=== PATIENT | female | born 1985 | race Caucasian/White ===

== ENCOUNTER 2017-08-24 09:05 | Emergency (ER) | payer OTHER, SELFPAY ==
[2017-08-24 09:16] VITALS: BP 135/104; PULSE 110; RESP 20; TEMP 36.5; O2SAT 95
[2017-08-24] MEDS: ONDANSETRON 4 MG/2 ML INJ IV (10:06)
[2017-08-24 10:08] LABS: INR 1.4 (0.9-1.3); Prothrombin Time 15.6 SECONDS (10.1-12.7)
[2017-08-24 10:10] LABS: Add Manual Diff / Slide Review NO; Basophils Percent Auto 0.9 % (0-2); Hematocrit 42.5 % (36-46); Hemoglobin 14.6 g/dL (12.0-16.0); Lymphocytes Percent Auto 20.8 % (25-40); Mean Corpuscular HGB Conc 34.4 % (30-36); Mean Corpuscular Hemoglobin 36.7 PG (26-34); Mean Corpuscular Volume 106.8 fL (80-100); Neutrophils Absolute Auto 3000 /uL (3000-5900); Neutrophils Percent Auto 63.3 % (50-75); PTT Partial Thromboplastin Tim 37 SECONDS (26.4-36.2); Platelet Count 152 X10^3/uL (150-400); Red Blood Cell Count 3.98 X10^6/uL (4.0-5.2); Red Cell Distribution Width 13.3 % (11.6-14.8); White Blood Cell Count 4.7 X10^3/uL (4.5-11.0)
[2017-08-24 10:13] LABS: Alanine Aminotransferase 58 IU/L (9-52); Albumin 2.4 g/dL (3.5-5.0); Albumin Globulin Ratio 0.8 (1.0-2.8); Alkaline Phosphatase 171 U/L (38-126); Aspartate Aminotransferase 129 IU/L (14-36); Bilirubin Total 1.4 mg/dL (0.2-1.3); Calcium 8.3 mg/dL (8.4-10.2); Estimated Glomerular Filt Rate > 60.0 mL/min (>60); Glucose 75 mg/dL (70-100); HEMOLYSIS 16 (0-50); Lipase 33 U/L (23-300); Potassium 3.6 mmol/L (3.4-5.1); Sodium 141 mmol/L (137-145); Total Protein 5.4 g/dL (6.3-8.2)
[2017-08-24 10:37] VITALS: BP 130/96; PULSE 92; RESP 18; TEMP 36.8; O2SAT 95
--- NOTE | 2017-08-24 11:08 | DI.US.S_ITS ---
PROCEDURE: US ABDOMEN COMPLETE INDICATIONS: new onset asciites - liver and pancreas? TECHNIQUE: Real-time scanning was performed of the abdominal and retroperitoneal organs, with image documentation. COMPARISON: [facility], US, ABDOMEN COMPLETE, 08/15/2017, 11:32. [facility], CT, ABDOMEN/PELVIS WITH CONTRAST, 08/15/2017, 10:16. FINDINGS: Liver: The liver is measuring within the upper limits of normal for size and is noted to be diffusely echogenic, which does result in difficulty evaluating the liver for deep liver lesions. No large liver lesions are identified. Gallbladder: The gallbladder is noted to be enlarged, similar to the prior CT. No gallbladder wall thickening, pericholecystic fluid, or cholelithiasis is evident. Biliary ducts: The biliary ducts are not adequately seen related to diffusely increased echogenicity of the liver. Pancreas: Obscured by bowel gas. Spleen: Spleen is normal in size and homogeneous in echotexture. Kidneys: Kidneys are normal in size and echotexture. Right kidney measures 10.6 cm long; left kidney measures 11.9 cm long. No hydronephrosis or nephrolithiasis. No solid masses. Aorta: Obscured by bowel gas. Iliacs: Obscured by bowel gas. IVC: Obscured by bowel gas. Miscellaneous: Moderate amount of abdominal ascites is noted. IMPRESSION: 1. Prominent echogenic liver is most suggestive of hepatic steatosis. 2. Enlarged gallbladder without cholecystitis or sonographic findings of acute inflammation is similar to the prior study. 3. Mild to moderate upper abdominal ascites. Dictated by: Charlie Still M.D. on 08/24/2017 at 10:55 Approved by: Charlie Still M.D. on 08/24/2017 at 10:59
--- NOTE | 2017-08-24 12:26 | ED_ITS ---
HPI - Abdominal Pain General Chief Complaint: Abdominal Pain Stated Complaint: PT STATES LIVER FAILURE, THROWING UP History of Present Illness HPI narrative: HPI 32-year-old female history of EtOH abuse and recently diagnosed ascites presents for further evaluation after having recurrent abdominal swelling and running out of Lasix. Patient reports that she was seen in the emergency department on 08/15/17 prescribed 3 doses of Lasix instructed to follow-up with her PCP. The patient has been unable to follow up with a PCP. The patient returned as she has had a mild worsening of symptoms. M/S/F/SocHx notable for: please see HPI; remainder reviewed with patient and in chart. ROS: Negative constitutional, eye, cardiovascular, pulmonary, GI, , MSK, skin , neurologic, psychiatric, endocrine unless noted in the HPI. Exam Gen: Pleasant, non-toxic appearing, resting comfortably. HEENT: NC, AT, PEERL, EOMI. Resp: Clear to auscultation bilaterally, normal work of breathing, no accessory muscle usage. Card: Regular rate and rhythm with no murmurs, rubs, or gallops, extremities warm and well perfused. GI: nontender to palpation throughout all quadrants, no rebound, no guarding, mild distention with a slight fluid wave appreciated. Bedside ultrasound with small volume ascites no clear drainable fluid collections. : No suprapubic tenderness to palpation. MSK: No visible deformities, strength and tone without visually appreciable deficit. Skin: Normal color with no visible lesions. Neuro: AO x 3, no facial asymmetry, vision and hearing WNL. Psych: Mood and affect appropriate. Labs / Imaging: WBC 4.7, hemoglobin 14.6, PT/I and R1 .4, aPTT 37, sodium 141, potassium 3.6, creatinine 0.5, AST 129, ALT 58, albumin 0.8 US abdomen: prominent echogenic liver is most suggestive of hepatic steatosis. Large gallbladder without cholesystitis or sonographic findings of acute inflammation similar to the prior study. Mild to moderate upper abdominal ascites. MDM Previous chart, nursing note, labs, imaging, and vitals reviewed. A: 32-year-old female history of EtOH abuse and recently diagnosed ascites presents for further evaluation after having recurrent abdominal swelling and running out of Lasix. DDx & Evaluation: given history and exam tentatively suspect alcoholic cirrhosis , however the patient will require further evaluation - on an outpatient basis - to further characterize her disease process. Patient was prescribed 5 doses of Spironolactone 100 mg and Lasix 40 mg to be taken daily to initiate diuresis of her ascites. Exam and labs without evidence of SBP. Guard with instructions to follow-up within 2 to 4 days with a primary care physician, resources provided. Impression: ascites (please reference below for remainder of encounter information) Related Data Home Medications Medication Instructions Recorded Confirmed diphenhydramine HCl [Benadryl 50 mg PO Q6HP PRN #0 02/16/16 08/24/17 Allergy] Allergies Allergy/AdvReac Type Severity Reaction Status Date / Time acetaminophen Allergy Intermediate Abdominal Verified 08/24/17 10:47 Pain NSAIDS (Non-Steroidal Allergy Intermediate Abdominal Verified 08/24/17 10:47 Anti-Inflamma Pain oxycodone Allergy Intermediate Abdominal Verified 08/24/17 10:47 Pain PFSH Medical History Alcoholism (Acute) Cirrhosis of liver (Acute) Social History Smoking Status: Current every day smoker MDM - Abdominal Pain Lab Data Result diagrams: 08/24/17 09:50 08/24/17 09:50 Lab Results 08/24/17 08/24/17 08/24/17 Range/Units 09:50 09:50 09:50 WBC 4.7 (4.5-11.0) X10^3/uL RBC 3.98 L (4.0-5.2) X10^6/uL Hgb 14.6 (12.0-16.0) g/dL Hct 42.5 (36-46) % MCV 106.8 H (80-100) fL MCH 36.7 H (26-34) PG MCHC 34.4 (30-36) % RDW 13.3 (11.6-14.8) % Plt Count 152 (150-400) X10^3/uL Neut % (Auto) 63.3 (50-75) % Lymph % (Auto) 20.8 L (25-40) % [place] % (Auto) 13.0 (3-14) % Eos % (Auto) 2.0 (2-4) % Baso % (Auto) 0.9 (0-2) % Neut # (Auto) 3000 (7998-5200) /uL PT 15.6 H (10.1-12.7) SECONDS INR 1.4 H (0.9-1.3) APTT 37 H (26.4-36.2) SECONDS Sodium 141 (137-145) mmol/L Potassium 3.6 (3.4-5.1) mmol/L Chloride 106.0 (98-107) mmol/L Carbon Dioxide 29.0 (22-32) mmol/L BUN 5.0 L (7-17) mg/dL Creatinine 0.50 L (0.52-1.04) mg/dL Estimated GFR > 60.0 (>60) mL/min BUN/Creatinine Ratio 10.0 (6-22) Glucose 75 (70-100) mg/dL Calcium 8.3 L (8.4-10.2) mg/dL Total Bilirubin 1.4 H (0.2-1.3) mg/dL AST 129 H (14-36) IU/L ALT 58 H (9-52) IU/L Alkaline Phosphatase 171 H (38-126) U/L Total Protein 5.4 L (6.3-8.2) g/dL Albumin 2.4 L (3.5-5.0) g/dL Globulin 3.0 (1.7-4.1) g/dL Albumin/Globulin Ratio 0.8 L (1.0-2.8) Lipase 33 (23-300) U/L Discharge Plan Departure Prescriptions: No Action diphenhydramine HCl [Benadryl Allergy] 25 MG tablet 50 mg PO Q6HP PRN (Reason: Allergic Symptoms) Qty: 0 RF: 0
[2017-08-24 12:53] VITALS: BP 126/97; PULSE 91; RESP 14; O2SAT 95
[2017-08-24 13:26] VITALS: BP 126/97; PULSE 91; RESP 18; TEMP 36.8; O2SAT 98
== END 2017-08-24 13:26 | disposition home or self-care (01) ==
PROVIDERS: Emergency Provider Emergency Medicine
DX: R18.8 Other ascites (principal)
CPT/HCPCS: 36591; 76700; 80053; 83690; 85025; 85610; 85730; 96374; 99282; 99284; J2405

== ENCOUNTER 2017-09-01 09:52 | Emergency (ER) | payer OTHER, SELFPAY ==
--- NOTE | 2017-09-01 10:05 | ED.ABDPAIN ---
HPI - Abdominal Pain General Chief Complaint: Abdominal Pain Stated Complaint: states ascites and hemorrhoids Time Seen by Provider: 09/01/17 10:02 Source: patient and family Mode of arrival: ambulatory Limitations: no limitations History of Present Illness HPI narrative: Patient presents to the emergency department today with a chief complaint multiple episodes of watery diarrhea, approximately every hour, since last night. She is now bit dizzy and lightheaded and feels unwell. Additionally she has large painful hemorrhoids that have been present for the past few days. MD complaint: abdominal pain Onset (ago): day(s) Pain Consistency: constant Location: diffuse Severity: moderate Quality: cramping Radiation: none Migration to: no migration Relieving factors: nothing Exacerbating factors: nothing Associated symptoms: nausea, diarrhea and chills Related Data Home Medications Medication Instructions Recorded Confirmed diphenhydramine HCl [Benadryl 50 mg PO Q6HP PRN #0 02/16/16 09/01/17 Allergy] Previous Rx's Medication Instructions Recorded furosemide [Lasix] 40 mg PO DAILY #5 tab 08/24/17 spironolactone 100 mg PO DAILY #5 tab 08/24/17 hydrocortisone [Anusol-HC] 1 applictn NC BID-QID PRN #28.35 09/01/17 gram Allergies Allergy/AdvReac Type Severity Reaction Status Date / Time acetaminophen Allergy Intermediate Abdominal Verified 09/01/17 10:17 Pain NSAIDS (Non-Steroidal Allergy Intermediate Abdominal Verified 09/01/17 10:17 Anti-Inflamma Pain oxycodone Allergy Intermediate Abdominal Verified 09/01/17 10:17 Pain Review of Systems Review of Systems All systems reviewed & are unremarkable except as noted in HPI and below Constitutional Denies chills, Denies fever(s), Denies lethargy and Denies weakness Eyes Denies change in vision, Denies eye discharge, Denies irritation and Denies loss of vision Cardiovascular Denies chest pain, Denies irregular heart rhythm, Denies lightheadedness, Denies palpitations and Denies orthopnea Gastrointestinal Gastrointestinal: Denies abdominal pain, Denies change in bowel habits, Reports cramping, Reports diarrhea, Reports nausea and Denies vomiting Genitourinary Denies hematuria, Denies flank pain, Denies urinary incontinence and Denies urinary urgency Musculoskeletal Denies back pain, Denies muscle weakness, Denies numbness and Denies tingling Integumentary/Breasts Denies pruritus, Denies erythema, Denies rash and Denies wounds Neurologic Denies confusion, Denies loss of vision, Denies numbness, Denies tingling and Denies weakness Psychiatric Denies anxiety, Denies confusion, Denies depression, Denies homicidal ideation and Denies suicidal ideation Endocrine Denies palpitations Hematologic/Lymphatic Denies easy bruising [facility] Medical History Alcoholism (Acute) Cirrhosis of liver (Acute) Social History Smoking Status: Current every day smoker Exam Initial Vital Signs Initial Vital Signs: Vital Signs Temperature 98.4 F 09/01/17 10:06 Pulse Rate 126 H 09/01/17 10:06 Respiratory Rate 22 09/01/17 10:06 Blood Pressure 147/116 H 09/01/17 10:06 Pulse Oximetry 100 09/01/17 10:06 Const General: cooperative, well developed, No well groomed, acute distress and in distress Nutritional Appearance: well nourished Orientation: alert, awake, oriented x3 and not confused [place] Head: normocephalic and atraumatic Ears: external ears normal and TM's normal bilaterally Nose: external nose normal and No nasal discharge Face and sinus: sinuses nontender, face symmetric, no sinus tenderness and No dry mucous membranes Mouth: oral mucosae normal and moist mucous membranes Teeth and gingiva: dentition normal Throat: tonsils normal and uvula midline Chest Chest: normal inspection of the chest Cardio Rate: regular rate Rhythm: regular rhythm Heart Sounds: no click, no gallops, no murmurs and no rubs Pulses: normal peripheral pulses GI Inspection: distended Palpation: soft, no hepatosplenomegaly, No guarding, No pulsatile mass and No tender Auscultation: normal bowel sounds Rectal Exam: visual inspection abnormal Other: Large external hemorrhoids, not thrombosed or bleeding Back/Spine/Pelvis Back: No CVA tenderness Cervical Spine: cervical ROM normal and No pain with cervical ROM Thoracic/Lumbar Spine: thoracic and lumbar spine normal to inspection Neuro General: alert, oriented x3, gait normal and no focal motor deficits Speech: speech normal Sensory Exam: no sensory deficits noted Extrem General: full ROM, no clubbing, cyanosis or edema, no pedal edema and no calf tenderness Course Orders Ordered: ED Orders 09/01/17 10:17 US abdomen limited Stat 09/01/17 10:25 Complete Blood Count AUTO DIFF Stat Comprehensive Metabolic Panel Stat Lipase Stat 09/01/17 10:35 Lactate (Lactic Acid) Stat Prothrombin Time INR Stat 09/01/17 11:14 Urine Microscopic Stat 09/01/17 11:54 Stool Culture Stat Discontinued Medications Hydromorphone HCl (Dilaudid) 1 mg IV NOW ONE Stop: 09/01/17 10:49 Last Admin: 09/01/17 10:54 Dose: Hydromorphone HCl (Dilaudid) 1 mg IV NOW ONE Stop: 09/01/17 10:56 Last Admin: 09/01/17 10:56 Dose: 1 mg Sodium Chloride (Normal Saline 0.9%) 1,000 mls @ 1,000 mls/hr IV NOW KEYLA Last Infusion: 09/01/17 11:48 Dose: 0 mls/hr Admin: 09/01/17 10:35 Dose: 1,000 mls/hr Sodium Chloride (Normal Saline 0.9%) 1,000 mls @ 1,000 mls/hr IV BOLUS ONE Stop: 09/01/17 12:47 Last Infusion: 09/01/17 13:00 Dose: 0 mls/hr Admin: 09/01/17 11:55 Dose: 1,000 mls/hr Lidocaine HCl (Xylocaine Jelly 2%) 1 applic TOP NOW ONE Stop: 09/01/17 10:32 Last Admin: 09/01/17 10:35 Dose: 1 applic Vital Signs - 8 hr 09/01/17 10:06 09/01/17 11:02 09/01/17 11:34 Temperature 98.4 F Pulse Rate 126 H 98 H 98 H Respiratory Rate 22 18 16 Blood Pressure 147/116 H Blood Pressure [Left Arm] 134/108 H 129/103 H Pulse Oximetry 100 99 95 09/01/17 12:05 09/01/17 12:34 09/01/17 13:47 Temperature 98.1 F Pulse Rate 97 H 100 H 90 Respiratory Rate 15 16 14 Blood Pressure Blood Pressure [Left Arm] 128/99 H 118/95 H 142/98 H Pulse Oximetry 96 95 99 MDM - Abdominal Pain Differential Diagnosis Differential diagnosis: Likely abdominal pain and gastroenteritis Medical Records Attestation: I reviewed the patient's medical records. Lab Data Attestation: I reviewed the patient's lab results. Result diagrams: 09/01/17 10:25 09/01/17 10:25 Lab Results 09/01/17 09/01/17 09/01/17 Range/Units 10:25 10:25 10:35 WBC 6.5 (4.5-11.0) X10^3/uL RBC 4.24 (4.0-5.2) X10^6/uL Hgb 15.4 (12.0-16.0) g/dL Hct 44.5 (36-46) % MCV 105.1 H (80-100) fL MCH 36.4 H (26-34) PG MCHC 34.6 (30-36) % RDW 12.9 (11.6-14.8) % Plt Count 170 (150-400) X10^3/uL Neut % (Auto) 68.8 (50-75) % Lymph % (Auto) 17.0 L (25-40) % [place] % (Auto) 10.7 (3-14) % Eos % (Auto) 3.1 (2-4) % Baso % (Auto) 0.4 (0-2) % Neut # (Auto) 4500 (4171-0926) /uL PT 16.1 H (10.1-12.7) SECONDS INR 1.5 H (0.9-1.3) Sodium 140 (137-145) mmol/L Potassium 4.4 (3.4-5.1) mmol/L Chloride 107.0 (98-107) mmol/L Carbon Dioxide 25.0 (22-32) mmol/L BUN 3.0 L (7-17) mg/dL Creatinine 0.50 L (0.52-1.04) mg/dL Estimated GFR > 60.0 (>60) mL/min BUN/Creatinine Ratio 6.0 (6-22) Glucose 92 (70-100) mg/dL Lactate (0.7-2.1) mmol/L Calcium 8.3 L (8.4-10.2) mg/dL Total Bilirubin 1.5 H (0.2-1.3) mg/dL AST 264 H (14-36) IU/L ALT 71 H (9-52) IU/L Alkaline Phosphatase 192 H (38-126) U/L Total Protein 6.2 L (6.3-8.2) g/dL Albumin 2.8 L (3.5-5.0) g/dL Globulin 3.4 (1.7-4.1) g/dL Albumin/Globulin Ratio 0.8 L (1.0-2.8) Lipase 61 D (23-300) U/L Urine WBC (0-5/HPF) Ur Squamous Epith Cells Urine Mucus (Negative) Ur Culture Indicated? Micro UA Comment 09/01/17 09/01/17 Range/Units 10:35 10:55 WBC (4.5-11.0) X10^3/uL RBC (4.0-5.2) X10^6/uL Hgb (12.0-16.0) g/dL Hct (36-46) % MCV (80-100) fL MCH (26-34) PG MCHC (30-36) % RDW (11.6-14.8) % Plt Count (150-400) X10^3/uL Neut % (Auto) (50-75) % Lymph % (Auto) (25-40) % [place] % (Auto) (3-14) % Eos % (Auto) (2-4) % Baso % (Auto) (0-2) % Neut # (Auto) (7760-7126) /uL PT (10.1-12.7) SECONDS INR (0.9-1.3) Sodium (137-145) mmol/L Potassium (3.4-5.1) mmol/L Chloride (98-107) mmol/L Carbon Dioxide (22-32) mmol/L BUN (7-17) mg/dL Creatinine (0.52-1.04) mg/dL Estimated GFR (>60) mL/min BUN/Creatinine Ratio (6-22) Glucose (70-100) mg/dL Lactate 2.7 H (0.7-2.1) mmol/L Calcium (8.4-10.2) mg/dL Total Bilirubin (0.2-1.3) mg/dL AST (14-36) IU/L ALT (9-52) IU/L Alkaline Phosphatase (38-126) U/L Total Protein (6.3-8.2) g/dL Albumin (3.5-5.0) g/dL Globulin (1.7-4.1) g/dL Albumin/Globulin Ratio (1.0-2.8) Lipase (23-300) U/L Urine WBC 5-10/hpf H (0-5/HPF) Ur Squamous Epith Cells 5-10 /hpf H Urine Mucus 2+ H (Negative) Ur Culture Indicated? Cult not indicated Micro UA Comment Not Reportable Discharge Plan Departure Patient Disposition: Home, Self-Care Clinical Impression: Hemorrhoid, Diarrhea Discharge Date/Time: 09/01/17 13:50 Interventions: ED Discharge Assessment Last Done: 09/01/17 13:48 Instructions: DI for Hemorrhoids Prescriptions: New hydrocortisone [Anusol-HC] 2.5 % cream with perineal applicator 1 applictn NC BID-QID PRN (Reason: hemorrhoids) Qty: 28.35 RF: 0 No Action diphenhydramine HCl [Benadryl Allergy] 25 MG tablet 50 mg PO Q6HP PRN (Reason: Allergic Symptoms) Qty: 0 RF: 0 furosemide [Lasix] 40 mg tablet 40 mg PO DAILY Qty: 5 RF: 0 spironolactone 100 mg tablet 100 mg PO DAILY Qty: 5 RF: 0 Referrals: Zay Riggs MD [Physician] - Dayne Merino MD [Non-Staff] -
[2017-09-01 10:06] VITALS: BP 147/116; PULSE 126; RESP 22; TEMP 36.9; O2SAT 100; BMI 26.5
--- NOTE | 2017-09-01 10:17 | DI.US.S_ITS ---
PROCEDURE: US ABDOMEN LIMITED INDICATIONS: ascites, worse TECHNIQUE: Real-time focused scanning was performed of the abdomen, with image documentation. COMPARISON: [facility], US, US ABDOMEN COMPLETE, 08/24/2017, 11:26. [facility], US, ABDOMEN COMPLETE, 08/15/2017, 11:32. [facility], CT, ABDOMEN/PELVIS WITH CONTRAST, 08/15/2017, 10:16. [facility], CR, ABDOMEN ACUTE SERIES, 12/27/2016, 19:40. FINDINGS: A moderate to large amount of abdominal ascites is identified within all 4 quadrants. No loculated fluid collections are identified. The amount of fluid within the peritoneal cavity is similar to the prior examination, but may be slightly more prominent. IMPRESSION: Extensive abdominal ascites. Dictated by: Charlie Still M.D. on 09/01/2017 at 10:20 Approved by: Charlie Still M.D. on 09/01/2017 at 10:21
[2017-09-01 10:35] LABS: Add Manual Diff / Slide Review NO; Basophils Percent Auto 0.4 % (0-2); Eosinophils Percent Auto 3.1 % (2-4); Hematocrit 44.5 % (36-46); Hemoglobin 15.4 g/dL (12.0-16.0); Mean Corpuscular HGB Conc 34.6 % (30-36); Mean Corpuscular Hemoglobin 36.4 PG (26-34); Mean Corpuscular Volume 105.1 fL (80-100); Monocytes Percent Auto 10.7 % (3-14); Neutrophils Absolute Auto 4500 /uL (3000-5900); Neutrophils Percent Auto 68.8 % (50-75); Platelet Count 170 X10^3/uL (150-400); Red Blood Cell Count 4.24 X10^6/uL (4.0-5.2); Red Cell Distribution Width 12.9 % (11.6-14.8); White Blood Cell Count 6.5 X10^3/uL (4.5-11.0)
[2017-09-01] MEDS: LIDOCAINE JELLY 2% 5 ML 1 APPLIC TOP (10:35)
[2017-09-01] MEDS: SODIUM CHLORIDE 0.9% 1,000 ML 1000 ML IV ×2 (10:35→11:55)
[2017-09-01 10:45] LABS: Alanine Aminotransferase 71 IU/L (9-52); Albumin 2.8 g/dL (3.5-5.0); Albumin Globulin Ratio 0.8 (1.0-2.8); Alkaline Phosphatase 192 U/L (38-126); Aspartate Aminotransferase 264 IU/L (14-36); Bilirubin Total 1.5 mg/dL (0.2-1.3); Calcium 8.3 mg/dL (8.4-10.2); Estimated Glomerular Filt Rate > 60.0 mL/min (>60); Globulin 3.4 g/dL (1.7-4.1); Glucose 92 mg/dL (70-100); Lipase 61 U/L (23-300); Potassium 4.4 mmol/L (3.4-5.1); Sodium 140 mmol/L (137-145); Total Protein 6.2 g/dL (6.3-8.2)
[2017-09-01 10:46] LABS: HEMOLYSIS 111 (0-50)
[2017-09-01 10:48] LABS: INR 1.5 (0.9-1.3); Prothrombin Time 16.1 SECONDS (10.1-12.7)
[2017-09-01 10:52] LABS: Lactate (Lactic Acid) 2.7 mmol/L (0.7-2.1)
[2017-09-01] MEDS: HYDROMORPHONE 0.5 MG INJ 1 MG IV (10:56)
[2017-09-01 11:02] VITALS: BP 134/108; PULSE 98; RESP 18; O2SAT 99
[2017-09-01 11:27] LABS: Culture Indicated Urine Cult Not Indicated; Mucus Urine 2+ (Negative); Squamous Epithelial Cell Urine 5-10 /HPF; WBC Urine 5-10/HPF (0-5/HPF)
[2017-09-01 11:34] VITALS: BP 129/103; PULSE 98; RESP 16; O2SAT 95
[2017-09-01 12:05] VITALS: BP 128/99; PULSE 97; RESP 15; O2SAT 96
[2017-09-01 12:34] VITALS: BP 118/95; PULSE 100; RESP 16; O2SAT 95
--- NOTE | 2017-09-01 13:04 | PC.NURSE ---
One episode of stool during admission to ED. Denies complaints at this time. Verbalized understanding of need to get PCP and GI follow up for liver concerns.
[2017-09-01 13:47] VITALS: BP 142/98; PULSE 90; RESP 14; TEMP 36.7; O2SAT 99
[2017-09-01 14:42] LABS: Reflexed Lactate in 2 Hours Y
--- NOTE | 2017-09-01 14:48 | ED_ITS ---
HPI - Abdominal Pain General Chief Complaint: Abdominal Pain Stated Complaint: states ascites and hemorrhoids Time Seen by Provider: 09/01/17 10:02 Source: patient and family Mode of arrival: ambulatory Limitations: no limitations History of Present Illness HPI narrative: Patient presents to the emergency department today with a chief complaint multiple episodes of watery diarrhea, approximately every hour, since last night. She is now bit dizzy and lightheaded and feels unwell. Additionally she has large painful hemorrhoids that have been present for the past few days. MD complaint: abdominal pain Onset (ago): day(s) Pain Consistency: constant Location: diffuse Severity: moderate Quality: cramping Radiation: none Migration to: no migration Relieving factors: nothing Exacerbating factors: nothing Associated symptoms: nausea, diarrhea and chills Related Data Home Medications Medication Instructions Recorded Confirmed diphenhydramine HCl [Benadryl 50 mg PO Q6HP PRN #0 02/16/16 09/01/17 Allergy] Previous Rx's Medication Instructions Recorded furosemide [Lasix] 40 mg PO DAILY #5 tab 08/24/17 spironolactone 100 mg PO DAILY #5 tab 08/24/17 hydrocortisone [Anusol-HC] 1 applictn ND BID-QID PRN #28.35 09/01/17 gram Allergies Allergy/AdvReac Type Severity Reaction Status Date / Time acetaminophen Allergy Intermediate Abdominal Verified 09/01/17 10:17 Pain NSAIDS (Non-Steroidal Allergy Intermediate Abdominal Verified 09/01/17 10:17 Anti-Inflamma Pain oxycodone Allergy Intermediate Abdominal Verified 09/01/17 10:17 Pain Review of Systems Review of Systems All systems reviewed & are unremarkable except as noted in HPI and below Constitutional Denies chills, Denies fever(s), Denies lethargy and Denies weakness Eyes Denies change in vision, Denies eye discharge, Denies irritation and Denies loss of vision Cardiovascular Denies chest pain, Denies irregular heart rhythm, Denies lightheadedness, Denies palpitations and Denies orthopnea Gastrointestinal Gastrointestinal: Denies abdominal pain, Denies change in bowel habits, Reports cramping, Reports diarrhea, Reports nausea and Denies vomiting Genitourinary Denies hematuria, Denies flank pain, Denies urinary incontinence and Denies urinary urgency Musculoskeletal Denies back pain, Denies muscle weakness, Denies numbness and Denies tingling Integumentary/Breasts Denies pruritus, Denies erythema, Denies rash and Denies wounds Neurologic Denies confusion, Denies loss of vision, Denies numbness, Denies tingling and Denies weakness Psychiatric Denies anxiety, Denies confusion, Denies depression, Denies homicidal ideation and Denies suicidal ideation Endocrine Denies palpitations Hematologic/Lymphatic Denies easy bruising [facility] Medical History Alcoholism (Acute) Cirrhosis of liver (Acute) Social History Smoking Status: Current every day smoker Exam Initial Vital Signs Initial Vital Signs: Vital Signs Temperature 98.4 F 09/01/17 10:06 Pulse Rate 126 H 09/01/17 10:06 Respiratory Rate 22 09/01/17 10:06 Blood Pressure 147/116 H 09/01/17 10:06 Pulse Oximetry 100 09/01/17 10:06 Const General: cooperative, well developed, No well groomed, acute distress and in distress Nutritional Appearance: well nourished Orientation: alert, awake, oriented x3 and not confused HENMO Head: normocephalic and atraumatic Ears: external ears normal and TM's normal bilaterally Nose: external nose normal and No nasal discharge Face and sinus: sinuses nontender, face symmetric, no sinus tenderness and No dry mucous membranes Mouth: oral mucosae normal and moist mucous membranes Teeth and gingiva: dentition normal Throat: tonsils normal and uvula midline Chest Chest: normal inspection of the chest Cardio Rate: regular rate Rhythm: regular rhythm Heart Sounds: no click, no gallops, no murmurs and no rubs Pulses: normal peripheral pulses GI Inspection: distended Palpation: soft, no hepatosplenomegaly, No guarding, No pulsatile mass and No tender Auscultation: normal bowel sounds Rectal Exam: visual inspection abnormal Other: Large external hemorrhoids, not thrombosed or bleeding Back/Spine/Pelvis Back: No CVA tenderness Cervical Spine: cervical ROM normal and No pain with cervical ROM Thoracic/Lumbar Spine: thoracic and lumbar spine normal to inspection Neuro General: alert, oriented x3, gait normal and no focal motor deficits Speech: speech normal Sensory Exam: no sensory deficits noted Extrem General: full ROM, no clubbing, cyanosis or edema, no pedal edema and no calf tenderness Course Orders Ordered: ED Orders 09/01/17 10:17 US abdomen limited Stat 09/01/17 10:25 Complete Blood Count AUTO DIFF Stat Comprehensive Metabolic Panel Stat Lipase Stat 09/01/17 10:35 Lactate (Lactic Acid) Stat Prothrombin Time INR Stat 09/01/17 11:14 Urine Microscopic Stat 09/01/17 11:54 Stool Culture Stat Discontinued Medications Hydromorphone HCl (Dilaudid) 1 mg IV NOW ONE Stop: 09/01/17 10:49 Last Admin: 09/01/17 10:54 Dose: Hydromorphone HCl (Dilaudid) 1 mg IV NOW ONE Stop: 09/01/17 10:56 Last Admin: 09/01/17 10:56 Dose: 1 mg Sodium Chloride (Normal Saline 0.9%) 1,000 mls @ 1,000 mls/hr IV NOW KEYLA Last Infusion: 09/01/17 11:48 Dose: 0 mls/hr Admin: 09/01/17 10:35 Dose: 1,000 mls/hr Sodium Chloride (Normal Saline 0.9%) 1,000 mls @ 1,000 mls/hr IV BOLUS ONE Stop: 09/01/17 12:47 Last Infusion: 09/01/17 13:00 Dose: 0 mls/hr Admin: 09/01/17 11:55 Dose: 1,000 mls/hr Lidocaine HCl (Xylocaine Jelly 2%) 1 applic TOP NOW ONE Stop: 09/01/17 10:32 Last Admin: 09/01/17 10:35 Dose: 1 applic Vital Signs - 8 hr 09/01/17 10:06 09/01/17 11:02 09/01/17 11:34 Temperature 98.4 F Pulse Rate 126 H 98 H 98 H Respiratory Rate 22 18 16 Blood Pressure 147/116 H Blood Pressure [Left Arm] 134/108 H 129/103 H Pulse Oximetry 100 99 95 09/01/17 12:05 09/01/17 12:34 09/01/17 13:47 Temperature 98.1 F Pulse Rate 97 H 100 H 90 Respiratory Rate 15 16 14 Blood Pressure Blood Pressure [Left Arm] 128/99 H 118/95 H 142/98 H Pulse Oximetry 96 95 99 MDM - Abdominal Pain Differential Diagnosis Differential diagnosis: Likely abdominal pain and gastroenteritis Medical Records Attestation: I reviewed the patient's medical records. Lab Data Attestation: I reviewed the patient's lab results. Result diagrams: 09/01/17 10:25 09/01/17 10:25 Lab Results 09/01/17 09/01/17 09/01/17 Range/Units 10:25 10:25 10:35 WBC 6.5 (4.5-11.0) X10^3/uL RBC 4.24 (4.0-5.2) X10^6/uL Hgb 15.4 (12.0-16.0) g/dL Hct 44.5 (36-46) % MCV 105.1 H (80-100) fL MCH 36.4 H (26-34) PG MCHC 34.6 (30-36) % RDW 12.9 (11.6-14.8) % Plt Count 170 (150-400) X10^3/uL Neut % (Auto) 68.8 (50-75) % Lymph % (Auto) 17.0 L (25-40) % [place] % (Auto) 10.7 (3-14) % Eos % (Auto) 3.1 (2-4) % Baso % (Auto) 0.4 (0-2) % Neut # (Auto) 4500 (3018-7207) /uL PT 16.1 H (10.1-12.7) SECONDS INR 1.5 H (0.9-1.3) Sodium 140 (137-145) mmol/L Potassium 4.4 (3.4-5.1) mmol/L Chloride 107.0 (98-107) mmol/L Carbon Dioxide 25.0 (22-32) mmol/L BUN 3.0 L (7-17) mg/dL Creatinine 0.50 L (0.52-1.04) mg/dL Estimated GFR > 60.0 (>60) mL/min BUN/Creatinine Ratio 6.0 (6-22) Glucose 92 (70-100) mg/dL Lactate (0.7-2.1) mmol/L Calcium 8.3 L (8.4-10.2) mg/dL Total Bilirubin 1.5 H (0.2-1.3) mg/dL AST 264 H (14-36) IU/L ALT 71 H (9-52) IU/L Alkaline Phosphatase 192 H (38-126) U/L Total Protein 6.2 L (6.3-8.2) g/dL Albumin 2.8 L (3.5-5.0) g/dL Globulin 3.4 (1.7-4.1) g/dL Albumin/Globulin Ratio 0.8 L (1.0-2.8) Lipase 61 D (23-300) U/L Urine WBC (0-5/HPF) Ur Squamous Epith Cells Urine Mucus (Negative) Ur Culture Indicated? Micro UA Comment 09/01/17 09/01/17 Range/Units 10:35 10:55 WBC (4.5-11.0) X10^3/uL RBC (4.0-5.2) X10^6/uL Hgb (12.0-16.0) g/dL Hct (36-46) % MCV (80-100) fL MCH (26-34) PG MCHC (30-36) % RDW (11.6-14.8) % Plt Count (150-400) X10^3/uL Neut % (Auto) (50-75) % Lymph % (Auto) (25-40) % [place] % (Auto) (3-14) % Eos % (Auto) (2-4) % Baso % (Auto) (0-2) % Neut # (Auto) (4168-9255) /uL PT (10.1-12.7) SECONDS INR (0.9-1.3) Sodium (137-145) mmol/L Potassium (3.4-5.1) mmol/L Chloride (98-107) mmol/L Carbon Dioxide (22-32) mmol/L BUN (7-17) mg/dL Creatinine (0.52-1.04) mg/dL Estimated GFR (>60) mL/min BUN/Creatinine Ratio (6-22) Glucose (70-100) mg/dL Lactate 2.7 H (0.7-2.1) mmol/L Calcium (8.4-10.2) mg/dL Total Bilirubin (0.2-1.3) mg/dL AST (14-36) IU/L ALT (9-52) IU/L Alkaline Phosphatase (38-126) U/L Total Protein (6.3-8.2) g/dL Albumin (3.5-5.0) g/dL Globulin (1.7-4.1) g/dL Albumin/Globulin Ratio (1.0-2.8) Lipase (23-300) U/L Urine WBC 5-10/hpf H (0-5/HPF) Ur Squamous Epith Cells 5-10 /hpf H Urine Mucus 2+ H (Negative) Ur Culture Indicated? Cult not indicated Micro UA Comment Not Reportable Discharge Plan Departure Patient Disposition: Home, Self-Care Clinical Impression: Hemorrhoid, Diarrhea Discharge Date/Time: 09/01/17 13:50 Interventions: ED Discharge Assessment Last Done: 09/01/17 13:48 Instructions: DI for Hemorrhoids Prescriptions: New hydrocortisone [Anusol-HC] 2.5 % cream with perineal applicator 1 applictn ND BID-QID PRN (Reason: hemorrhoids) Qty: 28.35 RF: 0 No Action diphenhydramine HCl [Benadryl Allergy] 25 MG tablet 50 mg PO Q6HP PRN (Reason: Allergic Symptoms) Qty: 0 RF: 0 furosemide [Lasix] 40 mg tablet 40 mg PO DAILY Qty: 5 RF: 0 spironolactone 100 mg tablet 100 mg PO DAILY Qty: 5 RF: 0 Referrals: Zay Riggs MD [Physician] - Dayne Merino MD [Non-Staff] -
== END 2017-09-01 13:50 | disposition home or self-care (01) ==
PROVIDERS: Emergency Provider Emergency Medicine
DX: K64.9 Unspecified hemorrhoids (principal); R19.7 Diarrhea, unspecified
CPT/HCPCS: 36415; 36591; 76705; 80053; 81003; 81015; 81025; 83605; 83690; 85025; 85610; 87045; 87046; 96361; 96374; 99284; J1170

== ENCOUNTER 2017-09-15 11:42 | Observation (INO) | payer OTHER, SELFPAY ==
[2017-09-15] VITALS (10 sets, daily range): BP systolic 112–147; BP diastolic 79–102; PULSE 64–135; RESP 16–25; TEMP 37–38; O2SAT 94–98; BMI 30.7
--- NOTE | 2017-09-15 12:32 | ED.ABDPAIN ---
HPI - Abdominal Pain <Yeny Roach PA-C - Last Filed: 09/15/17 16:47> General Chief Complaint: Abdominal Pain Stated Complaint: TROUBLE BREATHING Time Seen by Provider: 09/15/17 12:35 Source: patient Mode of arrival: ambulatory Limitations: no limitations History of Present Illness HPI narrative: This 32-year-old female with recent diagnosis of liver failure and ascites returns to the ED due to worsening ascites, generalized edema and dyspnea. Her states that he has noticed this become much worse over the last week since out of lasix and spironolactone. She is sleepier and seems foggy headed at times. She states that her belly feels swollen and tender everywhere. She states it is harder to breathe due to the fluid, but not having chest pain or new pain in the extremities. She states that she has had generalized chills. She has had persistent nausea but no vomiting. She is trying to keep up with p.o. intake. She has become so weak over the last few days that most of the time she needs help to get up. She gets winded just walking a few steps. Her states that she has gained about 35 lb on their scale in the last 3 weeks and now has to wear his clothing due to this. She states that she has [facility] to [facility] but has been unable to get an appointment. She is limiting alcohol to 1 glass of wine or less at nighttime. She denies any new urinary symptoms, bowel habit changes from the persistent diarrhea she had last time she was here, or other new symptoms on systems review Related Data Home Medications Medication Instructions Recorded Confirmed No Known Home Medications 09/15/17 09/15/17 Allergies Allergy/AdvReac Type Severity Reaction Status Date / Time acetaminophen Allergy Intermediate Abdominal Verified 09/01/17 10:17 Pain NSAIDS (Non-Steroidal Allergy Intermediate Abdominal Verified 09/01/17 10:17 Anti-Inflamma Pain oxycodone Allergy Intermediate Abdominal Verified 09/01/17 10:17 Pain Review of Systems <Yeny Roach PA-C - Last Filed: 09/15/17 16:47> Review of Systems All systems reviewed & are unremarkable except as noted in HPI and below Exam <Yeny Roach PA-C - Last Filed: 09/15/17 16:47> Narrative Exam Narrative: GENERAL APPEARANCE: Patient sitting comfortably, tearful at times, but in no distress. HEENT: PERRL, EOMI, conjunctiva pink, no scleral icterus NECK: Supple, no masses LUNGS: Clear to auscultation bilaterally. HEART: Rate and rhythm regular, normal S1 and S2, no S3 or S4. ABDOMEN: Soft, generalized tenderness which appears increased at the bilateral costal margins, prominent with some fluid shift but no clear distention, bowel sounds present x 4 quadrants, no masses palpable, no hepatosplenomegaly however unable to palpate Thomas secondary to tenderness. No guarding or rebound EXTREMITIES: No edema, no cyanosis, no calf tenderness DERMATOLOGIC: No jaundice or exanthem NEUROLOGIC: Alert and oriented with normal speech and coordination Initial Vital Signs Initial Vital Signs: Vital Signs Temperature 100.4 F H 09/15/17 11:47 Pulse Rate 126 H 09/15/17 11:47 Respiratory Rate 20 09/15/17 11:47 Blood Pressure 147/102 H 09/15/17 11:47 Pulse Oximetry 96 09/15/17 11:47 <Easton López DO - Last Filed: 09/15/17 19:18> Initial Vital Signs Initial Vital Signs: Vital Signs Temperature 100.4 F H 09/15/17 11:47 Pulse Rate 126 H 09/15/17 11:47 Respiratory Rate 20 09/15/17 11:47 Blood Pressure 147/102 H 09/15/17 11:47 Pulse Oximetry 96 09/15/17 11:47 Course <Yeny Roach PA-C - Last Filed: 09/15/17 16:47> Hospital Course: Ambulation trial was done and patient's O2 sat is stable at 95 however has sustained tachycardia at 135 bpm with minimal walking. Spoke with Dr. Norman regarding this and fever and he is agreeable with admission for observation. He agrees paracentesis is needed. This has already been ordered to be done prior to radiologist leaving for the evening Orders Ordered: ED Orders 09/15/17 12:58 Add on Lab Tests Stat 09/15/17 13:03 US abdomen limited Stat XR chest 2V Stat 09/15/17 13:30 Alpha Fetoprotein Stat Complete Blood Count AUTO DIFF Stat Comprehensive Metabolic Panel Stat Lipase Stat PTT [Partial Thromboplastin Time] Stat Prothrombin Time INR Stat 09/15/17 13:35 Lactate (Lactic Acid) Stat 09/15/17 14:35 Urine Culture Stat Urine Microscopic Stat 09/15/17 15:25 US paracentesis Stat 09/15/17 15:52 Body Fluid Culture Stat 09/15/17 17:37 Albumin Body Fluid Stat Cell Count w Diff Body Fluid Stat Total Protein Body Fluid Stat Sodium Chloride (Normal Saline 0.9%) 1,000 mls @ 1,000 mls/hr IV BOLUS PRN PRN Reason: Fluid replacement Last Infusion: 09/15/17 16:43 Dose: 0 mls/hr Admin: 09/15/17 14:19 Dose: 1,000 mls/hr Discontinued Medications Furosemide (Lasix) 40 mg PO NOW ONE Stop: 09/15/17 13:58 Last Admin: 09/15/17 14:20 Dose: 40 mg Hydromorphone HCl (Dilaudid) 1 mg IV NOW ONE Stop: 09/15/17 15:59 Last Admin: 09/15/17 16:11 Dose: 1 mg Ketorolac Tromethamine (Toradol) 15 mg IV NOW ONE Stop: 09/15/17 14:12 Last Admin: 09/15/17 14:25 Dose: Ketorolac Tromethamine (Toradol) 15 mg IV NOW ONE Stop: 09/15/17 14:31 Last Admin: 09/15/17 14:24 Dose: 15 mg Ondansetron HCl (Zofran) 4 mg IV NOW ONE Stop: 09/15/17 13:05 Last Admin: 09/15/17 14:21 Dose: 4 mg Spironolactone (Aldactone) 100 mg PO NOW ONE Stop: 09/15/17 13:59 Last Admin: 09/15/17 14:23 Dose: 100 mg Vital Signs - 8 hr 09/15/17 11:47 09/15/17 13:25 09/15/17 14:31 Temperature 100.4 F H Pulse Rate 126 H 64 101 H Respiratory Rate 20 16 25 H Blood Pressure 147/102 H Blood Pressure [Left Arm] 120/91 H 134/95 H Pulse Oximetry 96 98 09/15/17 15:08 09/15/17 15:23 09/15/17 16:00 Temperature Pulse Rate 111 H 135 H 92 H Respiratory Rate 24 24 19 Blood Pressure Blood Pressure [Left Arm] 128/90 H 122/86 H Pulse Oximetry 95 95 09/15/17 17:20 Temperature 98.6 F Pulse Rate 103 H Respiratory Rate 16 Blood Pressure 128/88 H Blood Pressure [Left Arm] Pulse Oximetry 94 <Easton López DO - Last Filed: 09/15/17 19:18> Orders Ordered: ED Orders 09/15/17 12:58 Add on Lab Tests Stat 09/15/17 13:03 US abdomen limited Stat XR chest 2V Stat 09/15/17 13:30 Alpha Fetoprotein Stat Complete Blood Count AUTO DIFF Stat Comprehensive Metabolic Panel Stat Lipase Stat PTT [Partial Thromboplastin Time] Stat Prothrombin Time INR Stat 09/15/17 13:35 Lactate (Lactic Acid) Stat 09/15/17 14:35 Urine Culture Stat Urine Microscopic Stat 09/15/17 15:25 US paracentesis Stat 09/15/17 15:52 Body Fluid Culture Stat 09/15/17 17:37 Albumin Body Fluid Stat Cell Count w Diff Body Fluid Stat Total Protein Body Fluid Stat Sodium Chloride (Normal Saline 0.9%) 1,000 mls @ 1,000 mls/hr IV BOLUS PRN PRN Reason: Fluid replacement Last Infusion: 09/15/17 16:43 Dose: 0 mls/hr Admin: 09/15/17 14:19 Dose: 1,000 mls/hr Discontinued Medications Furosemide (Lasix) 40 mg PO NOW ONE Stop: 09/15/17 13:58 Last Admin: 09/15/17 14:20 Dose: 40 mg Hydromorphone HCl (Dilaudid) 1 mg IV NOW ONE Stop: 09/15/17 15:59 Last Admin: 09/15/17 16:11 Dose: 1 mg Ketorolac Tromethamine (Toradol) 15 mg IV NOW ONE Stop: 09/15/17 14:12 Last Admin: 09/15/17 14:25 Dose: Ketorolac Tromethamine (Toradol) 15 mg IV NOW ONE Stop: 09/15/17 14:31 Last Admin: 09/15/17 14:24 Dose: 15 mg Ondansetron HCl (Zofran) 4 mg IV NOW ONE Stop: 09/15/17 13:05 Last Admin: 09/15/17 14:21 Dose: 4 mg Spironolactone (Aldactone) 100 mg PO NOW ONE Stop: 09/15/17 13:59 Last Admin: 09/15/17 14:23 Dose: 100 mg Vital Signs - 8 hr 09/15/17 11:47 09/15/17 13:25 09/15/17 14:31 Temperature 100.4 F H Pulse Rate 126 H 64 101 H Respiratory Rate 20 16 25 H Blood Pressure 147/102 H Blood Pressure [Left Arm] 120/91 H 134/95 H Pulse Oximetry 96 98 09/15/17 15:08 09/15/17 15:23 09/15/17 16:00 Temperature Pulse Rate 111 H 135 H 92 H Respiratory Rate 24 24 19 Blood Pressure Blood Pressure [Left Arm] 128/90 H 122/86 H Pulse Oximetry 95 95 09/15/17 17:20 Temperature 98.6 F Pulse Rate 103 H Respiratory Rate 16 Blood Pressure 128/88 H Blood Pressure [Left Arm] Pulse Oximetry 94 MDM - Abdominal Pain <Yeny Roach PA-C - Last Filed: 09/15/17 16:47> Lab Data Attestation: I reviewed the patient's lab results. Result diagrams: 09/15/17 13:30 09/15/17 13:30 Lab Results 09/15/17 09/15/17 09/15/17 Range/Units 13:30 13:30 13:30 WBC 5.0 (4.5-11.0) X10^3/uL RBC 4.22 (4.0-5.2) X10^6/uL Hgb 15.2 (12.0-16.0) g/dL Hct 43.8 (36-46) % MCV 104.0 H (80-100) fL MCH 36.0 H (26-34) PG MCHC 34.6 (30-36) % RDW 13.5 (11.6-14.8) % Plt Count 180 (150-400) X10^3/uL Neut % (Auto) 66.6 (50-75) % Lymph % (Auto) 19.0 L (25-40) % Catron % (Auto) 10.3 (3-14) % Eos % (Auto) 3.4 (2-4) % Baso % (Auto) 0.7 (0-2) % Neut # (Auto) 3300 (2487-5805) /uL PT 15.0 H (10.1-12.7) SECONDS INR 1.4 H (0.9-1.3) APTT 37 H (26.4-36.2) SECONDS Sodium 141 (137-145) mmol/L Potassium 3.8 (3.4-5.1) mmol/L Chloride 107 (98-107) mmol/L Carbon Dioxide 28 (22-32) mmol/L BUN 2 L (7-17) mg/dL Creatinine 0.60 (0.52-1.04) mg/dL Estimated GFR > 60.0 (>60) mL/min BUN/Creatinine Ratio 3.3 L (6-22) Glucose 83 (70-100) mg/dL Lactate (0.7-2.1) mmol/L Calcium 8.4 (8.4-10.2) mg/dL Total Bilirubin 2.0 H (0.2-1.3) mg/dL AST 293 H (14-36) IU/L ALT 91 H (9-52) IU/L Alkaline Phosphatase 191 H (38-126) U/L Total Protein 6.1 L (6.3-8.2) g/dL Albumin 2.5 L (3.5-5.0) g/dL Globulin 3.6 (1.7-4.1) g/dL Albumin/Globulin Ratio 0.7 L (1.0-2.8) Lipase 67 (23-300) U/L Urine RBC (0-5/HPF) Urine WBC (0-5/HPF) Amorphous Sediment Urine Bacteria (None) Ur Culture Indicated? Micro UA Comment Fluid Color Fluid Appearance Fluid RBC /uL Fld Tot Nucleated Cell /uL Fluid Polynuclear WBCs % Fluid Mononuclear WBCs % Fluid Eosinophils % Body Fluid Clot Fluid Total Protein g/dL Fluid Albumin g/dL 09/15/17 09/15/17 09/15/17 Range/Units 13:35 14:35 17:37 WBC (4.5-11.0) X10^3/uL RBC (4.0-5.2) X10^6/uL Hgb (12.0-16.0) g/dL Hct (36-46) % MCV (80-100) fL MCH (26-34) PG MCHC (30-36) % RDW (11.6-14.8) % Plt Count (150-400) X10^3/uL Neut % (Auto) (50-75) % Lymph % (Auto) (25-40) % Catron % (Auto) (3-14) % Eos % (Auto) (2-4) % Baso % (Auto) (0-2) % Neut # (Auto) (5792-3419) /uL PT (10.1-12.7) SECONDS INR (0.9-1.3) APTT (26.4-36.2) SECONDS Sodium (137-145) mmol/L Potassium (3.4-5.1) mmol/L Chloride (98-107) mmol/L Carbon Dioxide (22-32) mmol/L BUN (7-17) mg/dL Creatinine (0.52-1.04) mg/dL Estimated GFR (>60) mL/min BUN/Creatinine Ratio (6-22) Glucose (70-100) mg/dL Lactate 1.2 (0.7-2.1) mmol/L Calcium (8.4-10.2) mg/dL Total Bilirubin (0.2-1.3) mg/dL AST (14-36) IU/L ALT (9-52) IU/L Alkaline Phosphatase (38-126) U/L Total Protein (6.3-8.2) g/dL Albumin (3.5-5.0) g/dL Globulin (1.7-4.1) g/dL Albumin/Globulin Ratio (1.0-2.8) Lipase (23-300) U/L Urine RBC None seen (0-5/HPF) Urine WBC 5-10/hpf H (0-5/HPF) Amorphous Sediment 3+ Urine Bacteria None seen (None) Ur Culture Indicated? Specimen cultured Micro UA Comment Not Reportable Fluid Color Yellow Fluid Appearance Clear Fluid RBC 221 /uL Fld Tot Nucleated Cell 182 /uL Fluid Polynuclear WBCs 3 % Fluid Mononuclear WBCs 32 % Fluid Eosinophils 0 % Body Fluid Clot No clots present Fluid Total Protein < 2.0 g/dL Fluid Albumin < 1.0 g/dL Imaging Data Chest x-ray: Radiologist's impression: View Report History [address] [address] XRay Report Signed Patient: Tammie Cameron MR#: [id number] : 1985 Acct:[id number] Age/Sex: 32 / F Date of Service: 09/15/17 Loc: ED Accession Number: [id number] Procedure: XR chest 2V Ordering Provider: Yeny Roach P.A-C PROCEDURE: XR CHEST 2V INDICATIONS: ascites, sob TECHNIQUE: 2 views of the chest were acquired. COMPARISON: [facility], , CHEST 2 VIEW, 08/15/2017, 10:56. FINDINGS: Surgical changes and devices: Numerous surgical clips at the gastroesophageal junction.. Lungs and pleura: Bibasilar atelectasis/infiltrates and small bilateral pleural effusions are now evident, exacerbated on the left and new on the right compared to last study. Mediastinum: Mediastinal contours are normal. Heart size is normal. Bones and chest wall: No suspicious bony abnormalities. Soft tissues appear unremarkable. IMPRESSION: Bibasilar atelectasis and pleural effusions, indeterminate. Heart size remains normal. Dictated by: Mejia Kaiser M.D. on 09/15/2017 at 13:22 Approved by: Mejia Kaiser M.D. on 09/15/2017 at 13:30 US - abdomen: Radiologist's impression: [place] [address] Ultrasound Report Signed Patient: Tammie Cameron MR#: [id number] : 1985 Acct:[id number] Age/Sex: 32 / F Date of Service: 09/15/17 Loc: ED Accession Number: [id number] Procedure: US abdomen limited Ordering Provider: Yeny Roach P.A-C PROCEDURE: US ABDOMEN LIMITED INDICATIONS: ascites TECHNIQUE: Real-time focused scanning was performed of the abdomen, with image documentation. COMPARISON: [facility], , US ABDOMEN LIMITED, 09/01/2017, 10:42. FINDINGS: Limited sonographic images demonstrate mild/moderate ascites, unchanged. IMPRESSION: Unchanged ascites as above. Dictated by: Yanni Gomes M.D. on 09/15/2017 at 13:17 Approved by: Yanni Gomes M.D. on 09/15/2017 at 13:17 <Easton López DO - Last Filed: 09/15/17 19:18> Lab Data Lab Results 09/15/17 09/15/17 09/15/17 Range/Units 13:30 13:30 13:30 WBC 5.0 (4.5-11.0) X10^3/uL RBC 4.22 (4.0-5.2) X10^6/uL Hgb 15.2 (12.0-16.0) g/dL Hct 43.8 (36-46) % MCV 104.0 H (80-100) fL MCH 36.0 H (26-34) PG MCHC 34.6 (30-36) % RDW 13.5 (11.6-14.8) % Plt Count 180 (150-400) X10^3/uL Neut % (Auto) 66.6 (50-75) % Lymph % (Auto) 19.0 L (25-40) % Catron % (Auto) 10.3 (3-14) % Eos % (Auto) 3.4 (2-4) % Baso % (Auto) 0.7 (0-2) % Neut # (Auto) 3300 (0010-0366) /uL PT 15.0 H (10.1-12.7) SECONDS INR 1.4 H (0.9-1.3) APTT 37 H (26.4-36.2) SECONDS Sodium 141 (137-145) mmol/L Potassium 3.8 (3.4-5.1) mmol/L Chloride 107 (98-107) mmol/L Carbon Dioxide 28 (22-32) mmol/L BUN 2 L (7-17) mg/dL Creatinine 0.60 (0.52-1.04) mg/dL Estimated GFR > 60.0 (>60) mL/min BUN/Creatinine Ratio 3.3 L (6-22) Glucose 83 (70-100) mg/dL Lactate (0.7-2.1) mmol/L Calcium 8.4 (8.4-10.2) mg/dL Total Bilirubin 2.0 H (0.2-1.3) mg/dL AST 293 H (14-36) IU/L ALT 91 H (9-52) IU/L Alkaline Phosphatase 191 H (38-126) U/L Total Protein 6.1 L (6.3-8.2) g/dL Albumin 2.5 L (3.5-5.0) g/dL Globulin 3.6 (1.7-4.1) g/dL Albumin/Globulin Ratio 0.7 L (1.0-2.8) Lipase 67 (23-300) U/L Urine RBC (0-5/HPF) Urine WBC (0-5/HPF) Amorphous Sediment Urine Bacteria (None) Ur Culture Indicated? Micro UA Comment Fluid Color Fluid Appearance Fluid RBC /uL Fld Tot Nucleated Cell /uL Fluid Polynuclear WBCs % Fluid Mononuclear WBCs % Fluid Eosinophils % Body Fluid Clot Fluid Total Protein g/dL Fluid Albumin g/dL 09/15/17 09/15/17 09/15/17 Range/Units 13:35 14:35 17:37 WBC (4.5-11.0) X10^3/uL RBC (4.0-5.2) X10^6/uL Hgb (12.0-16.0) g/dL Hct (36-46) % MCV (80-100) fL MCH (26-34) PG MCHC (30-36) % RDW (11.6-14.8) % Plt Count (150-400) X10^3/uL Neut % (Auto) (50-75) % Lymph % (Auto) (25-40) % Catron % (Auto) (3-14) % Eos % (Auto) (2-4) % Baso % (Auto) (0-2) % Neut # (Auto) (4642-9503) /uL PT (10.1-12.7) SECONDS INR (0.9-1.3) APTT (26.4-36.2) SECONDS Sodium (137-145) mmol/L Potassium (3.4-5.1) mmol/L Chloride (98-107) mmol/L Carbon Dioxide (22-32) mmol/L BUN (7-17) mg/dL Creatinine (0.52-1.04) mg/dL Estimated GFR (>60) mL/min BUN/Creatinine Ratio (6-22) Glucose (70-100) mg/dL Lactate 1.2 (0.7-2.1) mmol/L Calcium (8.4-10.2) mg/dL Total Bilirubin (0.2-1.3) mg/dL AST (14-36) IU/L ALT (9-52) IU/L Alkaline Phosphatase (38-126) U/L Total Protein (6.3-8.2) g/dL Albumin (3.5-5.0) g/dL Globulin (1.7-4.1) g/dL Albumin/Globulin Ratio (1.0-2.8) Lipase (23-300) U/L Urine RBC None seen (0-5/HPF) Urine WBC 5-10/hpf H (0-5/HPF) Amorphous Sediment 3+ Urine Bacteria None seen (None) Ur Culture Indicated? Specimen cultured Micro UA Comment Not Reportable Fluid Color Yellow Fluid Appearance Clear Fluid RBC 221 /uL Fld Tot Nucleated Cell 182 /uL Fluid Polynuclear WBCs 3 % Fluid Mononuclear WBCs 32 % Fluid Eosinophils 0 % Body Fluid Clot No clots present Fluid Total Protein < 2.0 g/dL Fluid Albumin < 1.0 g/dL Discharge Plan Departure Patient Disposition: Admitted as Observation Clinical Impression: Ascites due to alcoholic cirrhosis Discharge Date/Time: 09/15/17 16:59 Interventions: ED Discharge Assessment Last Done: 09/15/17 16:57 Admit Date/Time: 09/15/17 16:47 Admit Provider: Wilbur Norman <Easton López DO - Last Filed: 09/15/17 19:18> Cosign ED Attending Cosignature Attestation: I was immediately available in the department for consultation. Documentation has been reviewed. I agree with assessment and plan.
--- NOTE | 2017-09-15 13:03 | DI.RAD.S_ITS ---
PROCEDURE: XR CHEST 2V INDICATIONS: ascites, sob TECHNIQUE: 2 views of the chest were acquired. COMPARISON: [facility], , CHEST 2 VIEW, 08/15/2017, 10:56. FINDINGS: Surgical changes and devices: Numerous surgical clips at the gastroesophageal junction.. Lungs and pleura: Bibasilar atelectasis/infiltrates and small bilateral pleural effusions are now evident, exacerbated on the left and new on the right compared to last study. Mediastinum: Mediastinal contours are normal. Heart size is normal. Bones and chest wall: No suspicious bony abnormalities. Soft tissues appear unremarkable. IMPRESSION: Bibasilar atelectasis and pleural effusions, indeterminate. Heart size remains normal. Dictated by: Mejia Kaiser M.D. on 09/15/2017 at 13:22 Approved by: Mejia Kaiser M.D. on 09/15/2017 at 13:30
--- NOTE | 2017-09-15 13:03 | DI.US.S_ITS ---
PROCEDURE: US ABDOMEN LIMITED INDICATIONS: ascites TECHNIQUE: Real-time focused scanning was performed of the abdomen, with image documentation. COMPARISON: [facility], US, US ABDOMEN LIMITED, 09/01/2017, 10:42. FINDINGS: Limited sonographic images demonstrate mild/moderate ascites, unchanged. IMPRESSION: Unchanged ascites as above. Dictated by: Yanni Gomes M.D. on 09/15/2017 at 13:17 Approved by: Yanni Gomes M.D. on 09/15/2017 at 13:17
--- NOTE | 2017-09-15 13:11 | ED_ITS ---
HPI - Abdominal Pain <Yeny Roach PA-C - Last Filed: 09/15/17 16:47> General Chief Complaint: Abdominal Pain Stated Complaint: TROUBLE BREATHING Time Seen by Provider: 09/15/17 12:35 Source: patient Mode of arrival: ambulatory Limitations: no limitations History of Present Illness HPI narrative: This 32-year-old female with recent diagnosis of liver failure and ascites returns to the ED due to worsening ascites, generalized edema and dyspnea. Her states that he has noticed this become much worse over the last week since out of lasix and spironolactone. She is sleepier and seems foggy headed at times. She states that her belly feels swollen and tender everywhere. She states it is harder to breathe due to the fluid, but not having chest pain or new pain in the extremities. She states that she has had generalized chills. She has had persistent nausea but no vomiting. She is trying to keep up with p.o. intake. She has become so weak over the last few days that most of the time she needs help to get up. She gets winded just walking a few steps. Her states that she has gained about 35 lb on their scale in the last 3 weeks and now has to wear his clothing due to this. She states that she has [facility] to [facility] but has been unable to get an appointment. She is limiting alcohol to 1 glass of wine or less at nighttime. She denies any new urinary symptoms, bowel habit changes from the persistent diarrhea she had last time she was here, or other new symptoms on systems review Related Data Home Medications Medication Instructions Recorded Confirmed No Known Home Medications 09/15/17 09/15/17 Allergies Allergy/AdvReac Type Severity Reaction Status Date / Time acetaminophen Allergy Intermediate Abdominal Verified 09/01/17 10:17 Pain NSAIDS (Non-Steroidal Allergy Intermediate Abdominal Verified 09/01/17 10:17 Anti-Inflamma Pain oxycodone Allergy Intermediate Abdominal Verified 09/01/17 10:17 Pain Review of Systems <Yeny Roach PA-C - Last Filed: 09/15/17 16:47> Review of Systems All systems reviewed & are unremarkable except as noted in HPI and below Exam <Yeny Roach PA-C - Last Filed: 09/15/17 16:47> Narrative Exam Narrative: GENERAL APPEARANCE: Patient sitting comfortably, tearful at times, but in no distress. HEENT: PERRL, EOMI, conjunctiva pink, no scleral icterus NECK: Supple, no masses LUNGS: Clear to auscultation bilaterally. HEART: Rate and rhythm regular, normal S1 and S2, no S3 or S4. ABDOMEN: Soft, generalized tenderness which appears increased at the bilateral costal margins, prominent with some fluid shift but no clear distention, bowel sounds present x 4 quadrants, no masses palpable, no hepatosplenomegaly however unable to palpate Thomas secondary to tenderness. No guarding or rebound EXTREMITIES: No edema, no cyanosis, no calf tenderness DERMATOLOGIC: No jaundice or exanthem NEUROLOGIC: Alert and oriented with normal speech and coordination Initial Vital Signs Initial Vital Signs: Vital Signs Temperature 100.4 F H 09/15/17 11:47 Pulse Rate 126 H 09/15/17 11:47 Respiratory Rate 20 09/15/17 11:47 Blood Pressure 147/102 H 09/15/17 11:47 Pulse Oximetry 96 09/15/17 11:47 <Easton López DO - Last Filed: 09/15/17 19:18> Initial Vital Signs Initial Vital Signs: Vital Signs Temperature 100.4 F H 09/15/17 11:47 Pulse Rate 126 H 09/15/17 11:47 Respiratory Rate 20 09/15/17 11:47 Blood Pressure 147/102 H 09/15/17 11:47 Pulse Oximetry 96 09/15/17 11:47 Course <Yeny Roach PA-C - Last Filed: 09/15/17 16:47> Hospital Course: Ambulation trial was done and patient's O2 sat is stable at 95 however has sustained tachycardia at 135 bpm with minimal walking. Spoke with Dr. Norman regarding this and fever and he is agreeable with admission for observation. He agrees paracentesis is needed. This has already been ordered to be done prior to radiologist leaving for the evening Orders Ordered: ED Orders 09/15/17 12:58 Add on Lab Tests Stat 09/15/17 13:03 US abdomen limited Stat XR chest 2V Stat 09/15/17 13:30 Alpha Fetoprotein Stat Complete Blood Count AUTO DIFF Stat Comprehensive Metabolic Panel Stat Lipase Stat PTT [Partial Thromboplastin Time] Stat Prothrombin Time INR Stat 09/15/17 13:35 Lactate (Lactic Acid) Stat 09/15/17 14:35 Urine Culture Stat Urine Microscopic Stat 09/15/17 15:25 US paracentesis Stat 09/15/17 15:52 Body Fluid Culture Stat 09/15/17 17:37 Albumin Body Fluid Stat Cell Count w Diff Body Fluid Stat Total Protein Body Fluid Stat Sodium Chloride (Normal Saline 0.9%) 1,000 mls @ 1,000 mls/hr IV BOLUS PRN PRN Reason: Fluid replacement Last Infusion: 09/15/17 16:43 Dose: 0 mls/hr Admin: 09/15/17 14:19 Dose: 1,000 mls/hr Discontinued Medications Furosemide (Lasix) 40 mg PO NOW ONE Stop: 09/15/17 13:58 Last Admin: 09/15/17 14:20 Dose: 40 mg Hydromorphone HCl (Dilaudid) 1 mg IV NOW ONE Stop: 09/15/17 15:59 Last Admin: 09/15/17 16:11 Dose: 1 mg Ketorolac Tromethamine (Toradol) 15 mg IV NOW ONE Stop: 09/15/17 14:12 Last Admin: 09/15/17 14:25 Dose: Ketorolac Tromethamine (Toradol) 15 mg IV NOW ONE Stop: 09/15/17 14:31 Last Admin: 09/15/17 14:24 Dose: 15 mg Ondansetron HCl (Zofran) 4 mg IV NOW ONE Stop: 09/15/17 13:05 Last Admin: 09/15/17 14:21 Dose: 4 mg Spironolactone (Aldactone) 100 mg PO NOW ONE Stop: 09/15/17 13:59 Last Admin: 09/15/17 14:23 Dose: 100 mg Vital Signs - 8 hr 09/15/17 11:47 09/15/17 13:25 09/15/17 14:31 Temperature 100.4 F H Pulse Rate 126 H 64 101 H Respiratory Rate 20 16 25 H Blood Pressure 147/102 H Blood Pressure [Left Arm] 120/91 H 134/95 H Pulse Oximetry 96 98 09/15/17 15:08 09/15/17 15:23 09/15/17 16:00 Temperature Pulse Rate 111 H 135 H 92 H Respiratory Rate 24 24 19 Blood Pressure Blood Pressure [Left Arm] 128/90 H 122/86 H Pulse Oximetry 95 95 09/15/17 17:20 Temperature 98.6 F Pulse Rate 103 H Respiratory Rate 16 Blood Pressure 128/88 H Blood Pressure [Left Arm] Pulse Oximetry 94 <Easton López DO - Last Filed: 09/15/17 19:18> Orders Ordered: ED Orders 09/15/17 12:58 Add on Lab Tests Stat 09/15/17 13:03 US abdomen limited Stat XR chest 2V Stat 09/15/17 13:30 Alpha Fetoprotein Stat Complete Blood Count AUTO DIFF Stat Comprehensive Metabolic Panel Stat Lipase Stat PTT [Partial Thromboplastin Time] Stat Prothrombin Time INR Stat 09/15/17 13:35 Lactate (Lactic Acid) Stat 09/15/17 14:35 Urine Culture Stat Urine Microscopic Stat 09/15/17 15:25 US paracentesis Stat 09/15/17 15:52 Body Fluid Culture Stat 09/15/17 17:37 Albumin Body Fluid Stat Cell Count w Diff Body Fluid Stat Total Protein Body Fluid Stat Sodium Chloride (Normal Saline 0.9%) 1,000 mls @ 1,000 mls/hr IV BOLUS PRN PRN Reason: Fluid replacement Last Infusion: 09/15/17 16:43 Dose: 0 mls/hr Admin: 09/15/17 14:19 Dose: 1,000 mls/hr Discontinued Medications Furosemide (Lasix) 40 mg PO NOW ONE Stop: 09/15/17 13:58 Last Admin: 09/15/17 14:20 Dose: 40 mg Hydromorphone HCl (Dilaudid) 1 mg IV NOW ONE Stop: 09/15/17 15:59 Last Admin: 09/15/17 16:11 Dose: 1 mg Ketorolac Tromethamine (Toradol) 15 mg IV NOW ONE Stop: 09/15/17 14:12 Last Admin: 09/15/17 14:25 Dose: Ketorolac Tromethamine (Toradol) 15 mg IV NOW ONE Stop: 09/15/17 14:31 Last Admin: 09/15/17 14:24 Dose: 15 mg Ondansetron HCl (Zofran) 4 mg IV NOW ONE Stop: 09/15/17 13:05 Last Admin: 09/15/17 14:21 Dose: 4 mg Spironolactone (Aldactone) 100 mg PO NOW ONE Stop: 09/15/17 13:59 Last Admin: 09/15/17 14:23 Dose: 100 mg Vital Signs - 8 hr 09/15/17 11:47 09/15/17 13:25 09/15/17 14:31 Temperature 100.4 F H Pulse Rate 126 H 64 101 H Respiratory Rate 20 16 25 H Blood Pressure 147/102 H Blood Pressure [Left Arm] 120/91 H 134/95 H Pulse Oximetry 96 98 09/15/17 15:08 09/15/17 15:23 09/15/17 16:00 Temperature Pulse Rate 111 H 135 H 92 H Respiratory Rate 24 24 19 Blood Pressure Blood Pressure [Left Arm] 128/90 H 122/86 H Pulse Oximetry 95 95 09/15/17 17:20 Temperature 98.6 F Pulse Rate 103 H Respiratory Rate 16 Blood Pressure 128/88 H Blood Pressure [Left Arm] Pulse Oximetry 94 MDM - Abdominal Pain <Yeny Roach PA-C - Last Filed: 09/15/17 16:47> Lab Data Attestation: I reviewed the patient's lab results. Result diagrams: 09/15/17 13:30 09/15/17 13:30 Lab Results 09/15/17 09/15/17 09/15/17 Range/Units 13:30 13:30 13:30 WBC 5.0 (4.5-11.0) X10^3/uL RBC 4.22 (4.0-5.2) X10^6/uL Hgb 15.2 (12.0-16.0) g/dL Hct 43.8 (36-46) % MCV 104.0 H (80-100) fL MCH 36.0 H (26-34) PG MCHC 34.6 (30-36) % RDW 13.5 (11.6-14.8) % Plt Count 180 (150-400) X10^3/uL Neut % (Auto) 66.6 (50-75) % Lymph % (Auto) 19.0 L (25-40) % [place] % (Auto) 10.3 (3-14) % Eos % (Auto) 3.4 (2-4) % Baso % (Auto) 0.7 (0-2) % Neut # (Auto) 3300 (1271-1502) /uL PT 15.0 H (10.1-12.7) SECONDS INR 1.4 H (0.9-1.3) APTT 37 H (26.4-36.2) SECONDS Sodium 141 (137-145) mmol/L Potassium 3.8 (3.4-5.1) mmol/L Chloride 107 (98-107) mmol/L Carbon Dioxide 28 (22-32) mmol/L BUN 2 L (7-17) mg/dL Creatinine 0.60 (0.52-1.04) mg/dL Estimated GFR > 60.0 (>60) mL/min BUN/Creatinine Ratio 3.3 L (6-22) Glucose 83 (70-100) mg/dL Lactate (0.7-2.1) mmol/L Calcium 8.4 (8.4-10.2) mg/dL Total Bilirubin 2.0 H (0.2-1.3) mg/dL AST 293 H (14-36) IU/L ALT 91 H (9-52) IU/L Alkaline Phosphatase 191 H (38-126) U/L Total Protein 6.1 L (6.3-8.2) g/dL Albumin 2.5 L (3.5-5.0) g/dL Globulin 3.6 (1.7-4.1) g/dL Albumin/Globulin Ratio 0.7 L (1.0-2.8) Lipase 67 (23-300) U/L Urine RBC (0-5/HPF) Urine WBC (0-5/HPF) Amorphous Sediment Urine Bacteria (None) Ur Culture Indicated? Micro UA Comment Fluid Color Fluid Appearance Fluid RBC /uL Fld Tot Nucleated Cell /uL Fluid Polynuclear WBCs % Fluid Mononuclear WBCs % Fluid Eosinophils % Body Fluid Clot Fluid Total Protein g/dL Fluid Albumin g/dL 09/15/17 09/15/17 09/15/17 Range/Units 13:35 14:35 17:37 WBC (4.5-11.0) X10^3/uL RBC (4.0-5.2) X10^6/uL Hgb (12.0-16.0) g/dL Hct (36-46) % MCV (80-100) fL MCH (26-34) PG MCHC (30-36) % RDW (11.6-14.8) % Plt Count (150-400) X10^3/uL Neut % (Auto) (50-75) % Lymph % (Auto) (25-40) % [place] % (Auto) (3-14) % Eos % (Auto) (2-4) % Baso % (Auto) (0-2) % Neut # (Auto) (2674-0893) /uL PT (10.1-12.7) SECONDS INR (0.9-1.3) APTT (26.4-36.2) SECONDS Sodium (137-145) mmol/L Potassium (3.4-5.1) mmol/L Chloride (98-107) mmol/L Carbon Dioxide (22-32) mmol/L BUN (7-17) mg/dL Creatinine (0.52-1.04) mg/dL Estimated GFR (>60) mL/min BUN/Creatinine Ratio (6-22) Glucose (70-100) mg/dL Lactate 1.2 (0.7-2.1) mmol/L Calcium (8.4-10.2) mg/dL Total Bilirubin (0.2-1.3) mg/dL AST (14-36) IU/L ALT (9-52) IU/L Alkaline Phosphatase (38-126) U/L Total Protein (6.3-8.2) g/dL Albumin (3.5-5.0) g/dL Globulin (1.7-4.1) g/dL Albumin/Globulin Ratio (1.0-2.8) Lipase (23-300) U/L Urine RBC None seen (0-5/HPF) Urine WBC 5-10/hpf H (0-5/HPF) Amorphous Sediment 3+ Urine Bacteria None seen (None) Ur Culture Indicated? Specimen cultured Micro UA Comment Not Reportable Fluid Color Yellow Fluid Appearance Clear Fluid RBC 221 /uL Fld Tot Nucleated Cell 182 /uL Fluid Polynuclear WBCs 3 % Fluid Mononuclear WBCs 32 % Fluid Eosinophils 0 % Body Fluid Clot No clots present Fluid Total Protein < 2.0 g/dL Fluid Albumin < 1.0 g/dL Imaging Data Chest x-ray: Radiologist's impression: View Report History [address] [address] XRay Report Signed Patient: Tammie Cameron MR#: [id number] : 1985 Acct:[id number] Age/Sex: 32 / F Date of Service: 09/15/17 Loc: ED Accession Number: [id number] Procedure: XR chest 2V Ordering Provider: Yeny Roach P.A-C PROCEDURE: XR CHEST 2V INDICATIONS: ascites, sob TECHNIQUE: 2 views of the chest were acquired. COMPARISON: [facility], , CHEST 2 VIEW, 08/15/2017, 10:56. FINDINGS: Surgical changes and devices: Numerous surgical clips at the gastroesophageal junction.. Lungs and pleura: Bibasilar atelectasis/infiltrates and small bilateral pleural effusions are now evident, exacerbated on the left and new on the right compared to last study. Mediastinum: Mediastinal contours are normal. Heart size is normal. Bones and chest wall: No suspicious bony abnormalities. Soft tissues appear unremarkable. IMPRESSION: Bibasilar atelectasis and pleural effusions, indeterminate. Heart size remains normal. Dictated by: Mejia Kaiser M.D. on 09/15/2017 at 13:22 Approved by: Mejia Kaiser M.D. on 09/15/2017 at 13:30 US - abdomen: Radiologist's impression: [place] [address] Ultrasound Report Signed Patient: Tammie Cameron MR#: [id number] : 1985 Acct:[id number] Age/Sex: 32 / F Date of Service: 09/15/17 Loc: ED Accession Number: [id number] Procedure: US abdomen limited Ordering Provider: Yeny Roach P.A-C PROCEDURE: US ABDOMEN LIMITED INDICATIONS: ascites TECHNIQUE: Real-time focused scanning was performed of the abdomen, with image documentation. COMPARISON: [facility], , US ABDOMEN LIMITED, 09/01/2017, 10:42. FINDINGS: Limited sonographic images demonstrate mild/moderate ascites, unchanged. IMPRESSION: Unchanged ascites as above. Dictated by: Yanni Gomes M.D. on 09/15/2017 at 13:17 Approved by: Yanni Gomes M.D. on 09/15/2017 at 13:17 <Easton López DO - Last Filed: 09/15/17 19:18> Lab Data Lab Results 09/15/17 09/15/17 09/15/17 Range/Units 13:30 13:30 13:30 WBC 5.0 (4.5-11.0) X10^3/uL RBC 4.22 (4.0-5.2) X10^6/uL Hgb 15.2 (12.0-16.0) g/dL Hct 43.8 (36-46) % MCV 104.0 H (80-100) fL MCH 36.0 H (26-34) PG MCHC 34.6 (30-36) % RDW 13.5 (11.6-14.8) % Plt Count 180 (150-400) X10^3/uL Neut % (Auto) 66.6 (50-75) % Lymph % (Auto) 19.0 L (25-40) % [place] % (Auto) 10.3 (3-14) % Eos % (Auto) 3.4 (2-4) % Baso % (Auto) 0.7 (0-2) % Neut # (Auto) 3300 (6101-1908) /uL PT 15.0 H (10.1-12.7) SECONDS INR 1.4 H (0.9-1.3) APTT 37 H (26.4-36.2) SECONDS Sodium 141 (137-145) mmol/L Potassium 3.8 (3.4-5.1) mmol/L Chloride 107 (98-107) mmol/L Carbon Dioxide 28 (22-32) mmol/L BUN 2 L (7-17) mg/dL Creatinine 0.60 (0.52-1.04) mg/dL Estimated GFR > 60.0 (>60) mL/min BUN/Creatinine Ratio 3.3 L (6-22) Glucose 83 (70-100) mg/dL Lactate (0.7-2.1) mmol/L Calcium 8.4 (8.4-10.2) mg/dL Total Bilirubin 2.0 H (0.2-1.3) mg/dL AST 293 H (14-36) IU/L ALT 91 H (9-52) IU/L Alkaline Phosphatase 191 H (38-126) U/L Total Protein 6.1 L (6.3-8.2) g/dL Albumin 2.5 L (3.5-5.0) g/dL Globulin 3.6 (1.7-4.1) g/dL Albumin/Globulin Ratio 0.7 L (1.0-2.8) Lipase 67 (23-300) U/L Urine RBC (0-5/HPF) Urine WBC (0-5/HPF) Amorphous Sediment Urine Bacteria (None) Ur Culture Indicated? Micro UA Comment Fluid Color Fluid Appearance Fluid RBC /uL Fld Tot Nucleated Cell /uL Fluid Polynuclear WBCs % Fluid Mononuclear WBCs % Fluid Eosinophils % Body Fluid Clot Fluid Total Protein g/dL Fluid Albumin g/dL 09/15/17 09/15/17 09/15/17 Range/Units 13:35 14:35 17:37 WBC (4.5-11.0) X10^3/uL RBC (4.0-5.2) X10^6/uL Hgb (12.0-16.0) g/dL Hct (36-46) % MCV (80-100) fL MCH (26-34) PG MCHC (30-36) % RDW (11.6-14.8) % Plt Count (150-400) X10^3/uL Neut % (Auto) (50-75) % Lymph % (Auto) (25-40) % [place] % (Auto) (3-14) % Eos % (Auto) (2-4) % Baso % (Auto) (0-2) % Neut # (Auto) (6666-4683) /uL PT (10.1-12.7) SECONDS INR (0.9-1.3) APTT (26.4-36.2) SECONDS Sodium (137-145) mmol/L Potassium (3.4-5.1) mmol/L Chloride (98-107) mmol/L Carbon Dioxide (22-32) mmol/L BUN (7-17) mg/dL Creatinine (0.52-1.04) mg/dL Estimated GFR (>60) mL/min BUN/Creatinine Ratio (6-22) Glucose (70-100) mg/dL Lactate 1.2 (0.7-2.1) mmol/L Calcium (8.4-10.2) mg/dL Total Bilirubin (0.2-1.3) mg/dL AST (14-36) IU/L ALT (9-52) IU/L Alkaline Phosphatase (38-126) U/L Total Protein (6.3-8.2) g/dL Albumin (3.5-5.0) g/dL Globulin (1.7-4.1) g/dL Albumin/Globulin Ratio (1.0-2.8) Lipase (23-300) U/L Urine RBC None seen (0-5/HPF) Urine WBC 5-10/hpf H (0-5/HPF) Amorphous Sediment 3+ Urine Bacteria None seen (None) Ur Culture Indicated? Specimen cultured Micro UA Comment Not Reportable Fluid Color Yellow Fluid Appearance Clear Fluid RBC 221 /uL Fld Tot Nucleated Cell 182 /uL Fluid Polynuclear WBCs 3 % Fluid Mononuclear WBCs 32 % Fluid Eosinophils 0 % Body Fluid Clot No clots present Fluid Total Protein < 2.0 g/dL Fluid Albumin < 1.0 g/dL Discharge Plan Departure Patient Disposition: Admitted as Observation Clinical Impression: Ascites due to alcoholic cirrhosis Discharge Date/Time: 09/15/17 16:59 Interventions: ED Discharge Assessment Last Done: 09/15/17 16:57 Admit Date/Time: 09/15/17 16:47 Admit Provider: Wilbur Norman <Easton López DO - Last Filed: 09/15/17 19:18> Cosign ED Attending Cosignature Attestation: I was immediately available in the department for consultation. Documentation has been reviewed. I agree with assessment and plan.
[2017-09-15 13:40] LABS: Add Manual Diff / Slide Review NO; Basophils Percent Auto 0.7 % (0-2); Eosinophils Percent Auto 3.4 % (2-4); Hematocrit 43.8 % (36-46); Hemoglobin 15.2 g/dL (12.0-16.0); Mean Corpuscular HGB Conc 34.6 % (30-36); Monocytes Percent Auto 10.3 % (3-14); Neutrophils Absolute Auto 3300 /uL (3000-5900); Neutrophils Percent Auto 66.6 % (50-75); Platelet Count 180 X10^3/uL (150-400); Red Blood Cell Count 4.22 X10^6/uL (4.0-5.2); Red Cell Distribution Width 13.5 % (11.6-14.8)
[2017-09-15 13:48] LABS: INR 1.4 (0.9-1.3)
[2017-09-15 13:51] LABS: PTT Partial Thromboplastin Tim 37 SECONDS (26.4-36.2)
[2017-09-15 13:53] LABS: Lactate (Lactic Acid) 1.2 mmol/L (0.7-2.1)
[2017-09-15 13:53] LABS: Alanine Aminotransferase 91 IU/L (9-52); Albumin 2.5 g/dL (3.5-5.0); Albumin Globulin Ratio 0.7 (1.0-2.8); Alkaline Phosphatase 191 U/L (38-126); Aspartate Aminotransferase 293 IU/L (14-36); BUN Creatinine Ratio 3.3 (6-22); Blood Urea Nitrogen 2 mg/dL (7-17); Calcium 8.4 mg/dL (8.4-10.2); Carbon Dioxide 28 mmol/L (22-32); Chloride 107 mmol/L (98-107); Estimated Glomerular Filt Rate > 60.0 mL/min (>60); Globulin 3.6 g/dL (1.7-4.1); Glucose 83 mg/dL (70-100); HEMOLYSIS 18 (0-50); Lipase 67 U/L (23-300); Potassium 3.8 mmol/L (3.4-5.1); Sodium 141 mmol/L (137-145); Total Protein 6.1 g/dL (6.3-8.2)
[2017-09-15] MEDS: SODIUM CHLORIDE 0.9% 1,000 ML 1000 ML IV (14:19)
[2017-09-15] MEDS: FUROSEMIDE 40 MG TABLET PO (14:20)
[2017-09-15] MEDS: ONDANSETRON 4 MG/2 ML INJ IV (14:21)
[2017-09-15] MEDS: SPIRONOLACTONE 50 MG TABLET 100 MG PO (14:23)
[2017-09-15] MEDS: KETOROLAC 60 MG/2 ML VIAL 15 MG IV (14:24)
[2017-09-15 14:37] LABS: Bacteria Urine None Seen; RBC Urine None Seen (0-5/HPF)
[2017-09-15 14:46] LABS: WBC Urine 5-10/HPF (0-5/HPF)
[2017-09-15 14:53] LABS: Amorphous Sediment Urine 3+; Culture Indicated Urine Specimen Cultured
--- NOTE | 2017-09-15 15:24 | PC.NURSE ---
Patient felt no dizziness. Patient stated she felt tired
--- NOTE | 2017-09-15 15:25 | DI.US.S_ITS ---
PROCEDURE: US PARACENTESIS INDICATIONS: ascites TECHNIQUE: The indications, alternatives, benefits, risks, and complications of the procedure were explained to the patient. Written informed consent was obtained and placed in the chart. The abdomen and pelvis were examined sonographically, and an appropriate site was chosen for paracentesis. The skin was prepared and draped in the usual sterile fashion, and 1% lidocaine was infiltrated from the skin down through the peritoneal surface. A 19-gauge catheter-covered needle was then introduced into the peritoneal space, the catheter was advanced and the needle was withdrawn, and thereafter peritoneal fluid was withdrawn. The catheter was then removed and a dressing was applied. The fluid was discarded if the clinician did not order diagnostic testing of the fluid. COMPARISON: None. FINDINGS: Access site: Right lower quadrant Needle: One-Step centesis catheter with introducer needle. Fluid volume and description: Clear yellow fluid, 3550 cc removed Fluid sent for diagnostic testing: As requested Medications: 1% lidocaine for local anaesthesia. Complications: None. IMPRESSION: Successful ultrasound-guided paracentesis. Dictated by: Mejia Kaiser M.D. on 09/16/2017 at 8:29 Approved by: Mejia Kaiser M.D. on 09/16/2017 at 8:29
[2017-09-15] MEDS: HYDROMORPHONE 0.5 MG INJ 1 MG IV (16:11)
[2017-09-15 17:44] LABS: Body Fluid Tot Nucleated Cells 182 /uL
[2017-09-15 17:53] LABS: Body Fluid Red Blood Cells 221 /uL
[2017-09-15 17:59] LABS: Albumin Body Fluid < 1.0 g/dL; Total Protein Body Fluid < 2.0 g/dL
[2017-09-15 18:45] LABS: Body Fluid Appearance CLEAR; Body Fluid Clotted? NO CLOTS PRESENT; Body Fluid Color YELLOW
[2017-09-15 18:51] LABS: Eosinophils Body Fluid 0 %; Mononuclear WBC Body Fluid 32 %; Other Cells Body Fluid 65 %; Polynuclear WBC Body Fluid 3 %
--- NOTE | 2017-09-15 19:36 | PC.ADMIT ---
[address] Admission Note: The patient,Tammie Bingham,32 y/o, was given written information regarding hospital policies, unit procedures and contact persons. Patient's smoking status: Current every day smoker. Vital Signs - 8 hr 09/15/17 11:47 09/15/17 13:25 09/15/17 14:31 Temperature 100.4 F H Pulse Rate 126 H 64 101 H Respiratory Rate 20 16 25 H Blood Pressure 147/102 H Blood Pressure [Left Arm] 120/91 H 134/95 H Pulse Oximetry 96 98 09/15/17 15:08 09/15/17 15:23 09/15/17 16:00 Temperature Pulse Rate 111 H 135 H 92 H Respiratory Rate 24 24 19 Blood Pressure Blood Pressure [Left Arm] 128/90 H 122/86 H Pulse Oximetry 95 95 09/15/17 17:20 Temperature 98.6 F Pulse Rate 103 H Respiratory Rate 16 Blood Pressure 128/88 H Blood Pressure [Left Arm] Pulse Oximetry 94 A/O. ORIENTED TO ROOM AND CALL LIGHT. DENIES PAIN. BANDAID TO ABD LOWER RIGHT QUADRANT C/D/I. SIGNIFICANT OTHER AT BEDSIDE.
--- NOTE | 2017-09-15 20:31 | PM.HP.1 ---
History of Present Illness Chief complaint: TROUBLE BREATHING Narrative: Tammie Bingham is a 32 year old female with history of liver failure presents with increasing ascites and difficulty breathing because of the ascites and some low-grade fevers. She was diagnosed with liver failure a little over a month ago etiology unclear but possibly alcohol related. About a month ago she presented with increasing ascites and was at that time started on spironolactone and Lasix she was to follow up with the [facility] but she has done been unable to make connections there and has run out of medications and because of that has had increasing swelling and now very short of breath because of the increased swelling. She had complains of tenderness in the abdomen and some low-grade fevers also. Patient History Medical History Autoimmune disorder (Chronic) Pulmonary embolus (Resolved) Alcoholism (Chronic) Cirrhosis of liver (Chronic) Surgical History Gastric bypass status for obesity (Chronic) Family & Social History Social History: household members spouse Prior Living Arrangements Apartment/Condo Safety & Behavioral: Feels Safe in Current Yes Environment Been Physically Hurt or No Threatened By a Person Suicidal Ideation Description None Suicide Plan Description No Plan Tobacco & Substance use: Tobacco type cigarettes,cannabis/marijuana Smoking Status Current every day smoker alcohol intake current alcohol intake frequency 0-2 drinks per day Substance Use Type marijuana Meds Home Medications Medication Instructions Recorded Confirmed Type No Known Home Medications 09/15/17 09/15/17 History Allergies Allergy/AdvReac Type Severity Reaction Status Date / Time acetaminophen Allergy Intermediate Abdominal Verified 09/01/17 10:17 Pain NSAIDS (Non-Steroidal Allergy Intermediate Abdominal Verified 09/01/17 10:17 Anti-Inflamma Pain oxycodone Allergy Intermediate Abdominal Verified 09/01/17 10:17 Pain Review of Systems Review of Systems All systems reviewed & are unremarkable except as noted in HPI and below Exam Vital Signs (past 8 hours): Vital Signs - 8 hr 09/15/17 13:25 09/15/17 14:31 09/15/17 15:08 Temperature Pulse Rate 64 101 H 111 H Respiratory Rate 16 25 H 24 Blood Pressure Blood Pressure [Left Arm] 120/91 H 134/95 H 128/90 H Pulse Oximetry 98 09/15/17 15:23 09/15/17 16:00 09/15/17 17:20 Temperature 98.6 F Pulse Rate 135 H 92 H 103 H Respiratory Rate 24 19 16 Blood Pressure 128/88 H Blood Pressure [Left Arm] 122/86 H Pulse Oximetry 95 95 94 Pulse Oximetry 94 Oxygen Delivery Method Room Air Narrative Exam Narrative: She appears in no acute distress currently she just had the paracentesis and is feeling much better state with a few L of fluid were removed. She is somewhat emotional however. Numerous tattoos cover her entire body Oropharynx clear Lungs clear Heart tachycardic Abdomen soft and lies tenderness no masses Lower extremities trace edema Skin warm and dry Neuro exam awake alert no focal deficits Objective Labs Result Diagrams: 09/15/17 13:30 09/15/17 13:30 Labs: Laboratory Results - last 24 hr 09/15/17 09/15/17 09/15/17 13:30 13:30 13:30 WBC 5.0 RBC 4.22 Hgb 15.2 Hct 43.8 MCV 104.0 H MCH 36.0 H MCHC 34.6 RDW 13.5 Plt Count 180 Neut % (Auto) 66.6 Lymph % (Auto) 19.0 L Story % (Auto) 10.3 Eos % (Auto) 3.4 Baso % (Auto) 0.7 Neut # (Auto) 3300 PT 15.0 H INR 1.4 H APTT 37 H Sodium 141 Potassium 3.8 Chloride 107 Carbon Dioxide 28 BUN 2 L Creatinine 0.60 Estimated GFR > 60.0 BUN/Creatinine Ratio 3.3 L Glucose 83 Lactate Calcium 8.4 Total Bilirubin 2.0 H AST 293 H ALT 91 H Alkaline Phosphatase 191 H Total Protein 6.1 L Albumin 2.5 L Globulin 3.6 Albumin/Globulin Ratio 0.7 L Lipase 67 Urine RBC Urine WBC Amorphous Sediment Urine Bacteria Ur Culture Indicated? Micro UA Comment Fluid Color Fluid Appearance Fluid RBC Fld Tot Nucleated Cell Fluid Polynuclear WBCs Fluid Mononuclear WBCs Fluid Eosinophils Body Fluid Clot Fluid Total Protein Fluid Albumin 09/15/17 09/15/17 09/15/17 13:35 14:35 17:37 WBC RBC Hgb Hct MCV MCH MCHC RDW Plt Count Neut % (Auto) Lymph % (Auto) [place] % (Auto) Eos % (Auto) Baso % (Auto) Neut # (Auto) PT INR APTT Sodium Potassium Chloride Carbon Dioxide BUN Creatinine Estimated GFR BUN/Creatinine Ratio Glucose Lactate 1.2 Calcium Total Bilirubin AST ALT Alkaline Phosphatase Total Protein Albumin Globulin Albumin/Globulin Ratio Lipase Urine RBC None seen Urine WBC 5-10/hpf H Amorphous Sediment 3+ Urine Bacteria None seen Ur Culture Indicated? Specimen cultured Micro UA Comment Not Reportable Fluid Color Yellow Fluid Appearance Clear Fluid RBC 221 Fld Tot Nucleated Cell 182 Fluid Polynuclear WBCs 3 Fluid Mononuclear WBCs 32 Fluid Eosinophils 0 Body Fluid Clot No clots present Fluid Total Protein < 2.0 Fluid Albumin < 1.0 Assessment & Plan Plan: Plan: One. Liver failure with worsening ascites secondary to medical noncompliance. Paracentesis done no signs of active peritonitis or infection. Uncertain why she had a low-grade fever but most of the temps now been afebrile. White count is normal really no signs of any infection. Plan to start her back on her diuretics she had a great response to the paracentesis. We will watch her here overnight she needs to have hepatitis a B and C screen for that will be done this evening also check ammonia level. And then hopefully home tomorrow on oral Lasix and spironolactone and then hopefully long term care social worker can help connect her with the [facility] appointment which she needs to do to complete the workup and to be followed by the GI doctors. The patient continues to drink alcohol I talked with her at length regarding the need to stop if she wants to to live. Uncertain etiology of the liver failure and cirrhosis possibly could be due to alcohol but she does have a history of gastric bypass was which can sometimes play a role in this. Quality VTE Deep Vein Thrombosis/Pulmonary Embolism Present on Admission: No
[2017-09-15 20:33] LABS: Ammonia (NH3) < 9.0 umol/L (9-30)
--- NOTE | 2017-09-15 20:39 | P.HP_ITS ---
History of Present Illness Chief complaint: TROUBLE BREATHING Narrative: Tammie Bingham is a 32 year old female with history of liver failure presents with increasing ascites and difficulty breathing because of the ascites and some low-grade fevers. She was diagnosed with liver failure a little over a month ago etiology unclear but possibly alcohol related. About a month ago she presented with increasing ascites and was at that time started on spironolactone and Lasix she was to follow up with the [facility] but she has done been unable to make connections there and has run out of medications and because of that has had increasing swelling and now very short of breath because of the increased swelling. She had complains of tenderness in the abdomen and some low-grade fevers also. Patient History Medical History Autoimmune disorder (Chronic) Pulmonary embolus (Resolved) Alcoholism (Chronic) Cirrhosis of liver (Chronic) Surgical History Gastric bypass status for obesity (Chronic) Family & Social History Social History: household members spouse Prior Living Arrangements Apartment/Condo Safety & Behavioral: Feels Safe in Current Yes Environment Been Physically Hurt or No Threatened By a Person Suicidal Ideation Description None Suicide Plan Description No Plan Tobacco & Substance use: Tobacco type cigarettes,cannabis/marijuana Smoking Status Current every day smoker alcohol intake current alcohol intake frequency 0-2 drinks per day Substance Use Type marijuana Meds Home Medications Medication Instructions Recorded Confirmed Type No Known Home Medications 09/15/17 09/15/17 History Allergies Allergy/AdvReac Type Severity Reaction Status Date / Time acetaminophen Allergy Intermediate Abdominal Verified 09/01/17 10:17 Pain NSAIDS (Non-Steroidal Allergy Intermediate Abdominal Verified 09/01/17 10:17 Anti-Inflamma Pain oxycodone Allergy Intermediate Abdominal Verified 09/01/17 10:17 Pain Review of Systems Review of Systems All systems reviewed & are unremarkable except as noted in HPI and below Exam Vital Signs (past 8 hours): Vital Signs - 8 hr 3 09/15/17 13:25 09/15/17 14:31 09/15/17 15:08 Temperature Pulse Rate 64 101 H 111 H Respiratory Rate 16 25 H 24 Blood Pressure Blood Pressure [Left Arm] 120/91 H 134/95 H 128/90 H Pulse Oximetry 98 3 09/15/17 15:23 09/15/17 16:00 09/15/17 17:20 Temperature 98.6 F Pulse Rate 135 H 92 H 103 H Respiratory Rate 24 19 16 Blood Pressure 128/88 H Blood Pressure [Left Arm] 122/86 H Pulse Oximetry 95 95 94 Pulse Oximetry 94 Oxygen Delivery Method Room Air Narrative Exam Narrative: She appears in no acute distress currently she just had the paracentesis and is feeling much better state with a few L of fluid were removed. She is somewhat emotional however. Numerous tattoos cover her entire body Oropharynx clear Lungs clear Heart tachycardic Abdomen soft and lies tenderness no masses Lower extremities trace edema Skin warm and dry Neuro exam awake alert no focal deficits Objective Labs Result Diagrams: 09/15/17 13:30 09/15/17 13:30 Labs: Laboratory Results - last 24 hr 09/15/17 09/15/17 09/15/17 13:30 13:30 13:30 WBC 5.0 RBC 4.22 Hgb 15.2 Hct 43.8 MCV 104.0 H MCH 36.0 H MCHC 34.6 RDW 13.5 Plt Count 180 Neut % (Auto) 66.6 Lymph % (Auto) 19.0 L [place] % (Auto) 10.3 Eos % (Auto) 3.4 Baso % (Auto) 0.7 Neut # (Auto) 3300 PT 15.0 H INR 1.4 H APTT 37 H Sodium 141 Potassium 3.8 Chloride 107 Carbon Dioxide 28 BUN 2 L Creatinine 0.60 Estimated GFR > 60.0 BUN/Creatinine Ratio 3.3 L Glucose 83 Lactate Calcium 8.4 Total Bilirubin 2.0 H AST 293 H ALT 91 H Alkaline Phosphatase 191 H Total Protein 6.1 L Albumin 2.5 L Globulin 3.6 Albumin/Globulin Ratio 0.7 L Lipase 67 Urine RBC Urine WBC Amorphous Sediment Urine Bacteria Ur Culture Indicated? Micro UA Comment Fluid Color Fluid Appearance Fluid RBC Fld Tot Nucleated Cell Fluid Polynuclear WBCs Fluid Mononuclear WBCs Fluid Eosinophils Body Fluid Clot Fluid Total Protein Fluid Albumin 09/15/17 09/15/17 09/15/17 13:35 14:35 17:37 WBC RBC Hgb Hct MCV MCH MCHC RDW Plt Count Neut % (Auto) Lymph % (Auto) [place] % (Auto) Eos % (Auto) Baso % (Auto) Neut # (Auto) PT INR APTT Sodium Potassium Chloride Carbon Dioxide BUN Creatinine Estimated GFR BUN/Creatinine Ratio Glucose Lactate 1.2 Calcium Total Bilirubin AST ALT Alkaline Phosphatase Total Protein Albumin Globulin Albumin/Globulin Ratio Lipase Urine RBC None seen Urine WBC 5-10/hpf H Amorphous Sediment 3+ Urine Bacteria None seen Ur Culture Indicated? Specimen cultured Micro UA Comment Not Reportable Fluid Color Yellow Fluid Appearance Clear Fluid RBC 221 Fld Tot Nucleated Cell 182 Fluid Polynuclear WBCs 3 Fluid Mononuclear WBCs 32 Fluid Eosinophils 0 Body Fluid Clot No clots present Fluid Total Protein < 2.0 Fluid Albumin < 1.0 Assessment & Plan Plan: Plan: One. Liver failure with worsening ascites secondary to medical noncompliance. Paracentesis done no signs of active peritonitis or infection. Uncertain why she had a low-grade fever but most of the temps now been afebrile. White count is normal really no signs of any infection. Plan to start her back on her diuretics she had a great response to the paracentesis. We will watch her here overnight she needs to have hepatitis a B and C screen for that will be done this evening also check ammonia level. And then hopefully home tomorrow on oral Lasix and spironolactone and then hopefully social science professor can help connect her with the [facility] appointment which she needs to do to complete the workup and to be followed by the GI doctors. The patient continues to drink alcohol I talked with her at length regarding the need to stop if she wants to to live. Uncertain etiology of the liver failure and cirrhosis possibly could be due to alcohol but she does have a history of gastric bypass was which can sometimes play a role in this. Quality VTE Deep Vein Thrombosis/Pulmonary Embolism Present on Admission: No
[2017-09-15 21:27] LABS: Hepatitis B Surface Antigen NEGATIVE s/c (NEGATIVE)
[2017-09-15 21:41] LABS: Hep C Virus Ab w/Reflex Quant NEGATIVE s/c (NEGATIVE)
[2017-09-16] VITALS: BP 105/69; PULSE 96; RESP 17; TEMP 36.8; O2SAT 92
[2017-09-16] MEDS: TRAMADOL 50 MG TABLET PO ×2 (00:08→09:07)
[2017-09-16 04:15] VITALS: BP 111/68; PULSE 93; RESP 19; TEMP 36.9; O2SAT 93
[2017-09-16 06:06] LABS: Add Manual Diff / Slide Review NO; Basophils Percent Auto 0.6 % (0-2); Hematocrit 36.6 % (36-46); Hemoglobin 12.6 g/dL (12.0-16.0); Lymphocytes Percent Auto 24.1 % (25-40); Mean Corpuscular HGB Conc 34.4 % (30-36); Mean Corpuscular Hemoglobin 35.9 PG (26-34); Mean Corpuscular Volume 104.4 fL (80-100); Monocytes Percent Auto 10.6 % (3-14); Neutrophils Absolute Auto 2600 /uL (3000-5900); Neutrophils Percent Auto 59.7 % (50-75); Platelet Count 136 X10^3/uL (150-400); Red Blood Cell Count 3.51 X10^6/uL (4.0-5.2); Red Cell Distribution Width 13.5 % (11.6-14.8); White Blood Cell Count 4.4 X10^3/uL (4.5-11.0)
[2017-09-16 06:08] LABS: INR 1.6 (0.9-1.3); Prothrombin Time 17.1 SECONDS (10.1-12.7)
[2017-09-16 06:16] LABS: Alanine Aminotransferase 68 IU/L (9-52); Albumin 1.7 g/dL (3.5-5.0); Albumin Globulin Ratio 0.6 (1.0-2.8); Alkaline Phosphatase 139 U/L (38-126); Aspartate Aminotransferase 173 IU/L (14-36); Bilirubin Total 1.6 mg/dL (0.2-1.3); Blood Urea Nitrogen 3 mg/dL (7-17); Calcium 7.8 mg/dL (8.4-10.2); Carbon Dioxide 26 mmol/L (22-32); Chloride 107 mmol/L (98-107); Estimated Glomerular Filt Rate > 60.0 mL/min (>60); Globulin 2.9 g/dL (1.7-4.1); Glucose 80 mg/dL (70-100); HEMOLYSIS < 15 (0-50); Magnesium 1.5 mg/dL (1.6-2.3); Potassium 3.5 mmol/L (3.4-5.1); Sodium 138 mmol/L (137-145); Total Protein 4.6 g/dL (6.3-8.2)
[2017-09-16] MEDS: ONDANSETRON 4 MG/2 ML INJ IV ×2 (06:33→11:08)
[2017-09-16 07:00] VITALS: O2SAT 98
[2017-09-16 07:25] VITALS: BP 116/77; PULSE 84; RESP 16; TEMP 36.8; O2SAT 95
[2017-09-16] MEDS: SPIRONOLACTONE 50 MG TABLET PO (09:02)
[2017-09-16] MEDS: SODIUM CHLORIDE 0.9% FLUSH 10 ML IV (09:02)
[2017-09-16] MEDS: FUROSEMIDE 40 MG TABLET PO (09:02)
--- NOTE | 2017-09-16 09:46 | PC.NURSE ---
Tammie is alert and cooperative this AM. Little to no appetite with breakfast. She states she feels better today and can take deeper breaths since they performed paracentesis yesterday. VSS. No fevers.
[2017-09-16 11:49] VITALS: BP 108/76; PULSE 78; RESP 16; TEMP 36.8; O2SAT 98
--- NOTE | 2017-09-16 11:53 | PM.DS.1 ---
History of Present Illness Date Patient Seen: 09/16/17 Time Patient Seen: 11:53 Chief complaint: TROUBLE BREATHING Narrative: Tammie Bingham is a 32-year-old female with recent diagnosis of liver failure about a month ago etiology unclear but possibly alcohol related. About a month ago she presented with increasing ascites and was at that time started on spironolactone and Lasix. She was to follow with the [facility] but she has not been able to make connections. Returned to the ED due to worsening ascites, generalized edema, low-grade fever and dyspnea. Her states that he has noticed this become much worse over the last week since out of lasix and spironolactone. She is sleepier and seems foggy headed at times. She states that her belly feels swollen and tender everywhere. She states it is harder to breathe due to the fluid, but not having chest pain or new pain in the extremities. She states that she has had generalized chills. She has had persistent nausea but no vomiting. She is trying to keep up with p.o. intake. She has become so weak over the last few days that most of the time she needs help to get up. She gets winded just walking a few steps. Her states that she has gained about 35 lb on their scale in the last 3 weeks and now has to wear his clothing due to this. She states that she [facility] to get an [facility]. She is limiting alcohol to 1 glass of wine or less at nighttime. She denies any new urinary symptoms, bowel habit changes from the persistent diarrhea she had last time she was here, or other new symptoms on systems review Discharge Providers Date of admission: 09/15/17 16:47 Discharge provider: ALEKSANDR Dunne Summary Discharge Diagnosis: 1. Liver failure with worsening ascites secondary to medical noncompliance Hospital Course: During this hospitalization patient was restarted on her Lasix and Aldactone. Under abdominal ultrasound paracentesis 3550 CC of ascites was withdrawn. G stain and aerobic culture showed no growth after 24 hr. The anaerobic culture still pending. Hepatitis-B and C are negative. Hepatitis A is still pending.. Patient's vital signs remained stable throughout hospitalization T-max 100.4?. No further complaints of shortness of breath. She has remained slightly nauseated since admission. She has been treated with Zofran q.4 hours as needed. She is confident that after discharge if she can go home and continue to vape marijuana her appetite will improve. Patient will need to be followed up in 1 week for further blood studies including CBC and metabolic panel. She also needs to establish a PCP through the [place]. We have discussed cessation of alcohol intake as well. Discharge instructions provided to both and patient. Both seem willing to comply. Status at Discharge Functional status at discharge: independent ambulation Overall status at discharge: patient is back to baseline Time Spent with Patient Greater than 30 minutes Exam Vital Signs (past 8 hours): Vital Signs - 8 hr 09/16/17 04:15 09/16/17 07:00 09/16/17 07:25 Temperature 98.4 F 98.3 F Pulse Rate 93 H 84 Respiratory Rate 19 16 Blood Pressure 111/68 116/77 Pulse Oximetry 93 98 95 09/16/17 11:49 Temperature 98.3 F Pulse Rate 78 Respiratory Rate 16 Blood Pressure 108/76 Pulse Oximetry 98 Pulse Oximetry 98 Oxygen Delivery Method Room Air Oxygen Flow Rate 0 Narrative Exam Narrative: Patient states she wants to go home. She appears to be in no acute distress at this time. Const General: cooperative and comfortable Orientation: alert, awake and oriented x3 HENMT Head: normal to inspection Other: Numerous tattoos cover her entire body. Eyes General: appearance normal, both eyes and all related structures Neck Neck: normal visual inspection Chest Chest: normal inspection of the chest Resp Effort & Inspection: normal respiratory effort and able to speak in complete sentences Auscultation: rales on the left in the lower lung sherman Cardio Rate: regular rate Rhythm: regular rhythm Heart Sounds: S1 normal and S2 normal GI Palpation: soft Other: Slightly tender to deeper palpation over left upper quadrant. Other: None contributory Back/Spine/Pelvis Back: normal to inspection Skin General: no rashes or lesions noted Neuro General: alert, awake and oriented x3 Cognition: normal cognition Speech: speech normal Gait: normal gait Motor: muscle tone normal throughout Sensory Exam: no sensory deficits noted Extrem General: normal to inspection Right lower extremity: edema (Trace) Left lower extremity: edema (Trace) Psych Appearance: grossly normal Speech and Movement: speech and movement normal Mood: congruent mood Attitude: cooperative Thought Process: normal Thought Content: normal Judgment: judgment good Objective Labs Result Diagrams: 09/16/17 05:28 09/16/17 05:28 Labs: Laboratory Results - last 24 hr 09/15/17 09/15/17 09/15/17 06:40 13:30 13:30 WBC 5.0 RBC 4.22 Hgb 15.2 Hct 43.8 MCV 104.0 H MCH 36.0 H MCHC 34.6 RDW 13.5 Plt Count 180 Neut % (Auto) 66.6 Lymph % (Auto) 19.0 L [place] % (Auto) 10.3 Eos % (Auto) 3.4 Baso % (Auto) 0.7 Neut # (Auto) 3300 PT INR APTT Sodium 141 Potassium 3.8 Chloride 107 Carbon Dioxide 28 BUN 2 L Creatinine 0.60 Estimated GFR > 60.0 BUN/Creatinine Ratio 3.3 L Glucose 83 Lactate Calcium 8.4 Magnesium Total Bilirubin 2.0 H AST 293 H ALT 91 H Alkaline Phosphatase 191 H Ammonia Total Protein 6.1 L Albumin 2.5 L Globulin 3.6 Albumin/Globulin Ratio 0.7 L Lipase 67 Urine RBC Urine WBC Amorphous Sediment Urine Bacteria Ur Culture Indicated? Micro UA Comment Fluid Color Fluid Appearance Fluid RBC Fld Tot Nucleated Cell Fluid Polynuclear WBCs Fluid Mononuclear WBCs Fluid Eosinophils Body Fluid Clot Fluid Total Protein Fluid Albumin Hepatitis A Ab Total Cancelled Hep Bs Antigen Hepatitis C Antibody 09/15/17 09/15/17 09/15/17 13:30 13:35 14:35 WBC RBC Hgb Hct MCV MCH MCHC RDW Plt Count Neut % (Auto) Lymph % (Auto) [place] % (Auto) Eos % (Auto) Baso % (Auto) Neut # (Auto) PT 15.0 H INR 1.4 H APTT 37 H Sodium Potassium Chloride Carbon Dioxide BUN Creatinine Estimated GFR BUN/Creatinine Ratio Glucose Lactate 1.2 Calcium Magnesium Total Bilirubin AST ALT Alkaline Phosphatase Ammonia Total Protein Albumin Globulin Albumin/Globulin Ratio Lipase Urine RBC None seen Urine WBC 5-10/hpf H Amorphous Sediment 3+ Urine Bacteria None seen Ur Culture Indicated? Specimen cultured Micro UA Comment Not Reportable Fluid Color Fluid Appearance Fluid RBC Fld Tot Nucleated Cell Fluid Polynuclear WBCs Fluid Mononuclear WBCs Fluid Eosinophils Body Fluid Clot Fluid Total Protein Fluid Albumin Hepatitis A Ab Total Hep Bs Antigen Hepatitis C Antibody 09/15/17 09/15/17 09/15/17 17:37 20:15 20:15 WBC RBC Hgb Hct MCV MCH MCHC RDW Plt Count Neut % (Auto) Lymph % (Auto) [place] % (Auto) Eos % (Auto) Baso % (Auto) Neut # (Auto) PT INR APTT Sodium Potassium Chloride Carbon Dioxide BUN Creatinine Estimated GFR BUN/Creatinine Ratio Glucose Lactate Calcium Magnesium Total Bilirubin AST ALT Alkaline Phosphatase Ammonia < 9.0 L Total Protein Albumin Globulin Albumin/Globulin Ratio Lipase Urine RBC Urine WBC Amorphous Sediment Urine Bacteria Ur Culture Indicated? Micro UA Comment Fluid Color Yellow Fluid Appearance Clear Fluid RBC 221 Fld Tot Nucleated Cell 182 Fluid Polynuclear WBCs 3 Fluid Mononuclear WBCs 32 Fluid Eosinophils 0 Body Fluid Clot No clots present Fluid Total Protein < 2.0 Fluid Albumin < 1.0 Hepatitis A Ab Total Hep Bs Antigen Negative Hepatitis C Antibody Negative 09/16/17 09/16/17 09/16/17 05:28 05:28 05:28 WBC 4.4 L RBC 3.51 L Hgb 12.6 Hct 36.6 MCV 104.4 H MCH 35.9 H MCHC 34.4 RDW 13.5 Plt Count 136 L Neut % (Auto) 59.7 Lymph % (Auto) 24.1 L [place] % (Auto) 10.6 Eos % (Auto) 5.0 H Baso % (Auto) 0.6 Neut # (Auto) 2600 L PT 17.1 H INR 1.6 H APTT Sodium 138 Potassium 3.5 Chloride 107 Carbon Dioxide 26 BUN 3 L Creatinine 0.60 Estimated GFR > 60.0 BUN/Creatinine Ratio 5.0 L Glucose 80 Lactate Calcium 7.8 L Magnesium 1.5 L Total Bilirubin 1.6 H AST 173 H ALT 68 H Alkaline Phosphatase 139 H Ammonia Total Protein 4.6 L Albumin 1.7 L Globulin 2.9 Albumin/Globulin Ratio 0.6 L Lipase Urine RBC Urine WBC Amorphous Sediment Urine Bacteria Ur Culture Indicated? Micro UA Comment Fluid Color Fluid Appearance Fluid RBC Fld Tot Nucleated Cell Fluid Polynuclear WBCs Fluid Mononuclear WBCs Fluid Eosinophils Body Fluid Clot Fluid Total Protein Fluid Albumin Hepatitis A Ab Total Hep Bs Antigen Hepatitis C Antibody Discharge Plan Discharge Plan Patient Disposition: Home, Self-Care Discharge comment: [facility] Provider Discharge Instructions Diet: Diet as Tolerated Activity: as tolerated Oxygen: Room air Wound Care Report to your healthcare provider any signs of infection, such as:: chills, fever, night sweats and increased pain Discharge Data Attending Provider: Wilubr Norman Admit Date/Time: 09/15/17 16:47 Quality VTE Deep Vein Thrombosis/Pulmonary Embolism Present on Admission: No
--- NOTE | 2017-09-16 12:47 | CM.DANOTE ---
DCP: assessment: Case received and notified by [facility] hospitalist Adam Pt is a 32 year that pt was to d/c after lunch. Discussed case with Adam and colleague TADEO Telles and then met with pt and her Corona. Primary concern of ALEKSANDR Medina was pt's ability to followup with a provider. Pt confirms that she had when she was previously. After the divorce all was changed to [facility]. Pt notes I felt fine at the time and just did not get around to it. Both note she will get to [place] now [facility]. Corona says that in November she will be eligible to be on his BCBS insurance but that [facility] and [facility] to get her to [place] right away. P: home today as noted.
[2017-09-17 14:32] LABS: Hepatitis A Antibody Total Nonreactive (Nonreactive)
[2017-09-17 14:58] LABS: Alpha Fetoprotein 4.4 ng/mL (< 6.1)
[2017-09-20 15:13] LABS: Hepatitis B Surf Ab Qualitativ Nonreactive (Nonreactive)
== END 2017-09-16 13:00 | disposition home or self-care (01) ==
LOC: ED 16:44 → AC 16:47
PROVIDERS: Emergency Medicine; Admitting Provider Internal Medicine; Emergency Provider Internal Medicine; Visit Provider Internal Medicine
DX: R06.00 Dyspnea, unspecified (principal); K72.90 Hepatic failure, unspecified without coma; F10.20 Alcohol dependence, uncomplicated; K70.31 Alcoholic cirrhosis of liver with ascites; D89.89 Other specified disorders involving the immune mechanism, not elsewhere classified; Z98.84 Bariatric surgery status
CPT/HCPCS: 36415; 36591; 49083; 71046; 76705; 80053; 81003; 81015; 81025; 82042; 82105; 82140; 83605; 83690; 83735; 84157; 85025; 85610; 85730; 86706; 86708; 86803; 87070; 87075; 87086; 87205; 87340; 89051; 96374; 96375; 99283; 99285; G0378; J1170; J1885; J2405

== ENCOUNTER 2018-01-07 12:09 | Emergency (ER) | payer OTHER, SELFPAY ==
[2017-09-15 17:31] VITALS: BMI 30.7
--- NOTE | 2018-01-07 12:12 | ED.NAVMDI ---
HPI - Nausea/Vomiting/Diarrhea <ALKESANDR Apple - Last Filed: 01/07/18 22:15> General Chief complaint: Abdominal Pain Stated complaint: dehydrated, vomiting, diarrhea Time Seen by Provider: 01/07/18 12:12 Source: patient Mode of arrival: ambulatory Limitations: no limitations History of Present Illness HPI Narrative: 32-year-old female with history of cirrhosis of the liver and everyday smoker here for complaint of nausea vomiting diarrhea over the past several days. She reports that she had several episodes of diarrhea today and also vomiting. She states that she try to keep fluids down today and was unable to. She denies any abdominal pain. She denies any urinary symptoms. She denies any recent travel. No recent antibiotic use. She denies any fevers or chills. No known contacts with similar symptoms. Related Data Previous Rx's Medication Instructions Recorded furosemide 40 mg PO 0800,1700 #60 tab 09/16/17 spironolactone 50 mg PO 0800,1700 #60 tab 09/16/17 loperamide 2 mg PO Q2-4H PRN #20 tab 01/07/18 ondansetron [Zofran ODT] 4 mg PO Q6-8H PRN #20 tab 01/07/18 Allergies Allergy/AdvReac Type Severity Reaction Status Date / Time acetaminophen Allergy Intermediate Abdominal Verified 09/01/17 10:17 Pain NSAIDS (Non-Steroidal Allergy Intermediate Abdominal Verified 09/01/17 10:17 Anti-Inflamma Pain oxycodone Allergy Intermediate Abdominal Verified 09/01/17 10:17 Pain Review of Systems <ALEKSANDR Apple - Last Filed: 01/07/18 22:15> Constitutional Denies chills, Denies fever(s), Denies lethargy and Denies weakness Eyes Denies change in vision, Denies eye discharge, Denies irritation and Denies loss of vision ENT Ears, Nose, Mouth, and Throat: Denies change in voice, Denies neck pain and Denies sore throat Cardiovascular Denies chest pain, Denies irregular heart rhythm, Denies lightheadedness, Denies palpitations, Denies dyspnea, Denies dyspnea on exertion and Denies orthopnea Respiratory Denies cough, Denies dyspnea, Denies dyspnea on exertion and Denies wheezing Gastrointestinal Gastrointestinal: Denies abdominal pain, Denies change in bowel habits, Reports diarrhea, Reports nausea and Reports vomiting Genitourinary Denies hematuria, Denies flank pain, Denies urinary incontinence and Denies urinary urgency Musculoskeletal Denies neck pain Integumentary/Breasts Denies pruritus, Denies erythema, Denies rash and Denies wounds Neurologic Denies confusion, Denies loss of vision and Denies weakness Psychiatric Denies anxiety, Denies confusion, Denies depression, Denies homicidal ideation and Denies suicidal ideation Endocrine Denies palpitations Hematologic/Lymphatic Denies easy bruising Allergic/Immunologic Denies wheezing Exam <ALEKSANDR Apple - Last Filed: 01/07/18 22:15> Initial Vital Signs Initial Vital Signs: Vital Signs Temperature 98.5 F 01/07/18 12:20 Pulse Rate 80 01/07/18 12:20 Respiratory Rate 16 01/07/18 12:20 Blood Pressure 151/96 H 01/07/18 12:20 Pulse Oximetry 99 01/07/18 12:20 Const General: cooperative and well developed Nutritional Appearance: well nourished Orientation: alert, awake, oriented x3 and not confused HENCA Mouth: oral mucosae normal and oropharynx normal Eyes Conjunctivae: conjunctivae normal Sclera: sclerae normal Pupils: PERRL EOM: EOM intact bilaterally Resp Effort & Inspection: normal respiratory effort, able to speak in complete sentences, no respiratory distress and no use of accessory muscles Auscultation: clear to auscultation bilaterally, no rales, no rhonchi and no wheezes Cardio Rate: regular rate Rhythm: regular rhythm Heart Sounds: no click, no gallops, no murmurs and no rubs GI Inspection: non-distended Palpation: soft, no hepatosplenomegaly, No guarding, No pulsatile mass and No tender Auscultation: normal bowel sounds General: No CVA tenderness Skin General: no rashes or lesions noted, No jaundice and No petechiae Neuro General: alert, oriented x3, gait normal and no focal motor deficits Speech: speech normal <Easton López DO - Last Filed: 01/10/18 04:50> Initial Vital Signs Initial Vital Signs: Vital Signs Temperature 98.5 F 01/07/18 12:20 Pulse Rate 80 01/07/18 12:20 Respiratory Rate 16 01/07/18 12:20 Blood Pressure 151/96 H 01/07/18 12:20 Pulse Oximetry 99 01/07/18 12:20 Course <ALEKSANDR Apple - Last Filed: 01/07/18 22:15> Orders Ordered: Discontinued Medications Sodium Chloride (Normal Saline 0.9%) 1,000 mls @ 1,000 mls/hr IV BOLUS ONE Stop: 01/07/18 13:28 Last Infusion: 01/07/18 14:02 Dose: 0 mls/hr Admin: 01/07/18 12:45 Dose: 1,000 mls/hr Ondansetron HCl (Zofran) 4 mg IV NOW ONE Stop: 01/07/18 12:30 Last Admin: 01/07/18 12:45 Dose: 4 mg Vital Signs - 8 hr 01/07/18 12:20 01/07/18 13:10 Temperature 98.5 F Pulse Rate 80 80 Respiratory Rate 16 15 Blood Pressure 151/96 H Blood Pressure [Left Arm] 117/88 Pulse Oximetry 99 100 <Easton López DO - Last Filed: 01/10/18 04:50> Orders Ordered: Discontinued Medications Sodium Chloride (Normal Saline 0.9%) 1,000 mls @ 1,000 mls/hr IV BOLUS ONE Stop: 01/07/18 13:28 Last Infusion: 01/07/18 14:02 Dose: 0 mls/hr Admin: 01/07/18 12:45 Dose: 1,000 mls/hr Ondansetron HCl (Zofran) 4 mg IV NOW ONE Stop: 01/07/18 12:30 Last Admin: 01/07/18 12:45 Dose: 4 mg Vital Signs - 8 hr 01/07/18 12:20 01/07/18 13:10 Temperature 98.5 F Pulse Rate 80 80 Respiratory Rate 16 15 Blood Pressure 151/96 H Blood Pressure [Left Arm] 117/88 Pulse Oximetry 99 100 MDM - Nausea/Vomiting/Diarrhea <ALEKSANDR Apple - Last Filed: 01/07/18 22:15> Lab Data Result diagrams: 01/07/18 12:31 01/07/18 12:31 Lab Results 01/07/18 01/07/18 Range/Units 12:31 12:31 WBC 9.3 (4.5-11.0) X10^3/uL RBC 5.20 (4.0-5.2) X10^6/uL Hgb 17.9 H (12.0-16.0) g/dL Hct 50.2 H (36-46) % MCV 96.5 (80-100) fL MCH 34.4 H (26-34) PG MCHC 35.6 (30-36) % RDW 13.5 (11.6-14.8) % Plt Count 200 (150-400) X10^3/uL Neut % (Auto) 82.3 H (50-75) % Lymph % (Auto) 9.5 L (25-40) % [place] % (Auto) 7.1 (3-14) % Eos % (Auto) 0.9 L (2-4) % Baso % (Auto) 0.2 (0-2) % Neut # (Auto) 7700 H (1974-8280) /uL Sodium 139 (137-145) mmol/L Potassium 4.6 (3.4-5.1) mmol/L Chloride 99 (98-107) mmol/L Carbon Dioxide 26 (22-32) mmol/L BUN 3 L (7-17) mg/dL Creatinine 0.70 (0.52-1.04) mg/dL Estimated GFR > 60.0 (>60) mL/min BUN/Creatinine Ratio 4.3 L (6-22) Glucose 83 (70-100) mg/dL Calcium 9.9 (8.4-10.2) mg/dL Total Bilirubin 0.7 (0.2-1.3) mg/dL AST 125 H (14-36) IU/L ALT 46 (9-52) IU/L Alkaline Phosphatase 132 H (38-126) U/L Total Protein 7.9 (6.3-8.2) g/dL Albumin 4.7 (3.5-5.0) g/dL Globulin 3.2 (1.7-4.1) g/dL Albumin/Globulin Ratio 1.5 (1.0-2.8) Lipase 58 (23-300) U/L Point of Care Testing Test Results Negative Urine Dip Bedside Urine Glucose Negative Bedside Urine Bilirubin - Negative Bedside Urine Ketone - Negative Urine Specific [place] 1.015 Bedside Urine Occult Blood - Negative Bedside Urine pH 6.0 Bedside Urine Protein - Negative Bedside Urine Urobilinogen - Negative Bedside Urine Nitrite - Negative Bedside Urine Leukocytes - Negative Esterase Imaging Data Abdominal x-ray: Radiologist's impression: [address] [address] XRay Report Signed Patient: Tammie Cameron RMR#: [id number] : 1985Acct:[id number] Age/Sex: 32 / FDate of Service: 01/07/18 Loc: ED Accession Number: [id number] Procedure: XR abdomen 1V Ordering Provider: Bryant Ulloa PROCEDURE: XR ABDOMEN 1V INDICATIONS: Nausea vomiting diarrhea TECHNIQUE: One view of the abdomen acquired. COMPARISON: [facility], CT, ABDOMEN/PELVIS WITH CONTRAST, 08/15/2017, 10:16. [facility], CR, XR CHEST 2V, 09/15/2017, 12:49. FINDINGS: Surgical changes and devices: Postoperative clips are seen at the gastroesophageal junction. Bowel: Bowel gas pattern is normal. Soft tissues: No suspicious abdominal calcifications. Visualized solid organ contours appear normal in size. Pelvic phleboliths are incidentally noted. Bones: No suspicious bony lesions. IMPRESSION: A nonobstructive bowel gas pattern is seen. As clinically appropriate, please consider a repeat plain film study or a dedicated CT of the abdomen and pelvis, if the patient's symptoms persist or worsen. Dictated by: Morro Lane M.D. on 01/07/2018 at 13:06 Approved by: Morro Lane M.D. on 01/07/2018 at 13:07 [facility] Narrative Medical decision making narrative: CBC shows elevated H&H suspect is due to dehydration. patient was given fluids and Zofran in the emergency room and she reports feeling better after treatment. Abdominal x-ray was obtained was negative for any acute findings. Chem panel was obtained was unremarkable. Urine dip was negative for urinary tract infection and . Desire to obtain stool PCR study however patient cannot provide sample at this time. Will treat for viral illness with Imodium and Zofran ODT. follow up with primary care provider in the next few days for re-evaluation. For any worsening symptoms return to the emergency room. <Easton López DO - Last Filed: 01/10/18 04:50> Lab Data Lab Results 09/22/18 09/22/18 Range/Units 12:31 12:31 WBC 9.3 (4.5-11.0) X10^3/uL RBC 5.20 (4.0-5.2) X10^6/uL Hgb 17.9 H (12.0-16.0) g/dL Hct 50.2 H (36-46) % MCV 96.5 (80-100) fL MCH 34.4 H (26-34) PG MCHC 35.6 (30-36) % RDW 13.5 (11.6-14.8) % Plt Count 200 (150-400) X10^3/uL Neut % (Auto) 82.3 H (50-75) % Lymph % (Auto) 9.5 L (25-40) % [place] % (Auto) 7.1 (3-14) % Eos % (Auto) 0.9 L (2-4) % Baso % (Auto) 0.2 (0-2) % Neut # (Auto) 7700 H (3478-8331) /uL Sodium 139 (137-145) mmol/L Potassium 4.6 (3.4-5.1) mmol/L Chloride 99 (98-107) mmol/L Carbon Dioxide 26 (22-32) mmol/L BUN 3 L (7-17) mg/dL Creatinine 0.70 (0.52-1.04) mg/dL Estimated GFR > 60.0 (>60) mL/min BUN/Creatinine Ratio 4.3 L (6-22) Glucose 83 (70-100) mg/dL Calcium 9.9 (8.4-10.2) mg/dL Total Bilirubin 0.7 (0.2-1.3) mg/dL AST 125 H (14-36) IU/L ALT 46 (9-52) IU/L Alkaline Phosphatase 132 H (38-126) U/L Total Protein 7.9 (6.3-8.2) g/dL Albumin 4.7 (3.5-5.0) g/dL Globulin 3.2 (1.7-4.1) g/dL Albumin/Globulin Ratio 1.5 (1.0-2.8) Lipase 58 (23-300) U/L Point of Care Testing Test Results Negative Urine Dip Bedside Urine Glucose Negative Bedside Urine Bilirubin - Negative Bedside Urine Ketone - Negative Urine Specific [place] 1.015 Bedside Urine Occult Blood - Negative Bedside Urine pH 6.0 Bedside Urine Protein - Negative Bedside Urine Urobilinogen - Negative Bedside Urine Nitrite - Negative Bedside Urine Leukocytes - Negative Esterase Discharge Plan Departure Patient Disposition: Home Clinical Impression: Nausea vomiting and diarrhea Discharge Date/Time: 01/07/18 14:04 Interventions: ED Discharge Assessment Last Done: 01/07/18 14:03 Instructions: DI for Viral Gastroenteritis -- Adult Activity Restrictions/Additional Instructions: laboratory results show elevated hematocrit and hemoglobin suspect this is due to dehydration. Other laboratory results were unremarkable. X-ray the abdomen was obtained was negative for any acute findings. Signs and symptoms presents as a viral illness. You are prescribed Zofran to help with nausea use as directed. Plenty of fluids slowly advance diet as tolerated. Follow up with her primary care provider in the next few days for re-evaluation. You are also prescribed loperamide to help with diarrhea also use as directed. prescriptions electronically sent to [facility] in [place] For any worsening symptoms return to the emergency room. Prescriptions: New loperamide 2 mg tablet 2 mg PO Q2-4H PRN (Reason: loose stool) Qty: 20 RF: 0 ondansetron [Zofran ODT] 4 mg tablet,disintegrating 4 mg PO Q6-8H PRN (Reason: nausea and vomiting) Qty: 20 RF: 0 No Action furosemide 40 mg Tablet 40 mg PO 0800,1700 Qty: 60 RF: 5 spironolactone 50 mg Tablet 50 mg PO 0800,1700 Qty: 60 RF: 5 Referrals: [facility] [Provider Group] <Easton López DO - Last Filed: 01/10/18 04:50> Cosign ED Attending Cynthia Attestation: I was immediately available in the department for consultation. Documentation has been reviewed. I agree with assessment and plan.
[2018-01-07 12:20] VITALS: BP 151/96; PULSE 80; RESP 16; TEMP 36.9; O2SAT 99; BMI 26.2
--- NOTE | 2018-01-07 12:30 | DI.RAD.S_ITS ---
PROCEDURE: XR ABDOMEN 1V INDICATIONS: Nausea vomiting diarrhea TECHNIQUE: One view of the abdomen acquired. COMPARISON: [facility], CT, ABDOMEN/PELVIS WITH CONTRAST, 08/15/2017, 10:16. [facility], CR, XR CHEST 2V, 09/15/2017, 12:49. FINDINGS: Surgical changes and devices: Postoperative clips are seen at the gastroesophageal junction. Bowel: Bowel gas pattern is normal. Soft tissues: No suspicious abdominal calcifications. Visualized solid organ contours appear normal in size. Pelvic phleboliths are incidentally noted. Bones: No suspicious bony lesions. IMPRESSION: A nonobstructive bowel gas pattern is seen. As clinically appropriate, please consider a repeat plain film study or a dedicated CT of the abdomen and pelvis, if the patient's symptoms persist or worsen. Dictated by: Morro Lane M.D. on 01/07/2018 at 13:06 Approved by: Morro Lane M.D. on 01/07/2018 at 13:07
--- NOTE | 2018-01-07 12:41 | ED_ITS ---
HPI - Nausea/Vomiting/Diarrhea <ALEKSANDR Apple - Last Filed: 01/07/18 22:15> General Chief complaint: Abdominal Pain Stated complaint: dehydrated, vomiting, diarrhea Time Seen by Provider: 01/07/18 12:12 Source: patient Mode of arrival: ambulatory Limitations: no limitations History of Present Illness HPI Narrative: 32-year-old female with history of cirrhosis of the liver and everyday smoker here for complaint of nausea vomiting diarrhea over the past several days. She reports that she had several episodes of diarrhea today and also vomiting. She states that she try to keep fluids down today and was unable to. She denies any abdominal pain. She denies any urinary symptoms. She denies any recent travel. No recent antibiotic use. She denies any fevers or chills. No known contacts with similar symptoms. Related Data Previous Rx's Medication Instructions Recorded furosemide 40 mg PO 0800,1700 #60 tab 09/16/17 spironolactone 50 mg PO 0800,1700 #60 tab 09/16/17 loperamide 2 mg PO Q2-4H PRN #20 tab 01/07/18 ondansetron [Zofran ODT] 4 mg PO Q6-8H PRN #20 tab 01/07/18 Allergies Allergy/AdvReac Type Severity Reaction Status Date / Time acetaminophen Allergy Intermediate Abdominal Verified 09/01/17 10:17 Pain NSAIDS (Non-Steroidal Allergy Intermediate Abdominal Verified 09/01/17 10:17 Anti-Inflamma Pain oxycodone Allergy Intermediate Abdominal Verified 09/01/17 10:17 Pain Review of Systems <ALEKSANDR Apple - Last Filed: 01/07/18 22:15> Constitutional Denies chills, Denies fever(s), Denies lethargy and Denies weakness Eyes Denies change in vision, Denies eye discharge, Denies irritation and Denies loss of vision ENT Ears, Nose, Mouth, and Throat: Denies change in voice, Denies neck pain and Denies sore throat Cardiovascular Denies chest pain, Denies irregular heart rhythm, Denies lightheadedness, Denies palpitations, Denies dyspnea, Denies dyspnea on exertion and Denies orthopnea Respiratory Denies cough, Denies dyspnea, Denies dyspnea on exertion and Denies wheezing Gastrointestinal Gastrointestinal: Denies abdominal pain, Denies change in bowel habits, Reports diarrhea, Reports nausea and Reports vomiting Genitourinary Denies hematuria, Denies flank pain, Denies urinary incontinence and Denies urinary urgency Musculoskeletal Denies neck pain Integumentary/Breasts Denies pruritus, Denies erythema, Denies rash and Denies wounds Neurologic Denies confusion, Denies loss of vision and Denies weakness Psychiatric Denies anxiety, Denies confusion, Denies depression, Denies homicidal ideation and Denies suicidal ideation Endocrine Denies palpitations Hematologic/Lymphatic Denies easy bruising Allergic/Immunologic Denies wheezing Exam <ALEKSANDR Apple - Last Filed: 01/07/18 22:15> Initial Vital Signs Initial Vital Signs: Vital Signs Temperature 98.5 F 01/07/18 12:20 Pulse Rate 80 01/07/18 12:20 Respiratory Rate 16 01/07/18 12:20 Blood Pressure 151/96 H 01/07/18 12:20 Pulse Oximetry 99 01/07/18 12:20 Const General: cooperative and well developed Nutritional Appearance: well nourished Orientation: alert, awake, oriented x3 and not confused HENNM Mouth: oral mucosae normal and oropharynx normal Eyes Conjunctivae: conjunctivae normal Sclera: sclerae normal Pupils: PERRL EOM: EOM intact bilaterally Resp Effort & Inspection: normal respiratory effort, able to speak in complete sentences, no respiratory distress and no use of accessory muscles Auscultation: clear to auscultation bilaterally, no rales, no rhonchi and no wheezes Cardio Rate: regular rate Rhythm: regular rhythm Heart Sounds: no click, no gallops, no murmurs and no rubs GI Inspection: non-distended Palpation: soft, no hepatosplenomegaly, No guarding, No pulsatile mass and No tender Auscultation: normal bowel sounds General: No CVA tenderness Skin General: no rashes or lesions noted, No jaundice and No petechiae Neuro General: alert, oriented x3, gait normal and no focal motor deficits Speech: speech normal <Easton López DO - Last Filed: 01/10/18 04:50> Initial Vital Signs Initial Vital Signs: Vital Signs Temperature 98.5 F 01/07/18 12:20 Pulse Rate 80 01/07/18 12:20 Respiratory Rate 16 01/07/18 12:20 Blood Pressure 151/96 H 01/07/18 12:20 Pulse Oximetry 99 01/07/18 12:20 Course <ALEKSANDR Apple - Last Filed: 01/07/18 22:15> Orders Ordered: Discontinued Medications Sodium Chloride (Normal Saline 0.9%) 1,000 mls @ 1,000 mls/hr IV BOLUS ONE Stop: 01/07/18 13:28 Last Infusion: 01/07/18 14:02 Dose: 0 mls/hr Admin: 01/07/18 12:45 Dose: 1,000 mls/hr Ondansetron HCl (Zofran) 4 mg IV NOW ONE Stop: 01/07/18 12:30 Last Admin: 01/07/18 12:45 Dose: 4 mg Vital Signs - 8 hr 01/07/18 12:20 01/07/18 13:10 Temperature 98.5 F Pulse Rate 80 80 Respiratory Rate 16 15 Blood Pressure 151/96 H Blood Pressure [Left Arm] 117/88 Pulse Oximetry 99 100 <Easton López DO - Last Filed: 01/10/18 04:50> Orders Ordered: Discontinued Medications Sodium Chloride (Normal Saline 0.9%) 1,000 mls @ 1,000 mls/hr IV BOLUS ONE Stop: 01/07/18 13:28 Last Infusion: 01/07/18 14:02 Dose: 0 mls/hr Admin: 01/07/18 12:45 Dose: 1,000 mls/hr Ondansetron HCl (Zofran) 4 mg IV NOW ONE Stop: 01/07/18 12:30 Last Admin: 01/07/18 12:45 Dose: 4 mg Vital Signs - 8 hr 01/07/18 12:20 01/07/18 13:10 Temperature 98.5 F Pulse Rate 80 80 Respiratory Rate 16 15 Blood Pressure 151/96 H Blood Pressure [Left Arm] 117/88 Pulse Oximetry 99 100 MDM - Nausea/Vomiting/Diarrhea <ALEKSANDR Apple - Last Filed: 01/07/18 22:15> Lab Data Result diagrams: 01/07/18 12:31 01/07/18 12:31 Lab Results 01/07/18 01/07/18 Range/Units 12:31 12:31 WBC 9.3 (4.5-11.0) X10^3/uL RBC 5.20 (4.0-5.2) X10^6/uL Hgb 17.9 H (12.0-16.0) g/dL Hct 50.2 H (36-46) % MCV 96.5 (80-100) fL MCH 34.4 H (26-34) PG MCHC 35.6 (30-36) % RDW 13.5 (11.6-14.8) % Plt Count 200 (150-400) X10^3/uL Neut % (Auto) 82.3 H (50-75) % Lymph % (Auto) 9.5 L (25-40) % [place] % (Auto) 7.1 (3-14) % Eos % (Auto) 0.9 L (2-4) % Baso % (Auto) 0.2 (0-2) % Neut # (Auto) 7700 H (5653-3705) /uL Sodium 139 (137-145) mmol/L Potassium 4.6 (3.4-5.1) mmol/L Chloride 99 (98-107) mmol/L Carbon Dioxide 26 (22-32) mmol/L BUN 3 L (7-17) mg/dL Creatinine 0.70 (0.52-1.04) mg/dL Estimated GFR > 60.0 (>60) mL/min BUN/Creatinine Ratio 4.3 L (6-22) Glucose 83 (70-100) mg/dL Calcium 9.9 (8.4-10.2) mg/dL Total Bilirubin 0.7 (0.2-1.3) mg/dL AST 125 H (14-36) IU/L ALT 46 (9-52) IU/L Alkaline Phosphatase 132 H (38-126) U/L Total Protein 7.9 (6.3-8.2) g/dL Albumin 4.7 (3.5-5.0) g/dL Globulin 3.2 (1.7-4.1) g/dL Albumin/Globulin Ratio 1.5 (1.0-2.8) Lipase 58 (23-300) U/L Point of Care Testing Test Results Negative Urine Dip Bedside Urine Glucose Negative Bedside Urine Bilirubin - Negative Bedside Urine Ketone - Negative Urine Specific [place] 1.015 Bedside Urine Occult Blood - Negative Bedside Urine pH 6.0 Bedside Urine Protein - Negative Bedside Urine Urobilinogen - Negative Bedside Urine Nitrite - Negative Bedside Urine Leukocytes - Negative Esterase Imaging Data Abdominal x-ray: Radiologist's impression: [address] [address] XRay Report Signed Patient: Tammie Cameron RMR#: [id number] : 1985Acct:[id number] Age/Sex: 32 / FDate of Service: 01/07/18 Loc: ED Accession Number: [id number] Procedure: XR abdomen 1V Ordering Provider: Bryant Ulloa PROCEDURE: XR ABDOMEN 1V INDICATIONS: Nausea vomiting diarrhea TECHNIQUE: One view of the abdomen acquired. COMPARISON: [facility], CT, ABDOMEN/PELVIS WITH CONTRAST, 08/15/2017, 10: 16. [facility], CR, XR CHEST 2V, 09/15/2017, 12:49. FINDINGS: Surgical changes and devices: Postoperative clips are seen at the gastroesophageal junction. Bowel: Bowel gas pattern is normal. Soft tissues: No suspicious abdominal calcifications. Visualized solid organ contours appear normal in size. Pelvic phleboliths are incidentally noted. Bones: No suspicious bony lesions. IMPRESSION: A nonobstructive bowel gas pattern is seen. As clinically appropriate, please consider a repeat plain film study or a dedicated CT of the abdomen and pelvis, if the patient's symptoms persist or worsen. Dictated by: Morro Lane M.D. on 01/07/2018 at 13:06 Approved by: Morro Lane M.D. on 01/07/2018 at 13:07 [facility] Narrative Medical decision making narrative: CBC shows elevated H&H suspect is due to dehydration. patient was given fluids and Zofran in the emergency room and she reports feeling better after treatment. Abdominal x-ray was obtained was negative for any acute findings. Chem panel was obtained was unremarkable. Urine dip was negative for urinary tract infection and . Desire to obtain stool PCR study however patient cannot provide sample at this time. Will treat for viral illness with Imodium and Zofran ODT. follow up with primary care provider in the next few days for re-evaluation. For any worsening symptoms return to the emergency room. <Easton López DO - Last Filed: 01/10/18 04:50> Lab Data Lab Results 09/22/18 09/22/18 Range/Units 12:31 12:31 WBC 9.3 (4.5-11.0) X10^3/uL RBC 5.20 (4.0-5.2) X10^6/uL Hgb 17.9 H (12.0-16.0) g/dL Hct 50.2 H (36-46) % MCV 96.5 (80-100) fL MCH 34.4 H (26-34) PG MCHC 35.6 (30-36) % RDW 13.5 (11.6-14.8) % Plt Count 200 (150-400) X10^3/uL Neut % (Auto) 82.3 H (50-75) % Lymph % (Auto) 9.5 L (25-40) % [place] % (Auto) 7.1 (3-14) % Eos % (Auto) 0.9 L (2-4) % Baso % (Auto) 0.2 (0-2) % Neut # (Auto) 7700 H (3429-9440) /uL Sodium 139 (137-145) mmol/L Potassium 4.6 (3.4-5.1) mmol/L Chloride 99 (98-107) mmol/L Carbon Dioxide 26 (22-32) mmol/L BUN 3 L (7-17) mg/dL Creatinine 0.70 (0.52-1.04) mg/dL Estimated GFR > 60.0 (>60) mL/min BUN/Creatinine Ratio 4.3 L (6-22) Glucose 83 (70-100) mg/dL Calcium 9.9 (8.4-10.2) mg/dL Total Bilirubin 0.7 (0.2-1.3) mg/dL AST 125 H (14-36) IU/L ALT 46 (9-52) IU/L Alkaline Phosphatase 132 H (38-126) U/L Total Protein 7.9 (6.3-8.2) g/dL Albumin 4.7 (3.5-5.0) g/dL Globulin 3.2 (1.7-4.1) g/dL Albumin/Globulin Ratio 1.5 (1.0-2.8) Lipase 58 (23-300) U/L Point of Care Testing Test Results Negative Urine Dip Bedside Urine Glucose Negative Bedside Urine Bilirubin - Negative Bedside Urine Ketone - Negative Urine Specific [place] 1.015 Bedside Urine Occult Blood - Negative Bedside Urine pH 6.0 Bedside Urine Protein - Negative Bedside Urine Urobilinogen - Negative Bedside Urine Nitrite - Negative Bedside Urine Leukocytes - Negative Esterase Discharge Plan Departure Patient Disposition: Home Clinical Impression: Nausea vomiting and diarrhea Discharge Date/Time: 01/07/18 14:04 Interventions: ED Discharge Assessment Last Done: 01/07/18 14:03 Instructions: DI for Viral Gastroenteritis -- Adult Activity Restrictions/Additional Instructions: laboratory results show elevated hematocrit and hemoglobin suspect this is due to dehydration. Other laboratory results were unremarkable. X-ray the abdomen was obtained was negative for any acute findings. Signs and symptoms presents as a viral illness. You are prescribed Zofran to help with nausea use as directed. Plenty of fluids slowly advance diet as tolerated. Follow up with her primary care provider in the next few days for re-evaluation. You are also prescribed loperamide to help with diarrhea also use as directed. prescriptions electronically sent to [facility] in [place] For any worsening symptoms return to the emergency room. Prescriptions: New loperamide 2 mg tablet 2 mg PO Q2-4H PRN (Reason: loose stool) Qty: 20 RF: 0 ondansetron [Zofran ODT] 4 mg tablet,disintegrating 4 mg PO Q6-8H PRN (Reason: nausea and vomiting) Qty: 20 RF: 0 No Action furosemide 40 mg Tablet 40 mg PO 0800,1700 Qty: 60 RF: 5 spironolactone 50 mg Tablet 50 mg PO 0800,1700 Qty: 60 RF: 5 Referrals: [facility] [Provider Group] <Easton López DO - Last Filed: 01/10/18 04:50> Cosign ED Attending Cynthia Attestation: I was immediately available in the department for consultation. Documentation has been reviewed. I agree with assessment and plan.
[2018-01-07 12:45] LABS: Add Manual Diff / Slide Review NO; Basophils Percent Auto 0.2 % (0-2); Eosinophils Percent Auto 0.9 % (2-4); Hematocrit 50.2 % (36-46); Hemoglobin 17.9 g/dL (12.0-16.0); Lymphocytes Percent Auto 9.5 % (25-40); Mean Corpuscular HGB Conc 35.6 % (30-36); Mean Corpuscular Hemoglobin 34.4 PG (26-34); Mean Corpuscular Volume 96.5 fL (80-100); Monocytes Percent Auto 7.1 % (3-14); Neutrophils Absolute Auto 7700 /uL (3000-5900); Neutrophils Percent Auto 82.3 % (50-75); Platelet Count 200 X10^3/uL (150-400); Red Cell Distribution Width 13.5 % (11.6-14.8); White Blood Cell Count 9.3 X10^3/uL (4.5-11.0)
[2018-01-07] MEDS: SODIUM CHLORIDE 0.9% 1,000 ML 1000 ML IV (12:45)
[2018-01-07] MEDS: ONDANSETRON 4 MG/2 ML INJ IV (12:45)
[2018-01-07 12:50] LABS: Alanine Aminotransferase 46 IU/L (9-52); Albumin 4.7 g/dL (3.5-5.0); Albumin Globulin Ratio 1.5 (1.0-2.8); Alkaline Phosphatase 132 U/L (38-126); Aspartate Aminotransferase 125 IU/L (14-36); BUN Creatinine Ratio 4.3 (6-22); Bilirubin Total 0.7 mg/dL (0.2-1.3); Blood Urea Nitrogen 3 mg/dL (7-17); Calcium 9.9 mg/dL (8.4-10.2); Carbon Dioxide 26 mmol/L (22-32); Chloride 99 mmol/L (98-107); Estimated Glomerular Filt Rate > 60.0 mL/min (>60); Globulin 3.2 g/dL (1.7-4.1); Glucose 83 mg/dL (70-100); HEMOLYSIS < 15 (0-50); Lipase 58 U/L (23-300); Potassium 4.6 mmol/L (3.4-5.1); Sodium 139 mmol/L (137-145); Total Protein 7.9 g/dL (6.3-8.2)
[2018-01-07 13:10] VITALS: BP 117/88; PULSE 80; RESP 15; O2SAT 100
[2018-01-07 14:03] VITALS: BP 121/78; PULSE 79; RESP 16; TEMP 36.6; O2SAT 100
== END 2018-01-07 14:04 | disposition home or self-care (01) ==
PROVIDERS: Emergency Provider Nurse Practitioner Family
DX: R11.2 Nausea with vomiting, unspecified (principal); R19.7 Diarrhea, unspecified
CPT/HCPCS: 36591; 74018; 80053; 81003; 81025; 83690; 85025; 96361; 96374; 99283; 99284; J2405

== ENCOUNTER 2018-01-24 11:33 | Emergency (ER) | payer OTHER, SELFPAY ==
[2017-09-15 17:31] VITALS: BMI 30.7
[2018-01-24 11:44] VITALS: BP 148/108; PULSE 100; RESP 21; TEMP 36.7; O2SAT 99
--- NOTE | 2018-01-24 12:09 | ED.NAVMDI ---
HPI - Nausea/Vomiting/Diarrhea <Yeny Roach PA-C - Last Filed: 01/24/18 14:25> General Chief complaint: Nausea/Vomiting/Diarrhea Stated complaint: vomitting x2 wks Time Seen by Provider: 01/24/18 12:09 Source: patient Mode of arrival: ambulatory Limitations: no limitations History of Present Illness HPI Narrative: This 32-year-old female comes in due to recurrent dehydration from chronic nausea and vomiting. She has had problems chronic nausea, frequent vomiting, and intermittent constipation and diarrhea since earlier this year. She had ascites as well, but states that furosemide has been controlling this. She is actually seeing GI specialist on , but her PCP advised her to come in and get IV fluid if she has more frequent vomiting and not able to keep down medications. She states that today, she has vomited 6 times and has dry heaves. She has not kept down any food, thinks she kept down enough fluid to keep her pills down earlier and that is it. She feels that this is typical of her previous exacerbations, now typically vomits at least 3-6 times over the course of the day, but not this much early in the day. She denies any new symptoms such as changes in bowel habits, urinary symptoms, or fever. She states that she had some cold symptoms last week which are getting better, and GI symptoms long proceeded this. She states that she has some ongoing hot flushes with these symptoms which can proceed vomiting. She denies any new dyspnea, chest pain, or other new symptoms. She has occasional spasm under her right rib area but has not had any today. She has been prescribed numerous antiemetics including promethazine, cannot tell that 1 works better than another. She denies not only does she have infertility issues, she has not been sexually active secondary to feeling poorly Related Data Home Medications Medication Instructions Recorded Confirmed diazepam 5 mg PO QPM 01/24/18 01/24/18 duloxetine 30 mg PO QPM 01/24/18 01/24/18 prochlorperazine maleate 10 mg PO Q6-8H PRN 01/24/18 01/24/18 promethazine 12.5 mg PO Q4H PRN 01/24/18 01/24/18 promethazine 12.5 mg GA Q6H PRN 01/24/18 01/24/18 tramadol 1 - 2 tab PO Q6H PRN 01/24/18 01/24/18 Previous Rx's Medication Instructions Recorded furosemide 40 mg PO 0800,1700 #60 tab 09/16/17 spironolactone 50 mg PO 0800,1700 #60 tab 09/16/17 Allergies Allergy/AdvReac Type Severity Reaction Status Date / Time acetaminophen Allergy Intermediate Abdominal Verified 09/01/17 10:17 Pain NSAIDS (Non-Steroidal Allergy Intermediate Abdominal Verified 09/01/17 10:17 Anti-Inflamma Pain oxycodone Allergy Intermediate Abdominal Verified 09/01/17 10:17 Pain Review of Systems <EVELIN Abel Last Filed: 01/24/18 14:25> Review of Systems All systems reviewed & are unremarkable except as noted in HPI and below Exam <EVELIN Abel Last Filed: 01/24/18 14:25> Narrative Exam Narrative: GENERAL APPEARANCE: Patient sitting comfortably, in no distress. HEENT: PERRL, EOMI, no scleral icterus, conjunctivae pink NECK: Supple LUNGS: Clear to auscultation bilaterally. HEART: Rate and rhythm regular, normal S1 and S2, no S3 or S4. ABDOMEN: Soft, nontender, nondistended, bowel sounds present x 4 quadrants, no masses palpable, no hepatosplenomegaly. EXTREMITIES: No edema, no cyanosis DERMATOLOGIC: No jaundice or exanthem NEUROLOGIC: Alert and oriented with normal speech and coordination Initial Vital Signs Initial Vital Signs: Vital Signs Temperature 98.0 F 01/24/18 11:44 Pulse Rate 100 H 01/24/18 11:44 Respiratory Rate 21 01/24/18 11:44 Blood Pressure 148/108 H 01/24/18 11:44 Pulse Oximetry 99 01/24/18 11:44 <Anjali Mendez DO - Last Filed: 01/28/18 03:54> Initial Vital Signs Initial Vital Signs: Vital Signs Temperature 98.0 F 01/24/18 11:44 Pulse Rate 100 H 01/24/18 11:44 Respiratory Rate 21 01/24/18 11:44 Blood Pressure 148/108 H 01/24/18 11:44 Pulse Oximetry 99 01/24/18 11:44 Course <EVELIN Abel Last Filed: 01/24/18 14:25> Additional Information: patient reported feeling significantly improved prior to discharge. She did not have any recurrent vomiting, was able to keep down crackers and water, and felt comfortable returning home. Lab abnormalities were reviewed with her including new hyponatremia and mildly elevated calcium. She has had persistently elevated H&H. She has been following labs in [place] where she is receiving care and has GI consult set up in 2 days as the symptoms have been chronic for some time. Advised return in the interim if she is acutely worse again, and she is agreeable Orders Ordered: Discontinued Medications Sodium Chloride (Normal Saline 0.9%) 1,000 mls @ 1,000 mls/hr IV BOLUS ONE Stop: 01/24/18 13:20 Last Infusion: 01/25/18 13:33 Dose: 0 mls/hr Admin: 01/24/18 12:33 Dose: 1,000 mls/hr Prochlorperazine (Compazine) 10 mg IV NOW ONE Stop: 01/24/18 12:22 Last Admin: 01/24/18 12:33 Dose: 10 mg Vital Signs - 8 hr 01/24/18 11:44 01/24/18 13:06 Temperature 98.0 F Pulse Rate 100 H 96 H Respiratory Rate 21 16 Blood Pressure 148/108 H Blood Pressure [Left Arm] 122/93 H Pulse Oximetry 99 96 <Anjali Mendez DO - Last Filed: 01/28/18 03:54> Orders Ordered: Discontinued Medications Sodium Chloride (Normal Saline 0.9%) 1,000 mls @ 1,000 mls/hr IV BOLUS ONE Stop: 01/24/18 13:20 Last Infusion: 01/25/18 13:33 Dose: 0 mls/hr Admin: 01/24/18 12:33 Dose: 1,000 mls/hr Prochlorperazine (Compazine) 10 mg IV NOW ONE Stop: 01/24/18 12:22 Last Admin: 01/24/18 12:33 Dose: 10 mg Vital Signs - 8 hr 01/24/18 11:44 01/24/18 13:06 Temperature 98.0 F Pulse Rate 100 H 96 H Respiratory Rate 21 16 Blood Pressure 148/108 H Blood Pressure [Left Arm] 122/93 H Pulse Oximetry 99 96 MDM - Nausea/Vomiting/Diarrhea <Yeny Roach PA-C - Last Filed: 01/24/18 14:25> Lab Data Result diagrams: 01/24/18 12:29 01/24/18 12:29 Lab Results 01/24/18 01/24/18 Range/Units 12:29 12:29 WBC 10.4 (4.5-11.0) X10^3/uL RBC 5.32 H (4.0-5.2) X10^6/uL Hgb 18.2 H (12.0-16.0) g/dL Hct 50.9 H (36-46) % MCV 95.5 (80-100) fL MCH 34.1 H (26-34) PG MCHC 35.7 (30-36) % RDW 13.1 (11.6-14.8) % Plt Count 201 (150-400) X10^3/uL Neut % (Auto) 83.1 H (50-75) % Lymph % (Auto) 8.0 L (25-40) % [place] % (Auto) 8.0 (3-14) % Eos % (Auto) 0.5 L (2-4) % Baso % (Auto) 0.4 (0-2) % Neut # (Auto) 8700 H (5236-0446) /uL Sodium 132 L (137-145) mmol/L Potassium 5.1 (3.4-5.1) mmol/L Chloride 92 L (98-107) mmol/L Carbon Dioxide 28 (22-32) mmol/L BUN 9 (7-17) mg/dL Creatinine 0.70 (0.52-1.04) mg/dL Estimated GFR > 60.0 (>60) mL/min BUN/Creatinine Ratio 12.9 (6-22) Glucose 93 (70-100) mg/dL Calcium 10.4 H (8.4-10.2) mg/dL Magnesium 1.6 (1.6-2.3) mg/dL Total Bilirubin 1.2 (0.2-1.3) mg/dL AST 95 H (14-36) IU/L ALT 42 (9-52) IU/L Alkaline Phosphatase 116 (38-126) U/L Total Protein 8.6 H (6.3-8.2) g/dL Albumin 4.9 (3.5-5.0) g/dL Globulin 3.7 (1.7-4.1) g/dL Albumin/Globulin Ratio 1.3 (1.0-2.8) Lipase 46 (23-300) U/L Point of Care Testing Test Results Negative Urine Dip Bedside Urine Glucose Negative Bedside Urine Bilirubin - Negative Bedside Urine Ketone - Negative Urine Specific [place] 1.015 Bedside Urine Occult Blood - Negative Bedside Urine pH 7.5 Bedside Urine Protein - Negative Bedside Urine Urobilinogen - Negative Bedside Urine Nitrite - Negative Bedside Urine Leukocytes - Negative Esterase <Anjali Mendez, DO - Last Filed: 01/28/18 03:54> Lab Data Lab Results 01/24/18 01/24/18 Range/Units 12:29 12:29 WBC 10.4 (4.5-11.0) X10^3/uL RBC 5.32 H (4.0-5.2) X10^6/uL Hgb 18.2 H (12.0-16.0) g/dL Hct 50.9 H (36-46) % MCV 95.5 (80-100) fL MCH 34.1 H (26-34) PG MCHC 35.7 (30-36) % RDW 13.1 (11.6-14.8) % Plt Count 201 (150-400) X10^3/uL Neut % (Auto) 83.1 H (50-75) % Lymph % (Auto) 8.0 L (25-40) % [place] % (Auto) 8.0 (3-14) % Eos % (Auto) 0.5 L (2-4) % Baso % (Auto) 0.4 (0-2) % Neut # (Auto) 8700 H (8613-3363) /uL Sodium 132 L (137-145) mmol/L Potassium 5.1 (3.4-5.1) mmol/L Chloride 92 L (98-107) mmol/L Carbon Dioxide 28 (22-32) mmol/L BUN 9 (7-17) mg/dL Creatinine 0.70 (0.52-1.04) mg/dL Estimated GFR > 60.0 (>60) mL/min BUN/Creatinine Ratio 12.9 (6-22) Glucose 93 (70-100) mg/dL Calcium 10.4 H (8.4-10.2) mg/dL Magnesium 1.6 (1.6-2.3) mg/dL Total Bilirubin 1.2 (0.2-1.3) mg/dL AST 95 H (14-36) IU/L ALT 42 (9-52) IU/L Alkaline Phosphatase 116 (38-126) U/L Total Protein 8.6 H (6.3-8.2) g/dL Albumin 4.9 (3.5-5.0) g/dL Globulin 3.7 (1.7-4.1) g/dL Albumin/Globulin Ratio 1.3 (1.0-2.8) Lipase 46 (23-300) U/L Point of Care Testing Test Results Negative Urine Dip Bedside Urine Glucose Negative Bedside Urine Bilirubin - Negative Bedside Urine Ketone - Negative Urine Specific [place] 1.015 Bedside Urine Occult Blood - Negative Bedside Urine pH 7.5 Bedside Urine Protein - Negative Bedside Urine Urobilinogen - Negative Bedside Urine Nitrite - Negative Bedside Urine Leukocytes - Negative Esterase Discharge Plan Departure Patient Disposition: Home Clinical Impression: Nausea and vomiting, Dehydration with hyponatremia Discharge Date/Time: 01/24/18 13:54 Interventions: ED Discharge Assessment Last Done: 01/24/18 13:54 Instructions: DI for Dehydration -- Adult, DI for Vomiting -- Adult Activity Restrictions/Additional Instructions: Since you are feeling better it is okay to return home and continue your usual medications. Your sodium is somewhat low today and you have some other lab abnormalities similar to last week that may be related to your vomiting. We will forward all of today's evaluation to your PCP so that they can follow up on these labs since you are having them checked regularly. Please continue your antinausea medicine as usual. Drink plenty of clear fluids today and try bland foods such as crackers, applesauce, and white rice in small amounts every couple of hours rather than trying to eat large meals. See the specialist as you have already planned in a couple of days. You should return if you are acutely worse again Prescriptions: No Action furosemide 40 mg Tablet 40 mg PO 0800,1700 Qty: 60 RF: 5 spironolactone 50 mg Tablet 50 mg PO 0800,1700 Qty: 60 RF: 5 diazepam 5 mg tablet 5 mg PO QPM RF: 0 promethazine 12.5 mg Tablet 12.5 mg PO Q4H PRN (Reason: Vomiting) RF: 0 prochlorperazine maleate 10 mg Tablet 10 mg PO Q6-8H PRN (Reason: Nausea) RF: 0 tramadol 50 mg tablet 1 - 2 tab PO Q6H PRN (Reason: pain) RF: 0 promethazine 12.5 mg Suppository 12.5 mg GA Q6H PRN (Reason: Vomiting) RF: 0 duloxetine 30 mg Capsule,Delayed Release(Dr/Ec) 30 mg PO QPM RF: 0 Referrals: [facility] [Other] <Anjali Mendez, - Last Filed: 01/28/18 03:54> [facility] ED Attending Cynthia Attestation: I was immediately available in the department for consultation. Documentation has been reviewed. I agree with assessment and plan.
--- NOTE | 2018-01-24 12:13 | ED_ITS ---
HPI - Nausea/Vomiting/Diarrhea <Yeny Roach PA-C - Last Filed: 01/24/18 14:25> General Chief complaint: Nausea/Vomiting/Diarrhea Stated complaint: vomitting x2 wks Time Seen by Provider: 01/24/18 12:09 Source: patient Mode of arrival: ambulatory Limitations: no limitations History of Present Illness HPI Narrative: This 32-year-old female comes in due to recurrent dehydration from chronic nausea and vomiting. She has had problems chronic nausea, frequent vomiting, and intermittent constipation and diarrhea since earlier this year. She had ascites as well, but states that furosemide has been controlling this. She is actually seeing GI specialist on , but her PCP advised her to come in and get IV fluid if she has more frequent vomiting and not able to keep down medications. She states that today, she has vomited 6 times and has dry heaves. She has not kept down any food, thinks she kept down enough fluid to keep her pills down earlier and that is it. She feels that this is typical of her previous exacerbations, now typically vomits at least 3-6 times over the course of the day, but not this much early in the day. She denies any new symptoms such as changes in bowel habits, urinary symptoms , or fever. She states that she had some cold symptoms last week which are getting better, and GI symptoms long proceeded this. She states that she has some ongoing hot flushes with these symptoms which can proceed vomiting. She denies any new dyspnea, chest pain, or other new symptoms. She has occasional spasm under her right rib area but has not had any today. She has been prescribed numerous antiemetics including promethazine, cannot tell that 1 works better than another. She denies not only does she have infertility issues , she has not been sexually active secondary to feeling poorly Related Data Home Medications Medication Instructions Recorded Confirmed diazepam 5 mg PO QPM 01/24/18 01/24/18 duloxetine 30 mg PO QPM 01/24/18 01/24/18 prochlorperazine maleate 10 mg PO Q6-8H PRN 01/24/18 01/24/18 promethazine 12.5 mg PO Q4H PRN 01/24/18 01/24/18 promethazine 12.5 mg DC Q6H PRN 01/24/18 01/24/18 tramadol 1 - 2 tab PO Q6H PRN 01/24/18 01/24/18 Previous Rx's Medication Instructions Recorded furosemide 40 mg PO 0800,1700 #60 tab 09/16/17 spironolactone 50 mg PO 0800,1700 #60 tab 09/16/17 Allergies Allergy/AdvReac Type Severity Reaction Status Date / Time acetaminophen Allergy Intermediate Abdominal Verified 09/01/17 10:17 Pain NSAIDS (Non-Steroidal Allergy Intermediate Abdominal Verified 09/01/17 10:17 Anti-Inflamma Pain oxycodone Allergy Intermediate Abdominal Verified 09/01/17 10:17 Pain Review of Systems <EVELIN Abel Last Filed: 01/24/18 14:25> Review of Systems All systems reviewed & are unremarkable except as noted in HPI and below Exam <EVELIN Abel Last Filed: 01/24/18 14:25> Narrative Exam Narrative: GENERAL APPEARANCE: Patient sitting comfortably, in no distress. HEENT: PERRL, EOMI, no scleral icterus, conjunctivae pink NECK: Supple LUNGS: Clear to auscultation bilaterally. HEART: Rate and rhythm regular, normal S1 and S2, no S3 or S4. ABDOMEN: Soft, nontender, nondistended, bowel sounds present x 4 quadrants, no masses palpable, no hepatosplenomegaly. EXTREMITIES: No edema, no cyanosis DERMATOLOGIC: No jaundice or exanthem NEUROLOGIC: Alert and oriented with normal speech and coordination Initial Vital Signs Initial Vital Signs: Vital Signs Temperature 98.0 F 01/24/18 11:44 Pulse Rate 100 H 01/24/18 11:44 Respiratory Rate 21 01/24/18 11:44 Blood Pressure 148/108 H 01/24/18 11:44 Pulse Oximetry 99 01/24/18 11:44 <Anjali Mendez DO - Last Filed: 01/28/18 03:54> Initial Vital Signs Initial Vital Signs: Vital Signs Temperature 98.0 F 01/24/18 11:44 Pulse Rate 100 H 01/24/18 11:44 Respiratory Rate 21 01/24/18 11:44 Blood Pressure 148/108 H 01/24/18 11:44 Pulse Oximetry 99 01/24/18 11:44 Course <EVELIN Abel Last Filed: 01/24/18 14:25> Additional Information: patient reported feeling significantly improved prior to discharge. She did not have any recurrent vomiting, was able to keep down crackers and water, and felt comfortable returning home. Lab abnormalities were reviewed with her including new hyponatremia and mildly elevated calcium. She has had persistently elevated H&H. She has been following labs in [place] where she is receiving care and has GI consult set up in 2 days as the symptoms have been chronic for some time. Advised return in the interim if she is acutely worse again, and she is agreeable Orders Ordered: Discontinued Medications Sodium Chloride (Normal Saline 0.9%) 1,000 mls @ 1,000 mls/hr IV BOLUS ONE Stop: 01/24/18 13:20 Last Infusion: 01/25/18 13:33 Dose: 0 mls/hr Admin: 01/24/18 12:33 Dose: 1,000 mls/hr Prochlorperazine (Compazine) 10 mg IV NOW ONE Stop: 01/24/18 12:22 Last Admin: 01/24/18 12:33 Dose: 10 mg Vital Signs - 8 hr 01/24/18 11:44 01/24/18 13:06 Temperature 98.0 F Pulse Rate 100 H 96 H Respiratory Rate 21 16 Blood Pressure 148/108 H Blood Pressure [Left Arm] 122/93 H Pulse Oximetry 99 96 <Anjali Mendez DO - Last Filed: 01/28/18 03:54> Orders Ordered: Discontinued Medications Sodium Chloride (Normal Saline 0.9%) 1,000 mls @ 1,000 mls/hr IV BOLUS ONE Stop: 01/24/18 13:20 Last Infusion: 01/25/18 13:33 Dose: 0 mls/hr Admin: 01/24/18 12:33 Dose: 1,000 mls/hr Prochlorperazine (Compazine) 10 mg IV NOW ONE Stop: 01/24/18 12:22 Last Admin: 01/24/18 12:33 Dose: 10 mg Vital Signs - 8 hr 01/24/18 11:44 01/24/18 13:06 Temperature 98.0 F Pulse Rate 100 H 96 H Respiratory Rate 21 16 Blood Pressure 148/108 H Blood Pressure [Left Arm] 122/93 H Pulse Oximetry 99 96 MDM - Nausea/Vomiting/Diarrhea <Yeny Roach PA-C - Last Filed: 01/24/18 14:25> Lab Data Result diagrams: 01/24/18 12:29 01/24/18 12:29 Lab Results 01/24/18 01/24/18 Range/Units 12:29 12:29 WBC 10.4 (4.5-11.0) X10^3/uL RBC 5.32 H (4.0-5.2) X10^6/uL Hgb 18.2 H (12.0-16.0) g/dL Hct 50.9 H (36-46) % MCV 95.5 (80-100) fL MCH 34.1 H (26-34) PG MCHC 35.7 (30-36) % RDW 13.1 (11.6-14.8) % Plt Count 201 (150-400) X10^3/uL Neut % (Auto) 83.1 H (50-75) % Lymph % (Auto) 8.0 L (25-40) % [place] % (Auto) 8.0 (3-14) % Eos % (Auto) 0.5 L (2-4) % Baso % (Auto) 0.4 (0-2) % Neut # (Auto) 8700 H (4705-4772) /uL Sodium 132 L (137-145) mmol/L Potassium 5.1 (3.4-5.1) mmol/L Chloride 92 L (98-107) mmol/L Carbon Dioxide 28 (22-32) mmol/L BUN 9 (7-17) mg/dL Creatinine 0.70 (0.52-1.04) mg/dL Estimated GFR > 60.0 (>60) mL/min BUN/Creatinine Ratio 12.9 (6-22) Glucose 93 (70-100) mg/dL Calcium 10.4 H (8.4-10.2) mg/dL Magnesium 1.6 (1.6-2.3) mg/dL Total Bilirubin 1.2 (0.2-1.3) mg/dL AST 95 H (14-36) IU/L ALT 42 (9-52) IU/L Alkaline Phosphatase 116 (38-126) U/L Total Protein 8.6 H (6.3-8.2) g/dL Albumin 4.9 (3.5-5.0) g/dL Globulin 3.7 (1.7-4.1) g/dL Albumin/Globulin Ratio 1.3 (1.0-2.8) Lipase 46 (23-300) U/L Point of Care Testing Test Results Negative Urine Dip Bedside Urine Glucose Negative Bedside Urine Bilirubin - Negative Bedside Urine Ketone - Negative Urine Specific [place] 1.015 Bedside Urine Occult Blood - Negative Bedside Urine pH 7.5 Bedside Urine Protein - Negative Bedside Urine Urobilinogen - Negative Bedside Urine Nitrite - Negative Bedside Urine Leukocytes - Negative Esterase <Anjali Mendez, DO - Last Filed: 01/28/18 03:54> Lab Data Lab Results 01/24/18 01/24/18 Range/Units 12:29 12:29 WBC 10.4 (4.5-11.0) X10^3/uL RBC 5.32 H (4.0-5.2) X10^6/uL Hgb 18.2 H (12.0-16.0) g/dL Hct 50.9 H (36-46) % MCV 95.5 (80-100) fL MCH 34.1 H (26-34) PG MCHC 35.7 (30-36) % RDW 13.1 (11.6-14.8) % Plt Count 201 (150-400) X10^3/uL Neut % (Auto) 83.1 H (50-75) % Lymph % (Auto) 8.0 L (25-40) % Morgan % (Auto) 8.0 (3-14) % Eos % (Auto) 0.5 L (2-4) % Baso % (Auto) 0.4 (0-2) % Neut # (Auto) 8700 H (6359-4388) /uL Sodium 132 L (137-145) mmol/L Potassium 5.1 (3.4-5.1) mmol/L Chloride 92 L (98-107) mmol/L Carbon Dioxide 28 (22-32) mmol/L BUN 9 (7-17) mg/dL Creatinine 0.70 (0.52-1.04) mg/dL Estimated GFR > 60.0 (>60) mL/min BUN/Creatinine Ratio 12.9 (6-22) Glucose 93 (70-100) mg/dL Calcium 10.4 H (8.4-10.2) mg/dL Magnesium 1.6 (1.6-2.3) mg/dL Total Bilirubin 1.2 (0.2-1.3) mg/dL AST 95 H (14-36) IU/L ALT 42 (9-52) IU/L Alkaline Phosphatase 116 (38-126) U/L Total Protein 8.6 H (6.3-8.2) g/dL Albumin 4.9 (3.5-5.0) g/dL Globulin 3.7 (1.7-4.1) g/dL Albumin/Globulin Ratio 1.3 (1.0-2.8) Lipase 46 (23-300) U/L Point of Care Testing Test Results Negative Urine Dip Bedside Urine Glucose Negative Bedside Urine Bilirubin - Negative Bedside Urine Ketone - Negative Urine Specific [place] 1.015 Bedside Urine Occult Blood - Negative Bedside Urine pH 7.5 Bedside Urine Protein - Negative Bedside Urine Urobilinogen - Negative Bedside Urine Nitrite - Negative Bedside Urine Leukocytes - Negative Esterase Discharge Plan Departure Patient Disposition: Home Clinical Impression: Nausea and vomiting, Dehydration with hyponatremia Discharge Date/Time: 01/24/18 13:54 Interventions: ED Discharge Assessment Last Done: 01/24/18 13:54 Instructions: DI for Dehydration -- Adult, DI for Vomiting -- Adult Activity Restrictions/Additional Instructions: Since you are feeling better it is okay to return home and continue your usual medications. Your sodium is somewhat low today and you have some other lab abnormalities similar to last week that may be related to your vomiting. We will forward all of today's evaluation to your PCP so that they can follow up on these labs since you are having them checked regularly. Please continue your antinausea medicine as usual. Drink plenty of clear fluids today and try bland foods such as crackers, applesauce, and white rice in small amounts every couple of hours rather than trying to eat large meals. See the specialist as you have already planned in a couple of days. You should return if you are acutely worse again Prescriptions: No Action furosemide 40 mg Tablet 40 mg PO 0800,1700 Qty: 60 RF: 5 spironolactone 50 mg Tablet 50 mg PO 0800,1700 Qty: 60 RF: 5 diazepam 5 mg tablet 5 mg PO QPM RF: 0 promethazine 12.5 mg Tablet 12.5 mg PO Q4H PRN (Reason: Vomiting) RF: 0 prochlorperazine maleate 10 mg Tablet 10 mg PO Q6-8H PRN (Reason: Nausea) RF: 0 tramadol 50 mg tablet 1 - 2 tab PO Q6H PRN (Reason: pain) RF: 0 promethazine 12.5 mg Suppository 12.5 mg DC Q6H PRN (Reason: Vomiting) RF: 0 duloxetine 30 mg Capsule,Delayed Release(Dr/Ec) 30 mg PO QPM RF: 0 Referrals: nadrew dupont [Other] <Anjali Mendez, - Last Filed: 01/28/18 03:54> [facility] ED Attending Cynthia Attestation: I was immediately available in the department for consultation. Documentation has been reviewed. I agree with assessment and plan.
--- NOTE | 2018-01-24 12:27 | PC.NURSE ---
states, has appt with GI this , requesting iv fluids treatment at this time. agreed for lab draw.
[2018-01-24] MEDS: PROCHLORPERAZINE 10 MG/2 ML VIAL IV (12:33)
[2018-01-24] MEDS: SODIUM CHLORIDE 0.9% 1,000 ML 1000 ML IV (12:33)
[2018-01-24 12:35] LABS: Add Manual Diff / Slide Review NO; Basophils Percent Auto 0.4 % (0-2); Eosinophils Percent Auto 0.5 % (2-4); Hematocrit 50.9 % (36-46); Hemoglobin 18.2 g/dL (12.0-16.0); Mean Corpuscular HGB Conc 35.7 % (30-36); Mean Corpuscular Hemoglobin 34.1 PG (26-34); Mean Corpuscular Volume 95.5 fL (80-100); Neutrophils Absolute Auto 8700 /uL (3000-5900); Neutrophils Percent Auto 83.1 % (50-75); Platelet Count 201 X10^3/uL (150-400); Red Blood Cell Count 5.32 X10^6/uL (4.0-5.2); Red Cell Distribution Width 13.1 % (11.6-14.8); White Blood Cell Count 10.4 X10^3/uL (4.5-11.0)
[2018-01-24 12:52] LABS: Alanine Aminotransferase 42 IU/L (9-52); Albumin 4.9 g/dL (3.5-5.0); Albumin Globulin Ratio 1.3 (1.0-2.8); Alkaline Phosphatase 116 U/L (38-126); Aspartate Aminotransferase 95 IU/L (14-36); BUN Creatinine Ratio 12.9 (6-22); Bilirubin Total 1.2 mg/dL (0.2-1.3); Blood Urea Nitrogen 9 mg/dL (7-17); Calcium 10.4 mg/dL (8.4-10.2); Carbon Dioxide 28 mmol/L (22-32); Chloride 92 mmol/L (98-107); Estimated Glomerular Filt Rate > 60.0 mL/min (>60); Globulin 3.7 g/dL (1.7-4.1); Glucose 93 mg/dL (70-100); Magnesium 1.6 mg/dL (1.6-2.3); Sodium 132 mmol/L (137-145); Total Protein 8.6 g/dL (6.3-8.2)
[2018-01-24 12:54] LABS: HEMOLYSIS 68 (0-50)
[2018-01-24 12:55] LABS: Potassium 5.1 mmol/L (3.4-5.1)
[2018-01-24 13:05] LABS: Lipase 46 U/L (23-300)
[2018-01-24 13:06] VITALS: BP 122/93; PULSE 96; RESP 16; O2SAT 96
--- NOTE | 2018-01-26 16:59 | PC.NURSE ---
Attempted follow up phone call. No answer at this time.
== END 2018-01-24 13:54 | disposition home or self-care (01) ==
PROVIDERS: Emergency Provider Internal Medicine
DX: E87.1 Hypo-osmolality and hyponatremia (principal); R11.2 Nausea with vomiting, unspecified
CPT/HCPCS: 36415; 36591; 80053; 81003; 81025; 83690; 83735; 85025; 96361; 96374; 99283; 99284; J0780

== ENCOUNTER 2018-04-04 19:20 | Emergency (ER) | payer OTHER, SELFPAY ==
[2017-09-15 17:31] VITALS: BMI 30.7
[2018-04-04 19:34] VITALS: BP 131/86; PULSE 116; RESP 16; TEMP 36.8; O2SAT 98; BMI 29.2
--- NOTE | 2018-04-04 19:34 | ED.ABDPAIN ---
HPI - Abdominal Pain <Yeny Roach PA-C - Last Filed: 04/04/18 22:12> General Chief Complaint: Abdominal Pain Stated Complaint: LT LUNG PAIN, RT ABD PAIN Time Seen by Provider: 04/04/18 19:22 Source: patient Mode of arrival: ambulatory Limitations: no limitations History of Present Illness HPI narrative: This 32-year-old female with history of liver failure related to cirrhosis returns with worsening abdominal pain, nausea and vomiting. She states that she has been following this with her PCP in [place] as well as GI. She states that ascites has been getting worse again for at least the last couple of weeks. She has gained about 20 lb in that time period she says. She states that it is getting more difficult for her to breathe gradually as is cool as her ascites get this worse, but she is not acutely short of breath today. She denies chest pain. She states that she has been taking her furosemide and spironolactone 3 tabs daily as when she was discharged here. She states that she has vomited 6 times today and has had persistent nausea as is typical for her ascites. She states that she has kept down some fluids and some food today but not consistently. Took her pain medication and tried nausea medicines at home but not keeping that down. She denies any new fever. She has had some diarrhea as is typical, no acute changes. She does not have any new urinary symptoms, swelling or pain in her extremities or other new complaints today. She notes that she has been diagnosed with cervical cancer since last seen here. Related Data Home Medications Medication Instructions Recorded Confirmed diazepam 5 mg PO QPM 01/24/18 01/24/18 duloxetine 30 mg PO QPM 01/24/18 01/24/18 prochlorperazine maleate 10 mg PO Q6-8H PRN 01/24/18 04/04/18 promethazine 12.5 mg PO Q4H PRN 01/24/18 04/04/18 promethazine 12.5 mg [place] Q6H PRN 01/24/18 01/24/18 tramadol 1 - 2 tab PO Q6H PRN 01/24/18 01/24/18 ondansetron 4 mg PO BID PRN 04/04/18 04/04/18 tramadol 50 mg PO Q6H 04/04/18 04/04/18 Previous Rx's Medication Instructions Recorded furosemide 40 mg PO 0800,1700 #60 tab 09/16/17 spironolactone 50 mg PO 0800,1700 #60 tab 09/16/17 Allergies Allergy/AdvReac Type Severity Reaction Status Date / Time acetaminophen Allergy Intermediate Abdominal Verified 04/04/18 19:34 Pain NSAIDS (Non-Steroidal Allergy Intermediate Abdominal Verified 04/04/18 19:34 Anti-Inflamma Pain oxycodone Allergy Intermediate Abdominal Verified 04/04/18 19:34 Pain Review of Systems <Yeny Roach PA-C - Last Filed: 04/04/18 22:12> Review of Systems All systems reviewed & are unremarkable except as noted in HPI and below Exam <Yeny Roach PA-C - Last Filed: 04/04/18 22:12> Narrative Exam Narrative: GENERAL APPEARANCE: Patient resting comfortably, in no distress. HEENT: PERRL, EOMI, no scleral icterus, normal oropharynx NECK: Supple, no masses LUNGS: Clear to auscultation bilaterally. HEART: Rate and rhythm regular, normal S1 and S2, no S3 or S4. ABDOMEN: Soft, exquisite right upper to mid epigastric tenderness, mildly tender elsewhere throughout the abdomen. Mild distension. No fluid wave. bowel sounds present x 4 quadrants, no masses palpable, no splenomegaly. Unable to palpate deeply enough to determine whether any hepatomegaly EXTREMITIES: No edema, no calf tenderness DERMATOLOGIC: No jaundice or exanthem NEUROLOGIC: Alert and oriented with normal speech and coordination Initial Vital Signs Initial Vital Signs: Vital Signs Temperature 98.3 F 04/04/18 19:34 Pulse Rate 116 H 04/04/18 19:34 Respiratory Rate 16 04/04/18 19:34 Blood Pressure 131/86 04/04/18 19:34 Pulse Oximetry 98 04/04/18 19:34 <Carroll Bermudez DO - Last Filed: 04/04/18 23:52> Initial Vital Signs Initial Vital Signs: Vital Signs Temperature 98.3 F 04/04/18 19:34 Pulse Rate 116 H 04/04/18 19:34 Respiratory Rate 16 04/04/18 19:34 Blood Pressure 131/86 04/04/18 19:34 Pulse Oximetry 98 04/04/18 19:34 Course <EVELIN Abel Last Filed: 04/04/18 22:12> Orders Ordered: ED Orders 04/04/18 19:45 US abdomen complete Stat 04/04/18 20:00 Complete Blood Count AUTO DIFF Stat Comprehensive Metabolic Panel Stat Lactate (Lactic Acid) Stat Lipase Stat Discontinued Medications Hydrocodone Bitart/Acetaminophen (Vicodin Prepack) 1 bottle MISC SEEINSTR ONE Stop: 04/04/18 21:21 Last Admin: 04/04/18 22:01 Dose: 1 bottle Hydromorphone HCl (Dilaudid) 1 mg IV NOW ONE Stop: 04/04/18 19:46 Last Admin: 04/04/18 20:10 Dose: 1 mg Sodium Chloride (Normal Saline 0.9%) 1,000 mls @ 1,000 mls/hr IV BOLUS ONE Stop: 04/04/18 20:33 Last Infusion: 04/04/18 21:45 Dose: 0 mls/hr Admin: 04/04/18 20:11 Dose: 1,000 mls/hr Prochlorperazine (Compazine) 10 mg IV NOW ONE Stop: 04/04/18 19:35 Last Admin: 04/04/18 20:39 Dose: 10 mg Patient is feeling markedly improved after pain medication and Compazine. She has not had any recurrent vomiting. She felt that she would be able to return home and rest comfortably. Reviewed US findings and labwork. She already has follow-up scheduled in clinic tomorrow. She was given pain medication for tonight and has a copy of her ultrasound on disc to review. She will return if she has any acutely worsening symptoms again. Vital Signs - 8 hr 04/04/18 19:34 04/04/18 20:29 04/04/18 20:39 Temperature 98.3 F Pulse Rate 116 H 104 H 92 H Respiratory Rate 16 16 Blood Pressure 131/86 130/93 H Blood Pressure [Right Arm] 130/93 H Pulse Oximetry 98 98 04/04/18 22:12 Temperature Pulse Rate 94 H Respiratory Rate 18 Blood Pressure 111/58 L Blood Pressure [Right Arm] Pulse Oximetry 98 <Carroll Bermudez DO - Last Filed: 04/04/18 23:52> Orders Ordered: ED Orders 04/04/18 19:45 US abdomen complete Stat 04/04/18 20:00 Complete Blood Count AUTO DIFF Stat Comprehensive Metabolic Panel Stat Lactate (Lactic Acid) Stat Lipase Stat Discontinued Medications Hydrocodone Bitart/Acetaminophen (Vicodin Prepack) 1 bottle MISC SEEINSTR ONE Stop: 04/04/18 21:21 Last Admin: 04/04/18 22:01 Dose: 1 bottle Hydromorphone HCl (Dilaudid) 1 mg IV NOW ONE Stop: 04/04/18 19:46 Last Admin: 04/04/18 20:10 Dose: 1 mg Sodium Chloride (Normal Saline 0.9%) 1,000 mls @ 1,000 mls/hr IV BOLUS ONE Stop: 04/04/18 20:33 Last Infusion: 04/04/18 21:45 Dose: 0 mls/hr Admin: 04/04/18 20:11 Dose: 1,000 mls/hr Prochlorperazine (Compazine) 10 mg IV NOW ONE Stop: 04/04/18 19:35 Last Admin: 04/04/18 20:39 Dose: 10 mg Vital Signs - 8 hr 04/04/18 19:34 04/04/18 20:29 04/04/18 20:39 Temperature 98.3 F Pulse Rate 116 H 104 H 92 H Respiratory Rate 16 16 Blood Pressure 131/86 130/93 H Blood Pressure [Right Arm] 130/93 H Pulse Oximetry 98 98 04/04/18 22:12 Temperature Pulse Rate 94 H Respiratory Rate 18 Blood Pressure 111/58 L Blood Pressure [Right Arm] Pulse Oximetry 98 MDM - Abdominal Pain <Yeny Roach PA-C - Last Filed: 04/04/18 22:12> Lab Data Attestation: I reviewed the patient's lab results. Result diagrams: 04/04/18 20:00 04/04/18 20:00 Lab Results 04/04/18 04/04/18 04/04/18 Range/Units 20:00 20:00 20:00 WBC 7.4 (4.5-11.0) X10^3/uL RBC 4.10 (4.0-5.2) X10^6/uL Hgb 14.4 (12.0-16.0) g/dL Hct 40.7 (36-46) % MCV 99.4 (80-100) fL MCH 35.1 H (26-34) PG MCHC 35.3 (30-36) % RDW 12.9 (11.6-14.8) % Plt Count 208 (150-400) X10^3/uL Neut % (Auto) Not Reportable Lymph % (Auto) Not Reportable [place] % (Auto) Not Reportable Eos % (Auto) Not Reportable Baso % (Auto) Not Reportable Total Counted 100 Seg Neutrophils % 56.0 (38-70) % Band Neutrophils % 2.0 L (3-7) % Lymphocytes % (Manual) 28.0 (25-45) % Monocytes % (Manual) 11.0 (2-11) % Eosinophils % (Manual) 3.0 (2-4) % Neutrophils # (Manual) 4292 (5181-9750) /uL RBC Morphology Normal morphology Sodium 135 L (137-145) mmol/L Potassium 4.9 (3.4-5.1) mmol/L Chloride 101 (98-107) mmol/L Carbon Dioxide 22 (22-32) mmol/L BUN 8 (7-17) mg/dL Creatinine 0.70 (0.52-1.04) mg/dL Estimated GFR > 60.0 (>60) mL/min BUN/Creatinine Ratio 11.4 (6-22) Glucose 86 (70-100) mg/dL Lactate 1.2 (0.7-2.1) mmol/L Calcium 8.8 (8.4-10.2) mg/dL Total Bilirubin 0.2 (0.2-1.3) mg/dL AST 93 H (14-36) IU/L ALT 45 (9-52) IU/L Alkaline Phosphatase 138 H (38-126) U/L Total Protein 6.9 (6.3-8.2) g/dL Albumin 4.1 (3.5-5.0) g/dL Globulin 2.8 (1.7-4.1) g/dL Albumin/Globulin Ratio 1.5 (1.0-2.8) Lipase 72 (23-300) U/L Imaging Data US - abdomen: Radiologist's impression: [address] [address] Ultrasound Report Signed Patient: Tammie Cameron MR#: [id number] : 1985 Acct:[id number] Age/Sex: 32 / F Date of Service: 04/04/18 Loc: ED Accession Number: [id number] Procedure: US abdomen complete Ordering Provider: Yeny Roach P.A-C PROCEDURE: US ABDOMEN COMPLETE INDICATIONS: ascites, increased pain TECHNIQUE: Real-time scanning was performed of the abdominal and retroperitoneal organs, with image documentation. COMPARISON: [facility], , US ABDOMEN LIMITED, 09/15/2017, 13:34. FINDINGS: Liver: The liver measures 15.4 cm in length and demonstrates increased echotexture. Gallbladder: The gallbladder wall measures 1.6 mm in diameter. The gallbladder is moderately distended. There is a positive sonographic Mcdonough sign. Biliary ducts: Intrahepatic bile ducts are non-dilated. Extrahepatic bile duct caliber measures 6.8 mm. Normal is 6-7 mm or less in diameter, or 10 mm or less post-cholecystectomy. Pancreas: The pancreas is nonvisualized. Spleen: Spleen is normal in size and homogeneous in echotexture. Kidneys: Kidneys are normal in size and echotexture. Right kidney measures 11.1 cm long; left kidney measures 10.4 cm long. No hydronephrosis or nephrolithiasis. No solid masses. Aorta: The aorta is nonvisualized due to bowel gas. Iliacs: The iliacs are not visualized. IVC: The IVC is patent. Miscellaneous: There is trace free fluid within the left and right lower quadrants. IMPRESSION: 1. Increased hepatic echogenicity suggesting hepatic steatosis although other sources of hepatocellular dysfunction cannot be excluded. 2. Trace left and right lower quadrant fluid. 3. Mild gallbladder distention and Mcdonough sign, without gallbladder wall thickening. These findings are equivocal for acute cholecystitis. If further characterization is warranted, a HIDA scan could be used. Dictated by: Chelle Salguero M.D. on 04/04/2018 at 21:33 Approved by: Chelle Salguero M.D. on 04/04/2018 at 21:36 <Carroll Bermudez DO - Last Filed: 04/04/18 23:52> Lab Data Lab Results 04/04/18 04/04/18 04/04/18 Range/Units 20:00 20:00 20:00 WBC 7.4 (4.5-11.0) X10^3/uL RBC 4.10 (4.0-5.2) X10^6/uL Hgb 14.4 (12.0-16.0) g/dL Hct 40.7 (36-46) % MCV 99.4 (80-100) fL MCH 35.1 H (26-34) PG MCHC 35.3 (30-36) % RDW 12.9 (11.6-14.8) % Plt Count 208 (150-400) X10^3/uL Neut % (Auto) Not Reportable Lymph % (Auto) Not Reportable [place] % (Auto) Not Reportable Eos % (Auto) Not Reportable Baso % (Auto) Not Reportable Total Counted 100 Seg Neutrophils % 56.0 (38-70) % Band Neutrophils % 2.0 L (3-7) % Lymphocytes % (Manual) 28.0 (25-45) % Monocytes % (Manual) 11.0 (2-11) % Eosinophils % (Manual) 3.0 (2-4) % Neutrophils # (Manual) 4292 (9214-5342) /uL RBC Morphology Normal morphology Sodium 135 L (137-145) mmol/L Potassium 4.9 (3.4-5.1) mmol/L Chloride 101 (98-107) mmol/L Carbon Dioxide 22 (22-32) mmol/L BUN 8 (7-17) mg/dL Creatinine 0.70 (0.52-1.04) mg/dL Estimated GFR > 60.0 (>60) mL/min BUN/Creatinine Ratio 11.4 (6-22) Glucose 86 (70-100) mg/dL Lactate 1.2 (0.7-2.1) mmol/L Calcium 8.8 (8.4-10.2) mg/dL Total Bilirubin 0.2 (0.2-1.3) mg/dL AST 93 H (14-36) IU/L ALT 45 (9-52) IU/L Alkaline Phosphatase 138 H (38-126) U/L Total Protein 6.9 (6.3-8.2) g/dL Albumin 4.1 (3.5-5.0) g/dL Globulin 2.8 (1.7-4.1) g/dL Albumin/Globulin Ratio 1.5 (1.0-2.8) Lipase 72 (23-300) U/L Discharge Plan Departure Patient Disposition: Home Clinical Impression: Abdominal pain, Nausea & vomiting, Cirrhosis Discharge Date/Time: 04/04/18 22:14 Interventions: ED Discharge Assessment Last Done: 04/04/18 22:12 Activity Restrictions/Additional Instructions: Please return as we talked about if you have any acutely worsening symptoms. You can use the pain medication that we gave you for tonight if needed, and you can use the nausea medication you have at home. Please follow up with your clinic tomorrow as you have planned. I will phone you this evening if any other finding on the ultrasound aside from what we have discussed, and please take the CD with you to your appointment tomorrow. Prescriptions: No Action furosemide 40 mg Tablet 40 mg PO 0800,1700 Qty: 60 RF: 5 spironolactone 50 mg Tablet 50 mg PO 0800,1700 Qty: 60 RF: 5 tramadol 50 mg Tablet 50 mg PO Q6H RF: 0 ondansetron 4 mg Tablet,Disintegrating 4 mg PO BID PRN (Reason: Pain (Scale Score 1-3)) RF: 0 diazepam 5 mg tablet 5 mg PO QPM RF: 0 promethazine 12.5 mg Tablet 12.5 mg PO Q4H PRN (Reason: Vomiting) RF: 0 prochlorperazine maleate 10 mg Tablet 10 mg PO Q6-8H PRN (Reason: Nausea) RF: 0 tramadol 50 mg tablet 1 - 2 tab PO Q6H PRN (Reason: pain) RF: 0 promethazine 12.5 mg Suppository 12.5 mg [place] Q6H PRN (Reason: Vomiting) RF: 0 duloxetine 30 mg Capsule,Delayed Release(Dr/Ec) 30 mg PO QPM RF: 0 Referrals: [facility]iv[facility] Marley [Other] Gastroenterology, [place] [Other] <Carroll Bermudez DO - Last Filed: 04/04/18 23:52> [facility] ED Attending Cynthia Attestation: I was available for consultation during this patient's emergency department encounter
--- NOTE | 2018-04-04 19:45 | DI.US.S_ITS ---
PROCEDURE: US ABDOMEN COMPLETE INDICATIONS: ascites, increased pain TECHNIQUE: Real-time scanning was performed of the abdominal and retroperitoneal organs, with image documentation. COMPARISON: [facility], , US ABDOMEN LIMITED, 09/15/2017, 13:34. FINDINGS: Liver: The liver measures 15.4 cm in length and demonstrates increased echotexture. Gallbladder: The gallbladder wall measures 1.6 mm in diameter. The gallbladder is moderately distended. There is a positive sonographic Mcdonough sign. Biliary ducts: Intrahepatic bile ducts are non-dilated. Extrahepatic bile duct caliber measures 6.8 mm. Normal is 6-7 mm or less in diameter, or 10 mm or less post-cholecystectomy. Pancreas: The pancreas is nonvisualized. Spleen: Spleen is normal in size and homogeneous in echotexture. Kidneys: Kidneys are normal in size and echotexture. Right kidney measures 11.1 cm long; left kidney measures 10.4 cm long. No hydronephrosis or nephrolithiasis. No solid masses. Aorta: The aorta is nonvisualized due to bowel gas. Iliacs: The iliacs are not visualized. IVC: The IVC is patent. Miscellaneous: There is trace free fluid within the left and right lower quadrants. IMPRESSION: 1. Increased hepatic echogenicity suggesting hepatic steatosis although other sources of hepatocellular dysfunction cannot be excluded. 2. Trace left and right lower quadrant fluid. 3. Mild gallbladder distention and Mcdonough sign, without gallbladder wall thickening. These findings are equivocal for acute cholecystitis. If further characterization is warranted, a HIDA scan could be used. Dictated by: Chelle Salguero M.D. on 04/04/2018 at 21:33 Approved by: Chelle Salguero M.D. on 04/04/2018 at 21:36
--- NOTE | 2018-04-04 19:55 | ED_ITS ---
HPI - Abdominal Pain <Yeny Roach PA-C - Last Filed: 04/04/18 22:12> General Chief Complaint: Abdominal Pain Stated Complaint: LT LUNG PAIN, RT ABD PAIN Time Seen by Provider: 04/04/18 19:22 Source: patient Mode of arrival: ambulatory Limitations: no limitations History of Present Illness HPI narrative: This 32-year-old female with history of liver failure related to cirrhosis returns with worsening abdominal pain, nausea and vomiting. She states that she has been following this with her PCP in [place] as well as GI. She states that ascites has been getting worse again for at least the last couple of weeks. She has gained about 20 lb in that time period she says. She states that it is getting more difficult for her to breathe gradually as is cool as her ascites get this worse, but she is not acutely short of breath today. She denies chest pain. She states that she has been taking her furosemide and spironolactone 3 tabs daily as when she was discharged here. She states that she has vomited 6 times today and has had persistent nausea as is typical for her ascites. She states that she has kept down some fluids and some food today but not consistently. Took her pain medication and tried nausea medicines at home but not keeping that down. She denies any new fever. She has had some diarrhea as is typical, no acute changes. She does not have any new urinary symptoms, swelling or pain in her extremities or other new complaints today. She notes that she has been diagnosed with cervical cancer since last seen here. Related Data Home Medications Medication Instructions Recorded Confirmed diazepam 5 mg PO QPM 01/24/18 01/24/18 duloxetine 30 mg PO QPM 01/24/18 01/24/18 prochlorperazine maleate 10 mg PO Q6-8H PRN 01/24/18 04/04/18 promethazine 12.5 mg PO Q4H PRN 01/24/18 04/04/18 promethazine 12.5 mg AL Q6H PRN 01/24/18 01/24/18 tramadol 1 - 2 tab PO Q6H PRN 01/24/18 01/24/18 ondansetron 4 mg PO BID PRN 04/04/18 04/04/18 tramadol 50 mg PO Q6H 04/04/18 04/04/18 Previous Rx's Medication Instructions Recorded furosemide 40 mg PO 0800,1700 #60 tab 09/16/17 spironolactone 50 mg PO 0800,1700 #60 tab 09/16/17 Allergies Allergy/AdvReac Type Severity Reaction Status Date / Time acetaminophen Allergy Intermediate Abdominal Verified 04/04/18 19:34 Pain NSAIDS (Non-Steroidal Allergy Intermediate Abdominal Verified 04/04/18 19:34 Anti-Inflamma Pain oxycodone Allergy Intermediate Abdominal Verified 04/04/18 19:34 Pain Review of Systems <Yeny Roach PA-C - Last Filed: 04/04/18 22:12> Review of Systems All systems reviewed & are unremarkable except as noted in HPI and below Exam <Yeny Roach PA-C - Last Filed: 04/04/18 22:12> Narrative Exam Narrative: GENERAL APPEARANCE: Patient resting comfortably, in no distress. HEENT: PERRL, EOMI, no scleral icterus, normal oropharynx NECK: Supple, no masses LUNGS: Clear to auscultation bilaterally. HEART: Rate and rhythm regular, normal S1 and S2, no S3 or S4. ABDOMEN: Soft, exquisite right upper to mid epigastric tenderness, mildly tender elsewhere throughout the abdomen. Mild distension. No fluid wave. bowel sounds present x 4 quadrants, no masses palpable, no splenomegaly. Unable to palpate deeply enough to determine whether any hepatomegaly EXTREMITIES: No edema, no calf tenderness DERMATOLOGIC: No jaundice or exanthem NEUROLOGIC: Alert and oriented with normal speech and coordination Initial Vital Signs Initial Vital Signs: Vital Signs Temperature 98.3 F 04/04/18 19:34 Pulse Rate 116 H 04/04/18 19:34 Respiratory Rate 16 04/04/18 19:34 Blood Pressure 131/86 04/04/18 19:34 Pulse Oximetry 98 04/04/18 19:34 <Carroll Bermudez DO - Last Filed: 04/04/18 23:52> Initial Vital Signs Initial Vital Signs: Vital Signs Temperature 98.3 F 04/04/18 19:34 Pulse Rate 116 H 04/04/18 19:34 Respiratory Rate 16 04/04/18 19:34 Blood Pressure 131/86 04/04/18 19:34 Pulse Oximetry 98 04/04/18 19:34 Course <EVELIN Abel Last Filed: 04/04/18 22:12> Orders Ordered: ED Orders 04/04/18 19:45 US abdomen complete Stat 04/04/18 20:00 Complete Blood Count AUTO DIFF Stat Comprehensive Metabolic Panel Stat Lactate (Lactic Acid) Stat Lipase Stat Discontinued Medications Hydrocodone Bitart/Acetaminophen (Vicodin Prepack) 1 bottle MISC SEEINSTR ONE Stop: 04/04/18 21:21 Last Admin: 04/04/18 22:01 Dose: 1 bottle Hydromorphone HCl (Dilaudid) 1 mg IV NOW ONE Stop: 04/04/18 19:46 Last Admin: 04/04/18 20:10 Dose: 1 mg Sodium Chloride (Normal Saline 0.9%) 1,000 mls @ 1,000 mls/hr IV BOLUS ONE Stop: 04/04/18 20:33 Last Infusion: 04/04/18 21:45 Dose: 0 mls/hr Admin: 04/04/18 20:11 Dose: 1,000 mls/hr Prochlorperazine (Compazine) 10 mg IV NOW ONE Stop: 04/04/18 19:35 Last Admin: 04/04/18 20:39 Dose: 10 mg Patient is feeling markedly improved after pain medication and Compazine. She has not had any recurrent vomiting. She felt that she would be able to return home and rest comfortably. Reviewed US findings and labwork. She already has follow-up scheduled in clinic tomorrow. She was given pain medication for tonight and has a copy of her ultrasound on disc to review. She will return if she has any acutely worsening symptoms again. Vital Signs - 8 hr 04/04/18 19:34 04/04/18 20:29 04/04/18 20:39 Temperature 98.3 F Pulse Rate 116 H 104 H 92 H Respiratory Rate 16 16 Blood Pressure 131/86 130/93 H Blood Pressure [Right Arm] 130/93 H Pulse Oximetry 98 98 04/04/18 22:12 Temperature Pulse Rate 94 H Respiratory Rate 18 Blood Pressure 111/58 L Blood Pressure [Right Arm] Pulse Oximetry 98 <Carroll Bermudez DO - Last Filed: 04/04/18 23:52> Orders Ordered: ED Orders 04/04/18 19:45 US abdomen complete Stat 04/04/18 20:00 Complete Blood Count AUTO DIFF Stat Comprehensive Metabolic Panel Stat Lactate (Lactic Acid) Stat Lipase Stat Discontinued Medications Hydrocodone Bitart/Acetaminophen (Vicodin Prepack) 1 bottle MISC SEEINSTR ONE Stop: 04/04/18 21:21 Last Admin: 04/04/18 22:01 Dose: 1 bottle Hydromorphone HCl (Dilaudid) 1 mg IV NOW ONE Stop: 04/04/18 19:46 Last Admin: 04/04/18 20:10 Dose: 1 mg Sodium Chloride (Normal Saline 0.9%) 1,000 mls @ 1,000 mls/hr IV BOLUS ONE Stop: 04/04/18 20:33 Last Infusion: 04/04/18 21:45 Dose: 0 mls/hr Admin: 04/04/18 20:11 Dose: 1,000 mls/hr Prochlorperazine (Compazine) 10 mg IV NOW ONE Stop: 04/04/18 19:35 Last Admin: 04/04/18 20:39 Dose: 10 mg Vital Signs - 8 hr 04/04/18 19:34 04/04/18 20:29 04/04/18 20:39 Temperature 98.3 F Pulse Rate 116 H 104 H 92 H Respiratory Rate 16 16 Blood Pressure 131/86 130/93 H Blood Pressure [Right Arm] 130/93 H Pulse Oximetry 98 98 04/04/18 22:12 Temperature Pulse Rate 94 H Respiratory Rate 18 Blood Pressure 111/58 L Blood Pressure [Right Arm] Pulse Oximetry 98 MDM - Abdominal Pain <Yeny Roach PA-C - Last Filed: 04/04/18 22:12> Lab Data Attestation: I reviewed the patient's lab results. Result diagrams: 04/04/18 20:00 04/04/18 20:00 Lab Results 04/04/18 04/04/18 04/04/18 Range/Units 20:00 20:00 20:00 WBC 7.4 (4.5-11.0) X10^3/uL RBC 4.10 (4.0-5.2) X10^6/uL Hgb 14.4 (12.0-16.0) g/dL Hct 40.7 (36-46) % MCV 99.4 (80-100) fL MCH 35.1 H (26-34) PG MCHC 35.3 (30-36) % RDW 12.9 (11.6-14.8) % Plt Count 208 (150-400) X10^3/uL Neut % (Auto) Not Reportable Lymph % (Auto) Not Reportable [place] % (Auto) Not Reportable Eos % (Auto) Not Reportable Baso % (Auto) Not Reportable Total Counted 100 Seg Neutrophils % 56.0 (38-70) % Band Neutrophils % 2.0 L (3-7) % Lymphocytes % (Manual) 28.0 (25-45) % Monocytes % (Manual) 11.0 (2-11) % Eosinophils % (Manual) 3.0 (2-4) % Neutrophils # (Manual) 4292 (5021-1172) /uL RBC Morphology Normal morphology Sodium 135 L (137-145) mmol/L Potassium 4.9 (3.4-5.1) mmol/L Chloride 101 (98-107) mmol/L Carbon Dioxide 22 (22-32) mmol/L BUN 8 (7-17) mg/dL Creatinine 0.70 (0.52-1.04) mg/dL Estimated GFR > 60.0 (>60) mL/min BUN/Creatinine Ratio 11.4 (6-22) Glucose 86 (70-100) mg/dL Lactate 1.2 (0.7-2.1) mmol/L Calcium 8.8 (8.4-10.2) mg/dL Total Bilirubin 0.2 (0.2-1.3) mg/dL AST 93 H (14-36) IU/L ALT 45 (9-52) IU/L Alkaline Phosphatase 138 H (38-126) U/L Total Protein 6.9 (6.3-8.2) g/dL Albumin 4.1 (3.5-5.0) g/dL Globulin 2.8 (1.7-4.1) g/dL Albumin/Globulin Ratio 1.5 (1.0-2.8) Lipase 72 (23-300) U/L Imaging Data US - abdomen: Radiologist's impression: [address] [address] Ultrasound Report Signed Patient: Tammie Cameron MR#: [id number] : 1985 Acct:[id number] Age/Sex: 32 / F Date of Service: 04/04/18 Loc: ED Accession Number: [id number] Procedure: US abdomen complete Ordering Provider: Yeny Roach P.A-C PROCEDURE: US ABDOMEN COMPLETE INDICATIONS: ascites, increased pain TECHNIQUE: Real-time scanning was performed of the abdominal and retroperitoneal organs, with image documentation. COMPARISON: [facility], , US ABDOMEN LIMITED, 09/15/2017, 13:34. FINDINGS: Liver: The liver measures 15.4 cm in length and demonstrates increased echotexture. Gallbladder: The gallbladder wall measures 1.6 mm in diameter. The gallbladder is moderately distended. There is a positive sonographic Mcdonough sign. Biliary ducts: Intrahepatic bile ducts are non-dilated. Extrahepatic bile duct caliber measures 6.8 mm. Normal is 6-7 mm or less in diameter, or 10 mm or less post-cholecystectomy. Pancreas: The pancreas is nonvisualized. Spleen: Spleen is normal in size and homogeneous in echotexture. Kidneys: Kidneys are normal in size and echotexture. Right kidney measures 11.1 cm long; left kidney measures 10.4 cm long. No hydronephrosis or nephrolithiasis. No solid masses. Aorta: The aorta is nonvisualized due to bowel gas. Iliacs: The iliacs are not visualized. IVC: The IVC is patent. Miscellaneous: There is trace free fluid within the left and right lower quadrants. IMPRESSION: 1. Increased hepatic echogenicity suggesting hepatic steatosis although other sources of hepatocellular dysfunction cannot be excluded. 2. Trace left and right lower quadrant fluid. 3. Mild gallbladder distention and Mcdonough sign, without gallbladder wall thickening. These findings are equivocal for acute cholecystitis. If further characterization is warranted, a HIDA scan could be used. Dictated by: Chelle Salguero M.D. on 04/04/2018 at 21:33 Approved by: Chelle Salguero M.D. on 04/04/2018 at 21:36 <Carroll Bermudez DO - Last Filed: 04/04/18 23:52> Lab Data Lab Results 04/04/18 04/04/18 04/04/18 Range/Units 20:00 20:00 20:00 WBC 7.4 (4.5-11.0) X10^3/uL RBC 4.10 (4.0-5.2) X10^6/uL Hgb 14.4 (12.0-16.0) g/dL Hct 40.7 (36-46) % MCV 99.4 (80-100) fL MCH 35.1 H (26-34) PG MCHC 35.3 (30-36) % RDW 12.9 (11.6-14.8) % Plt Count 208 (150-400) X10^3/uL Neut % (Auto) Not Reportable Lymph % (Auto) Not Reportable [place] % (Auto) Not Reportable Eos % (Auto) Not Reportable Baso % (Auto) Not Reportable Total Counted 100 Seg Neutrophils % 56.0 (38-70) % Band Neutrophils % 2.0 L (3-7) % Lymphocytes % (Manual) 28.0 (25-45) % Monocytes % (Manual) 11.0 (2-11) % Eosinophils % (Manual) 3.0 (2-4) % Neutrophils # (Manual) 4292 (8102-7799) /uL RBC Morphology Normal morphology Sodium 135 L (137-145) mmol/L Potassium 4.9 (3.4-5.1) mmol/L Chloride 101 (98-107) mmol/L Carbon Dioxide 22 (22-32) mmol/L BUN 8 (7-17) mg/dL Creatinine 0.70 (0.52-1.04) mg/dL Estimated GFR > 60.0 (>60) mL/min BUN/Creatinine Ratio 11.4 (6-22) Glucose 86 (70-100) mg/dL Lactate 1.2 (0.7-2.1) mmol/L Calcium 8.8 (8.4-10.2) mg/dL Total Bilirubin 0.2 (0.2-1.3) mg/dL AST 93 H (14-36) IU/L ALT 45 (9-52) IU/L Alkaline Phosphatase 138 H (38-126) U/L Total Protein 6.9 (6.3-8.2) g/dL Albumin 4.1 (3.5-5.0) g/dL Globulin 2.8 (1.7-4.1) g/dL Albumin/Globulin Ratio 1.5 (1.0-2.8) Lipase 72 (23-300) U/L Discharge Plan Departure Patient Disposition: Home Clinical Impression: Abdominal pain, Nausea & vomiting, Cirrhosis Discharge Date/Time: 04/04/18 22:14 Interventions: ED Discharge Assessment Last Done: 04/04/18 22:12 Activity Restrictions/Additional Instructions: Please return as we talked about if you have any acutely worsening symptoms. You can use the pain medication that we gave you for tonight if needed, and you can use the nausea medication you have at home. Please follow up with your clinic tomorrow as you have planned. I will phone you this evening if any other finding on the ultrasound aside from what we have discussed, and please take the CD with you to your appointment tomorrow. Prescriptions: No Action furosemide 40 mg Tablet 40 mg PO 0800,1700 Qty: 60 RF: 5 spironolactone 50 mg Tablet 50 mg PO 0800,1700 Qty: 60 RF: 5 tramadol 50 mg Tablet 50 mg PO Q6H RF: 0 ondansetron 4 mg Tablet,Disintegrating 4 mg PO BID PRN (Reason: Pain (Scale Score 1-3)) RF: 0 diazepam 5 mg tablet 5 mg PO QPM RF: 0 promethazine 12.5 mg Tablet 12.5 mg PO Q4H PRN (Reason: Vomiting) RF: 0 prochlorperazine maleate 10 mg Tablet 10 mg PO Q6-8H PRN (Reason: Nausea) RF: 0 tramadol 50 mg tablet 1 - 2 tab PO Q6H PRN (Reason: pain) RF: 0 promethazine 12.5 mg Suppository 12.5 mg AL Q6H PRN (Reason: Vomiting) RF: 0 duloxetine 30 mg Capsule,Delayed Release(Dr/Ec) 30 mg PO QPM RF: 0 Referrals: [facility] [Other] Gastroenterology, [place] [Other] <Carroll Bermudez DO - Last Filed: 04/04/18 23:52> [facility] Cynthia Attestation: I was available for consultation during this patient's emergency department encounter
[2018-04-04] MEDS: HYDROMORPHONE 1 MG INJ IV (20:10)
[2018-04-04] MEDS: SODIUM CHLORIDE 0.9% 1,000 ML 1000 ML IV (20:11)
[2018-04-04 20:14] LABS: Hematocrit 40.7 % (36-46); Hemoglobin 14.4 g/dL (12.0-16.0); Mean Corpuscular HGB Conc 35.3 % (30-36); Mean Corpuscular Hemoglobin 35.1 PG (26-34); Mean Corpuscular Volume 99.4 fL (80-100); Platelet Count 208 X10^3/uL (150-400); Red Cell Distribution Width 12.9 % (11.6-14.8); White Blood Cell Count 7.4 X10^3/uL (4.5-11.0)
[2018-04-04 20:21] LABS: Alanine Aminotransferase 45 IU/L (9-52); Albumin 4.1 g/dL (3.5-5.0); Albumin Globulin Ratio 1.5 (1.0-2.8); Alkaline Phosphatase 138 U/L (38-126); Aspartate Aminotransferase 93 IU/L (14-36); BUN Creatinine Ratio 11.4 (6-22); Bilirubin Total 0.2 mg/dL (0.2-1.3); Blood Urea Nitrogen 8 mg/dL (7-17); Calcium 8.8 mg/dL (8.4-10.2); Carbon Dioxide 22 mmol/L (22-32); Chloride 101 mmol/L (98-107); Estimated Glomerular Filt Rate > 60.0 mL/min (>60); Globulin 2.8 g/dL (1.7-4.1); Glucose 86 mg/dL (70-100); HEMOLYSIS < 15 (0-50); Lactate (Lactic Acid) 1.2 mmol/L (0.7-2.1); Lipase 72 U/L (23-300); Potassium 4.9 mmol/L (3.4-5.1); Sodium 135 mmol/L (137-145); Total Protein 6.9 g/dL (6.3-8.2)
[2018-04-04 20:24] LABS: Add Manual Diff / Slide Review YES
[2018-04-04 20:29] VITALS: BP 130/93; PULSE 104; RESP 16; O2SAT 98
[2018-04-04 20:39] VITALS: BP 130/93; PULSE 92
[2018-04-04] MEDS: PROCHLORPERAZINE 10 MG/2 ML VIAL IV (20:39)
[2018-04-04 20:53] LABS: Neutrophils Absolute Manual 4292 /uL (3000-5900); Total Cells Counted 100
[2018-04-04 20:54] LABS: RBC Morphology Normal Morphology
[2018-04-04] MEDS: HYDROCODONE/ACET 5/325 PREPACK 1 BOTTLE MISC (22:01)
[2018-04-04 22:12] VITALS: BP 111/58; PULSE 94; RESP 18; O2SAT 98
== END 2018-04-04 22:14 | disposition home or self-care (01) ==
PROVIDERS: Emergency Provider Internal Medicine
DX: K74.60 Unspecified cirrhosis of liver (principal); R11.2 Nausea with vomiting, unspecified; R10.9 Unspecified abdominal pain
CPT/HCPCS: 36591; 76700; 80053; 83605; 83690; 85025; 96361; 96374; 96375; 99283; 99284; J0780; J1170

== ENCOUNTER 2018-05-17 15:30 | Emergency (ER) | payer OTHER, SELFPAY ==
[2017-09-15 17:31] VITALS: BMI 30.7
[2018-05-17] VITALS (9 sets, daily range): BP systolic 108–127; BP diastolic 65–96; PULSE 102–123; RESP 12–20; TEMP 36.9; O2SAT 94–97; BMI 31.1
--- NOTE | 2018-05-17 15:26 | DI.RAD.S_ITS ---
PROCEDURE: XR CHEST 1V INDICATIONS: chest pain TECHNIQUE: One view of the chest was acquired. COMPARISON: None. FINDINGS: Surgical changes and devices: Surgical clips projecting in the upper abdomen.. Lungs and pleura: No acute consolidation. Scattered subsegmental atelectasis and/or scarring. No pleural effusions or pneumothorax. Platelike atelectasis or scarring present in the left lung base. The lungs are decreased Mediastinum: Mediastinal contours appear normal. Heart size is normal. Bones and chest wall: No suspicious bony lesions. Overlying soft tissues appear unremarkable. Left shoulder calcific tendinitis. IMPRESSION: No acute disease. Low lung volumes and scattered atelectasis as above Dictated by: Odin Lofton M.D. on 05/17/2018 at 15:58 Approved by: Odin Lofton M.D. on 05/17/2018 at 15:59
[2018-05-17 16:05] LABS: Add Manual Diff / Slide Review NO; Basophils Absolute Auto 0 /uL (0-100); Basophils Percent Auto 0.4 % (0-2); Eosinophils Absolute Auto 200 /uL (0-450); Eosinophils Percent Auto 2.4 % (2-4); Hematocrit 49.1 % (36-46); Hemoglobin 16.8 g/dL (12.0-16.0); Lymphocytes Absolute Auto 3600 /uL (1100-4500); Lymphocytes Percent Auto 34.5 % (25-40); Mean Corpuscular HGB Conc 34.1 % (30-36); Mean Corpuscular Hemoglobin 34.1 PG (26-34); Mean Corpuscular Volume 99.9 fL (80-100); Monocytes Absolute Auto 1100 /uL (0-900); Monocytes Percent Auto 11.1 % (3-14); Neutrophils Absolute Auto 5300 /uL (1500-7000); Neutrophils Percent Auto 51.6 % (50-75); Platelet Count 333 X10^3/uL (150-400); Red Blood Cell Count 4.91 X10^6/uL (4.0-5.2); Red Cell Distribution Width 12.2 % (11.6-14.8); White Blood Cell Count 10.3 X10^3/uL (4.5-11.0)
[2018-05-17 16:13] LABS: Prothrombin Time 11.5 SECONDS (10.1-12.7)
[2018-05-17 16:16] LABS: PTT Partial Thromboplastin Tim 29 SECONDS (26.4-36.2)
[2018-05-17 16:30] LABS: Alanine Aminotransferase 41 IU/L (9-52); Albumin 4.7 g/dL (3.5-5.0); Albumin Globulin Ratio 1.7 (1.0-2.8); Alkaline Phosphatase 101 U/L (38-126); Aspartate Aminotransferase 74 IU/L (14-36); BUN Creatinine Ratio 4.3 (6-22); Bilirubin Total 0.3 mg/dL (0.2-1.3); Blood Urea Nitrogen 3 mg/dL (7-17); Calcium 9.5 mg/dL (8.4-10.2); Carbon Dioxide 21 mmol/L (22-32); Chloride 100 mmol/L (98-107); Creatine Kinase 291 U/L (30-135); Estimated Glomerular Filt Rate > 60.0 mL/min (>60); Globulin 2.8 g/dL (1.7-4.1); Glucose 84 mg/dL (70-100); HEMOLYSIS < 15 (0-50); Lipase 91 U/L (23-300); Potassium 5.1 mmol/L (3.4-5.1); Sodium 138 mmol/L (137-145); Total Protein 7.5 g/dL (6.3-8.2)
[2018-05-17 16:45] LABS: Troponin I < 0.012 ng/mL (0.01-0.034)
[2018-05-17 16:55] LABS: CKMB % Relative Index 0.2 % (1.5-5.0); Creatine Kinase MB 0.65 ng/mL (<2.37)
--- NOTE | 2018-05-17 16:56 | ED.CHESTPAIN ---
HPI - Chest Pain <Yeny Roach PA-C - Last Filed: 05/17/18 21:42> General Chief Complaint: Chest Pain Stated Complaint: chest Px Time Seen by Provider: 05/17/18 16:56 Source: patient and family Mode of arrival: EMS Limitations: no limitations History of Present Illness HPI narrative: This 32-year-old female comes to ED today due to chest pain. She states this came on abruptly while she was sitting in a chair. She states that the pain waxes and wanes. There do not seem to be any exacerbating features at all. It is better with leaning forward and also after she vomits. She has had nausea today with vomiting, which is an ongoing issue for her , worse with moving around. She does have ascites and states that she always has generalized swelling and is still gaining weight, but states this has not been tapped recently due to no large pockets. She is following with GI closely for this. She states that she does not have new abdominal pain. She does not have new pain in her lower extremities. She states that she has been somewhat more short of breath in general but perhaps more today. Family notes that she has been having ongoing breathing difficulties with sleep as well. patient states that at rest, pain is more like a pressure in her chest in the midline. no radiation of pain. She denies flank or back pain. She denies any new urinary symptoms. She denies new cough or fever. Related Data Home Medications Medication Instructions Recorded Confirmed diazepam 5 mg PO QPM 01/24/18 01/24/18 duloxetine 30 mg PO QPM 01/24/18 01/24/18 prochlorperazine maleate 10 mg PO Q6-8H PRN 01/24/18 04/04/18 promethazine 12.5 mg PO Q4H PRN 01/24/18 04/04/18 promethazine 12.5 mg RI Q6H PRN 01/24/18 01/24/18 ondansetron 4 mg PO BID PRN 04/04/18 04/04/18 tramadol 50 mg PO Q6H 04/04/18 04/04/18 Previous Rx's Medication Instructions Recorded furosemide 40 mg PO 0800,1700 #60 tab 09/16/17 spironolactone 50 mg PO 0800,1700 #60 tab 09/16/17 lidocaine HCl [Lidocaine Viscous] 10 ml MM Q3-4H PRN #150 ml 05/17/18 Allergies Allergy/AdvReac Type Severity Reaction Status Date / Time acetaminophen Allergy Intermediate Abdominal Verified 04/04/18 19:34 Pain NSAIDS (Non-Steroidal Allergy Intermediate Abdominal Verified 04/04/18 19:34 Anti-Inflamma Pain oxycodone Allergy Intermediate Abdominal Verified 04/04/18 19:34 Pain Review of Systems <Yeny Roach PA-C - Last Filed: 05/17/18 21:42> Review of Systems ROS Unobtainable: All systems reviewed & are unremarkable except as noted in HPI and below Exam <Yeny Roach PA-C - Last Filed: 05/17/18 21:42> Narrative Exam Narrative: GENERAL APPEARANCE: Patient sitting comfortably, in no distress. HEENT: PERRL, EOMI, no scleral icterus NECK: Supple LUNGS: Clear to auscultation bilaterally. CHEST: Tender to palpation throughout the mid to inferior sternum HEART: Rate and rhythm regular, normal S1 and S2, no S3 or S4. ABDOMEN: Soft, nontender, mild distension, bowel sounds present x 4 quadrants, no masses palpable, no hepatosplenomegaly. no CVAT EXTREMITIES: trace edema, no calf tenderness DERMATOLOGIC: No jaundice or exanthem NEUROLOGIC: Alert and oriented with normal speech and coordination Initial Vital Signs Initial Vital Signs: Vital Signs Pulse Rate 118 H 05/17/18 15:30 Respiratory Rate 14 05/17/18 15:30 Blood Pressure 127/96 H 05/17/18 15:30 Pulse Oximetry 94 05/17/18 15:30 <Anjali Mendez DO - Last Filed: 05/18/18 10:43> Initial Vital Signs Initial Vital Signs: Vital Signs Pulse Rate 118 H 05/17/18 15:30 Respiratory Rate 14 05/17/18 15:30 Blood Pressure 127/96 H 05/17/18 15:30 Pulse Oximetry 94 05/17/18 15:30 Course <Yeny Roach PA-C - Last Filed: 05/17/18 21:42> Additional Information: patient appeared relaxed and was feeling markedly improved prior to discharge. She has echocardiogram and primary care follow-up arranged and agreed to return if any acutely worsening symptoms Orders Ordered: Discontinued Medications Al Hydrox/Mg Hydrox/Simethicone 20 ml/ Lidocaine HCl 15 ml 0 ml PO NOW ONE Stop: 05/17/18 17:20 Last Admin: 05/17/18 17:39 Dose: 35 ml Hydromorphone HCl (Dilaudid) 1 mg IV NOW ONE Stop: 05/17/18 17:20 Last Admin: 05/17/18 17:40 Dose: 1 mg Sodium Chloride (Normal Saline 0.9%) 1,000 mls @ 500 mls/hr IV BOLUS PRN PRN Reason: Fluid replacement Sodium Chloride (Normal Saline 0.9%) 500 mls @ 500 mls/hr IV BOLUS ONE Stop: 05/17/18 18:35 Last Infusion: 05/17/18 19:05 Dose: 0 mls/hr Admin: 05/17/18 17:41 Dose: 500 mls/hr Ketorolac Tromethamine (Toradol) 15 mg IV NOW ONE Stop: 05/17/18 17:20 Last Admin: 05/17/18 17:39 Dose: 15 mg Ondansetron HCl (Zofran) 4 mg IV NOW ONE Stop: 05/17/18 17:20 Last Admin: 05/17/18 17:40 Dose: 4 mg Vital Signs - 8 hr 05/17/18 15:30 05/17/18 15:35 05/17/18 16:00 Temperature 98.4 F Pulse Rate 118 H 123 H 114 H Respiratory Rate 14 19 17 Blood Pressure 127/96 H Blood Pressure [Left Arm] 127/96 H 123/92 H Pulse Oximetry 94 94 97 05/17/18 17:00 05/17/18 17:30 05/17/18 18:00 Temperature Pulse Rate 112 H 109 H 102 H Respiratory Rate 16 18 16 Blood Pressure Blood Pressure [Left Arm] 110/72 124/89 113/66 Pulse Oximetry 97 05/17/18 18:30 05/17/18 19:30 05/17/18 19:51 Temperature Pulse Rate 108 H 111 H 107 H Respiratory Rate 12 20 18 Blood Pressure 122/76 Blood Pressure [Left Arm] 108/65 122/76 Pulse Oximetry 94 <Anjali Mendez DO - Last Filed: 05/18/18 10:43> Orders Ordered: Discontinued Medications Al Hydrox/Mg Hydrox/Simethicone 20 ml/ Lidocaine HCl 15 ml 0 ml PO NOW ONE Stop: 05/17/18 17:20 Last Admin: 05/17/18 17:39 Dose: 35 ml Hydromorphone HCl (Dilaudid) 1 mg IV NOW ONE Stop: 05/17/18 17:20 Last Admin: 05/17/18 17:40 Dose: 1 mg Sodium Chloride (Normal Saline 0.9%) 1,000 mls @ 500 mls/hr IV BOLUS PRN PRN Reason: Fluid replacement Sodium Chloride (Normal Saline 0.9%) 500 mls @ 500 mls/hr IV BOLUS ONE Stop: 05/17/18 18:35 Last Infusion: 05/17/18 19:05 Dose: 0 mls/hr Admin: 05/17/18 17:41 Dose: 500 mls/hr Ketorolac Tromethamine (Toradol) 15 mg IV NOW ONE Stop: 05/17/18 17:20 Last Admin: 05/17/18 17:39 Dose: 15 mg Ondansetron HCl (Zofran) 4 mg IV NOW ONE Stop: 05/17/18 17:20 Last Admin: 05/17/18 17:40 Dose: 4 mg Vital Signs - 8 hr 05/17/18 15:30 05/17/18 15:35 05/17/18 16:00 Temperature 98.4 F Pulse Rate 118 H 123 H 114 H Respiratory Rate 14 19 17 Blood Pressure 127/96 H Blood Pressure [Left Arm] 127/96 H 123/92 H Pulse Oximetry 94 94 97 05/17/18 17:00 05/17/18 17:30 05/17/18 18:00 Temperature Pulse Rate 112 H 109 H 102 H Respiratory Rate 16 18 16 Blood Pressure Blood Pressure [Left Arm] 110/72 124/89 113/66 Pulse Oximetry 97 05/17/18 18:30 05/17/18 19:30 05/17/18 19:51 Temperature Pulse Rate 108 H 111 H 107 H Respiratory Rate 12 20 18 Blood Pressure 122/76 Blood Pressure [Left Arm] 108/65 122/76 Pulse Oximetry 94 MDM - Chest Pain <Yeny Roach PA-C - Last Filed: 05/17/18 21:42> Lab Data Attestation: I reviewed the patient's lab results. Result diagrams: 05/17/18 15:33 05/17/18 15:33 Lab Results 05/17/18 05/17/18 05/17/18 Range/Units 15:33 15:33 15:33 WBC 10.3 (4.5-11.0) X10^3/uL RBC 4.91 (4.0-5.2) X10^6/uL Hgb 16.8 H (12.0-16.0) g/dL Hct 49.1 H (36-46) % MCV 99.9 (80-100) fL MCH 34.1 H (26-34) PG MCHC 34.1 (30-36) % RDW 12.2 (11.6-14.8) % Plt Count 333 (150-400) X10^3/uL Neut % (Auto) 51.6 (50-75) % Lymph % (Auto) 34.5 (25-40) % [place] % (Auto) 11.1 (3-14) % Eos % (Auto) 2.4 (2-4) % Baso % (Auto) 0.4 (0-2) % Neut # (Auto) 5300 (6314-9803) /uL Lymph # (Auto) 3600 (8141-3598) /uL [place] # (Auto) 1100 H (0-900) /uL Eos # (Auto) 200 (0-450) /uL Baso # (Auto) 0 (0-100) /uL PT 11.5 (10.1-12.7) SECONDS INR 1.0 (0.9-1.3) APTT 29 D (26.4-36.2) SECONDS D-Dimer (<230) ng/mL Sodium 138 (137-145) mmol/L Potassium 5.1 (3.4-5.1) mmol/L Chloride 100 (98-107) mmol/L Carbon Dioxide 21 L (22-32) mmol/L BUN 3 L (7-17) mg/dL Creatinine 0.70 (0.52-1.04) mg/dL Estimated GFR > 60.0 (>60) mL/min BUN/Creatinine Ratio 4.3 L (6-22) Glucose 84 (70-100) mg/dL Calcium 9.5 (8.4-10.2) mg/dL Total Bilirubin 0.3 (0.2-1.3) mg/dL AST 74 H (14-36) IU/L ALT 41 (9-52) IU/L Alkaline Phosphatase 101 (38-126) U/L Total Creatine Kinase 291 H (30-135) U/L CK-MB (CK-2) 0.65 (<2.37) ng/mL CK-MB (CK-2) Rel Index 0.2 L (1.5-5.0) % Troponin I < 0.012 (0.01-0.034) ng/mL Total Protein 7.5 (6.3-8.2) g/dL Albumin 4.7 (3.5-5.0) g/dL Globulin 2.8 (1.7-4.1) g/dL Albumin/Globulin Ratio 1.7 (1.0-2.8) Lipase 91 (23-300) U/L 05/17/18 Range/Units 15:33 WBC (4.5-11.0) X10^3/uL RBC (4.0-5.2) X10^6/uL Hgb (12.0-16.0) g/dL Hct (36-46) % MCV (80-100) fL MCH (26-34) PG MCHC (30-36) % RDW (11.6-14.8) % Plt Count (150-400) X10^3/uL Neut % (Auto) (50-75) % Lymph % (Auto) (25-40) % [place] % (Auto) (3-14) % Eos % (Auto) (2-4) % Baso % (Auto) (0-2) % Neut # (Auto) (1388-1919) /uL Lymph # (Auto) (2553-8077) /uL [place] # (Auto) (0-900) /uL Eos # (Auto) (0-450) /uL Baso # (Auto) (0-100) /uL PT (10.1-12.7) SECONDS INR (0.9-1.3) APTT (26.4-36.2) SECONDS D-Dimer < 200 (<230) ng/mL Sodium (137-145) mmol/L Potassium (3.4-5.1) mmol/L Chloride (98-107) mmol/L Carbon Dioxide (22-32) mmol/L BUN (7-17) mg/dL Creatinine (0.52-1.04) mg/dL Estimated GFR (>60) mL/min BUN/Creatinine Ratio (6-22) Glucose (70-100) mg/dL Calcium (8.4-10.2) mg/dL Total Bilirubin (0.2-1.3) mg/dL AST (14-36) IU/L ALT (9-52) IU/L Alkaline Phosphatase (38-126) U/L Total Creatine Kinase (30-135) U/L CK-MB (CK-2) (<2.37) ng/mL CK-MB (CK-2) Rel Index (1.5-5.0) % Troponin I (0.01-0.034) ng/mL Total Protein (6.3-8.2) g/dL Albumin (3.5-5.0) g/dL Globulin (1.7-4.1) g/dL Albumin/Globulin Ratio (1.0-2.8) Lipase (23-300) U/L Imaging Data Chest x-ray: Radiologist's impression: per report By Dr. Lofton: No acute disease. Low lung volumes and scattered atelectasis (full report not in EMR but available in PACs system) ECG Data Attestation: I personally reviewed and interpreted this ECG as follows: ( sinus tachycardia with rate 114, normal axis) <Anjali Mendez, - Last Filed: 05/18/18 10:43> Lab Data Lab Results 05/17/18 05/17/18 05/17/18 Range/Units 15:33 15:33 15:33 WBC 10.3 (4.5-11.0) X10^3/uL RBC 4.91 (4.0-5.2) X10^6/uL Hgb 16.8 H (12.0-16.0) g/dL Hct 49.1 H (36-46) % MCV 99.9 (80-100) fL MCH 34.1 H (26-34) PG MCHC 34.1 (30-36) % RDW 12.2 (11.6-14.8) % Plt Count 333 (150-400) X10^3/uL Neut % (Auto) 51.6 (50-75) % Lymph % (Auto) 34.5 (25-40) % [place] % (Auto) 11.1 (3-14) % Eos % (Auto) 2.4 (2-4) % Baso % (Auto) 0.4 (0-2) % Neut # (Auto) 5300 (6972-3663) /uL Lymph # (Auto) 3600 (3102-6871) /uL [place] # (Auto) 1100 H (0-900) /uL Eos # (Auto) 200 (0-450) /uL Baso # (Auto) 0 (0-100) /uL PT 11.5 (10.1-12.7) SECONDS INR 1.0 (0.9-1.3) APTT 29 D (26.4-36.2) SECONDS D-Dimer (<230) ng/mL Sodium 138 (137-145) mmol/L Potassium 5.1 (3.4-5.1) mmol/L Chloride 100 (98-107) mmol/L Carbon Dioxide 21 L (22-32) mmol/L BUN 3 L (7-17) mg/dL Creatinine 0.70 (0.52-1.04) mg/dL Estimated GFR > 60.0 (>60) mL/min BUN/Creatinine Ratio 4.3 L (6-22) Glucose 84 (70-100) mg/dL Calcium 9.5 (8.4-10.2) mg/dL Total Bilirubin 0.3 (0.2-1.3) mg/dL AST 74 H (14-36) IU/L ALT 41 (9-52) IU/L Alkaline Phosphatase 101 (38-126) U/L Total Creatine Kinase 291 H (30-135) U/L CK-MB (CK-2) 0.65 (<2.37) ng/mL CK-MB (CK-2) Rel Index 0.2 L (1.5-5.0) % Troponin I < 0.012 (0.01-0.034) ng/mL Total Protein 7.5 (6.3-8.2) g/dL Albumin 4.7 (3.5-5.0) g/dL Globulin 2.8 (1.7-4.1) g/dL Albumin/Globulin Ratio 1.7 (1.0-2.8) Lipase 91 (23-300) U/L 05/17/18 Range/Units 15:33 WBC (4.5-11.0) X10^3/uL RBC (4.0-5.2) X10^6/uL Hgb (12.0-16.0) g/dL Hct (36-46) % MCV (80-100) fL MCH (26-34) PG MCHC (30-36) % RDW (11.6-14.8) % Plt Count (150-400) X10^3/uL Neut % (Auto) (50-75) % Lymph % (Auto) (25-40) % [place] % (Auto) (3-14) % Eos % (Auto) (2-4) % Baso % (Auto) (0-2) % Neut # (Auto) (9398-2708) /uL Lymph # (Auto) (3654-6812) /uL [place] # (Auto) (0-900) /uL Eos # (Auto) (0-450) /uL Baso # (Auto) (0-100) /uL PT (10.1-12.7) SECONDS INR (0.9-1.3) APTT (26.4-36.2) SECONDS D-Dimer < 200 (<230) ng/mL Sodium (137-145) mmol/L Potassium (3.4-5.1) mmol/L Chloride (98-107) mmol/L Carbon Dioxide (22-32) mmol/L BUN (7-17) mg/dL Creatinine (0.52-1.04) mg/dL Estimated GFR (>60) mL/min BUN/Creatinine Ratio (6-22) Glucose (70-100) mg/dL Calcium (8.4-10.2) mg/dL Total Bilirubin (0.2-1.3) mg/dL AST (14-36) IU/L ALT (9-52) IU/L Alkaline Phosphatase (38-126) U/L Total Creatine Kinase (30-135) U/L CK-MB (CK-2) (<2.37) ng/mL CK-MB (CK-2) Rel Index (1.5-5.0) % Troponin I (0.01-0.034) ng/mL Total Protein (6.3-8.2) g/dL Albumin (3.5-5.0) g/dL Globulin (1.7-4.1) g/dL Albumin/Globulin Ratio (1.0-2.8) Lipase (23-300) U/L ECG Data Attestation: I personally reviewed and interpreted this ECG as follows: Prior ECG tracings: not available for review Interpretation: Sinus rhythm rate 114 RI [address] changes no T-wave inversions is Discharge Plan Departure Patient Disposition: Home Clinical Impression: Atypical chest pain Discharge Date/Time: 05/17/18 19:57 Interventions: ED Discharge Assessment Last Done: 05/17/18 19:51 Instructions: DI for Atypical Chest Pain Activity Restrictions/Additional Instructions: The exact source of your pain is not clear today. I suspect that this may have been coming from your chest wall from retching so much since it was quite tender on exam, or a spasm in your esophagus, or perhaps both since the medications seem to have helped today. There were no acute findings on her lab work or chest x-ray, and in fact your liver function tests were improved (your AST was 74, and your other liver function tests were normal!). Your sodium was 132. please continue your usual home medicines. I have sent in a prescription for viscous lidocaine. If you have pain again, please try this mixed with a dose of liquid Maalox to see if this helps with the pain. Please call your PCP and arrange short-term follow-up for this pain and your other ongoing issues. Prescriptions: New lidocaine HCl [Lidocaine Viscous] 2 % solution 10 ml MM Q3-4H PRN (Reason: chest/esophageal pain) Qty: 150 RF: 0 No Action furosemide 40 mg Tablet 40 mg PO 0800,1700 Qty: 60 RF: 5 spironolactone 50 mg Tablet 50 mg PO 0800,1700 Qty: 60 RF: 5 tramadol 50 mg Tablet 50 mg PO Q6H RF: 0 ondansetron 4 mg Tablet,Disintegrating 4 mg PO BID PRN (Reason: Pain (Scale Score 1-3)) RF: 0 diazepam 5 mg tablet 5 mg PO QPM RF: 0 promethazine 12.5 mg Tablet 12.5 mg PO Q4H PRN (Reason: Vomiting) RF: 0 prochlorperazine maleate 10 mg Tablet 10 mg PO Q6-8H PRN (Reason: Nausea) RF: 0 promethazine 12.5 mg Suppository 12.5 mg RI Q6H PRN (Reason: Vomiting) RF: 0 duloxetine 30 mg Capsule,Delayed Release(Dr/Ec) 30 mg PO QPM RF: 0 Referrals: Rush Serna [Other] <Anjali Mendez DO - Last Filed: 05/18/18 10:43> Cosign ED Attending Cosignature Attestation: I was immediately available in the department for consultation. Documentation has been reviewed. I agree with assessment and plan.
--- NOTE | 2018-05-17 16:59 | ED_ITS ---
HPI - Chest Pain <Yeny Roach PA-C - Last Filed: 05/17/18 21:42> General Chief Complaint: Chest Pain Stated Complaint: chest Px Time Seen by Provider: 05/17/18 16:56 Source: patient and family Mode of arrival: EMS Limitations: no limitations History of Present Illness HPI narrative: This 32-year-old female comes to ED today due to chest pain. She states this came on abruptly while she was sitting in a chair. She states that the pain waxes and wanes. There do not seem to be any exacerbating features at all. It is better with leaning forward and also after she vomits. She has had nausea today with vomiting, which is an ongoing issue for her , worse with moving around. She does have ascites and states that she always has generalized swelling and is still gaining weight, but states this has not been tapped recently due to no large pockets. She is following with GI closely for this. She states that she does not have new abdominal pain. She does not have new pain in her lower extremities. She states that she has been somewhat more short of breath in general but perhaps more today. Family notes that she has been having ongoing breathing difficulties with sleep as well. patient states that at rest, pain is more like a pressure in her chest in the midline. no radiation of pain. She denies flank or back pain. She denies any new urinary symptoms. She denies new cough or fever. Related Data Home Medications Medication Instructions Recorded Confirmed diazepam 5 mg PO QPM 01/24/18 01/24/18 duloxetine 30 mg PO QPM 01/24/18 01/24/18 prochlorperazine maleate 10 mg PO Q6-8H PRN 01/24/18 04/04/18 promethazine 12.5 mg PO Q4H PRN 01/24/18 04/04/[address] Q6H PRN 01/24/18 01/24/18 ondansetron 4 mg PO BID PRN 04/04/18 04/04/18 tramadol 50 mg PO Q6H 04/04/18 04/04/18 Previous Rx's Medication Instructions Recorded furosemide 40 mg PO 0800,1700 #60 tab 09/16/17 spironolactone 50 mg PO 0800,1700 #60 tab 09/16/17 lidocaine HCl [Lidocaine Viscous] 10 ml MM Q3-4H PRN #150 ml 05/17/18 Allergies Allergy/AdvReac Type Severity Reaction Status Date / Time acetaminophen Allergy Intermediate Abdominal Verified 04/04/18 19:34 Pain NSAIDS (Non-Steroidal Allergy Intermediate Abdominal Verified 04/04/18 19:34 Anti-Inflamma Pain oxycodone Allergy Intermediate Abdominal Verified 04/04/18 19:34 Pain Review of Systems <Yeny Roach PA-C - Last Filed: 05/17/18 21:42> Review of Systems ROS Unobtainable: All systems reviewed & are unremarkable except as noted in HPI and below Exam <Yeny Roach PA-C - Last Filed: 05/17/18 21:42> Narrative Exam Narrative: GENERAL APPEARANCE: Patient sitting comfortably, in no distress. HEENT: PERRL, EOMI, no scleral icterus NECK: Supple LUNGS: Clear to auscultation bilaterally. CHEST: Tender to palpation throughout the mid to inferior sternum HEART: Rate and rhythm regular, normal S1 and S2, no S3 or S4. ABDOMEN: Soft, nontender, mild distension, bowel sounds present x 4 quadrants, no masses palpable, no hepatosplenomegaly. no CVAT EXTREMITIES: trace edema, no calf tenderness DERMATOLOGIC: No jaundice or exanthem NEUROLOGIC: Alert and oriented with normal speech and coordination Initial Vital Signs Initial Vital Signs: Vital Signs Pulse Rate 118 H 05/17/18 15:30 Respiratory Rate 14 05/17/18 15:30 Blood Pressure 127/96 H 05/17/18 15:30 Pulse Oximetry 94 05/17/18 15:30 <Anjali Mendez DO - Last Filed: 05/18/18 10:43> Initial Vital Signs Initial Vital Signs: Vital Signs Pulse Rate 118 H 05/17/18 15:30 Respiratory Rate 14 05/17/18 15:30 Blood Pressure 127/96 H 05/17/18 15:30 Pulse Oximetry 94 05/17/18 15:30 Course <Yeny Roach PA-C - Last Filed: 05/17/18 21:42> Additional Information: patient appeared relaxed and was feeling markedly improved prior to discharge. She has echocardiogram and primary care follow-up arranged and agreed to return if any acutely worsening symptoms Orders Ordered: Discontinued Medications Al Hydrox/Mg Hydrox/Simethicone 20 ml/ Lidocaine HCl 15 ml 0 ml PO NOW ONE Stop: 05/17/18 17:20 Last Admin: 05/17/18 17:39 Dose: 35 ml Hydromorphone HCl (Dilaudid) 1 mg IV NOW ONE Stop: 05/17/18 17:20 Last Admin: 05/17/18 17:40 Dose: 1 mg Sodium Chloride (Normal Saline 0.9%) 1,000 mls @ 500 mls/hr IV BOLUS PRN PRN Reason: Fluid replacement Sodium Chloride (Normal Saline 0.9%) 500 mls @ 500 mls/hr IV BOLUS ONE Stop: 05/17/18 18:35 Last Infusion: 05/17/18 19:05 Dose: 0 mls/hr Admin: 05/17/18 17:41 Dose: 500 mls/hr Ketorolac Tromethamine (Toradol) 15 mg IV NOW ONE Stop: 05/17/18 17:20 Last Admin: 05/17/18 17:39 Dose: 15 mg Ondansetron HCl (Zofran) 4 mg IV NOW ONE Stop: 05/17/18 17:20 Last Admin: 05/17/18 17:40 Dose: 4 mg Vital Signs - 8 hr 05/17/18 15:30 05/17/18 15:35 05/17/18 16:00 Temperature 98.4 F Pulse Rate 118 H 123 H 114 H Respiratory Rate 14 19 17 Blood Pressure 127/96 H Blood Pressure [Left Arm] 127/96 H 123/92 H Pulse Oximetry 94 94 97 05/17/18 17:00 05/17/18 17:30 05/17/18 18:00 Temperature Pulse Rate 112 H 109 H 102 H Respiratory Rate 16 18 16 Blood Pressure Blood Pressure [Left Arm] 110/72 124/89 113/66 Pulse Oximetry 97 05/17/18 18:30 05/17/18 19:30 05/17/18 19:51 Temperature Pulse Rate 108 H 111 H 107 H Respiratory Rate 12 20 18 Blood Pressure 122/76 Blood Pressure [Left Arm] 108/65 122/76 Pulse Oximetry 94 <Anjali Mendez DO - Last Filed: 05/18/18 10:43> Orders Ordered: Discontinued Medications Al Hydrox/Mg Hydrox/Simethicone 20 ml/ Lidocaine HCl 15 ml 0 ml PO NOW ONE Stop: 05/17/18 17:20 Last Admin: 05/17/18 17:39 Dose: 35 ml Hydromorphone HCl (Dilaudid) 1 mg IV NOW ONE Stop: 05/17/18 17:20 Last Admin: 05/17/18 17:40 Dose: 1 mg Sodium Chloride (Normal Saline 0.9%) 1,000 mls @ 500 mls/hr IV BOLUS PRN PRN Reason: Fluid replacement Sodium Chloride (Normal Saline 0.9%) 500 mls @ 500 mls/hr IV BOLUS ONE Stop: 05/17/18 18:35 Last Infusion: 05/17/18 19:05 Dose: 0 mls/hr Admin: 05/17/18 17:41 Dose: 500 mls/hr Ketorolac Tromethamine (Toradol) 15 mg IV NOW ONE Stop: 05/17/18 17:20 Last Admin: 05/17/18 17:39 Dose: 15 mg Ondansetron HCl (Zofran) 4 mg IV NOW ONE Stop: 05/17/18 17:20 Last Admin: 05/17/18 17:40 Dose: 4 mg Vital Signs - 8 hr 05/17/18 15:30 05/17/18 15:35 05/17/18 16:00 Temperature 98.4 F Pulse Rate 118 H 123 H 114 H Respiratory Rate 14 19 17 Blood Pressure 127/96 H Blood Pressure [Left Arm] 127/96 H 123/92 H Pulse Oximetry 94 94 97 05/17/18 17:00 05/17/18 17:30 05/17/18 18:00 Temperature Pulse Rate 112 H 109 H 102 H Respiratory Rate 16 18 16 Blood Pressure Blood Pressure [Left Arm] 110/72 124/89 113/66 Pulse Oximetry 97 05/17/18 18:30 05/17/18 19:30 05/17/18 19:51 Temperature Pulse Rate 108 H 111 H 107 H Respiratory Rate 12 20 18 Blood Pressure 122/76 Blood Pressure [Left Arm] 108/65 122/76 Pulse Oximetry 94 MDM - Chest Pain <Yeny Roach PA-C - Last Filed: 05/17/18 21:42> Lab Data Attestation: I reviewed the patient's lab results. Result diagrams: 05/17/18 15:33 05/17/18 15:33 Lab Results 05/17/18 05/17/18 05/17/18 Range/Units 15:33 15:33 15:33 WBC 10.3 (4.5-11.0) X10^3/uL RBC 4.91 (4.0-5.2) X10^6/uL Hgb 16.8 H (12.0-16.0) g/dL Hct 49.1 H (36-46) % MCV 99.9 (80-100) fL MCH 34.1 H (26-34) PG MCHC 34.1 (30-36) % RDW 12.2 (11.6-14.8) % Plt Count 333 (150-400) X10^3/uL Neut % (Auto) 51.6 (50-75) % Lymph % (Auto) 34.5 (25-40) % Canadian % (Auto) 11.1 (3-14) % Eos % (Auto) 2.4 (2-4) % Baso % (Auto) 0.4 (0-2) % Neut # (Auto) 5300 (4168-7105) /uL Lymph # (Auto) 3600 (0038-9386) /uL Canadian # (Auto) 1100 H (0-900) /uL Eos # (Auto) 200 (0-450) /uL Baso # (Auto) 0 (0-100) /uL PT 11.5 (10.1-12.7) SECONDS INR 1.0 (0.9-1.3) APTT 29 D (26.4-36.2) SECONDS D-Dimer (<230) ng/mL Sodium 138 (137-145) mmol/L Potassium 5.1 (3.4-5.1) mmol/L Chloride 100 (98-107) mmol/L Carbon Dioxide 21 L (22-32) mmol/L BUN 3 L (7-17) mg/dL Creatinine 0.70 (0.52-1.04) mg/dL Estimated GFR > 60.0 (>60) mL/min BUN/Creatinine Ratio 4.3 L (6-22) Glucose 84 (70-100) mg/dL Calcium 9.5 (8.4-10.2) mg/dL Total Bilirubin 0.3 (0.2-1.3) mg/dL AST 74 H (14-36) IU/L ALT 41 (9-52) IU/L Alkaline Phosphatase 101 (38-126) U/L Total Creatine Kinase 291 H (30-135) U/L CK-MB (CK-2) 0.65 (<2.37) ng/mL CK-MB (CK-2) Rel Index 0.2 L (1.5-5.0) % Troponin I < 0.012 (0.01-0.034) ng/mL Total Protein 7.5 (6.3-8.2) g/dL Albumin 4.7 (3.5-5.0) g/dL Globulin 2.8 (1.7-4.1) g/dL Albumin/Globulin Ratio 1.7 (1.0-2.8) Lipase 91 (23-300) U/L 05/17/18 Range/Units 15:33 WBC (4.5-11.0) X10^3/uL RBC (4.0-5.2) X10^6/uL Hgb (12.0-16.0) g/dL Hct (36-46) % MCV (80-100) fL MCH (26-34) PG MCHC (30-36) % RDW (11.6-14.8) % Plt Count (150-400) X10^3/uL Neut % (Auto) (50-75) % Lymph % (Auto) (25-40) % Canadian % (Auto) (3-14) % Eos % (Auto) (2-4) % Baso % (Auto) (0-2) % Neut # (Auto) (1848-5579) /uL Lymph # (Auto) (4976-0136) /uL Canadian # (Auto) (0-900) /uL Eos # (Auto) (0-450) /uL Baso # (Auto) (0-100) /uL PT (10.1-12.7) SECONDS INR (0.9-1.3) APTT (26.4-36.2) SECONDS D-Dimer < 200 (<230) ng/mL Sodium (137-145) mmol/L Potassium (3.4-5.1) mmol/L Chloride (98-107) mmol/L Carbon Dioxide (22-32) mmol/L BUN (7-17) mg/dL Creatinine (0.52-1.04) mg/dL Estimated GFR (>60) mL/min BUN/Creatinine Ratio (6-22) Glucose (70-100) mg/dL Calcium (8.4-10.2) mg/dL Total Bilirubin (0.2-1.3) mg/dL AST (14-36) IU/L ALT (9-52) IU/L Alkaline Phosphatase (38-126) U/L Total Creatine Kinase (30-135) U/L CK-MB (CK-2) (<2.37) ng/mL CK-MB (CK-2) Rel Index (1.5-5.0) % Troponin I (0.01-0.034) ng/mL Total Protein (6.3-8.2) g/dL Albumin (3.5-5.0) g/dL Globulin (1.7-4.1) g/dL Albumin/Globulin Ratio (1.0-2.8) Lipase (23-300) U/L Imaging Data Chest x-ray: Radiologist's impression: per report By Dr. Lofton: No acute disease. Low lung volumes and scattered atelectasis (full report not in EMR but available in PACs system) ECG Data Attestation: I personally reviewed and interpreted this ECG as follows: ( sinus tachycardia with rate 114, normal axis) <Anjali Mendez, - Last Filed: 05/18/18 10:43> Lab Data Lab Results 05/17/18 05/17/18 05/17/18 Range/Units 15:33 15:33 15:33 WBC 10.3 (4.5-11.0) X10^3/uL RBC 4.91 (4.0-5.2) X10^6/uL Hgb 16.8 H (12.0-16.0) g/dL Hct 49.1 H (36-46) % MCV 99.9 (80-100) fL MCH 34.1 H (26-34) PG MCHC 34.1 (30-36) % RDW 12.2 (11.6-14.8) % Plt Count 333 (150-400) X10^3/uL Neut % (Auto) 51.6 (50-75) % Lymph % (Auto) 34.5 (25-40) % Canadian % (Auto) 11.1 (3-14) % Eos % (Auto) 2.4 (2-4) % Baso % (Auto) 0.4 (0-2) % Neut # (Auto) 5300 (7942-4986) /uL Lymph # (Auto) 3600 (6727-2239) /uL Canadian # (Auto) 1100 H (0-900) /uL Eos # (Auto) 200 (0-450) /uL Baso # (Auto) 0 (0-100) /uL PT 11.5 (10.1-12.7) SECONDS INR 1.0 (0.9-1.3) APTT 29 D (26.4-36.2) SECONDS D-Dimer (<230) ng/mL Sodium 138 (137-145) mmol/L Potassium 5.1 (3.4-5.1) mmol/L Chloride 100 (98-107) mmol/L Carbon Dioxide 21 L (22-32) mmol/L BUN 3 L (7-17) mg/dL Creatinine 0.70 (0.52-1.04) mg/dL Estimated GFR > 60.0 (>60) mL/min BUN/Creatinine Ratio 4.3 L (6-22) Glucose 84 (70-100) mg/dL Calcium 9.5 (8.4-10.2) mg/dL Total Bilirubin 0.3 (0.2-1.3) mg/dL AST 74 H (14-36) IU/L ALT 41 (9-52) IU/L Alkaline Phosphatase 101 (38-126) U/L Total Creatine Kinase 291 H (30-135) U/L CK-MB (CK-2) 0.65 (<2.37) ng/mL CK-MB (CK-2) Rel Index 0.2 L (1.5-5.0) % Troponin I < 0.012 (0.01-0.034) ng/mL Total Protein 7.5 (6.3-8.2) g/dL Albumin 4.7 (3.5-5.0) g/dL Globulin 2.8 (1.7-4.1) g/dL Albumin/Globulin Ratio 1.7 (1.0-2.8) Lipase 91 (23-300) U/L 05/17/18 Range/Units 15:33 WBC (4.5-11.0) X10^3/uL RBC (4.0-5.2) X10^6/uL Hgb (12.0-16.0) g/dL Hct (36-46) % MCV (80-100) fL MCH (26-34) PG MCHC (30-36) % RDW (11.6-14.8) % Plt Count (150-400) X10^3/uL Neut % (Auto) (50-75) % Lymph % (Auto) (25-40) % Canadian % (Auto) (3-14) % Eos % (Auto) (2-4) % Baso % (Auto) (0-2) % Neut # (Auto) (7502-3310) /uL Lymph # (Auto) (5684-9796) /uL Canadian # (Auto) (0-900) /uL Eos # (Auto) (0-450) /uL Baso # (Auto) (0-100) /uL PT (10.1-12.7) SECONDS INR (0.9-1.3) APTT (26.4-36.2) SECONDS D-Dimer < 200 (<230) ng/mL Sodium (137-145) mmol/L Potassium (3.4-5.1) mmol/L Chloride (98-107) mmol/L Carbon Dioxide (22-32) mmol/L BUN (7-17) mg/dL Creatinine (0.52-1.04) mg/dL Estimated GFR (>60) mL/min BUN/Creatinine Ratio (6-22) Glucose (70-100) mg/dL Calcium (8.4-10.2) mg/dL Total Bilirubin (0.2-1.3) mg/dL AST (14-36) IU/L ALT (9-52) IU/L Alkaline Phosphatase (38-126) U/L Total Creatine Kinase (30-135) U/L CK-MB (CK-2) (<2.37) ng/mL CK-MB (CK-2) Rel Index (1.5-5.0) % Troponin I (0.01-0.034) ng/mL Total Protein (6.3-8.2) g/dL Albumin (3.5-5.0) g/dL Globulin (1.7-4.1) g/dL Albumin/Globulin Ratio (1.0-2.8) Lipase (23-300) U/L ECG Data Attestation: I personally reviewed and interpreted this ECG as follows: Prior ECG tracings: not available for review Interpretation: Sinus rhythm rate [address] CT interval [address] changes no T-wave inversions is Discharge Plan Departure Patient Disposition: Home Clinical Impression: Atypical chest pain Discharge Date/Time: 05/17/18 19:57 Interventions: ED Discharge Assessment Last Done: 05/17/18 19:51 Instructions: DI for Atypical Chest Pain Activity Restrictions/Additional Instructions: The exact source of your pain is not clear today. I suspect that this may have been coming from your chest wall from retching so much since it was quite tender on exam, or a spasm in your esophagus, or perhaps both since the medications seem to have helped today. There were no acute findings on her lab work or chest x-ray, and in fact your liver function tests were improved (your AST was 74, and your other liver function tests were normal!). Your sodium was 132. please continue your usual home medicines. I have sent in a prescription for viscous lidocaine. If you have pain again, please try this mixed with a dose of liquid Maalox to see if this helps with the pain. Please call your PCP and arrange short-term follow-up for this pain and your other ongoing issues. Prescriptions: New lidocaine HCl [Lidocaine Viscous] 2 % solution 10 ml MM Q3-4H PRN (Reason: chest/esophageal pain) Qty: 150 RF: 0 No Action furosemide 40 mg Tablet 40 mg PO 0800,1700 Qty: 60 RF: 5 spironolactone 50 mg Tablet 50 mg PO 0800,1700 Qty: 60 RF: 5 tramadol 50 mg Tablet 50 mg PO Q6H RF: 0 ondansetron 4 mg Tablet,Disintegrating 4 mg PO BID PRN (Reason: Pain (Scale Score 1-3)) RF: 0 diazepam 5 mg tablet 5 mg PO QPM RF: 0 promethazine 12.5 mg Tablet 12.5 mg PO Q4H PRN (Reason: Vomiting) RF: 0 prochlorperazine maleate 10 mg Tablet 10 mg PO Q6-8H PRN (Reason: Nausea) RF: 0 promethazine 12.5 mg Suppository 12.[address] Q6H PRN (Reason: Vomiting) RF: 0 duloxetine 30 mg Capsule,Delayed Release(Dr/Ec) 30 mg PO QPM RF: 0 Referrals: [facility] [Other] <Anjali Mendez DO - Last Filed: 05/18/18 10:43> Cosign ED Attending Cosignature Attestation: I was immediately available in the department for consultation. Documentation has been reviewed. I agree with assessment and plan.
[2018-05-17 17:18] LABS: D Dimer < 200 ng/mL (<230)
[2018-05-17] MEDS: MAG HYDROX/ALUMINUM/SIMETH SUS 20 ML, LIDOCAINE VISCOUS 2% 15 ML PO (17:39)
[2018-05-17] MEDS: KETOROLAC 60 MG/2 ML VIAL 15 MG IV (17:39)
[2018-05-17] MEDS: ONDANSETRON 4 MG/2 ML INJ IV (17:40)
[2018-05-17] MEDS: HYDROMORPHONE 1 MG INJ IV (17:40)
[2018-05-17] MEDS: SODIUM CHLORIDE 0.9% 500 ML IV (17:41)
== END 2018-05-17 19:57 | disposition home or self-care (01) ==
PROVIDERS: Emergency Medicine; Emergency Provider Internal Medicine
DX: R07.89 Other chest pain (principal)
CPT/HCPCS: 71045; 80053; 82550; 82553; 83690; 84484; 85025; 85379; 85610; 85730; 93005; 96361; 96374; 96375; 99283; 99285; J1170; J1885; J2405

== ENCOUNTER 2018-07-08 16:14 | Emergency (ER) | payer BC, SELFPAY ==
[2017-09-15 17:31] VITALS: BMI 30.7
[2018-07-08 16:20] VITALS: BP 146/100; PULSE 106; RESP 19; TEMP 36.9; O2SAT 96; BMI 31.8
--- NOTE | 2018-07-08 16:27 | DI.RAD.S_ITS ---
PROCEDURE: XR TIBIA FUBULA RT 2V INDICATIONS: injury TECHNIQUE: 2 views of the tibia and fibula were acquired. COMPARISON: None. FINDINGS: Bones: No fractures or dislocations. No suspicious bony lesions. Soft tissues: No suspicious soft tissue calcifications or masses. IMPRESSION: No fracture or dislocation. Dictated by: Camille Avery M.D. on 07/08/2018 at 17:28 Approved by: Camille Avery M.D. on 07/08/2018 at 17:29
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
[2018-07-08] MEDS: HYDROCODONE/ACET 5/325 PREPACK 1 BOTTLE MISC (17:39)
[2018-07-08 17:44] VITALS: BP 126/85; PULSE 98; RESP 15; O2SAT 99
== END 2018-07-08 17:48 | disposition home or self-care (01) ==
PROVIDERS: Emergency Provider Emergency Medicine
DX: S80.11XA Contusion of right lower leg, initial encounter (principal); V48.7XXA Person on outside of car injured in noncollision transport accident in traffic accident, initial encounter
CPT/HCPCS: 73590; 99283

== ENCOUNTER 2018-12-21 19:09 | Emergency (ER) | payer MEDICAID, SELFPAY ==
[2017-09-15 17:31] VITALS: BMI 30.7
[2018-12-21 19:15] VITALS: BP 162/101; PULSE 126; RESP 15; TEMP 37; O2SAT 100; BMI 30.9
--- NOTE | 2018-12-21 19:22 | DI.RAD.S_ITS ---
PROCEDURE: XR ACUTE ABDOMEN SERIES INDICATIONS: N/V TECHNIQUE: One view chest and two views of the abdomen were acquired. COMPARISON: [facility], , ABDOMEN ACUTE SERIES, 12/27/2016, 19:40. FINDINGS: Surgical changes and devices: None. Chest: Lungs are clear. Heart size is normal. No pleural effusions. No pneumoperitoneum. Abdomen: Bowel gas pattern is normal. No suspicious calcifications. Visualized solid organ contours appear normal. Bones: No suspicious bony lesions. IMPRESSION: Normal for age, source of current nausea and vomiting symptoms is not seen. Dictated by: Ousmane Andres M.D. on 12/21/2018 at 19:51 Approved by: Ousmane Andres M.D. on 12/21/2018 at 19:52
--- NOTE | 2018-12-21 19:24 | ED_ITS ---
HPI - Nausea/Vomiting/Diarrhea General Chief complaint: Nausea/Vomiting/Diarrhea Stated complaint: vomiting for 3 days Time Seen by Provider: 12/21/18 19:10 Source: patient Mode of arrival: ambulatory Limitations: no limitations History of Present Illness HPI Narrative: A 33-year-old female daily smoker with history of alcoholic cirrhosis presents with 3 days of nausea, vomiting and anxiety. She feels a bit lightheaded and weak. She has had trouble keeping water and food down. She denies any new medications or dietary change. She denies any recent travel, exposure to ill persons or bad food. He denies any pain. She denies any fever or chills. She denies any dysuria, frequency or urgency. She denies any change in bowel habits Related Data Home Medications Medication Instructions Recorded Confirmed diazepam 5 mg PO QPM 01/24/18 01/24/18 duloxetine 30 mg PO QPM 01/24/18 01/24/18 prochlorperazine maleate 10 mg PO Q6-8H PRN 01/24/18 04/04/18 promethazine 12.5 mg PO Q4H PRN 01/24/18 04/04/18 promethazine 12.5 mg MD Q6H PRN 01/24/18 01/24/18 ondansetron 4 mg PO BID PRN 04/04/18 04/04/18 tramadol 50 mg PO Q6H 04/04/18 04/04/18 Previous Rx's Medication Instructions Recorded furosemide 40 mg PO 0800,1700 #60 tab 09/16/17 spironolactone 50 mg PO 0800,1700 #60 tab 09/16/17 lidocaine HCl [Lidocaine Viscous] 10 ml MM Q3-4H PRN #150 ml 05/17/18 hydrocodone-acetaminophen [[place]] 1 tab PO Q4-6H PRN #10 tab 07/08/18 lorazepam [Ativan] 1 mg PO BID-TID PRN #10 tab 12/22/18 promethazine 12.5 mg MD Q4-6H PRN #30 each 12/22/18 Allergies Allergy/AdvReac Type Severity Reaction Status Date / Time acetaminophen Allergy Intermediate Abdominal Verified 12/21/18 19:19 Pain NSAIDS (Non-Steroidal Allergy Intermediate Abdominal Verified 12/21/18 19:19 Anti-Inflamma Pain oxycodone Allergy Intermediate Abdominal Verified 12/21/18 19:19 Pain Review of Systems Constitutional Constitutional: Denies chills, Denies fatigue, Denies fever(s), Denies frequent falls, Denies lethargy and Reports weakness Eyes Eyes: Denies change in vision, Denies eye discharge, Denies irritation and Denies loss of vision ENT Ears, Nose, Mouth, and Throat: Denies change in voice, Denies dizziness, Denies neck pain, Denies sore throat and Denies throat swelling Cardiovascular Cardiovascular: Denies chest pain, Denies irregular heart rhythm, Denies lightheadedness, Denies palpitations, Denies dyspnea, Denies dyspnea on exertion and Denies orthopnea Respiratory Respiratory: Denies cough, Denies dyspnea, Denies dyspnea on exertion and Denies wheezing Gastrointestinal Gastrointestinal: Denies abdominal pain, Denies change in bowel habits, Denies diarrhea, Reports nausea and Reports vomiting Genitourinary Genitourinary: Denies hematuria, Denies flank pain, Denies urinary incontinence and Denies urinary urgency Musculoskeletal Musculoskeletal: Denies back pain, Denies muscle weakness, Denies neck pain, Denies numbness and Denies tingling Integumentary/Breasts Skin/Breast: Denies pruritus, Denies erythema, Denies rash and Denies wounds Neurologic Neurologic: Denies behavioral changes, Denies confusion, Denies dizziness, Denies frequent falls, Denies loss of vision, Denies numbness, Denies tingling and Reports weakness Psychiatric Psychiatric: Reports anxiety, Denies behavioral changes, Denies confusion, Denies depression, Denies homicidal ideation and Denies suicidal ideation Endocrine Endocrine: Denies fatigue, Denies flushing and Denies palpitations Hematologic/Lymphatic Hematologic/Lymphatic: Denies easy bruising Allergic/Immunologic Allergic/Immunologic: Denies urticaria, Denies throat swelling and Denies wheezing PFSH Medical History Alcoholism (Chronic) Autoimmune disorder (Chronic) Cervical cancer (Chronic) Cirrhosis of liver (Chronic) Pulmonary embolus (Resolved) Ulnar nerve entrapment (Resolved) Surgical History Gastric bypass status for obesity (Chronic) Family History Other Family history non-contributory Social History household members: spouse Smoking Status: Current every day smoker alcohol intake: current Family History Other Family history non-contributory Social History household members: spouse Smoking Status: Current every day smoker alcohol intake: current Exam Narrative Exam Narrative: GENERAL: [29 per] year old patient appears stated age. Well- nourished, well-developed patient, in moderate distress, actively vomiting. Visibly anxious HEAD: Atraumatic. Normocephalic. EYES: Pupils equal round and reactive. Extraocular motions intact. No scleral icterus. No injection or drainage. ENT: Nose without bleeding, purulent drainage. Throat without erythema, tonsillar hypertrophy or exudate. Airway patent. NECK: Trachea midline. Non tender CARDIOVASCULAR: Regular rate and rhythm without murmurs, gallops, or rubs. RESPIRATORY: Clear to auscultation. Breath sounds equal bilaterally. No wheezes, rales, or rhonchi. GASTROINTESTINAL: Abdomen soft, non-tender, nondistended. EXTREMITIES: No edema or joint tenderness. BACK: Nontender without deformity or crepitance. No flank tenderness. NEURO: AOx3. SKIN: No rash or erythema of visible areas Initial Vital Signs Initial Vital Signs: Vital Signs Temperature 98.6 F 12/21/18 19:15 Pulse Rate 126 H 12/21/18 19:15 Respiratory Rate 15 12/21/18 19:15 Blood Pressure 162/101 H 12/21/18 19:15 Pulse Oximetry 100 12/21/18 19:15 Course Orders Ordered: ED Orders 12/21/18 19:17 Complete Blood Count AUTO DIFF Stat Comprehensive Metabolic Panel Stat Ethanol (ETOH) Stat Ketones (Beta-Hydroxybutyrate) Stat Lactate (Lactic Acid) Stat Prothrombin Time INR Stat 12/21/18 19:22 XR acute abdomen series Stat 12/21/18 20:27 Venous Blood Gas Stat 12/21/18 22:00 Urinalysis and Microscopic Stat Urine Culture Stat Urine Drug Screen, Rapid Stat Discontinued Medications Sodium Chloride (Normal Saline 0.9%) 1,000 mls @ 1,000 mls/hr IV BOLUS ONE Stop: 12/21/18 20:18 Last Infusion: 12/21/18 20:54 Dose: 0 mls/hr Documented by: Admin: 12/21/18 19:26 Dose: 1,000 mls/hr Documented by: JEFFREY Sodium Chloride (Normal Saline 0.9%) 1,000 mls @ 1,000 mls/hr IV BOLUS ONE Stop: 12/21/18 21:08 Last Infusion: 12/21/18 21:55 Dose: 0 mls/hr Documented by: Admin: 12/21/18 20:54 Dose: 1,000 mls/hr Documented by: JEFFREY Lorazepam (Ativan) 1 mg IV NOW ONE Stop: 12/21/18 23:44 Last Admin: 12/21/18 23:58 Dose: 1 mg Documented by: NEGRITO Lorazepam (Ativan) 1 mg PO NOW ONE Stop: 12/22/18 00:24 Last Admin: 12/22/18 00:42 Dose: 1 mg Documented by: BARBIE Ondansetron HCl (Zofran) 4 mg IV NOW ONE Stop: 12/21/18 19:20 Last Admin: 12/21/18 19:27 Dose: 4 mg Documented by: JEFFREY Ondansetron HCl (Zofran) 4 mg IV NOW ONE Stop: 12/21/18 22:44 Last Admin: 12/21/18 22:51 Dose: 4 mg Documented by: JEFFREY Reevaluation(s) Reevaluation #1: Improvement after fluids and antiemetics Reevaluation #2: Complete resolution after Ativan Vital Signs Vital signs: Vital Signs - 8 hr 12/21/18 19:15 12/21/18 20:11 12/21/18 21:38 Temperature 98.6 F Pulse Rate 126 H 101 H 96 H Respiratory Rate 15 16 17 Blood Pressure 162/101 H Blood Pressure [Left Arm] 129/87 111/74 Pulse Oximetry 100 96 100 12/21/18 22:10 12/22/18 00:53 Temperature 98.2 F Pulse Rate 89 91 H Respiratory Rate 21 99 H Blood Pressure 121/91 H Blood Pressure [Left Arm] 116/68 Pulse Oximetry 97 MDM - Nausea/Vomiting/Diarrhea Lab Data Result diagrams: 12/21/18 19:17 12/21/18 19:17 Labs: Lab Results 12/21/18 12/21/18 12/21/18 Range/Units 19:17 19:17 19:17 WBC 8.6 (4.5-11.0) X10^3/uL RBC 5.16 (4.0-5.2) X10^6/uL Hgb 16.5 H (12.0-16.0) g/dL Hct 49.7 H (36-46) % MCV 96.3 (80-100) fL MCH 32.0 (26-34) PG MCHC 33.2 (30-36) % RDW 15.9 H (11.6-14.8) % Plt Count 225 (150-400) X10^3/uL Neut % (Auto) 79.8 H (50-75) % Lymph % (Auto) 11.5 L (25-40) % Riley % (Auto) 7.9 (3-14) % Eos % (Auto) 0.4 L (2-4) % Baso % (Auto) 0.4 (0-2) % Neut # (Auto) 6800 (7963-7048) /uL Lymph # (Auto) 1000 L (7440-7628) /uL Riley # (Auto) 700 (0-900) /uL Eos # (Auto) 0 (0-450) /uL Baso # (Auto) 0 (0-100) /uL PT 11.8 (10.1-12.7) SECONDS INR 1.0 (0.9-1.3) Sodium 138 (137-145) mmol/L Potassium 4.3 (3.4-5.1) mmol/L Chloride 102 (98-107) mmol/L Carbon Dioxide 19 L (22-32) mmol/L BUN 2 L (7-17) mg/dL Creatinine 0.60 (0.52-1.04) mg/dL Estimated GFR > 60.0 (>60) mL/min BUN/Creatinine Ratio 3.3 L (6-22) Glucose 94 (70-100) mg/dL Lactate (0.7-2.1) mmol/L Calcium 10.0 (8.4-10.2) mg/dL Total Bilirubin 1.3 (0.2-1.3) mg/dL AST 223 H (14-36) IU/L ALT 60 H (9-52) IU/L Alkaline Phosphatase 228 H (38-126) U/L Total Protein 8.1 (6.3-8.2) g/dL Albumin 4.5 (3.5-5.0) g/dL Globulin 3.6 (1.7-4.1) g/dL Albumin/Globulin Ratio 1.3 (1.0-2.8) Urine Color Urine Appearance Urine pH (4.5-8.0) Ur Specific [place] (1.000-1.035) Urine Protein (Negative) Urine Glucose (UA) (Negative) g/dL Urine Ketones (NEGATIVE) Urine Occult Blood (Negative) Urine Nitrate (Negative) Urine Bilirubin (NEGATIVE) Urine Urobilinogen (0.2) E.U./dL Ur Leukocyte Esterase (NEGATIVE) Urine RBC (0-5/HPF) Urine WBC (0-5/HPF) Ur Squamous Epith Cells (0-5/HPF) Urine Bacteria (None) Hyaline Casts (None) Ur Culture Indicated? Urine Opiates Screen (Negative) Ur Oxycodone Screen (Negative) Urine Methadone Screen (Negative) Ur Barbiturates Screen (Negative) U Tricyclic Antidepress (Negative) Ur Phencyclidine Scrn (Negative) Ur Amphetamines Screen (Negative) U Methamphetamines Scrn (Negative) Ur MDMA Scrn (Ecstasy) (Negative) U Benzodiazepines Scrn (Negative) Urine Cocaine Screen (Negative) U Marijuana (THC) Screen (Negative) Ethyl Alcohol < 10 ( - 10) mg/dL Ketones 0.17 (<0.27) mmol/L 12/21/18 12/21/18 12/21/18 Range/Units 19:17 21:45 22:00 WBC (4.5-11.0) X10^3/uL RBC (4.0-5.2) X10^6/uL Hgb (12.0-16.0) g/dL Hct (36-46) % MCV (80-100) fL MCH (26-34) PG MCHC (30-36) % RDW (11.6-14.8) % Plt Count (150-400) X10^3/uL Neut % (Auto) (50-75) % Lymph % (Auto) (25-40) % Riley % (Auto) (3-14) % Eos % (Auto) (2-4) % Baso % (Auto) (0-2) % Neut # (Auto) (2819-9343) /uL Lymph # (Auto) (5212-4701) /uL Riley # (Auto) (0-900) /uL Eos # (Auto) (0-450) /uL Baso # (Auto) (0-100) /uL PT (10.1-12.7) SECONDS INR (0.9-1.3) Sodium (137-145) mmol/L Potassium (3.4-5.1) mmol/L Chloride (98-107) mmol/L Carbon Dioxide (22-32) mmol/L BUN (7-17) mg/dL Creatinine (0.52-1.04) mg/dL Estimated GFR (>60) mL/min BUN/Creatinine Ratio (6-22) Glucose (70-100) mg/dL Lactate 9.6 H* 1.3 (0.7-2.1) mmol/L Calcium (8.4-10.2) mg/dL Total Bilirubin (0.2-1.3) mg/dL AST (14-36) IU/L ALT (9-52) IU/L Alkaline Phosphatase (38-126) U/L Total Protein (6.3-8.2) g/dL Albumin (3.5-5.0) g/dL Globulin (1.7-4.1) g/dL Albumin/Globulin Ratio (1.0-2.8) Urine Color Urine Appearance Urine pH (4.5-8.0) Ur Specific [place] (1.000-1.035) Urine Protein (Negative) Urine Glucose (UA) (Negative) g/dL Urine Ketones (NEGATIVE) Urine Occult Blood (Negative) Urine Nitrate (Negative) Urine Bilirubin (NEGATIVE) Urine Urobilinogen (0.2) E.U./dL Ur Leukocyte Esterase (NEGATIVE) Urine RBC (0-5/HPF) Urine WBC (0-5/HPF) Ur Squamous Epith Cells (0-5/HPF) Urine Bacteria (None) Hyaline Casts (None) Ur Culture Indicated? Urine Opiates Screen Negative (Negative) Ur Oxycodone Screen Negative (Negative) Urine Methadone Screen Negative (Negative) Ur Barbiturates Screen Negative (Negative) U Tricyclic Antidepress Positive H (Negative) Ur Phencyclidine Scrn Negative (Negative) Ur Amphetamines Screen Negative (Negative) U Methamphetamines Scrn Negative (Negative) Ur MDMA Scrn (Ecstasy) Negative (Negative) U Benzodiazepines Scrn Negative (Negative) Urine Cocaine Screen Negative (Negative) U Marijuana (THC) Screen Positive H (Negative) Ethyl Alcohol ( - 10) mg/dL Ketones (<0.27) mmol/L 12/21/18 Range/Units 22:00 WBC (4.5-11.0) X10^3/uL RBC (4.0-5.2) X10^6/uL Hgb (12.0-16.0) g/dL Hct (36-46) % MCV (80-100) fL MCH (26-34) PG MCHC (30-36) % RDW (11.6-14.8) % Plt Count (150-400) X10^3/uL Neut % (Auto) (50-75) % Lymph % (Auto) (25-40) % Riley % (Auto) (3-14) % Eos % (Auto) (2-4) % Baso % (Auto) (0-2) % Neut # (Auto) (7574-1198) /uL Lymph # (Auto) (9777-4480) /uL Riley # (Auto) (0-900) /uL Eos # (Auto) (0-450) /uL Baso # (Auto) (0-100) /uL PT (10.1-12.7) SECONDS INR (0.9-1.3) Sodium (137-145) mmol/L Potassium (3.4-5.1) mmol/L Chloride (98-107) mmol/L Carbon Dioxide (22-32) mmol/L BUN (7-17) mg/dL Creatinine (0.52-1.04) mg/dL Estimated GFR (>60) mL/min BUN/Creatinine Ratio (6-22) Glucose (70-100) mg/dL Lactate (0.7-2.1) mmol/L Calcium (8.4-10.2) mg/dL Total Bilirubin (0.2-1.3) mg/dL AST (14-36) IU/L ALT (9-52) IU/L Alkaline Phosphatase (38-126) U/L Total Protein (6.3-8.2) g/dL Albumin (3.5-5.0) g/dL Globulin (1.7-4.1) g/dL Albumin/Globulin Ratio (1.0-2.8) Urine Color Yellow Urine Appearance Clear Urine pH 5.5 (4.5-8.0) Ur Specific [place] 1.010 (1.000-1.035) Urine Protein Negative (Negative) Urine Glucose (UA) Negative (Negative) g/dL Urine Ketones Trace H (NEGATIVE) Urine Occult Blood Negative (Negative) Urine Nitrate Positive (Negative) Urine Bilirubin Negative (NEGATIVE) Urine Urobilinogen 0.2 (0.2) E.U./dL Ur Leukocyte Esterase Negative (NEGATIVE) Urine RBC None seen (0-5/HPF) Urine WBC None seen (0-5/HPF) Ur Squamous Epith Cells 1-5 /hpf (0-5/HPF) Urine Bacteria Few (2-10) H (None) Hyaline Casts 0-1/lpf (None) Ur Culture Indicated? Specimen cultured Urine Opiates Screen (Negative) Ur Oxycodone Screen (Negative) Urine Methadone Screen (Negative) Ur Barbiturates Screen (Negative) U Tricyclic Antidepress (Negative) Ur Phencyclidine Scrn (Negative) Ur Amphetamines Screen (Negative) U Methamphetamines Scrn (Negative) Ur MDMA Scrn (Ecstasy) (Negative) U Benzodiazepines Scrn (Negative) Urine Cocaine Screen (Negative) U Marijuana (THC) Screen (Negative) Ethyl Alcohol ( - 10) mg/dL Ketones (<0.27) mmol/L MDM Narrative Medical decision making narrative: Multiple etiologies for patient's symptoms considered including: [Cyclic vomiting versus gastroenteritis versus cannabis hyperemesis syndrome vs. other] Patient's symptoms improved or duration of stay with above-stated therapies. Findings and discharge diagnosis discussed with patient/family followed by verbalization of understanding Return precautions discussed with patient/family whom verbalize understanding. Discharge Plan Departure Patient Disposition: Home Clinical Impression: Dehydration Vomiting Qualifiers: Vomiting type: unspecified Vomiting Intractability: non-intractable Nausea presence: with nausea Qualified Code(s): R11.2 - Nausea with vomiting, unspecified Discharge Date/Time: 12/22/18 00:54 Instructions: DI for Dehydration -- Adult, DI for Vomiting -- Adult Activity Restrictions/Additional Instructions: 1. Drink plenty of fluids with frequent small sips. 2. For the next 24 hours a clear liquid diet is advised. After that please employ a brat diet which would include bananas, rice, apples, toast. 3. Please take medications as directed. 4. Please follow-up with your doctor in the next 1-2 days. Call the office for an appointment. 5. Please return to the emergency Department for any worsening or persistent symptoms, such as increasing pain or fever. Prescriptions: New promethazine 12.5 mg suppository 12.5 mg MD Q4-6H PRN (Reason: nausea and vomiting) Qty: 30 RF: 0 lorazepam [Ativan] 1 mg tablet 1 mg PO BID-TID PRN (Reason: nausea and vomiting) Qty: 10 RF: 0 No Action furosemide 40 mg Tablet 40 mg PO 0800,1700 Qty: 60 RF: 5 spironolactone 50 mg Tablet 50 mg PO 0800,1700 Qty: 60 RF: 5 tramadol 50 mg Tablet 50 mg PO Q6H RF: 0 ondansetron 4 mg Tablet,Disintegrating 4 mg PO BID PRN (Reason: Pain (Scale Score 1-3)) RF: 0 diazepam 5 mg tablet 5 mg PO QPM RF: 0 promethazine 12.5 mg Tablet 12.5 mg PO Q4H PRN (Reason: Vomiting) RF: 0 prochlorperazine maleate 10 mg Tablet 10 mg PO Q6-8H PRN (Reason: Nausea) RF: 0 promethazine 12.5 mg Suppository 12.5 mg MD Q6H PRN (Reason: Vomiting) RF: 0 duloxetine 30 mg Capsule,Delayed Release(Dr/Ec) 30 mg PO QPM RF: 0 lidocaine HCl [Lidocaine Viscous] 2 % solution 10 ml MM Q3-4H PRN (Reason: chest/esophageal pain) Qty: 150 RF: 0 hydrocodone-acetaminophen [[place]] 5-325 mg tablet 1 tab PO Q4-6H PRN (Reason: pain) Qty: 10 RF: 0
[2018-12-21] MEDS: SODIUM CHLORIDE 0.9% 1,000 ML 1000 ML IV ×2 (19:26→20:54)
[2018-12-21] MEDS: ONDANSETRON 4 MG/2 ML INJ IV ×2 (19:27→22:51)
[2018-12-21 19:45] LABS: Add Manual Diff / Slide Review NO; Basophils Absolute Auto 0 /uL (0-100); Basophils Percent Auto 0.4 % (0-2); Eosinophils Absolute Auto 0 /uL (0-450); Eosinophils Percent Auto 0.4 % (2-4); Hematocrit 49.7 % (36-46); Hemoglobin 16.5 g/dL (12.0-16.0); Lymphocytes Absolute Auto 1000 /uL (1100-4500); Lymphocytes Percent Auto 11.5 % (25-40); Mean Corpuscular HGB Conc 33.2 % (30-36); Mean Corpuscular Volume 96.3 fL (80-100); Monocytes Absolute Auto 700 /uL (0-900); Monocytes Percent Auto 7.9 % (3-14); Neutrophils Absolute Auto 6800 /uL (1500-7000); Neutrophils Percent Auto 79.8 % (50-75); Platelet Count 225 X10^3/uL (150-400); Red Blood Cell Count 5.16 X10^6/uL (4.0-5.2); Red Cell Distribution Width 15.9 % (11.6-14.8); White Blood Cell Count 8.6 X10^3/uL (4.5-11.0)
[2018-12-21 19:50] LABS: Prothrombin Time 11.8 SECONDS (10.1-12.7)
[2018-12-21 20:11] VITALS: BP 129/87; PULSE 101; RESP 16; O2SAT 96
[2018-12-21 20:22] LABS: Alanine Aminotransferase 60 IU/L (9-52); Albumin 4.5 g/dL (3.5-5.0); Albumin Globulin Ratio 1.3 (1.0-2.8); Alkaline Phosphatase 228 U/L (38-126); Aspartate Aminotransferase 223 IU/L (14-36); Bilirubin Total 1.3 mg/dL (0.2-1.3); Carbon Dioxide 19 mmol/L (22-32); Chloride 102 mmol/L (98-107); Estimated Glomerular Filt Rate > 60.0 mL/min (>60); Globulin 3.6 g/dL (1.7-4.1); Glucose 94 mg/dL (70-100); Potassium 4.3 mmol/L (3.4-5.1); Sodium 138 mmol/L (137-145); Total Protein 8.1 g/dL (6.3-8.2)
[2018-12-21 20:23] LABS: BUN Creatinine Ratio 3.3 (6-22); Blood Urea Nitrogen 2 mg/dL (7-17); HEMOLYSIS 82 (0-50)
[2018-12-21 20:24] LABS: Lactate (Lactic Acid) 9.6 mmol/L (0.7-2.1)
[2018-12-21 20:33] LABS: Ethanol (ETOH) < 10 mg/dL
[2018-12-21 20:34] LABS: Ketones (Beta-Hydroxybutyrate) 0.17 mmol/L (<0.27)
[2018-12-21 21:35] LABS: Reflexed Lactate in 2 Hours Y
[2018-12-21 21:38] VITALS: BP 111/74; PULSE 96; RESP 17; O2SAT 100
[2018-12-21 22:04] LABS: Lactate 2HR (Lactic Acid Rflx) 1.3 mmol/L (0.7-2.1)
[2018-12-21 22:08] LABS: Bilirubin Urine UA NEGATIVE (NEGATIVE); Color Urine UA YELLOW; Glucose Urine UA NEGATIVE (Negative); Ketones Urine UA TRACE (NEGATIVE); Leukocyte Esterase Urine UA NEGATIVE (NEGATIVE); Nitrite Urine UA POSITIVE (Negative); Occult Blood Urine UA NEGATIVE (Negative); Protein Urine UA NEGATIVE (Negative); RBC Urine None Seen (0-5/HPF); Urobilinogen Urine UA 0.2 E.U./dL (0.2); WBC Urine None Seen (0-5/HPF)
[2018-12-21 22:10] VITALS: BP 116/68; PULSE 89; RESP 21; O2SAT 97
[2018-12-21 22:15] LABS: Appearance Urine UA Clear; Bacteria Urine Few (2-10); Hyaline Casts Urine 0-1/LPF; Squamous Epithelial Cell Urine 1-5 /HPF (0-5/HPF); pH Urine UA 5.5 (4.5-8.0)
[2018-12-21 22:17] LABS: Culture Indicated Urine Specimen Cultured
[2018-12-21 22:18] LABS: Urine Amphetamines Negative (Negative); Urine Barbiturates Negative (Negative); Urine Benzodiazepines Negative (Negative); Urine Cocaine Negative (Negative); Urine MDMA Negative (Negative); Urine Methadone Negative (Negative); Urine Methamphetamines Negative (Negative); Urine Morphine/Opi cutoff 2000 Negative (Negative); Urine Oxycodone Negative (Negative); Urine Phencyclidine Negative (Negative); Urine THC Positive (Negative); Urine Tricyclic Antidepressant Positive (Negative)
--- NOTE | 2018-12-21 22:51 | PC.NURSE ---
Repeat lactate 1.3 after 2L NS bolus. pt continuing to feel nauseous. dry heeves into emesis bag, zofran given. pt appears much better--color in face and ambulating and voiding. reports feeling better as well. awaiting MD reassessment.
[2018-12-21] MEDS: LORazepam 2 MG/ML INJ 1 MG IV (23:58)
[2018-12-22] MEDS: LORazepam 0.5 MG TABLET 1 MG PO (00:42)
[2018-12-22 00:53] VITALS: BP 121/91; PULSE 91; RESP 99; TEMP 36.8
== END 2018-12-22 00:54 | disposition home or self-care (01) ==
PROVIDERS: Emergency Provider Emergency Medicine
DX: E86.0 Dehydration (principal); R11.2 Nausea with vomiting, unspecified
CPT/HCPCS: 36415; 36591; 74022; 80053; 80305; 80320; 81001; 82009; 83605; 85025; 85610; 87086; 96361; 96374; 96375; 96376; 99283; 99284; J2060; J2405

== ENCOUNTER 2019-01-16 09:47 | Emergency (ER) | payer MEDICAID, SELFPAY ==
[2017-09-15 17:31] VITALS: BMI 30.7
[2019-01-16 09:53] VITALS: BP 154/101; PULSE 87; RESP 20; TEMP 36.8; O2SAT 100; BMI 32.8
[2019-01-16] MEDS: SODIUM CHLORIDE 0.9% 1,000 ML 1000 ML IV ×2 (10:45→12:33)
[2019-01-16 10:48] LABS: INR 1.1 (0.9-1.3); Prothrombin Time 12.8 SECONDS (10.1-12.7)
[2019-01-16 10:51] LABS: PTT Partial Thromboplastin Tim 31 SECONDS (26.4-36.2)
[2019-01-16 10:53] LABS: Alanine Aminotransferase 100 IU/L (9-52); Albumin 3.9 g/dL (3.5-5.0); Albumin Globulin Ratio 1.1 (1.0-2.8); Alkaline Phosphatase 231 U/L (38-126); Aspartate Aminotransferase 279 IU/L (14-36); BUN Creatinine Ratio 4.3 (6-22); Blood Urea Nitrogen 3 mg/dL (7-17); Calcium 9.1 mg/dL (8.4-10.2); Carbon Dioxide 25 mmol/L (22-32); Chloride 102 mmol/L (98-107); Estimated Glomerular Filt Rate > 60.0 mL/min (>60); Globulin 3.5 g/dL (1.7-4.1); Glucose 83 mg/dL (70-100); Lipase 26 U/L (23-300); Potassium 4.1 mmol/L (3.4-5.1); Sodium 138 mmol/L (137-145); Total Protein 7.4 g/dL (6.3-8.2)
[2019-01-16 10:54] LABS: HEMOLYSIS 67 (0-50)
[2019-01-16 10:55] LABS: Add Manual Diff / Slide Review NO; Basophils Absolute Auto 0 /uL (0-100); Basophils Percent Auto 0.2 % (0-2); Eosinophils Absolute Auto 0 /uL (0-450); Eosinophils Percent Auto 0.1 % (2-4); Hematocrit 47.5 % (36-46); Lymphocytes Absolute Auto 400 /uL (1100-4500); Lymphocytes Percent Auto 9.3 % (25-40); Mean Corpuscular HGB Conc 33.7 % (30-36); Mean Corpuscular Hemoglobin 31.6 PG (26-34); Mean Corpuscular Volume 93.8 fL (80-100); Monocytes Absolute Auto 500 /uL (0-900); Monocytes Percent Auto 9.9 % (3-14); Neutrophils Absolute Auto 3700 /uL (1500-7000); Neutrophils Percent Auto 80.5 % (50-75); Platelet Count 155 X10^3/uL (150-400); Red Blood Cell Count 5.06 X10^6/uL (4.0-5.2); Red Cell Distribution Width 16.3 % (11.6-14.8); White Blood Cell Count 4.6 X10^3/uL (4.5-11.0)
[2019-01-16] MEDS: ONDANSETRON 4 MG/2 ML INJ IV ×2 (10:56→13:23)
[2019-01-16] MEDS: LORazepam 2 MG/ML INJ 1 MG IV ×2 (10:56→13:23)
[2019-01-16] MEDS: PANTOPRAZOLE 40 MG VIAL IV (11:50)
--- NOTE | 2019-01-16 11:50 | ED.ABDPAIN ---
HPI - Abdominal Pain <ALEKSANDR Valentin - Last Filed: 01/17/19 01:24> General Chief Complaint: Abdominal Pain Stated Complaint: vomiting/diarrhea Time Seen by Provider: 01/16/19 10:26 Source: patient Mode of arrival: Ambulatory Limitations: no limitations History of Present Illness HPI narrative: This is a 33-year-old female, smoker, who presents to ED with chief complain of nausea/vomiting/diarrhea for last 3 days. Patient denies fever, recent exposure to illness who has similar symptoms or bad food. Patient reports dark color urination but denies other urinary symptoms such as dysuria, frequency, urgency, flank pain. Patient states she has a history of liver cirrhosis and has GI doctor she follows up with. She noticed small specks of blood in her emesis with vomiting. She complain of generalized body aches, right and left upper quadrant discomfort to with vomiting. Patient denies alcohol intake, heavy Tylenol intakes, recent medication changes. Patient reports she bruises easily. She states she had used her [place] promethazine, Zofran ODT, Ativan prior coming into ED but these were not effective with manage her symptoms. Related Data Home Medications Medication Instructions Recorded Confirmed promethazine 12.5 mg PO Q4H PRN 01/24/18 01/16/19 promethazine 12.5 mg [place] Q6H PRN 01/24/18 01/16/19 ondansetron 4 mg PO BID PRN 04/04/18 01/16/19 tramadol 50 mg PO Q6H PRN 04/04/18 01/16/19 Previous Rx's Medication Instructions Recorded lidocaine HCl [Lidocaine Viscous] 5 ml MM QID PRN #100 ml 01/16/19 Allergies Allergy/AdvReac Type Severity Reaction Status Date / Time acetaminophen Allergy Intermediate Abdominal Verified 01/16/19 09:53 Pain NSAIDS (Non-Steroidal Allergy Intermediate Abdominal Verified 01/16/19 09:53 Anti-Inflamma Pain oxycodone Allergy Intermediate Abdominal Verified 01/16/19 09:53 Pain Review of Systems <ALEKSANDR Valentin - Last Filed: 01/17/19 01:24> Review of Systems Narrative: General: Denies fever, chills, fatigue, malaise, sweats. HEENT: Denies sinus pain, ear pain, sore throat, difficulty swallowing, dizziness. Respiratory: Denies dyspnea, cough, wheezing, hemoptysis, sputum. Cardiovascular: Denies chest pain, palpitations, orthopnea, edema. Gastrointestinal: See HPI : Denies dysuria, frequency, incontinence, hematuria, urinary retention. Musculoskeletal: Denies weakness, joint pain or bony pain. Skin: Reports easy bruising. Denies rash, skin lesions, or other. Neurologic: Denies weakness, headache, numbness, change in speech, confusion, seizures, incoordination. Psychiatric: No concerning psychosocial issues. 12-point review of systems is negative except for those stated above. PFSH <ALEKSANDR Valentin - Last Filed: 01/17/19 01:24> Medical History Alcoholism (Chronic) Autoimmune disorder (Chronic) Cervical cancer (Chronic) Cirrhosis of liver (Chronic) Pulmonary embolus (Resolved) Ulnar nerve entrapment (Resolved) Surgical History Gastric bypass status for obesity (Chronic) Family History Other Family history non-contributory Social History household members: spouse Smoking Status: Current every day smoker alcohol intake: current Family History Other Family history non-contributory Social History household members: spouse Smoking Status: Current every day smoker alcohol intake: current Exam <ALEKSANDR Valentin - Last Filed: 01/17/19 01:24> Narrative Exam Narrative: GEN: Alert, oriented x 3, well appearing and nourished, and in no acute distress. Head: Normal cephalic, atraumatic. No scalp or temporal tenderness, palpable mass or rash. EYES: Pupils are equal, round, and reactive to light and accommodation. Extraocular muscles are intact bilaterally. There is no subconjunctival hemorrhage, exudate and sclera non-icteric. ENT: Hearing grossly intact. Nose without bleeding, purulent discharge or deviation. Mucous membrane moist, no mucosal lesion. Throat without erythema, tonsillar hypertrophy or exudate. Uvula in midline, airway patent. Neck: Trachea in midline. No JVD, non-tender without lymphadenopathy. No masses or thyroid megaly. Supple, non-tender and no meningeal signs. CARDIAC: Normal regular rate and rhythm without murmurs, gallops, or rubs. No chest wall tenderness. No peripheral edema, cyanosis or pallor. Capillary refill is less than 2 seconds. RESPIRATORY: Lungs are cleat to auscultate bilaterally. No cough, wheezes, rales, or rhonchi. No stridor, respiratory distress, increase work of breathing, or accessary muscle used. ABD: Mild abdominal discomfort to palpate in bilateral upper quadrants. Abdomen soft and non-distended. No guarding or rebound tenderness to palpate. Bowel sounds are normal in all 4 quadrants. There is no palpable masses or organomegaly. EXT: Full painless ROM of all extremities with no loss of sensation, strength, effusion or edema. SKIN: Warm, dry, normal color for patient. No erythema, lesions or rash over visible areas. BACK: Nontender without deformity or crepitance. No flank tenderness. NEUROLOGICAL: Alert and oriented to place, time and person. Sensation and motor function intact bilaterally. No facial droops, dysphasia. PSYCHIATRIC: Good judgement and reason, without hallucinations, abnormal affect or abnormal behaviors during the examination. Patient is not suicidal. Initial Vital Signs Initial Vital Signs: Vital Signs Temperature 98.2 F 01/16/19 09:53 Pulse Rate 87 01/16/19 09:53 Respiratory Rate 20 01/16/19 09:53 Blood Pressure 154/101 H 01/16/19 09:53 Pulse Oximetry 100 01/16/19 09:53 <Tita Wilson DO - Last Filed: 01/17/19 07:03> Initial Vital Signs Initial Vital Signs: Vital Signs Temperature 98.2 F 01/16/19 09:53 Pulse Rate 87 01/16/19 09:53 Respiratory Rate 20 01/16/19 09:53 Blood Pressure 154/101 H 01/16/19 09:53 Pulse Oximetry 100 01/16/19 09:53 Course <ALEKSANDR Valentin - Last Filed: 01/17/19 01:24> Orders Ordered: Discontinued Medications Al Hydrox/Mg Hydrox/Simethicone 20 ml/ Lidocaine HCl 15 ml 0 ml PO NOW ONE Stop: 01/16/19 11:30 Last Admin: 01/16/19 11:53 Dose: Not Given Documented by: MARITZA Al Hydrox/Mg Hydrox/Simethicone 20 ml/ Lidocaine HCl 15 ml 0 ml PO NOW ONE Stop: 01/16/19 11:54 Last Admin: 01/16/19 11:57 Dose: 35 ml Documented by: MARITZA Sodium Chloride (Normal Saline 0.9%) 1,000 mls @ 1,000 mls/hr IV BOLUS ONE Stop: 01/16/19 11:41 Last Infusion: 01/16/19 11:46 Dose: 1,000 mls/hr Documented by: Admin: 01/16/19 10:45 Dose: 1,000 mls/hr Documented by: MARITZA Sodium Chloride (Normal Saline 0.9%) 1,000 mls @ 1,000 mls/hr IV BOLUS ONE Stop: 01/16/19 13:27 Last Infusion: 01/16/19 13:25 Dose: 0 mls/hr Documented by: Admin: 01/16/19 12:33 Dose: 1,000 mls/hr Documented by: MARITZA Sodium Chloride (Normal Saline 0.9%) 1,000 mls @ 250 mls/hr IV BOLUS ONE Stop: 01/16/19 17:25 Last Infusion: 01/16/19 14:58 Dose: 0 mls/hr Documented by: Admin: 01/16/19 13:27 Dose: 250 mls/hr Documented by: MARITZA Lorazepam (Ativan) 1 mg IV NOW ONE Stop: 01/16/19 10:53 Last Admin: 01/16/19 10:56 Dose: 1 mg Documented by: MARITZA Lorazepam (Ativan) 1 mg IV NOW ONE Stop: 01/16/19 13:13 Last Admin: 01/16/19 13:23 Dose: 1 mg Documented by: MARITZA Ondansetron HCl (Zofran) 4 mg IV NOW ONE Stop: 01/16/19 10:43 Last Admin: 01/16/19 10:56 Dose: 4 mg Documented by: MARITZA Ondansetron HCl (Zofran) 4 mg IV NOW ONE Stop: 01/16/19 13:13 Last Admin: 01/16/19 13:23 Dose: 4 mg Documented by: MARITZA Pantoprazole Sodium (Protonix) 40 mg IV NOW ONE Stop: 01/16/19 11:30 Last Admin: 01/16/19 11:50 Dose: 40 mg Documented by: MARITZA Tramadol HCl (Ultram) 50 mg PO NOW ONE Stop: 01/16/19 12:03 Last Admin: 01/16/19 12:33 Dose: 50 mg Documented by: MARITZA Vital Signs Vital signs: Vital Signs - 8 hr 01/16/19 09:53 Temperature 98.2 F Pulse Rate 87 Respiratory Rate 20 Blood Pressure 154/101 H Pulse Oximetry 100 <Tita Wilson DO - Last Filed: 01/17/19 07:03> Orders Ordered: Discontinued Medications Al Hydrox/Mg Hydrox/Simethicone 20 ml/ Lidocaine HCl 15 ml 0 ml PO NOW ONE Stop: 01/16/19 11:30 Last Admin: 01/16/19 11:53 Dose: Not Given Documented by: MARITZA Al Hydrox/Mg Hydrox/Simethicone 20 ml/ Lidocaine HCl 15 ml 0 ml PO NOW ONE Stop: 01/16/19 11:54 Last Admin: 01/16/19 11:57 Dose: 35 ml Documented by: MARITZA Sodium Chloride (Normal Saline 0.9%) 1,000 mls @ 1,000 mls/hr IV BOLUS ONE Stop: 01/16/19 11:41 Last Infusion: 01/16/19 11:46 Dose: 1,000 mls/hr Documented by: Admin: 01/16/19 10:45 Dose: 1,000 mls/hr Documented by: MARITZA Sodium Chloride (Normal Saline 0.9%) 1,000 mls @ 1,000 mls/hr IV BOLUS ONE Stop: 01/16/19 13:27 Last Infusion: 01/16/19 13:25 Dose: 0 mls/hr Documented by: Admin: 01/16/19 12:33 Dose: 1,000 mls/hr Documented by: MARITZA Sodium Chloride (Normal Saline 0.9%) 1,000 mls @ 250 mls/hr IV BOLUS ONE Stop: 01/16/19 17:25 Last Infusion: 01/16/19 14:58 Dose: 0 mls/hr Documented by: Admin: 01/16/19 13:27 Dose: 250 mls/hr Documented by: MARITZA Lorazepam (Ativan) 1 mg IV NOW ONE Stop: 01/16/19 10:53 Last Admin: 01/16/19 10:56 Dose: 1 mg Documented by: MARITZA Lorazepam (Ativan) 1 mg IV NOW ONE Stop: 01/16/19 13:13 Last Admin: 01/16/19 13:23 Dose: 1 mg Documented by: MARITZA Ondansetron HCl (Zofran) 4 mg IV NOW ONE Stop: 01/16/19 10:43 Last Admin: 01/16/19 10:56 Dose: 4 mg Documented by: MARITZA Ondansetron HCl (Zofran) 4 mg IV NOW ONE Stop: 01/16/19 13:13 Last Admin: 01/16/19 13:23 Dose: 4 mg Documented by: MARITZA Pantoprazole Sodium (Protonix) 40 mg IV NOW ONE Stop: 01/16/19 11:30 Last Admin: 01/16/19 11:50 Dose: 40 mg Documented by: MARITZA Tramadol HCl (Ultram) 50 mg PO NOW ONE Stop: 01/16/19 12:03 Last Admin: 01/16/19 12:33 Dose: 50 mg Documented by: MARITZA Vital Signs Vital signs: Vital Signs - 8 hr 01/16/19 09:53 Temperature 98.2 F Pulse Rate 87 Respiratory Rate 20 Blood Pressure 154/101 H Pulse Oximetry 100 MDM - Abdominal Pain <Tulio ALEKSANDR Freed - Last Filed: 01/17/19 01:24> Differential Diagnosis Differential diagnosis: Likely abdominal pain, acute appendicitis, endometriosis and other (Cyclic nausea and vomiting, pancreatitis, dehydration) Medical Records Attestation: I reviewed the patient's medical records. Lab Data Attestation: I reviewed the patient's lab results. Result diagrams: 01/16/19 10:33 01/16/19 10:33 Labs: Lab Results 01/16/19 01/16/19 01/16/19 Range/Units 10:33 10:33 10:33 WBC 4.6 (4.5-11.0) X10^3/uL RBC 5.06 (4.0-5.2) X10^6/uL Hgb 16.0 (12.0-16.0) g/dL Hct 47.5 H (36-46) % MCV 93.8 (80-100) fL MCH 31.6 (26-34) PG MCHC 33.7 (30-36) % RDW 16.3 H (11.6-14.8) % Plt Count 155 (150-400) X10^3/uL Neut % (Auto) 80.5 H (50-75) % Lymph % (Auto) 9.3 L (25-40) % Lawrence % (Auto) 9.9 (3-14) % Eos % (Auto) 0.1 L (2-4) % Baso % (Auto) 0.2 (0-2) % Neut # (Auto) 3700 (1644-5758) /uL Lymph # (Auto) 400 L (0541-1512) /uL Lawrence # (Auto) 500 (0-900) /uL Eos # (Auto) 0 (0-450) /uL Baso # (Auto) 0 (0-100) /uL PT 12.8 H (10.1-12.7) SECONDS INR 1.1 (0.9-1.3) APTT 31 D (26.4-36.2) SECONDS Sodium 138 (137-145) mmol/L Potassium 4.1 (3.4-5.1) mmol/L Chloride 102 (98-107) mmol/L Carbon Dioxide 25 (22-32) mmol/L BUN 3 L (7-17) mg/dL Creatinine 0.70 (0.52-1.04) mg/dL Estimated GFR > 60.0 (>60) mL/min BUN/Creatinine Ratio 4.3 L (6-22) Glucose 83 (70-100) mg/dL Lactate (0.7-2.1) mmol/L Calcium 9.1 (8.4-10.2) mg/dL Total Bilirubin 2.0 H (0.2-1.3) mg/dL AST 279 H (14-36) IU/L ALT 100 H (9-52) IU/L Alkaline Phosphatase 231 H (38-126) U/L Total Protein 7.4 (6.3-8.2) g/dL Albumin 3.9 (3.5-5.0) g/dL Globulin 3.5 (1.7-4.1) g/dL Albumin/Globulin Ratio 1.1 (1.0-2.8) Lipase 26 (23-300) U/L Urine Ictotest (Negative) Urine RBC (0-5/HPF) Urine WBC (0-5/HPF) Ur Squamous Epith Cells (0-5/HPF) Urine Bacteria (None) Hyaline Casts (None) Urine Mucus (Negative) Ur Culture Indicated? Ethyl Alcohol ( - 10) mg/dL 01/16/19 01/16/19 01/16/19 Range/Units 10:33 11:40 13:00 WBC (4.5-11.0) X10^3/uL RBC (4.0-5.2) X10^6/uL Hgb (12.0-16.0) g/dL Hct (36-46) % MCV (80-100) fL MCH (26-34) PG MCHC (30-36) % RDW (11.6-14.8) % Plt Count (150-400) X10^3/uL Neut % (Auto) (50-75) % Lymph % (Auto) (25-40) % Lawrence % (Auto) (3-14) % Eos % (Auto) (2-4) % Baso % (Auto) (0-2) % Neut # (Auto) (8976-3637) /uL Lymph # (Auto) (0317-5497) /uL Lawrence # (Auto) (0-900) /uL Eos # (Auto) (0-450) /uL Baso # (Auto) (0-100) /uL PT (10.1-12.7) SECONDS INR (0.9-1.3) APTT (26.4-36.2) SECONDS Sodium (137-145) mmol/L Potassium (3.4-5.1) mmol/L Chloride (98-107) mmol/L Carbon Dioxide (22-32) mmol/L BUN (7-17) mg/dL Creatinine (0.52-1.04) mg/dL Estimated GFR (>60) mL/min BUN/Creatinine Ratio (6-22) Glucose (70-100) mg/dL Lactate 1.5 (0.7-2.1) mmol/L Calcium (8.4-10.2) mg/dL Total Bilirubin (0.2-1.3) mg/dL AST (14-36) IU/L ALT (9-52) IU/L Alkaline Phosphatase (38-126) U/L Total Protein (6.3-8.2) g/dL Albumin (3.5-5.0) g/dL Globulin (1.7-4.1) g/dL Albumin/Globulin Ratio (1.0-2.8) Lipase (23-300) U/L Urine Ictotest Positive H (Negative) Urine RBC None seen (0-5/HPF) Urine WBC 1-5/hpf (0-5/HPF) Ur Squamous Epith Cells 10-30 /hpf H D (0-5/HPF) Urine Bacteria Many (>30) H (None) Hyaline Casts 1-5/lpf (None) Urine Mucus 2+ H (Negative) Ur Culture Indicated? Cult not indicated Ethyl Alcohol < 10 ( - 10) mg/dL Point of care testing: Point of Care Testing Test Results Negative Urine Dip Bedside Urine Glucose Negative Bedside Urine Bilirubin + 1 Bedside Urine Ketone +++ 80 Urine Specific [place] 1.015 Bedside Urine Occult Blood - Negative Bedside Urine pH 6.5 Bedside Urine Protein + 30 Bedside Urine Urobilinogen 1+ 2mg Bedside Urine Nitrite + Positive Bedside Urine Leukocytes + 70 Esterase MDM Narrative Medical decision making narrative: 33-year-old female who presents to ED with a 3 day duration of nausea/vomiting/diarrhea. She has history of cyclic nausea and vomiting and had used outpatient medications such as Zofran ODT, [place] Phenergan, and Ativan prior coming into ED without seeing efficacy of there medications. She also has a history of cirrhosis. Patient denies fever/chills. Patient reports bilateral upper abdominal discomfort with vomiting. Her physical exam is not consistent with appendicitis. There was no elevation in white count. There was no elevation in BUN. Mildly elevated from her last visit. Lactate was normal. Coags test was unremarkable. ETOH was Negative. After 1 L of IV fluid infusion, patient voided concentrated appearing urine. Urine test shows high ketones and urine itcotest. Urine test appears to be possibly contaminated sample but is being cultured this time. Patient was medicated twice with IV Zofran and Ativan. Patient was also treated with pantoprazole. Patient is pain in generalized body was treated with tramadol. Patient was hydrated with total 2225 ml of IV fluid. Patient was able to tolerate ice chips and clear liquids before discharged to home. Patient states feeling improved, heart rate has improved with normotensive and afebrile. Patient was discharged to home with lidocaine viscous gel for comfort and esophageal spasm which patient finds to be helpful. Patient advised to follow up with primary care physician in 2-3 days and return precautions were discussed and verbalized understanding. Patient agrees with treatment plan. <Tita Wilson, DO - Last Filed: 01/17/19 07:03> Lab Data Labs: Lab Results 01/16/19 01/16/19 01/16/19 Range/Units 10:33 10:33 10:33 WBC 4.6 (4.5-11.0) X10^3/uL RBC 5.06 (4.0-5.2) X10^6/uL Hgb 16.0 (12.0-16.0) g/dL Hct 47.5 H (36-46) % MCV 93.8 (80-100) fL MCH 31.6 (26-34) PG MCHC 33.7 (30-36) % RDW 16.3 H (11.6-14.8) % Plt Count 155 (150-400) X10^3/uL Neut % (Auto) 80.5 H (50-75) % Lymph % (Auto) 9.3 L (25-40) % Lawrence % (Auto) 9.9 (3-14) % Eos % (Auto) 0.1 L (2-4) % Baso % (Auto) 0.2 (0-2) % Neut # (Auto) 3700 (0003-5925) /uL Lymph # (Auto) 400 L (3083-7264) /uL Lawrence # (Auto) 500 (0-900) /uL Eos # (Auto) 0 (0-450) /uL Baso # (Auto) 0 (0-100) /uL PT 12.8 H (10.1-12.7) SECONDS INR 1.1 (0.9-1.3) APTT 31 D (26.4-36.2) SECONDS Sodium 138 (137-145) mmol/L Potassium 4.1 (3.4-5.1) mmol/L Chloride 102 (98-107) mmol/L Carbon Dioxide 25 (22-32) mmol/L BUN 3 L (7-17) mg/dL Creatinine 0.70 (0.52-1.04) mg/dL Estimated GFR > 60.0 (>60) mL/min BUN/Creatinine Ratio 4.3 L (6-22) Glucose 83 (70-100) mg/dL Lactate (0.7-2.1) mmol/L Calcium 9.1 (8.4-10.2) mg/dL Total Bilirubin 2.0 H (0.2-1.3) mg/dL AST 279 H (14-36) IU/L ALT 100 H (9-52) IU/L Alkaline Phosphatase 231 H (38-126) U/L Total Protein 7.4 (6.3-8.2) g/dL Albumin 3.9 (3.5-5.0) g/dL Globulin 3.5 (1.7-4.1) g/dL Albumin/Globulin Ratio 1.1 (1.0-2.8) Lipase 26 (23-300) U/L Urine Ictotest (Negative) Urine RBC (0-5/HPF) Urine WBC (0-5/HPF) Ur Squamous Epith Cells (0-5/HPF) Urine Bacteria (None) Hyaline Casts (None) Urine Mucus (Negative) Ur Culture Indicated? Ethyl Alcohol ( - 10) mg/dL 01/16/19 01/16/19 01/16/19 Range/Units 10:33 11:40 13:00 WBC (4.5-11.0) X10^3/uL RBC (4.0-5.2) X10^6/uL Hgb (12.0-16.0) g/dL Hct (36-46) % MCV (80-100) fL MCH (26-34) PG MCHC (30-36) % RDW (11.6-14.8) % Plt Count (150-400) X10^3/uL Neut % (Auto) (50-75) % Lymph % (Auto) (25-40) % Lawrence % (Auto) (3-14) % Eos % (Auto) (2-4) % Baso % (Auto) (0-2) % Neut # (Auto) (9875-2667) /uL Lymph # (Auto) (5939-7133) /uL Lawrence # (Auto) (0-900) /uL Eos # (Auto) (0-450) /uL Baso # (Auto) (0-100) /uL PT (10.1-12.7) SECONDS INR (0.9-1.3) APTT (26.4-36.2) SECONDS Sodium (137-145) mmol/L Potassium (3.4-5.1) mmol/L Chloride (98-107) mmol/L Carbon Dioxide (22-32) mmol/L BUN (7-17) mg/dL Creatinine (0.52-1.04) mg/dL Estimated GFR (>60) mL/min BUN/Creatinine Ratio (6-22) Glucose (70-100) mg/dL Lactate 1.5 (0.7-2.1) mmol/L Calcium (8.4-10.2) mg/dL Total Bilirubin (0.2-1.3) mg/dL AST (14-36) IU/L ALT (9-52) IU/L Alkaline Phosphatase (38-126) U/L Total Protein (6.3-8.2) g/dL Albumin (3.5-5.0) g/dL Globulin (1.7-4.1) g/dL Albumin/Globulin Ratio (1.0-2.8) Lipase (23-300) U/L Urine Ictotest Positive H (Negative) Urine RBC None seen (0-5/HPF) Urine WBC 1-5/hpf (0-5/HPF) Ur Squamous Epith Cells 10-30 /hpf H D (0-5/HPF) Urine Bacteria Many (>30) H (None) Hyaline Casts 1-5/lpf (None) Urine Mucus 2+ H (Negative) Ur Culture Indicated? Cult not indicated Ethyl Alcohol < 10 ( - 10) mg/dL Point of care testing: Point of Care Testing Test Results Negative Urine Dip Bedside Urine Glucose Negative Bedside Urine Bilirubin + 1 Bedside Urine Ketone +++ 80 Urine Specific [place] 1.015 Bedside Urine Occult Blood - Negative Bedside Urine pH 6.5 Bedside Urine Protein + 30 Bedside Urine Urobilinogen 1+ 2mg Bedside Urine Nitrite + Positive Bedside Urine Leukocytes + 70 Esterase Discharge Plan Departure Patient Disposition: Home Clinical Impression: Nausea and vomiting Qualifiers: Vomiting type: unspecified Vomiting Intractability: non-intractable Qualified Code(s): R11.2 - Nausea with vomiting, unspecified Discharge Date/Time: 01/16/19 15:09 Instructions: DI for Vomiting -- Adult Activity Restrictions/Additional Instructions: You have been diagnosed with [nausea, vomiting, diarrhea]. What to do: *Take your medications as directed. Please continue to use her medication regimen for nausea and vomiting. Lidocaine viscous 2% has been transmitted to [facility] *Follow up with your primary care provider in 2-3 days, call for an appointment. Let them know you were seen in the ED and that we asked you to be seen in follow up. *Return to ED if you have any new, worsening, or concerning symptoms, such as [chest pain, breathing difficulty, fever, unable to tolerate fluids with your medications, increasing abdominal pain, bleeding, or any acute concerns]. Prescriptions: New lidocaine HCl [Lidocaine Viscous] 2 % solution 5 ml MM QID PRN (Reason: pain) Qty: 100 RF: 0 No Action tramadol 50 mg Tablet 50 mg PO Q6H PRN (Reason: pain) RF: 0 ondansetron 4 mg Tablet,Disintegrating 4 mg PO BID PRN (Reason: Pain (Scale Score 1-3)) RF: 0 promethazine 12.5 mg Tablet 12.5 mg PO Q4H PRN (Reason: Vomiting) RF: 0 promethazine 12.5 mg Suppository 12.5 mg [place] Q6H PRN (Reason: Vomiting) RF: 0 Referrals: [facility] [Outside]
[2019-01-16] MEDS: MAG HYDROX/ALUMINUM/SIMETH SUS 20 ML, LIDOCAINE VISCOUS 2% 15 ML PO (11:57)
[2019-01-16 12:10] VITALS: BP 132/78; PULSE 80; RESP 18; O2SAT 95
[2019-01-16 12:15] LABS: Lactate (Lactic Acid) 1.5 mmol/L (0.7-2.1)
[2019-01-16] MEDS: TRAMADOL 50 MG TABLET PO (12:33)
[2019-01-16 13:05] LABS: Ethanol (ETOH) < 10 mg/dL
[2019-01-16 13:09] LABS: RBC Urine None Seen (0-5/HPF)
[2019-01-16 13:16] LABS: Hyaline Casts Urine 1-5/LPF; Ictotest Urine Positive (Negative); Mucus Urine 2+ (Negative); Squamous Epithelial Cell Urine 10-30 /HPF (0-5/HPF); WBC Urine 1-5/HPF (0-5/HPF)
[2019-01-16 13:17] LABS: Bacteria Urine Many (>30)
[2019-01-16 13:18] LABS: Culture Indicated Urine Cult Not Indicated
[2019-01-16] MEDS: SODIUM CHLORIDE 0.9% 1,000 ML 250 ML IV (13:27)
[2019-01-16 14:30] VITALS: BP 126/88; PULSE 99; RESP 18; O2SAT 96
== END 2019-01-16 15:09 | disposition home or self-care (01) ==
PROVIDERS: Emergency Medicine; Emergency Provider Nurse Practitioner Family
DX: R11.2 Nausea with vomiting, unspecified (principal); R19.7 Diarrhea, unspecified; R00.0 Tachycardia, unspecified; Z87.19 Personal history of other diseases of the digestive system
CPT/HCPCS: 36415; 80053; 80320; 81003; 81015; 81025; 83605; 83690; 85025; 85610; 85730; 87086; 93005; 96361; 96374; 96375; 96376; 99283; 99284; C9113; J2060; J2405

== ENCOUNTER 2019-04-03 11:30 | Emergency (ER) | payer MEDICAID, SELFPAY ==
[2017-09-15 17:31] VITALS: BMI 30.7
[2019-04-03 12:45] VITALS: BP 129/93; PULSE 96; RESP 13; TEMP 36.6; O2SAT 100
--- NOTE | 2019-04-03 13:17 | ED_ITS ---
HPI - Nausea/Vomiting/Diarrhea General Chief complaint: Nausea/Vomiting/Diarrhea Stated complaint: liver failure [id number] vomiting Time Seen by Provider: 04/03/19 13:14 Source: patient Mode of arrival: Ambulatory History of Present Illness HPI Narrative: 33-year-old woman presents with 48 hours of her current nausea. Unable to keep food down only small volumes of liquid. Feeling that she is becoming more dehydrated and is generally miserable. She has been having episodes of cyclic vomiting for the last at least 18 months. She has had minimal workup today. She does have Zofran as well as promethazine oral and rectal at home. None of these are working currently. She has not had endoscopy nor any emptying studies. She has not tried scheduled Reglan. She states that she does smoke marijuana regularly however all of her symptoms started prior to beginning smoking and are not alleviated when she does stop. The probability of this being cannabinoid hyperemesis syndrome is less. She also has no evidence of diabetes. She has no evidence of other peripheral neuropathies She states that she has lost 4 lb in the last week. It's chronic nausea and occasional vomiting no significant diarrhea abdominal pain related to the nausea that's mild and diffuse. She has no chest pain, shortness of breath, rashes, fevers. Related Data Home Medications Medication Instructions Recorded Confirmed promethazine 12.5 mg PO Q4H PRN 01/24/18 01/16/19 promethazine 12.5 mg KS Q6H PRN 01/24/18 01/16/19 ondansetron 4 mg PO BID PRN 04/04/18 01/16/19 tramadol 50 mg PO Q6H PRN 04/04/18 01/16/19 Previous Rx's Medication Instructions Recorded lidocaine HCl [Lidocaine Viscous] 5 ml MM QID PRN #100 ml 01/16/19 metoclopramide HCl [Reglan] 10 mg PO Q6H #90 tab 04/03/19 promethazine 25 mg KS Q6H PRN #12 each 04/03/19 Allergies Allergy/AdvReac Type Severity Reaction Status Date / Time acetaminophen Allergy Intermediate Abdominal Verified 01/16/19 09:53 Pain NSAIDS (Non-Steroidal Allergy Intermediate Abdominal Verified 01/16/19 09:53 Anti-Inflamma Pain oxycodone Allergy Intermediate Abdominal Verified 01/16/19 09:53 Pain Review of Systems Review of Systems ROS Unobtainable: All systems reviewed & are unremarkable except as noted in HPI and below Patient History Medical History Alcoholism (Chronic) Autoimmune disorder (Chronic) Cervical cancer (Chronic) Cirrhosis of liver (Chronic) Pulmonary embolus (Resolved) Ulnar nerve entrapment (Resolved) Surgical History Gastric bypass status for obesity (Chronic) Family History Other Family history non-contributory Social History household members: spouse Smoking Status: Current every day smoker alcohol intake: current Smoking Status: Current every day smoker alcohol intake frequency: 3 or more drinks per day Substance Use Type: marijuana Exam Narrative Exam Narrative: General: no acute distress. Able to give a complete and coherent history. Well-nourished well-developed HEENT: Moist mucous membranes, normal sclera with reactive pupils, Neck: No JVD, supple Respiratory: Lungs are clear to auscultation, no wheezing no rales no rhonchi. Full and symmetrical air movement Cardiac: Regular rate and rhythm no murmurs no bruits Abdomen: Soft, minimally but diffusely tender with good bowel tones, no flank pain Skin: Warm and dry, no rashes Neurologic: Grossly neurologically intact with no obvious asymmetries or abnormalities Extremities: No trauma, well perfused Psych: Cooperative, appropriate insight and affect Initial Vital Signs Initial Vital Signs: Vital Signs Temperature 97.8 F 04/03/19 12:45 Pulse Rate 96 H 04/03/19 12:45 Respiratory Rate 13 04/03/19 12:45 Blood Pressure 129/93 H 04/03/19 12:45 Pulse Oximetry 100 04/03/19 12:45 Course Orders Ordered: ED Orders 04/03/19 13:17 Stool Culture Stat 04/03/19 13:44 Complete Blood Count AUTO DIFF Stat Comprehensive Metabolic Panel Stat Lipase Stat Magnesium Stat 04/03/19 16:52 Urine Culture Stat Urine Microscopic Stat Discontinued Medications Diphenhydramine HCl (Benadryl) 25 mg IV NOW ONE Stop: 04/03/19 14:01 Last Admin: 04/03/19 14:10 Dose: 25 mg Documented by: JACKSON Diphenhydramine HCl (Benadryl) 25 mg IV NOW ONE Stop: 04/03/19 14:36 Last Admin: 04/03/19 17:12 Dose: Not Given Documented by: NEGRITO Haloperidol (Haldol) 2 mg IV NOW ONE Stop: 04/03/19 14:02 Last Admin: 04/03/19 14:10 Dose: 2 mg Documented by: JACKSON Sodium Chloride (Normal Saline 0.9%) 1,000 mls @ 1,000 mls/hr IV BOLUS ONE Stop: 04/03/19 14:16 Last Infusion: 04/03/19 16:25 Dose: 0 mls/hr Documented by: Admin: 04/03/19 13:45 Dose: 1,000 mls/hr [facility] Sodium Chloride (Normal Saline 0.9%) 500 mls @ 1,000 mls/hr IV BOLUS ONE Stop: 04/03/19 14:29 Last Admin: 04/03/19 14:15 Dose: Not Given Documented by: JACKSON Sodium Chloride (Normal Saline 0.9%) 1,000 mls @ 1,000 mls/hr IV BOLUS ONE Stop: 04/03/19 15:13 Last Infusion: 04/03/19 15:13 Dose: 0 mls/hr Documented by: Admin: 04/03/19 15:13 Dose: 1,000 mls/hr Documented by: JACKSON Ondansetron HCl (Zofran) 4 mg IV NOW ONE Stop: 04/03/19 13:18 Last Admin: 04/03/19 13:45 Dose: 4 mg Documented by: JACKSON Promethazine HCl (Phenadoz) 25 mg KS NOW ONE Stop: 04/03/19 17:34 Last Admin: 04/03/19 17:41 Dose: 25 mg Documented by: NEGRITO Vital Signs Vital signs: Vital Signs - 8 hr 04/03/19 12:45 04/03/19 14:18 04/03/19 15:39 Temperature 97.8 F Pulse Rate 96 H 91 H 88 Respiratory Rate 13 18 16 Blood Pressure 129/93 H Blood Pressure [Left Arm] 117/84 114/77 Pulse Oximetry 100 100 98 04/03/19 16:57 04/03/19 17:44 Temperature Pulse Rate 91 H 94 H Respiratory Rate 19 Blood Pressure Blood Pressure [Left Arm] 122/90 134/84 Pulse Oximetry 100 97 MDM - Nausea/Vomiting/Diarrhea Medical Records Attestation: I reviewed the patient's medical records. Lab Data Attestation: I reviewed the patient's lab results. Result diagrams: 04/03/19 13:44 04/03/19 13:44 Labs: Lab Results 04/03/19 04/03/19 04/03/19 Range/Units 13:44 13:44 16:52 WBC 4.2 L (4.5-11.0) X10^3/uL RBC 4.51 (4.0-5.2) X10^6/uL Hgb 15.0 (12.0-16.0) g/dL Hct 44.3 (36-46) % MCV 98.2 (80-100) fL MCH 33.2 (26-34) PG MCHC 33.8 (30-36) % RDW 15.5 H (11.6-14.8) % Plt Count 125 L (150-400) X10^3/uL Neut % (Auto) 78.0 H (50-75) % Lymph % (Auto) 10.5 L (25-40) % [place] % (Auto) 10.3 (3-14) % Eos % (Auto) 0.4 L (2-4) % Baso % (Auto) 0.8 (0-2) % Neut # (Auto) 3300 (7504-1584) /uL Lymph # (Auto) 400 L (8215-4440) /uL [place] # (Auto) 400 (0-900) /uL Eos # (Auto) 0 (0-450) /uL Baso # (Auto) 0 (0-100) /uL Sodium 138 (137-145) mmol/L Potassium 3.9 (3.4-5.1) mmol/L Chloride 101 (98-107) mmol/L Carbon Dioxide 22 (22-32) mmol/L BUN 2 L (7-17) mg/dL Creatinine 0.60 (0.52-1.04) mg/dL Estimated GFR > 60.0 (>60) mL/min BUN/Creatinine Ratio 3.3 L (6-22) Glucose 76 (70-100) mg/dL Calcium 9.4 (8.4-10.2) mg/dL Magnesium 1.9 (1.6-2.3) mg/dL Total Bilirubin 1.4 H (0.2-1.3) mg/dL AST 244 H (14-36) IU/L ALT 85 H (<35) IU/L Alkaline Phosphatase 264 H (38-126) U/L Total Protein 7.4 (6.3-8.2) g/dL Albumin 4.0 (3.5-5.0) g/dL Globulin 3.4 (1.7-4.1) g/dL Albumin/Globulin Ratio 1.2 (1.0-2.8) Lipase 89 (23-300) U/L Urine RBC 0-1/hpf (0-5/HPF) Urine WBC 1-5/hpf (0-5/HPF) Ur Squamous Epith Cells 1-5 /hpf D (0-5/HPF) Amorphous Sediment 1+ Urine Bacteria Few (2-10) H (None) Hyaline Casts 5-10/lpf (None) Urine Mucus 2+ H (Negative) Ur Culture Indicated? Specimen cultured Urine Dip Bedside Urine Glucose Negative Bedside Urine Bilirubin - Negative Bedside Urine Ketone - Negative Urine Specific [place] 1.030 Bedside Urine Occult Blood - Negative Bedside Urine pH 6.0 Bedside Urine Protein +/- 15 Bedside Urine Urobilinogen - Negative Bedside Urine Nitrite - Negative Bedside Urine Leukocytes ++ 125 Esterase MDM Narrative Medical decision making narrative: Recurrence cyclic vomiting. We did briefly discuss marijuana use. She is convinced that because her symptoms started before her since her marijuana that that is not contributing. She is reluctant to have significant additional follow-up. She has been sober recently but does still have signs and symptoms of liver dysfunction as a consequence of her drinking. Will recommend that she try Reglan scheduled every 6 hours to see if this alleviates some of her symptoms. Will also give her prescription for Phenergan suppositories the 25 mg size is this seems like it was more effective for her. Will encourage her to follow-up with her primary care physician. She is safe for home discharge at this time Discharge Plan Departure Patient Disposition: Home Clinical Impression: Cyclical vomiting Instructions: DI for Vomiting -- Adult Activity Restrictions/Additional Instructions: Thank you for coming in today. I hope you're feeling better after getting 2 L of fluid in the emergency d epartment. Am going to suggest that you try Reglan/metoclopramide 10 mg every 6 hours to try to increase the transit time of food through your gut. Sometimes this can help alleviate some of the nausea that you're experiencing. I am also going to have you try a 25 mg and Phenergan suppositories to see if this slightly more effective at a slightly higher dose. His medications have been electronically sent to [facility] for you today I would also recommend that you consider not using any marijuana. It can sometimes complicate the picture and in light of your drinking history is probably going to be safer all the way around for you to avoid in general. Please follow-up with your primary care doctor. There are additional studies that can be done and should be done with the continued vomiting you're having I wish you the best Prescriptions: New metoclopramide HCl [Reglan] 10 mg tablet 10 mg PO Q6H Qty: 90 RF: 0 promethazine 25 mg suppository 25 mg KS Q6H PRN (Reason: nausea and vomiting) Qty: 12 RF: 0 No Action tramadol 50 mg Tablet 50 mg PO Q6H PRN (Reason: pain) RF: 0 ondansetron 4 mg Tablet,Disintegrating 4 mg PO BID PRN (Reason: Pain (Scale Score 1-3)) RF: 0 lidocaine HCl [Lidocaine Viscous] 2 % solution 5 ml MM QID PRN (Reason: pain) Qty: 100 RF: 0 promethazine 12.5 mg Tablet 12.5 mg PO Q4H PRN (Reason: Vomiting) RF: 0 promethazine 12.5 mg Suppository 12.5 mg KS Q6H PRN (Reason: Vomiting) RF: 0
[2019-04-03] MEDS: ONDANSETRON 4 MG/2 ML INJ IV (13:45)
[2019-04-03] MEDS: SODIUM CHLORIDE 0.9% 1,000 ML 1000 ML IV ×2 (13:45→15:13)
[2019-04-03 14:00] LABS: Add Manual Diff / Slide Review NO; Basophils Absolute Auto 0 /uL (0-100); Basophils Percent Auto 0.8 % (0-2); Eosinophils Absolute Auto 0 /uL (0-450); Eosinophils Percent Auto 0.4 % (2-4); Hematocrit 44.3 % (36-46); Lymphocytes Absolute Auto 400 /uL (1100-4500); Lymphocytes Percent Auto 10.5 % (25-40); Mean Corpuscular HGB Conc 33.8 % (30-36); Mean Corpuscular Hemoglobin 33.2 PG (26-34); Mean Corpuscular Volume 98.2 fL (80-100); Monocytes Absolute Auto 400 /uL (0-900); Monocytes Percent Auto 10.3 % (3-14); Neutrophils Absolute Auto 3300 /uL (1500-7000); Platelet Count 125 X10^3/uL (150-400); Red Blood Cell Count 4.51 X10^6/uL (4.0-5.2); Red Cell Distribution Width 15.5 % (11.6-14.8); White Blood Cell Count 4.2 X10^3/uL (4.5-11.0)
[2019-04-03 14:09] LABS: Alanine Aminotransferase 85 IU/L (<35); Albumin Globulin Ratio 1.2 (1.0-2.8); Alkaline Phosphatase 264 U/L (38-126); Aspartate Aminotransferase 244 IU/L (14-36); BUN Creatinine Ratio 3.3 (6-22); Bilirubin Total 1.4 mg/dL (0.2-1.3); Blood Urea Nitrogen 2 mg/dL (7-17); Calcium 9.4 mg/dL (8.4-10.2); Carbon Dioxide 22 mmol/L (22-32); Chloride 101 mmol/L (98-107); Estimated Glomerular Filt Rate > 60.0 mL/min (>60); Globulin 3.4 g/dL (1.7-4.1); Glucose 76 mg/dL (70-100); HEMOLYSIS 34 (0-50); Lipase 89 U/L (23-300); Magnesium 1.9 mg/dL (1.6-2.3); Potassium 3.9 mmol/L (3.4-5.1); Sodium 138 mmol/L (137-145); Total Protein 7.4 g/dL (6.3-8.2)
[2019-04-03] MEDS: HALOPERIDOL 5 MG/ML VIAL 2 MG IV (14:10)
[2019-04-03] MEDS: diphenhydrAMINE 50 MG/ML VIAL 25 MG IV (14:10)
[2019-04-03 14:18] VITALS: BP 117/84; PULSE 91; RESP 18; O2SAT 100
--- NOTE | 2019-04-03 14:36 | PC.NURSE ---
Pt began feeling anxious and [id number] itching. Dr Rinaldi aware,ordered 25mg Benadryl IV now
--- NOTE | 2019-04-03 14:44 | PC.NURSE ---
Pt no longer experiencing itching and anxiety. Hold on benadryl at this time
[2019-04-03 15:39] VITALS: BP 114/77; PULSE 88; RESP 16; O2SAT 98
--- NOTE | 2019-04-03 16:41 | PC.NURSE ---
pt ambulating to bathroom
[2019-04-03 16:57] VITALS: BP 122/90; PULSE 91; RESP 19; O2SAT 100
[2019-04-03 17:00] LABS: Amorphous Sediment Urine 1+; Bacteria Urine Few (2-10); Culture Indicated Urine Specimen Cultured; Hyaline Casts Urine 5-10/LPF; Mucus Urine 2+ (Negative); RBC Urine 0-1/HPF (0-5/HPF); Squamous Epithelial Cell Urine 1-5 /HPF (0-5/HPF); WBC Urine 1-5/HPF (0-5/HPF)
[2019-04-03] MEDS: PROMETHAZINE 25 MG SUPP PR (17:41)
[2019-04-03 17:44] VITALS: BP 134/84; PULSE 94; O2SAT 97
--- NOTE | 2019-04-03 18:45 | PC.NURSE ---
patient states that she is having a return of nausea at this time, MD Rinaldi aware, will order phenergan
[2019-04-03 18:46] VITALS: BP 116/81; PULSE 92; RESP 28; O2SAT 100
== END 2019-04-03 18:48 | disposition home or self-care (01) ==
PROVIDERS: Emergency Provider Emergency Medicine
DX: R11.15 Cyclical vomiting syndrome unrelated to migraine (principal)
CPT/HCPCS: 36415; 80053; 81003; 81015; 83690; 83735; 85025; 87086; 96361; 96374; 96375; 99284; J1200; J1630; J2405

== ENCOUNTER 2019-04-12 11:09 | Emergency (ER) | payer MEDICAID, SELFPAY ==
[2017-09-15 17:31] VITALS: BMI 30.7
--- NOTE | 2019-04-12 11:11 | PC.NURSE ---
spoke with pt briefly. Symptoms started on Tuesday, negative FAST exam. Will complete triage at a later time.
[2019-04-12 11:35] VITALS: BP 130/94; PULSE 114; RESP 18; TEMP 36.8; O2SAT 100; BMI 30.1
[2019-04-12 12:58] LABS: RBC Urine None Seen (0-5/HPF)
--- NOTE | 2019-04-12 13:06 | ED.WEAKNESS ---
HPI - Weakness General Chief complaint: Weakness Stated complaint: numbness in arms/legs,weakness Time Seen by Provider: 04/12/19 12:43 Source: patient Mode of arrival: Wheelchair History of Present Illness HPI Narrative: The patient is a 33-year-old female who presents with all extremity numbness and tingling which started a few days ago. She says in bilateral upper extremities from her elbows down she feels numbness and tingling. She says from about mid thigh down her legs she feels numbness and tingling. She was seen here for cyclic vomiting a week ago and started on Reglan and giving and Phenergan suppositories. She says that she stop both those medications it was noted that she had a UTI given an antibiotic however right see than antibiotic was given. Nonetheless she denies any symptoms of UTI and is no longer taking the antibiotic. She has no fever or chills. Related Data Home Medications Medication Instructions Recorded Confirmed promethazine 12.5 mg PO Q4H PRN 01/24/18 01/16/19 promethazine 12.5 mg MA Q6H PRN 01/24/18 01/16/19 ondansetron 4 mg PO BID PRN 04/04/18 01/16/19 tramadol 50 mg PO Q6H PRN 04/04/18 01/16/19 Previous Rx's Medication Instructions Recorded lidocaine HCl [Lidocaine Viscous] 5 ml MM QID PRN #100 ml 01/16/19 metoclopramide HCl [Reglan] 10 mg PO Q6H #90 tab 04/03/19 promethazine 25 mg MA Q6H PRN #12 each 04/03/19 prednisone 20 mg PO DAILY #5 tab 04/12/19 Allergies Allergy/AdvReac Type Severity Reaction Status Date / Time acetaminophen Allergy Intermediate Abdominal Verified 01/16/19 09:53 Pain NSAIDS (Non-Steroidal Allergy Intermediate Abdominal Verified 01/16/19 09:53 Anti-Inflamma Pain oxycodone Allergy Intermediate Abdominal Verified 01/16/19 09:53 Pain Review of Systems Review of Systems Narrative: GENERAL: Denies chills, fatigue, malaise, fever, sweats, travel HEENT: Denies sinus pain, ear pain, sore throat, difficulty swallowing, neck pain RESPIRATORY: Denies dyspnea, cough, wheezing, hemoptysis, sputum. CARDIOVASCULAR: Denies chest pain, palpitations, orthopnea, edema GASTROINTESTINAL: Denies nausea, vomiting, abdominal pain, diarrhea, constipation, melena. : Denies dysuria, frequency, incontinence, hematuria, urinary retention, flank pain. MUSCULOSKELETAL: Denies weakness, joint pain, or bony pain SKIN: No rash, no erythema, no pruritus NEUROLOGIC: See HPI PSYCHIATRIC: No concerning psychosocial issues. 12 point review of systems is negative except for those stated above and HPI Patient History Medical History Alcoholism (Chronic) Autoimmune disorder (Chronic) Cervical cancer (Chronic) Cirrhosis of liver (Chronic) Pulmonary embolus (Resolved) Ulnar nerve entrapment (Resolved) Surgical History Gastric bypass status for obesity (Chronic) Family History Other Family history non-contributory Social History household members: spouse Smoking Status: Current every day smoker alcohol intake: current Smoking Status: Current every day smoker alcohol intake frequency: 3 or more drinks per day Substance Use Type: marijuana Exam Initial Vital Signs Initial Vital Signs: Vital Signs Temperature 98.3 F 04/12/19 11:35 Pulse Rate 114 H 04/12/19 11:35 Respiratory Rate 18 04/12/19 11:35 Blood Pressure 130/94 H 04/12/19 11:35 Pulse Oximetry 100 04/12/19 11:35 GENERAL: Well-appearing, well-nourished and in no acute distress. HEENT: Head atraumatic,EOMI, pupils reactive, face symmetric CARDIOVASCULAR: Regular rate and rhythm without murmurs, rubs or gallops. RESPIRATORY: Breath sounds equal bilaterally, no wheezes rales or rhonchi. ABDOMEN: Soft, nontender. Normoactive bowel sounds all 4 quadrants. No guarding or rebound. EXTREMITIES: Normal range of motion, no clubbing or edema. Neurovascularly intact NEUROLOGICAL: Alert and oriented x4.Normal gait and speech. Cranial nerves II through XII grossly intact. Good [id number], good [id number], strength equal bilaterally, no dysarthria or aphasia, sensation in tact to soft touch bilaterally, no visual changes, no facial droop SKIN: Warm, dry, no laceration, no petechiae, no rashes or lesions. Course Orders Ordered: ED Orders 04/12/19 11:45 Urine Microscopic Stat 04/12/19 13:30 Basic Metabolic Panel Stat Complete Blood Count AUTO DIFF Stat Vital Signs Vital signs: Vital Signs - 8 hr 04/12/19 11:35 04/12/19 14:10 Temperature 98.3 F Pulse Rate 114 H 93 H Respiratory Rate 18 Blood Pressure 130/94 H 123/95 H Pulse Oximetry 100 97 MDM - Weakness Lab Data Result diagrams: 04/12/19 13:30 04/12/19 13:30 Labs: Lab Results 04/12/19 04/12/19 04/12/19 Range/Units 11:45 13:30 13:30 WBC 3.8 L (4.5-11.0) X10^3/uL RBC 4.16 (4.0-5.2) X10^6/uL Hgb 14.0 (12.0-16.0) g/dL Hct 40.6 (36-46) % MCV 97.7 (80-100) fL MCH 33.6 (26-34) PG MCHC 34.3 (30-36) % RDW 15.7 H (11.6-14.8) % Plt Count 132 L (150-400) X10^3/uL Neut % (Auto) 63.6 (50-75) % Lymph % (Auto) 18.2 L (25-40) % [place] % (Auto) 16.0 H (3-14) % Eos % (Auto) 1.6 L (2-4) % Baso % (Auto) 0.6 (0-2) % Neut # (Auto) 2400 (3076-1417) /uL Lymph # (Auto) 700 L (3653-6355) /uL [place] # (Auto) 600 (0-900) /uL Eos # (Auto) 100 (0-450) /uL Baso # (Auto) 0 (0-100) /uL Sodium 137 (137-145) mmol/L Potassium 3.8 (3.4-5.1) mmol/L Chloride 104 (98-107) mmol/L Carbon Dioxide 25 (22-32) mmol/L BUN 2 L (7-17) mg/dL Creatinine 0.50 L (0.52-1.04) mg/dL Estimated GFR > 60.0 (>60) mL/min BUN/Creatinine Ratio 4.0 L (6-22) Glucose 86 (70-100) mg/dL Calcium 9.0 (8.4-10.2) mg/dL Urine RBC None seen (0-5/HPF) Urine WBC 1-5/hpf (0-5/HPF) Ur Squamous Epith Cells 5-10 /hpf H (0-5/HPF) Amorphous Sediment 1+ Urine Bacteria Occasional (0-1) (None) Urine Mucus 3+ H (Negative) Ur Culture Indicated? Cult not indicated Urine Dip Bedside Urine Glucose Negative Bedside Urine Bilirubin + 1 Bedside Urine Ketone ++ 40 Urine Specific [place] 1.010 Bedside Urine Occult Blood - Negative Bedside Urine pH 6.5 Bedside Urine Protein +/- 15 Bedside Urine Urobilinogen +/- 1mg Bedside Urine Nitrite - Negative Bedside Urine Leukocytes + 70 Esterase MDM Narrative Medical decision making narrative: Patient has no UTI symptoms I can't see what antibiotic she was called in but her urine did grew less than 10,000 CFU/mL gram-negative bacilli she is completely asymptomatic is at this time no need for any further antibiotics. Reglan and Phenergan do not cause any peripheral neuropathy. Patient has multiple other problems says his alcohol abuse which may be contributing to her peripheral neuropathy. Time will try her on short course of prednisone see that helps and recommend she follow-up with her PCP Discharge Plan Departure Patient Disposition: Home Clinical Impression: Peripheral neuropathy Qualifiers: Peripheral neuropathy type: polyneuropathy, unspecified Qualified Code(s): G62.9 - Polyneuropathy, unspecified Discharge Date/Time: 04/12/19 14:11 Instructions: DI for Peripheral Neuropathy Activity Restrictions/Additional Instructions: *You have been diagnosed with peripheral neuropathy *What to do: At this time is unclear the cause of your symptoms. Use the medication your placed on should not cause these symptoms. *Continue to take medications as directed Prednisone 20 mg once a day for 5 days--> SENT TO [facility] [place] *Follow up with your primary care provider in 2-3 days *Return to ER if you should have increasing weakness numbness tingling or any new, worsening or concerning symptoms Prescriptions: New prednisone 20 mg tablet 20 mg PO DAILY Qty: 5 RF: 0 No Action tramadol 50 mg Tablet 50 mg PO Q6H PRN (Reason: pain) RF: 0 ondansetron 4 mg Tablet,Disintegrating 4 mg PO BID PRN (Reason: Pain (Scale Score 1-3)) RF: 0 lidocaine HCl [Lidocaine Viscous] 2 % solution 5 ml MM QID PRN (Reason: pain) Qty: 100 RF: 0 promethazine 12.5 mg Tablet 12.5 mg PO Q4H PRN (Reason: Vomiting) RF: 0 promethazine 12.5 mg Suppository 12.5 mg MA Q6H PRN (Reason: Vomiting) RF: 0 metoclopramide HCl [Reglan] 10 mg tablet 10 mg PO Q6H Qty: 90 RF: 0 promethazine 25 mg suppository 25 mg MA Q6H PRN (Reason: nausea and vomiting) Qty: 12 RF: 0 Referrals: [facility] [Outside]
[2019-04-12 13:07] LABS: Amorphous Sediment Urine 1+; Bacteria Urine Occasional (0-1); Culture Indicated Urine Cult Not Indicated; Mucus Urine 3+ (Negative); Squamous Epithelial Cell Urine 5-10 /HPF (0-5/HPF); WBC Urine 1-5/HPF (0-5/HPF)
[2019-04-12 13:38] LABS: Add Manual Diff / Slide Review NO; Basophils Absolute Auto 0 /uL (0-100); Basophils Percent Auto 0.6 % (0-2); Eosinophils Absolute Auto 100 /uL (0-450); Eosinophils Percent Auto 1.6 % (2-4); Hematocrit 40.6 % (36-46); Lymphocytes Absolute Auto 700 /uL (1100-4500); Lymphocytes Percent Auto 18.2 % (25-40); Mean Corpuscular HGB Conc 34.3 % (30-36); Mean Corpuscular Hemoglobin 33.6 PG (26-34); Mean Corpuscular Volume 97.7 fL (80-100); Monocytes Absolute Auto 600 /uL (0-900); Neutrophils Absolute Auto 2400 /uL (1500-7000); Neutrophils Percent Auto 63.6 % (50-75); Platelet Count 132 X10^3/uL (150-400); Red Blood Cell Count 4.16 X10^6/uL (4.0-5.2); Red Cell Distribution Width 15.7 % (11.6-14.8); White Blood Cell Count 3.8 X10^3/uL (4.5-11.0)
[2019-04-12 13:52] LABS: Blood Urea Nitrogen 2 mg/dL (7-17); Carbon Dioxide 25 mmol/L (22-32); Chloride 104 mmol/L (98-107); Estimated Glomerular Filt Rate > 60.0 mL/min (>60); Glucose 86 mg/dL (70-100); HEMOLYSIS 23 (0-50); Potassium 3.8 mmol/L (3.4-5.1); Sodium 137 mmol/L (137-145)
[2019-04-12 14:10] VITALS: BP 123/95; PULSE 93; O2SAT 97
== END 2019-04-12 14:11 | disposition home or self-care (01) ==
PROVIDERS: Emergency Provider Emergency Medicine
DX: G62.9 Polyneuropathy, unspecified (principal)
CPT/HCPCS: 36415; 80048; 81003; 81015; 85025; 99282; 99283

== ENCOUNTER 2019-06-12 09:17 | Emergency (ER) | payer MEDICAID, SELFPAY ==
[2017-09-15 17:31] VITALS: BMI 30.7
[2019-06-12] VITALS (8 sets, daily range): BP systolic 114–130; BP diastolic 70–89; PULSE 98–117; RESP 16–36; TEMP 37.1; O2SAT 98–100; BMI 27.8
--- NOTE | 2019-06-12 09:39 | ED_ITS ---
HPI - GI Bleed General Chief complaint: GI Bleed Stated complaint: pee is color of motor oil/pooping blood Time Seen by Provider: 06/12/19 09:39 Source: patient Mode of arrival: Ambulatory Limitations: no limitations History of Present Illness HPI Narrative: This is a 34-year-old female who comes to the emergency de partment with complaint of dark urine as well as bright red blood her rectum. Patient states about a week ago she started feeling feverish, had some upper respiratory symptoms and had vomiting for several days. She states the vomiting has since stopped over the weekend her last episode was Tuesday. She states that she noted that her urine was dark Tuesday or Tuesday and has not light and up she initially thought she was just dehydrated. She states she also was having diarrhea and about 3-4 times daily she is having some bright red blood from the rectum. She says no melena or dark stool. She is not having any bleeding without bowel movements. She does have a history of liver failure and is drinking 1 alcoholic drink daily. She she states that she has chronic neuropathy, shrapnel in her elbow, it does was referred autoimmune disorder and a history of pulmonary emboli. She states she has had gastric bypass in the past as well as surgery for her a low nerve. She denies any blood thinners. She smokes a pack about every 2 weeks, she drinks one alcoholic drink daily and states that she uses marijuana and denies other illicit. She is supposed to see gastroenterology here locally to establish care. Patient states she is in accompanied by her boyfriend. Related Data Home Medications Medication Instructions Recorded Confirmed ondansetron 4 mg PO BID PRN 04/04/18 06/12/19 cyclobenzaprine 10 mg PO TID PRN 06/12/19 06/12/19 Previous Rx's Medication Instructions Recorded cephalexin [Keflex] 500 mg PO BID #10 cap 06/12/19 Allergies Allergy/AdvReac Type Severity Reaction Status Date / Time acetaminophen Allergy Intermediate Abdominal Verified 01/16/19 09:53 Pain NSAIDS (Non-Steroidal Allergy Intermediate Abdominal Verified 01/16/19 09:53 Anti-Inflamma Pain oxycodone Allergy Intermediate Abdominal Verified 01/16/19 09:53 Pain Review of Systems Review of Systems ROS Unobtainable: All systems reviewed & are unremarkable except as noted in HPI and below Patient History Medical History Alcoholism (Chronic) Autoimmune disorder (Chronic) Cervical cancer (Chronic) Cirrhosis of liver (Chronic) Pulmonary embolus (Resolved) Ulnar nerve entrapment (Resolved) Surgical History Gastric bypass status for obesity (Chronic) Social History household members: spouse Smoking Status: Current every day smoker alcohol intake: current Smoking Status: Current every day smoker tobacco type: cigarettes alcohol intake frequency: 0-2 drinks per day Alcohol type: wine Substance Use Type: marijuana Exam Narrative Exam Narrative: GEN: well nourished, well appearing female, alert and oriented x 3, patient appears to be in mild distress. HEENT: Atraumatic, pupils are equal round reactive to light, extraocular movements are intact, nares are clear, TMs are clear with no fluid, there is no conjunctival pallor. Throat is clear without any exudates, erythema, tonsillar enlargement or uvular deviation, no jaundice. HEART: Regular rate and rhythm without murmur, clicks, rubs. LUNGS:Lungs clear to auscultation, no wheezes, rales, crackles, chest moves symmetrically ABD:bowel sounds normal, soft, non-tender, no guarding, rebound, rigidity, no masses noted, no hepatosplenomegaly, nondistended. On rectal exam patient has several small hemorrhoids. She has a small amount of red blood and discomfort with SHILPI. Stool occult is positive. :No CVA tenderness MSCL: Non-tender, no muscle atrophy, muscles strength 5/5 upper and lower ext remities, full range of motion, normal gait NEURO:CN 2-12 intact, sensation normal. SKIN: no rashes, no skin changes. Initial Vital Signs Initial Vital Signs: Vital Signs Temperature 98.7 F 06/12/19 09:24 Pulse Rate 114 H 06/12/19 09:24 Respiratory Rate 18 06/12/19 09:24 Blood Pressure 130/89 06/12/19 09:24 Pulse Oximetry 99 06/12/19 09:24 Course Orders Ordered: ED Orders 06/12/19 12:48 MR abdomen wo con Stat Discontinued Medications Fentanyl (Sublimaze) 25 mcg 0.35 mcg/kg (25 mcg) IV Q1HR ONE Stop: 06/12/19 14:22 Last Admin: 06/12/19 14:27 Dose: 25 mcg Documented by: ALEE Sodium Chloride (Normal Saline 0.9%) 1,000 mls @ 1,000 mls/hr IV BOLUS ONE Stop: 06/12/19 10:52 Last Infusion: 06/12/19 12:57 Dose: 0 mls/hr Documented by: Admin: 06/12/19 10:15 Dose: 1,000 mls/hr Documented by: ALEE Ondansetron HCl (Zofran) 4 mg IV NOW ONE Stop: 06/12/19 09:54 Last Admin: 06/12/19 10:14 Dose: 4 mg Documented by: ALEE Pantoprazole Sodium (Protonix) 80 mg IV NOW ONE Stop: 06/12/19 09:54 Last Admin: 06/12/19 10:14 Dose: 80 mg Documented by: ALEE Vital Signs Vital signs: Vital Signs - 8 hr 06/12/19 12:00 06/12/19 13:00 06/12/19 14:13 Pulse Rate 105 H 117 H 109 H Respiratory Rate 18 31 H 18 Blood Pressure [Left Arm] 119/82 121/83 114/70 Pulse Oximetry 98 98 99 06/12/19 16:04 Pulse Rate 106 H Respiratory Rate 16 Blood Pressure [Left Arm] 117/75 Pulse Oximetry 99 MDM - GI Bleed Lab Data Attestation: I reviewed the patient's lab results. Result diagrams: 06/12/19 10:00 06/12/19 10:00 Labs: Lab Results 06/12/19 06/12/19 06/12/19 Range/Units 10:00 10:00 10:00 WBC 3.4 L (4.5-11.0) X10^3/uL RBC 3.87 L (4.0-5.2) X10^6/uL Hgb 13.7 (12.0-16.0) g/dL Hct 40.6 (36-46) % MCV 104.9 H (80-100) fL MCH 35.4 H (26-34) PG MCHC 33.7 (30-36) % RDW 17.5 H (11.6-14.8) % Plt Count 82 L (150-400) X10^3/uL Neut % (Auto) 73.5 (50-75) % Lymph % (Auto) 15.1 L (25-40) % Loving % (Auto) 8.8 (3-14) % Eos % (Auto) 2.1 (2-4) % Baso % (Auto) 0.5 (0-2) % Neut # (Auto) 2500 (6398-9023) /uL Lymph # (Auto) 500 L (9117-8434) /uL Loving # (Auto) 300 (0-900) /uL Eos # (Auto) 100 (0-450) /uL Baso # (Auto) 0 (0-100) /uL PT 12.8 H (10.1-12.7) SECONDS INR 1.1 (0.9-1.3) APTT 29 D (26.4-36.2) SECONDS Sodium 139 (137-145) mmol/L Potassium 3.6 (3.4-5.1) mmol/L Chloride 101 (98-107) mmol/L Carbon Dioxide 30 (22-32) mmol/L BUN 3 L (7-17) mg/dL Creatinine 0.50 L (0.52-1.04) mg/dL Estimated GFR > 60.0 (>60) mL/min BUN/Creatinine Ratio 6.0 (6-22) Glucose 78 (70-100) mg/dL Calcium 8.8 (8.4-10.2) mg/dL Total Bilirubin 3.6 H (0.2-1.3) mg/dL AST 884 H (14-36) IU/L ALT 145 H (<35) IU/L Alkaline Phosphatase 339 H (38-126) U/L Total Protein 7.2 (6.3-8.2) g/dL Albumin 3.7 (3.5-5.0) g/dL Globulin 3.5 (1.7-4.1) g/dL Albumin/Globulin Ratio 1.1 (1.0-2.8) Lipase 58 (23-300) U/L Ur Bilirubin Confirm (Negative) Urine RBC (0-5/HPF) Urine WBC (0-5/HPF) Ur Squamous Epith Cells (0-5/HPF) Urine Bacteria (None) Urine Mucus (Negative) Ur Culture Indicated? Blood Type Antibody Screen 02/25/20 02/25/20 Range/Units 10:00 10:00 WBC (4.5-11.0) X10^3/uL RBC (4.0-5.2) X10^6/uL Hgb (12.0-16.0) g/dL Hct (36-46) % MCV (80-100) fL MCH (26-34) PG MCHC (30-36) % RDW (11.6-14.8) % Plt Count (150-400) X10^3/uL Neut % (Auto) (50-75) % Lymph % (Auto) (25-40) % Loving % (Auto) (3-14) % Eos % (Auto) (2-4) % Baso % (Auto) (0-2) % Neut # (Auto) (7972-1659) /uL Lymph # (Auto) (6857-3797) /uL Loving # (Auto) (0-900) /uL Eos # (Auto) (0-450) /uL Baso # (Auto) (0-100) /uL PT (10.1-12.7) SECONDS INR (0.9-1.3) APTT (26.4-36.2) SECONDS Sodium (137-145) mmol/L Potassium (3.4-5.1) mmol/L Chloride (98-107) mmol/L Carbon Dioxide (22-32) mmol/L BUN (7-17) mg/dL Creatinine (0.52-1.04) mg/dL Estimated GFR (>60) mL/min BUN/Creatinine Ratio (6-22) Glucose (70-100) mg/dL Calcium (8.4-10.2) mg/dL Total Bilirubin (0.2-1.3) mg/dL AST (14-36) IU/L ALT (<35) IU/L Alkaline Phosphatase (38-126) U/L Total Protein (6.3-8.2) g/dL Albumin (3.5-5.0) g/dL Globulin (1.7-4.1) g/dL Albumin/Globulin Ratio (1.0-2.8) Lipase (23-300) U/L Ur Bilirubin Confirm Positive H (Negative) Urine RBC 0-1/hpf (0-5/HPF) Urine WBC 5-10/hpf H (0-5/HPF) Ur Squamous Epith Cells 1-5 /hpf (0-5/HPF) Urine Bacteria Many (>30) H (None) Urine Mucus 2+ H (Negative) Ur Culture Indicated? Specimen cultured Blood Type O Negative Antibody Screen Negative Point of Care Testing Test Results Negative Urine Dip Bedside Urine Glucose Negative Bedside Urine Bilirubin ++ 2 Bedside Urine Ketone + 15 Urine Specific [place] 1.025 Bedside Urine Occult Blood - Negative Bedside Urine pH 6.0 Bedside Urine Protein + 30 Bedside Urine Urobilinogen 2+ 4mg Bedside Urine Nitrite + Positive Bedside Urine Leukocytes ++ 125 Esterase Imaging Data US - abdomen: Radiologist's Impression: Tammie Cameron R 34 F [address] [address] Ultrasound Report Signed Patient: Tammie Cameron RMR#: [id number] : 1985Acct:[id number] Age/Sex: 34 / FDate of Service: 06/12/19 Loc: ED Accession Number: [id number] Procedure: US abdomen complete Ordering Provider: Tita Wilson D.O. PROCEDURE: US ABDOMEN COMPLETE INDICATIONS: DARK URINE,HX LIVER FAILURE,BRBPER RECTUM,HEMORROIDS TECHNIQUE: Real-time scanning was performed of the abdominal and retroperitoneal organs, with image documentation. COMPARISON: Located Within [facility], CR, CHEST 2 VIEW, 02/16/2016, 18:57. Located Within [facility], CR, XR CHEST 2V, 09/15/2017, 12:49. Located Within [facility], CR, CHEST 2 VIEW, 08/15/2017, 10:56. [facility], CR, XR CHEST 2 VIEWS, 08/28/2018, 15:33. [facility], US, US ABDOMEN COMPLETE, 06/29/2018, 13:49. FINDINGS: Liver: The liver is normal in size and demonstrates moderately increased echogenicity when compared to the right kidney, which does result in difficulty evaluating the liver for deep liver lesions. No obvious liver lesions are appreciated. Gallbladder: The gallbladder is slightly prominent in size. There is no cholelithiasis or evidence of gallbladder wall inflammation. Biliary ducts: Intrahepatic bile ducts are non-dilated. Extrahepatic bile duct caliber measures 10 mm. (On the prior study, the common bile duct measured 5 mm in diameter) Normal is 6-7 mm or less in diameter, or 10 mm or less post-cholecystectomy. Pancreas: Visualized portions of the pancreas are sonographically normal. However, dilatation of the main pancreatic duct is present up to approximately 4 mm. Spleen: Spleen is normal in size and homogeneous in echotexture. Right kidney: Kidneys are normal in size and echotexture. Right kidney darshan ures 10.2 cm long; left kidney measures 11.1 cm long. No hydronephrosis or shadowing nephrolithiasis. No solid masses. Aorta: Visualized aorta is normal in caliber at less than 3 cm. Iliacs: Obscured by bowel gas. IVC: Intrahepatic inferior vena cava is patent. Miscellaneous: A trace amount of free fluid is seen adjacent to the liver. IMPRESSION: 1. Prominent intrahepatic biliary dilatation is of uncertain etiology. The possibility of choledocholithiasis or a mass at the level of the ampulla cannot be excluded. MRCP would be helpful for better evaluation. 2. Probable hepatic steatosis. Please correlate clinically to exclude other chronic liver disease this. Dictated by: Charlie Still M.D. on 06/12/2019 at 10:58 Approved by: Charlie Still M.D. on 06/12/2019 at 11:03 MRCP : Radiologist's Impression: Tammie Cameron R 34 [place] 1985 [place] [address] Magnetic Resonance Report Signed Patient: Judierenato Tammie Bingham RMR#: [id number] : 1985Acct:[id number] Age/Sex: 34 / FDate of Service: 06/12/19 Loc: ED Accession Number: [id number] Procedure: MR abdomen wo con Ordering Provider: Tita Wilson D.O. PROCEDURE: MR ABDOMEN WO CON INDICATIONS: hx etoh cirrhosis, choledocolithiasis/mass ampulla on US TECHNIQUE: Coronal HASTE through the abdomen, axial 2-D FLASH in- and [id number], and b reath-hold T2 FSE with fat saturation through the biliary system and pancreas. Oblique coronal and axial thin-slice HASTE, radial thick-slab HASTE centered on the extrahepatic bile ducts. Intravenous secretin: Not requested. COMPARISON: Located Within [facility], US, US ABDOMEN COMPLETE, 06/12/2019, 10:48. [facility], US, US ABDOMEN COMPLETE, 06/29/2018, 13:49. Located [facility], CT, AB DOMEN/PELVIS WITH CONTRAST, 08/15/2017, 10:16. Located Within [facility], CT, ANGIO CHEST ABDOMEN PELVIS, 12/27/2016, 21:09. FINDINGS: Image quality: Diagnostic. Liver: The liver is normal in size, but demonstrates mild nodularity to the surface of the liver with focal possible fibrotic change between the right and left hepatic lobes. There is prominent decreased signal intensity identified involving the right hepatic lobe on the opposed phase images compared to the in phase images is identified. No definable liver lesion is evident. However, capsular retraction is present, which is similar to previous exams. The gallbladder is markedly enlarged and measures over 10 cm in length by up to 4 cm in width. There may be areas of mild gallbladder wall thickening. Pericholecystic fluid is identified. There is mild intrahepatic and moderate extrahepatic biliary dilatation. The common bile duct measures up to approximately 8 mm in diameter. No definite intraluminal filling defects are appreciated. Other solid organs: The pancreas is grossly unremarkable. No significant dilatation of the main pancreatic duct is appreciated on MRCP. No peripancreatic fluid collections are identified. No definite pancreatic lesions are appreciated. The spleen, adrenals, and kidneys are within normal limits. Nodes and vessels: No retroperitoneal or mesenteric adenopathy by size criteria. Aorta and inferior vena cava are normal in size. Bowel and peritoneum: Unenhanced bowel loops are normal in caliber. No free fluid. Lung bases: No basal pleural effusions. Heart size is normal. Bones and soft tissues: No ventral hernias. Bone marrow is of normal overall signal. IMPRESSION: 1. Intrahepatic and extrahepatic biliary dilatation without evidence of choledocholithiasis. No definitive mass at the level of the ampulla is appreciated. The adjacent pancreatic duct is not distended on this study. 2. Marked distention of the gallbladder is nonspecific, but may be seen in the setting of a calculus cholecystitis, biliary dyskinesia, or potentially chronic gall bladder outlet obstruction. Please correlate clinically. 3. Extensive hepatic steatosis with areas of capsular retraction/scarring. No definite or suspicious parenchymal lesion is evident. 4. Mild upper abdominal ascites probably is related to chronic liver dysfunction. Dictated by: Charlie Still M.D. on 06/12/2019 at 14:24 Approved by: Charlie Still M.D. on 06/12/2019 at 14:35 [facility] Narrative Medical decision making narrative: Patient comes in with complaint of vomiting bright red blood per rectum vomiting has resolved. Patient is having some abdominal pain. Labs do show elevation of her liver enzymes although she continues to actively drink this may be the cause but her ultrasound does show prominent intrahepatic biliary dilation there is a possibility of choledocholithiasis or masses level of the ampulla which could not be excluded. An MRCP would be helpful for evaluation. Patient has hepatic steatosis and with known chronic liver disease likely contributes to in the findings and noted. She is hemodynamically stable, no major changes in hemoglobin she has a macrocytosis with platelets of 82 which are lower than her typical which are 120-130 from March. Show a PT of 12.8 but normal INR and PTT. Electrolytes show no abnormalities with normal creatinine. As nitrates, urobiligen, and negative test. Patient started on antibiotics for UTI. BRB per rectum at her hemorrhoids but discussed other possible causes. Patient has no melena and had a hard formed stool in department. Discussed with patient that she needs to stop drinking alcohol and this may be part of the reason her liver enzymes are worsening. Will obtain MRCP, which shows some distention of the gallbladder, no mass or evidence of choledocholithiasis. Extensive hepatic steatosis and areas of retraction and scarring no suspicious parenchymal lesions with mild upper abdominal ascites. Patient encouraged to follow-up with GI which she has an appointment with. She is also encouraged to return if she has worsening symptoms.. 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 Urine shows changes consistent with infection, please start antibiotics as prescribed. Prescription was sent to [facility] for your antibiotics. Avoid all alcohol as it will make your liver cirrhosis worse. Return for fevers greater than 100.4F, persistent vomiting, new or worsening abdominal pain, black stools, large clots in your stool, passing out, lightheadedness, new chest pain or shortness of breath or other new or concerning symptoms. Prescriptions: New cephalexin [Keflex] 500 mg capsule 500 mg PO BID Qty: 10 RF: 0 No Action ondansetron 4 mg Tablet,Disintegrating 4 mg PO BID PRN (Reason: Pain (Scale Score 1-3)) RF: 0 cyclobenzaprine 10 mg Tablet 10 mg PO TID PRN (Reason: Spasms) RF: 0 Referrals: Lainey Gao MD [Physician] -
--- NOTE | 2019-06-12 09:53 | DI.US.S_ITS ---
PROCEDURE: US ABDOMEN COMPLETE INDICATIONS: DARK URINE,HX LIVER FAILURE,BRBPER RECTUM,HEMORROIDS TECHNIQUE: Real-time scanning was performed of the abdominal and retroperitoneal organs, with image documentation. COMPARISON: [facility], CR, CHEST 2 VIEW, 02/16/2016, 18:57. [facility], CR, XR CHEST 2V, 09/15/2017, 12:49. [facility], CR, CHEST 2 VIEW, 08/15/2017, 10:56. [facility], CR, XR CHEST 2 VIEWS, 08/28/2018, 15:33. [facility], US, US ABDOMEN COMPLETE, 06/29/2018, 13:49. FINDINGS: Liver: The liver is normal in size and demonstrates moderately increased echogenicity when compared to the right kidney, which does result in difficulty evaluating the liver for deep liver lesions. No obvious liver lesions are appreciated. Gallbladder: The gallbladder is slightly prominent in size. There is no cholelithiasis or evidence of gallbladder wall inflammation. Biliary ducts: Intrahepatic bile ducts are non-dilated. Extrahepatic bile duct caliber measures 10 mm. (On the prior study, the common bile duct measured 5 mm in diameter) Normal is 6-7 mm or less in diameter, or 10 mm or less post-cholecystectomy. Pancreas: Visualized portions of the pancreas are sonographically normal. However, dilatation of the main pancreatic duct is present up to approximately 4 mm. Spleen: Spleen is normal in size and homogeneous in echotexture. Right kidney: Kidneys are normal in size and echotexture. Right kidney measures 10.2 cm long; left kidney measures 11.1 cm long. No hydronephrosis or shadowing nephrolithiasis. No solid masses. Aorta: Visualized aorta is normal in caliber at less than 3 cm. Iliacs: Obscured by bowel gas. IVC: Intrahepatic inferior vena cava is patent. Miscellaneous: A trace amount of free fluid is seen adjacent to the liver. IMPRESSION: 1. Prominent intrahepatic biliary dilatation is of uncertain etiology. The possibility of choledocholithiasis or a mass at the level of the ampulla cannot be excluded. MRCP would be helpful for better evaluation. 2. Probable hepatic steatosis. Please correlate clinically to exclude other chronic liver disease this. Dictated by: Charlie Still M.D. on 06/12/2019 at 10:58 Approved by: Charlie Still M.D. on 06/12/2019 at 11:03
--- NOTE | 2019-06-12 10:08 | PC.NURSE ---
hx of liver disease, reports, nausea,vomiting couple of days ago, reporting dark urine and blood in stools, fever last tuesday at 99.9 not treated due to liver disease, hx of gastric bypass no motrin. pt admits able to drink and eat. denies anticoagulant and traveling outside [place]
[2019-06-12 10:14] LABS: Add Manual Diff / Slide Review NO; Basophils Absolute Auto 0 /uL (0-100); Basophils Percent Auto 0.5 % (0-2); Eosinophils Absolute Auto 100 /uL (0-450); Eosinophils Percent Auto 2.1 % (2-4); Hematocrit 40.6 % (36-46); Hemoglobin 13.7 g/dL (12.0-16.0); Lymphocytes Absolute Auto 500 /uL (1100-4500); Lymphocytes Percent Auto 15.1 % (25-40); Mean Corpuscular HGB Conc 33.7 % (30-36); Mean Corpuscular Hemoglobin 35.4 PG (26-34); Mean Corpuscular Volume 104.9 fL (80-100); Monocytes Absolute Auto 300 /uL (0-900); Monocytes Percent Auto 8.8 % (3-14); Neutrophils Absolute Auto 2500 /uL (1500-7000); Neutrophils Percent Auto 73.5 % (50-75); Platelet Count 82 X10^3/uL (150-400); Red Blood Cell Count 3.87 X10^6/uL (4.0-5.2); Red Cell Distribution Width 17.5 % (11.6-14.8); White Blood Cell Count 3.4 X10^3/uL (4.5-11.0)
[2019-06-12] MEDS: PANTOPRAZOLE 40 MG VIAL 80 MG IV (10:14)
[2019-06-12] MEDS: ONDANSETRON 4 MG/2 ML INJ IV (10:14)
[2019-06-12] MEDS: SODIUM CHLORIDE 0.9% 1,000 ML 1000 ML IV (10:15)
[2019-06-12 10:27] LABS: Bacteria Urine Many (>30); Ictotest Urine Positive (Negative); Mucus Urine 2+ (Negative); RBC Urine 0-1/HPF (0-5/HPF); Squamous Epithelial Cell Urine 1-5 /HPF (0-5/HPF); WBC Urine 5-10/HPF (0-5/HPF)
[2019-06-12 10:28] LABS: Alanine Aminotransferase 145 IU/L (<35); Albumin 3.7 g/dL (3.5-5.0); Albumin Globulin Ratio 1.1 (1.0-2.8); Alkaline Phosphatase 339 U/L (38-126); Bilirubin Total 3.6 mg/dL (0.2-1.3); Blood Urea Nitrogen 3 mg/dL (7-17); Calcium 8.8 mg/dL (8.4-10.2); Carbon Dioxide 30 mmol/L (22-32); Chloride 101 mmol/L (98-107); Culture Indicated Urine Specimen Cultured; Estimated Glomerular Filt Rate > 60.0 mL/min (>60); Globulin 3.5 g/dL (1.7-4.1); Glucose 78 mg/dL (70-100); HEMOLYSIS 26 (0-50); Lipase 58 U/L (23-300); Potassium 3.6 mmol/L (3.4-5.1); Sodium 139 mmol/L (137-145); Total Protein 7.2 g/dL (6.3-8.2)
[2019-06-12 10:29] LABS: INR 1.1 (0.9-1.3); Prothrombin Time 12.8 SECONDS (10.1-12.7)
[2019-06-12 10:32] LABS: PTT Partial Thromboplastin Tim 29 SECONDS (26.4-36.2)
[2019-06-12 10:35] LABS: Aspartate Aminotransferase 884 IU/L (14-36)
--- NOTE | 2019-06-12 12:48 | DI.MRI.S_ITS ---
PROCEDURE: MR ABDOMEN WO CON INDICATIONS: hx etoh cirrhosis, choledocolithiasis/mass ampulla on US TECHNIQUE: Coronal HASTE through the abdomen, axial 2-D FLASH in- and [id number], and breath-hold T2 FSE with fat saturation through the biliary system and pancreas. Oblique coronal and axial thin-slice HASTE, radial thick-slab HASTE centered on the extrahepatic bile ducts. Intravenous secretin: Not requested. COMPARISON: [facility], US, US ABDOMEN COMPLETE, 06/12/2019, 10:48. [facility], US, US ABDOMEN COMPLETE, 06/29/2018, 13:49. [facility], CT, ABDOMEN/PELVIS WITH CONTRAST, 08/15/2017, 10:16. [facility], CT, ANGIO CHEST ABDOMEN PELVIS, 12/27/2016, 21:09. FINDINGS: Image quality: Diagnostic. Liver: The liver is normal in size, but demonstrates mild nodularity to the surface of the liver with focal possible fibrotic change between the right and left hepatic lobes. There is prominent decreased signal intensity identified involving the right hepatic lobe on the opposed phase images compared to the in phase images is identified. No definable liver lesion is evident. However, capsular retraction is present, which is similar to previous exams. The gallbladder is markedly enlarged and measures over 10 cm in length by up to 4 cm in width. There may be areas of mild gallbladder wall thickening. Pericholecystic fluid is identified. There is mild intrahepatic and moderate extrahepatic biliary dilatation. The common bile duct measures up to approximately 8 mm in diameter. No definite intraluminal filling defects are appreciated. Other solid organs: The pancreas is grossly unremarkable. No significant dilatation of the main pancreatic duct is appreciated on MRCP. No peripancreatic fluid collections are identified. No definite pancreatic lesions are appreciated. The spleen, adrenals, and kidneys are within normal limits. Nodes and vessels: No retroperitoneal or mesenteric adenopathy by size criteria. Aorta and inferior vena cava are normal in size. Bowel and peritoneum: Unenhanced bowel loops are normal in caliber. No free fluid. Lung bases: No basal pleural effusions. Heart size is normal. Bones and soft tissues: No ventral hernias. Bone marrow is of normal overall signal. IMPRESSION: 1. Intrahepatic and extrahepatic biliary dilatation without evidence of choledocholithiasis. No definitive mass at the level of the ampulla is appreciated. The adjacent pancreatic duct is not distended on this study. 2. Marked distention of the gallbladder is nonspecific, but may be seen in the setting of a calculus cholecystitis, biliary dyskinesia, or potentially chronic gall bladder outlet obstruction. Please correlate clinically. 3. Extensive hepatic steatosis with areas of capsular retraction/scarring. No definite or suspicious parenchymal lesion is evident. 4. Mild upper abdominal ascites probably is related to chronic liver dysfunction. Dictated by: Charlie Still M.D. on 06/12/2019 at 14:24 Approved by: Charlie Still M.D. on 06/12/2019 at 14:35
[2019-06-12] MEDS: fentaNYL 100 MCG/2 ML INJ 25 MCG IV (14:27)
== END 2019-06-12 16:08 | disposition home or self-care (01) ==
PROVIDERS: Emergency Provider Emergency Medicine
DX: R94.5 Abnormal results of liver function studies (principal); N39.0 Urinary tract infection, site not specified; K62.5 Hemorrhage of anus and rectum
CPT/HCPCS: 36415; 74181; 76700; 80053; 81003; 81015; 81025; 83690; 85025; 85610; 85730; 86850; 86900; 86901; 87086; 96361; 96374; 96375; 99284; 99285; C9113; J2405; J3010

== ENCOUNTER 2019-07-14 10:43 | Emergency (ER) | payer MEDICAID, SELFPAY ==
[2017-09-15 17:31] VITALS: BMI 30.7
[2019-07-14] VITALS (7 sets, daily range): BP systolic 118–134; BP diastolic 67–92; PULSE 110–124; RESP 18–27; TEMP 36.6; O2SAT 96–98
[2019-07-14 11:48] LABS: Add Manual Diff / Slide Review NO; Basophils Absolute Auto 100 /uL (0-100); Basophils Percent Auto 0.7 % (0-2); Eosinophils Absolute Auto 100 /uL (0-450); Eosinophils Percent Auto 0.6 % (2-4); Hematocrit 35.8 % (36-46); Hemoglobin 12.3 g/dL (12.0-16.0); Lymphocytes Absolute Auto 1000 /uL (1100-4500); Mean Corpuscular HGB Conc 34.5 % (30-36); Mean Corpuscular Hemoglobin 36.7 PG (26-34); Mean Corpuscular Volume 106.5 fL (80-100); Monocytes Absolute Auto 900 /uL (0-900); Monocytes Percent Auto 10.9 % (3-14); Neutrophils Absolute Auto 6700 /uL (1500-7000); Neutrophils Percent Auto 76.8 % (50-75); Platelet Count 116 X10^3/uL (150-400); Red Blood Cell Count 3.36 X10^6/uL (4.0-5.2); Red Cell Distribution Width 17.2 % (11.6-14.8); White Blood Cell Count 8.7 X10^3/uL (4.5-11.0)
[2019-07-14 11:58] LABS: INR 1.9 (0.9-1.3); Prothrombin Time 21.5 SECONDS (10.1-12.7)
[2019-07-14] MEDS: fentaNYL 100 MCG/2 ML INJ 25 MCG IV ×3 (11:59→17:58)
[2019-07-14] MEDS: SODIUM CHLORIDE 0.9% 1,000 ML 150 ML IV (11:59)
[2019-07-14 12:00] LABS: PTT Partial Thromboplastin Tim 32 SECONDS (26.4-36.2)
[2019-07-14 12:01] LABS: Alanine Aminotransferase 61 IU/L (<35); Albumin 2.9 g/dL (3.5-5.0); Albumin Globulin Ratio 0.7 (1.0-2.8); Alkaline Phosphatase 312 U/L (38-126); Aspartate Aminotransferase 250 IU/L (14-36); BUN Creatinine Ratio 7.1 (6-22); Bilirubin Total 13.9 mg/dL (0.2-1.3); Blood Urea Nitrogen 4 mg/dL (7-17); Calcium 8.6 mg/dL (8.4-10.2); Carbon Dioxide 25 mmol/L (22-32); Chloride 102 mmol/L (98-107); Estimated Glomerular Filt Rate > 60.0 mL/min (>60); Glucose 76 mg/dL (70-100); HEMOLYSIS < 15 (0-50); Lipase 30 U/L (23-300); Potassium 3.8 mmol/L (3.4-5.1); Sodium 137 mmol/L (137-145); Total Protein 6.9 g/dL (6.3-8.2)
--- NOTE | 2019-07-14 12:21 | DI.CT.S_ITS ---
PROCEDURE: CT ABDOMEN PELVIS W CON INDICATIONS: abdominal ascites, hx of liver failure TECHNIQUE: After the administration of intravenous contrast, 5 mm thick sections acquired from the diaphragm to the symphysis. 5 mm coronal and sagittal reformats were acquired. For radiation dose reduction, the following was used: automated exposure control, adjustment of mA and/or kV according to patient size. COMPARISON: [facility], MR, MR ABDOMEN WO CON, 06/12/2019, 14:34. [facility], US, US ABDOMEN COMPLETE, 06/12/2019, 10:48. [facility], CR, XR ACUTE ABDOMEN SERIES, 12/21/2018, 19:29. [facility], US, US PELVIC COMPLETE WITH TRANSVAGINAL, 06/29/2018, 14:11. [facility], CT, ABDOMEN/PELVIS WITH CONTRAST, 08/15/2017, 10:16. FINDINGS: Image quality: Excellent. ABDOMEN: Lung bases: There is a small left-sided pleural effusion seen. Solid organs: The liver demonstrates a diffusely irregular appearance, with multiple nodules. The prior MRI appearance demonstrated diffuse steatosis. There is retraction seen within the central anterior liver capsule. Mild to moderate ascites is seen. Gallbladder is prominent in size and demonstrates a hyperenhancing wall. Biliary system is non dilated. Pancreas enhances normally. Spleen is normal in size and enhancement. No adrenal nodules. Kidneys demonstrate normal size and enhancement, without hydronephrosis. Peritoneum and bowel: Diffuse nodular thickening can be seen on the colonic wall. The small also demonstrates diffuse thickening. No dilated loops of bowel can be seen. Gastric bypass changes are seen. No free air. Nodes and vessels: No retroperitoneal or mesenteric adenopathy by size criteria. Aorta and inferior vena cava are normal in size. Miscellaneous: No ventral hernias. PELVIS: Genitourinary: Bladder wall thickness is normal. Miscellaneous: No inguinal hernias or adenopathy. Bones: No suspicious bony lesions. No vertebral body compression fractures. IMPRESSION: Diffuse abnormal liver, with multiple nodules, with an appearance MRI. Retraction is seen within the central liver. Diffuse steatosis is seen. Mild to moderate ascites is seen. Diffuse thickening is seen in the colon and small bowel. This may be related to the patient's ascites. Please correlate with enteritis or colitis. The gallbladder is enlarged and demonstrates a hyperenhancing wall. If there is strong clinical concern for gallbladder pathology, please consider a dedicated right upper quadrant ultrasound for further evaluation. There is a small left-sided pleural effusion. Prior gastric bypass surgery. Dictated by: Morro Lane M.D. on 07/14/2019 at 12:15 Approved by: Morro Lane M.D. on 07/14/2019 at 12:23
[2019-07-14 12:22] LABS: Influenza A - CEPHEID Flu A NEGATIVE (NEGATIVE); Influenza B - CEPHEID Flu B NEGATIVE (NEGATIVE)
[2019-07-14 12:23] LABS: Ammonia (NH3) < 9 umol/L (9-30)
--- NOTE | 2019-07-14 13:30 | DI.US.S_ITS ---
PROCEDURE: US ABDOMEN LIMITED INDICATIONS: LIVER FAILURE; POSSIBLE GALLBLADDER PATHOLOGY TECHNIQUE: Real-time focused scanning was performed of the abdomen, with image documentation. COMPARISON: [facility], CT, CT ABDOMEN PELVIS W CON, 07/14/2019, 12:47. [facility], US, US ABDOMEN COMPLETE, 06/12/2019, 10:48. [facility], US, US ABDOMEN LIMITED, 09/15/2017, 13:34. FINDINGS: The gallbladder is prominent in size. Sludge can be seen within the gallbladder. The gallbladder wall is not thickened. There is a positive sonographic Mcdonough sign. The common bile duct is enlarged at 8 mm. Severe fatty infiltration can be seen. The main portal vein measures 1.2 cm and is not well seen. Poor flow seen within it. Ascites can be seen. IMPRESSION: Abnormal gallbladder, with enlargement and sludge seen within it and a positive sonographic Mcdonough sign. Ascites is seen, making pericholecystic is nonspecific. Please correlate with physical examination findings, patient presentation, and laboratory values. Abnormal liver, with severe fatty infiltration on these images. The main portal vein is not well-seen and there is poor flow seen within it on these images. However, on the CT performed earlier in the day, normal-appearing flow can be seen within the main portal vein, without flow abnormalities or filling defects. Mild biliary dilatation, measuring 8 mm. Dictated by: Morro Lane M.D. on 07/14/2019 at 14:16 Approved by: Morro Lane M.D. on 07/14/2019 at 14:20
--- NOTE | 2019-07-14 13:58 | ED.ABDPAIN ---
HPI - Abdominal Pain <Tulio ALEKSANDR Freed - Last Filed: 07/14/19 17:55> General Chief Complaint: Abdominal Pain Stated Complaint: jaundice, screened positive at screening desk Time Seen by Provider: 07/14/19 11:13 Source: patient and family Mode of arrival: Family Vehicle Limitations: no limitations History of Present Illness HPI narrative: This is a 34 year female, former smoker, who presents to ED with significant other with chief complain of short of breath, abdominal swelling which radiates to her bilateral upper legs, low grade fever from 99 to 100.4 degree which started about a week ago with feeling of constant either freezing or burning up. Patient also has nausea but without vomiting. Patient states her appetite has been decreased but has been hydrating with water and has been eating small bites. Significant other reports morning urine output appears to be very dark and appears to be motor oil and noticed jaundice. Patient reports last urine output yesterday afternoon and noticed decreased urine output. Patient reports can't sleep well and also has pain in every where. Patient reports she gained about 26 lb in last 10 days. Patient stop taking her medications 4 days ago due to nausea and she takes cyclobenzaprine and multivitamins. Patient reports liver failure during last 3 years. She has 1st appointment with Dr. Vizcaino with GI specialist but this has been canceled due to sauer virus. Patient has history of autoimmune disease thinks she has lupus, gastric bypass in the past, cervical precancerous lesions, has shrapnels in her elbow, pulmonary embolism in 2011 after gastric bypass surgery. Patient is known to have low vitamin D and Ca. Patient states she occasionally takes alcohol drinks a few times a week. She denies ever been a heavy drinker. She stopped smoking about a month ago but smokes. Significant and patient reports some visual and auditory hallucinations occasionally. Patient reports her hepatitis panel has been negative which she gets about every 6 months. Related Data Home Medications Medication Instructions Recorded Confirmed ondansetron 4 mg PO BID PRN 04/04/18 06/12/19 cyclobenzaprine 10 mg PO TID PRN 06/12/19 06/12/19 Previous Rx's Medication Instructions Recorded cephalexin [Keflex] 500 mg PO BID #10 cap 06/12/19 Allergies Allergy/AdvReac Type Severity Reaction Status Date / Time acetaminophen Allergy Intermediate Abdominal Verified 01/16/19 09:53 Pain NSAIDS (Non-Steroidal Allergy Intermediate Abdominal Verified 01/16/19 09:53 Anti-Inflamma Pain oxycodone Allergy Intermediate Abdominal Verified 01/16/19 09:53 Pain Review of Systems <ALEKSANDR Valentin - Last Filed: 07/14/19 17:55> Review of Systems Narrative: General: Denies (+) low grade fever and chills, fatigue, malaise, sweats. HEENT: Denies sinus pain, ear pain, sore throat, difficulty swallowing, dizziness. Respiratory: Denies (+) dyspnea, (+) intermittent cough, wheezing, hemoptysis, sputum. Cardiovascular: Denies chest pain, palpitations, orthopnea, edema. Gastrointestinal: Denies (+) nausea, vomiting, (+) abdominal pain, diarrhea, constipation, melena. : Denies dysuria, frequency, incontinence, (+) decreased urine output, hematuria, urinary retention. Musculoskeletal: Denies weakness, joint pain or bony pain, (+) generalized bodyaches. Skin: Denies rash, (+) jaundice, skin lesions, or other. Neurologic: Denies weakness, headache, numbness, change in speech, (+) confusion, seizures, incoordination. Psychiatric: No concerning psychosocial issues. 12-point review of systems is negative except for those stated above. Patient History <ALEKSANDR Valentin - Last Filed: 07/14/19 17:55> Social History (Updated 07/14/19 @ 14:09 by ALEKSANDR Valentin) household members: spouse Smoking Status: Former smoker alcohol intake: current Smoking Status: Current every day smoker tobacco type: cigarettes alcohol intake frequency: 0-2 drinks per day Alcohol type: wine Substance Use Type: marijuana Exam <ALEKSANDR Valentin - Last Filed: 07/14/19 17:55> Narrative Exam Narrative: GEN: Alert, oriented x 3, ill appearing and nourished, and in no acute distress. Head: Normal cephalic, atraumatic. No scalp or temporal tenderness, palpable mass or rash. EYES: Pupils are equal, round, and reactive to light and accommodation. Extraocular muscles are intact bilaterally. There is no subconjunctival hemorrhage, exudate and sclera icteric. ENT: Hearing grossly intact. Nose without bleeding, purulent discharge. Mucous membrane moist, no mucosal lesion. Throat without erythema, tonsillar hypertrophy or exudate. Uvula in midline, airway patent. Neck: Trachea in midline. No JVD, non-tender without lymphadenopathy. No masses or thyroid megaly. Supple, non-tender and no meningeal signs. CARDIAC: Normal regular tachy rate and normal rhythm without murmurs, gallops, or rubs. No chest wall tenderness. No peripheral edema, cyanosis but pallor. Capillary refill is less than 2 seconds. RESPIRATORY: Lungs are clear but decreased to auscultate bilaterally. No cough, wheezes, rales, or rhonchi. No stridor, respiratory distress, increase work of breathing, or accessary muscle used. ABD: Abdomen soft, nontender and non-distended. No guarding or rebound tenderness to palpate. Bowel sounds are normal in all 4 quadrants. There is no palpable masses or organomegaly. EXT: Full painless ROM of all extremities with no loss of sensation, strength, effusion or edema. SKIN: Warm, dry, pale color for patient. No erythema, lesions or rash over visible areas. BACK: Nontender without deformity or crepitance. No flank tenderness. NEUROLOGICAL: Alert and oriented to place, time and person. Sensation and motor function intact bilaterally. No facial droops, dysphasia. PSYCHIATRIC: Good judgement and reason, without hallucinations, abnormal affect or abnormal behaviors during the examination. Initial Vital Signs Initial Vital Signs: Vital Signs Temperature 97.9 F 07/14/19 11:02 Pulse Rate 124 H 07/14/19 11:02 Respiratory Rate 18 07/14/19 11:02 Blood Pressure 134/92 H 07/14/19 11:02 Pulse Oximetry 96 07/14/19 11:02 <Thiago Leung MD - Last Filed: 07/14/19 19:22> Initial Vital Signs Initial Vital Signs: Vital Signs Temperature 97.9 F 07/14/19 11:02 Pulse Rate 124 H 07/14/19 11:02 Respiratory Rate 18 07/14/19 11:02 Blood Pressure 134/92 H 07/14/19 11:02 Pulse Oximetry 96 07/14/19 11:02 Scores <ALEKSANDR Valentin - Last Filed: 07/14/19 17:55> GCS Jasvir coma scale eye opening: Spontaneous [place] coma scale verbal response: Orientated Jasvir coma scale motor response: Obey commands Jasvir coma scale total score: 15 Course <Tulio Ranjit-ALEKSANDR Ramirez - Last Filed: 07/14/19 17:55> Orders Ordered: ED Orders 07/14/19 11:16 EKG-12 Lead Stat 07/14/19 11:35 Ammonia (NH3) Stat Blood Culture Stat Complete Blood Count AUTO DIFF Stat Comprehensive Metabolic Panel Stat Lactate (Lactic Acid) Stat Lipase Stat Partial Thromboplastin Time Stat Prothrombin Time INR Stat 07/14/19 12:21 CT abdomen pelvis w con Stat 07/14/19 12:23 Influenza A & B (PCR) Stat 07/14/19 13:30 US abdomen limited Stat 07/14/19 13:59 XR chest 2V Stat 07/14/19 15:42 Urine Culture Stat Urine Microscopic Stat Fentanyl (Sublimaze) 25 mcg IV Q2HR KEYLA Last Admin: 07/14/19 17:58 Dose: 25 mcg Documented by: Admin: 07/14/19 13:34 Dose: 25 mcg Documented by: TOVA Sodium Chloride (Normal Saline 0.9%) 1,000 mls @ 150 mls/hr IV CONT KEYLA Last Infusion: 07/14/19 14:20 Dose: 150 mls/hr Documented by: Admin: 07/14/19 11:59 Dose: 150 mls/hr Documented by: TOVA Discontinued Medications Fentanyl (Sublimaze) 25 mcg IV NOW ONE Stop: 07/14/19 11:49 Last Admin: 07/14/19 11:59 Dose: 25 mcg Documented by: TOVA Furosemide (Lasix) 40 mg IV NOW ONE Stop: 07/14/19 14:32 Last Admin: 07/14/19 15:04 Dose: 40 mg Documented by: TOVA Vital Signs Vital signs: Vital Signs - 8 hr 07/14/19 13:28 07/14/19 14:30 07/14/19 15:00 Pulse Rate 115 H 112 H 110 H Respiratory Rate 27 H 20 Blood Pressure [Right Arm] 133/67 122/73 118/79 Pulse Oximetry 98 96 07/14/19 15:30 07/14/19 16:00 Pulse Rate 120 H 120 H Respiratory Rate Blood Pressure [Right Arm] 130/83 128/79 Pulse Oximetry 96 97 <Thiago Leung MD - Last Filed: 07/14/19 19:22> Orders Ordered: ED Orders 07/14/19 11:16 EKG-12 Lead Stat 07/14/19 11:35 Ammonia (NH3) Stat Blood Culture Stat Complete Blood Count AUTO DIFF Stat Comprehensive Metabolic Panel Stat Lactate (Lactic Acid) Stat Lipase Stat Partial Thromboplastin Time Stat Prothrombin Time INR Stat 07/14/19 12:21 CT abdomen pelvis w con Stat 07/14/19 12:23 Influenza A & B (PCR) Stat 07/14/19 13:30 US abdomen limited Stat 07/14/19 13:59 XR chest 2V Stat 07/14/19 15:42 Urine Culture Stat Urine Microscopic Stat Fentanyl (Sublimaze) 25 mcg IV Q2HR [facility] Last Admin: 07/14/19 17:58 Dose: 25 mcg Documented by: Admin: 07/14/19 13:34 Dose: 25 mcg Documented by: TOVA Sodium Chloride (Normal Saline 0.9%) 1,000 mls @ 150 mls/hr IV CONT KEYLA Last Infusion: 07/14/19 14:20 Dose: 150 mls/hr Documented by: Admin: 07/14/19 11:59 Dose: 150 mls/hr Documented by: TOVA Discontinued Medications Fentanyl (Sublimaze) 25 mcg IV NOW ONE Stop: 07/14/19 11:49 Last Admin: 07/14/19 11:59 Dose: 25 mcg Documented by: TOVA Furosemide (Lasix) 40 mg IV NOW ONE Stop: 07/14/19 14:32 Last Admin: 07/14/19 15:04 Dose: 40 mg Documented by: TOVA Vital Signs Vital signs: Vital Signs - 8 hr 07/14/19 13:28 07/14/19 14:30 07/14/19 15:00 Pulse Rate 115 H 112 H 110 H Respiratory Rate 27 H 20 Blood Pressure [Right Arm] 133/67 122/73 118/79 Pulse Oximetry 98 96 07/14/19 15:30 07/14/19 16:00 Pulse Rate 120 H 120 H Respiratory Rate Blood Pressure [Right Arm] 130/83 128/79 Pulse Oximetry 96 97 MDM - Abdominal Pain <ALEKSANDR Valentin - Last Filed: 07/14/19 17:55> Differential Diagnosis Differential diagnosis: Likely other (Gallstone, bile duct obstruction, chronic liver failure) Medical Records Attestation: I reviewed the patient's medical records. Lab Data Attestation: I reviewed the patient's lab results. Result diagrams: 07/14/19 11:35 07/14/19 11:35 Labs: Lab Results 07/14/19 07/14/19 07/14/19 Range/Units 11:35 11:35 11:35 WBC 8.7 (4.5-11.0) X10^3/uL RBC 3.36 L (4.0-5.2) X10^6/uL Hgb 12.3 (12.0-16.0) g/dL Hct 35.8 L (36-46) % MCV 106.5 H (80-100) fL MCH 36.7 H (26-34) PG MCHC 34.5 (30-36) % RDW 17.2 H (11.6-14.8) % Plt Count 116 L (150-400) X10^3/uL Neut % (Auto) 76.8 H (50-75) % Lymph % (Auto) 11.0 L (25-40) % [place] % (Auto) 10.9 (3-14) % Eos % (Auto) 0.6 L (2-4) % Baso % (Auto) 0.7 (0-2) % Neut # (Auto) 6700 (7355-2471) /uL Lymph # (Auto) 1000 L (5302-7245) /uL [place] # (Auto) 900 (0-900) /uL Eos # (Auto) 100 (0-450) /uL Baso # (Auto) 100 (0-100) /uL PT 21.5 H (10.1-12.7) SECONDS INR 1.9 H (0.9-1.3) APTT 32 D (26.4-36.2) SECONDS Sodium 137 (137-145) mmol/L Potassium 3.8 (3.4-5.1) mmol/L Chloride 102 (98-107) mmol/L Carbon Dioxide 25 (22-32) mmol/L BUN 4 L (7-17) mg/dL Creatinine 0.56 (0.52-1.04) mg/dL Estimated GFR > 60.0 (>60) mL/min BUN/Creatinine Ratio 7.1 (6-22) Glucose 76 (70-100) mg/dL Lactate (0.7-2.1) mmol/L Calcium 8.6 (8.4-10.2) mg/dL Total Bilirubin 13.9 H (0.2-1.3) mg/dL AST 250 H (14-36) IU/L ALT 61 H (<35) IU/L Alkaline Phosphatase 312 H (38-126) U/L Ammonia (9-30) umol/L Total Protein 6.9 (6.3-8.2) g/dL Albumin 2.9 L (3.5-5.0) g/dL Globulin 4.0 (1.7-4.1) g/dL Albumin/Globulin Ratio 0.7 L (1.0-2.8) Lipase 30 (23-300) U/L Urine RBC (0-5/HPF) Urine WBC (0-5/HPF) Ur Squamous Epith Cells (0-5/HPF) Amorphous Sediment Urine Bacteria (None) Urine Mucus (Negative) Ur Culture Indicated? Influenza A (RT-PCR) (NEGATIVE) Influenza B (RT-PCR) (NEGATIVE) 07/14/19 07/14/19 07/14/19 Range/Units 11:35 11:35 12:23 WBC (4.5-11.0) X10^3/uL RBC (4.0-5.2) X10^6/uL Hgb (12.0-16.0) g/dL Hct (36-46) % MCV (80-100) fL MCH (26-34) PG MCHC (30-36) % RDW (11.6-14.8) % Plt Count (150-400) X10^3/uL Neut % (Auto) (50-75) % Lymph % (Auto) (25-40) % [place] % (Auto) (3-14) % Eos % (Auto) (2-4) % Baso % (Auto) (0-2) % Neut # (Auto) (9297-0633) /uL Lymph # (Auto) (7000-1088) /uL [place] # (Auto) (0-900) /uL Eos # (Auto) (0-450) /uL Baso # (Auto) (0-100) /uL PT (10.1-12.7) SECONDS INR (0.9-1.3) APTT (26.4-36.2) SECONDS Sodium (137-145) mmol/L Potassium (3.4-5.1) mmol/L Chloride (98-107) mmol/L Carbon Dioxide (22-32) mmol/L BUN (7-17) mg/dL Creatinine (0.52-1.04) mg/dL Estimated GFR (>60) mL/min BUN/Creatinine Ratio (6-22) Glucose (70-100) mg/dL Lactate 2.0 (0.7-2.1) mmol/L Calcium (8.4-10.2) mg/dL Total Bilirubin (0.2-1.3) mg/dL AST (14-36) IU/L ALT (<35) IU/L Alkaline Phosphatase (38-126) U/L Ammonia < 9 L (9-30) umol/L Total Protein (6.3-8.2) g/dL Albumin (3.5-5.0) g/dL Globulin (1.7-4.1) g/dL Albumin/Globulin Ratio (1.0-2.8) Lipase (23-300) U/L Urine RBC (0-5/HPF) Urine WBC (0-5/HPF) Ur Squamous Epith Cells (0-5/HPF) Amorphous Sediment Urine Bacteria (None) Urine Mucus (Negative) Ur Culture Indicated? Influenza A (RT-PCR) Flu a negative (NEGATIVE) Influenza B (RT-PCR) Flu b negative (NEGATIVE) 07/14/19 Range/Units 15:42 WBC (4.5-11.0) X10^3/uL RBC (4.0-5.2) X10^6/uL Hgb (12.0-16.0) g/dL Hct (36-46) % MCV (80-100) fL MCH (26-34) PG MCHC (30-36) % RDW (11.6-14.8) % Plt Count (150-400) X10^3/uL Neut % (Auto) (50-75) % Lymph % (Auto) (25-40) % [place] % (Auto) (3-14) % Eos % (Auto) (2-4) % Baso % (Auto) (0-2) % Neut # (Auto) (6975-2137) /uL Lymph # (Auto) (5056-6184) /uL [place] # (Auto) (0-900) /uL Eos # (Auto) (0-450) /uL Baso # (Auto) (0-100) /uL PT (10.1-12.7) SECONDS INR (0.9-1.3) APTT (26.4-36.2) SECONDS Sodium (137-145) mmol/L Potassium (3.4-5.1) mmol/L Chloride (98-107) mmol/L Carbon Dioxide (22-32) mmol/L BUN (7-17) mg/dL Creatinine (0.52-1.04) mg/dL Estimated GFR (>60) mL/min BUN/Creatinine Ratio (6-22) Glucose (70-100) mg/dL Lactate (0.7-2.1) mmol/L Calcium (8.4-10.2) mg/dL Total Bilirubin (0.2-1.3) mg/dL AST (14-36) IU/L ALT (<35) IU/L Alkaline Phosphatase (38-126) U/L Ammonia (9-30) umol/L Total Protein (6.3-8.2) g/dL Albumin (3.5-5.0) g/dL Globulin (1.7-4.1) g/dL Albumin/Globulin Ratio (1.0-2.8) Lipase (23-300) U/L Urine RBC None seen (0-5/HPF) Urine WBC 5-10/hpf H (0-5/HPF) Ur Squamous Epith Cells 0-1 /hpf (0-5/HPF) Amorphous Sediment 1+ Urine Bacteria Few (2-10) H (None) Urine Mucus 3+ H (Negative) Ur Culture Indicated? Specimen cultured Influenza A (RT-PCR) (NEGATIVE) Influenza B (RT-PCR) (NEGATIVE) Point of care testing: Point of Care Testing Test Results Negative Urine Dip Bedside Urine Glucose 100 mg/dl Bedside Urine Bilirubin ++ 2 Bedside Urine Ketone +/- 5 Urine Specific [place] 1.005 Bedside Urine Occult Blood - Negative Bedside Urine pH 6.5 Bedside Urine Protein - Negative Bedside Urine Urobilinogen +/- 1mg Bedside Urine Nitrite - Negative Bedside Urine Leukocytes +/- [address] scan - abdomen/pelvis: Radiologist's Impression: [address] [address] [address] Scan Report Signed Patient: Tammie Cameron RMR#: [id number] : 1985Acct:[id number] Age/Sex: 34 / FDate of Service: 07/14/19 Loc: ED Accession Number: [id number] Procedure: CT abdomen pelvis w con Ordering Provider: Tulio Freed PROCEDURE: CT ABDOMEN PELVIS W CON INDICATIONS: abdominal ascites, hx of liver failure TECHNIQUE: After the administration of intravenous contrast, 5 mm thick sections acquired from the diaphragm to the symphysis. 5 mm coronal and sagittal reformats were acquired. For radiation dose reduction, the following was used: automated exposure control, adjustment of mA and/or kV according to patient size. COMPARISON: [facility], MR, MR ABDOMEN WO CON, 06/12/2019, 14:34. [facility], US, US ABDOMEN COMPLETE, 06/12/2019, 10:48. [facility], CR, XR ACUTE ABDOMEN SERIES, 12/21/2018, 19:29. [facility], US, US PELVIC COMPLETE WITH TRANSVAGINAL, 06/29/2018, 14:11. [facility], CT, ABDOMEN/PELVIS WITH CONTRAST, 08/15/2017, 10:16. FINDINGS: Image quality: Excellent. ABDOMEN: Lung bases: There is a small left-sided pleural effusion seen. Solid organs: The liver demonstrates a diffusely irregular appearance, with multiple nodules. The prior MRI appearance demonstrated diffuse steatosis. There is retraction seen within the central anterior liver capsule. Mild to moderate ascites is seen. Gallbladder is prominent in size and demonstrates a hyperenhancing wall. Biliary system is non dilated. Pancreas enhances normally. Spleen is normal in size and enhancement. No adrenal nodules. Kidneys demonstrate normal size and enhancement, without hydronephrosis. Peritoneum and bowel: Diffuse nodular thickening can be seen on the colonic wall. The small also demonstrates diffuse thickening. No dilated loops of bowel can be seen. Gastric bypass changes are seen. No free air. Nodes and vessels: No retroperitoneal or mesenteric adenopathy by size criteria. Aorta and inferior vena cava are normal in size. Miscellaneous: No ventral hernias. PELVIS: Genitourinary: Bladder wall thickness is normal. Miscellaneous: No inguinal hernias or adenopathy. Bones: No suspicious bony lesions. No vertebral body compression fractures. IMPRESSION: Diffuse abnormal liver, with multiple nodules, with an appearance MRI. Retraction is seen within the central liver. Diffuse steatosis is seen. Mild to moderate ascites is seen. Diffuse thickening is seen in the colon and small bowel. This may be related to the patient's ascites. Please correlate with enteritis or colitis. The gallbladder is enlarged and demonstrates a hyperenhancing wall. If there is strong clinical concern for gallbladder pathology, please consider a dedicated right upper quadrant ultrasound for further evaluation. There is a small left-sided pleural effusion. Prior gastric bypass surgery. Dictated by: Morro Lane M.D. on 07/14/2019 at 12:15 Approved by: Morro [address] M.D. on 07/14/2019 at 12:23 US - abdomen: Radiologist's Impression: Tammie Cameron James 34 F 1985 [place] [address] Ultrasound Report Signed Patient: Tammie Cameron RMR#: [id number] : 1985Acct:[id number] Age/Sex: 34 / FDate of Service: 07/14/19 Loc: ED Accession Number: [id number] Procedure: US abdomen limited Ordering Provider: Tulio Freed PROCEDURE: US ABDOMEN LIMITED INDICATIONS: LIVER FAILURE; POSSIBLE GALLBLADDER PATHOLOGY TECHNIQUE: Real-time focused scanning was performed of the abdomen, with image documentation. COMPARISON: [facility], CT, CT ABDOMEN PELVIS W CON, 07/14/2019, 12:47. [facility], US, US ABDOMEN COMPLETE, 06/12/2019, 10:48. [facility], US, US ABDOMEN LIMITED, 09/15/2017, 13:34. FINDINGS: The gallbladder is prominent in size. Sludge can be seen within the gallbladder. The gallbladder wall is not thickened. There is a positive sonographic Mcdonough sign. The common bile duct is enlarged at 8 mm. Severe fatty infiltration can be seen. The main portal vein measures 1.2 cm and is not well seen. Poor flow seen within it. Ascites can be seen. IMPRESSION: Abnormal gallbladder, with enlargement and sludge seen within it and a positive sonographic Mcdonough sign. Ascites is seen, making pericholecystic is nonspecific. Please correlate with physical examination findings, patient presentation, and laboratory values. Abnormal liver, with severe fatty infiltration on these images. The main portal vein is not well-seen and there is poor flow seen within it on these images. However, on the CT performed earlier in the day, normal-appearing flow can be seen within the main portal vein, without flow abnormalities or filling defects. Mild biliary dilatation, measuring 8 mm. Dictated by: Morro Lane M.D. on 07/14/2019 at 14:16 Approved by: Morro Lane M.D. on 07/14/2019 at 14:20 Chest x-ray: Radiologist's Impression: [address] [address] XRay Report Signed Patient: Tammie Cameron RMR#: [id number] : 1985Acct:[id number] Age/Sex: 34 / FDate of Service: 07/14/19 Loc: ED Accession Number: [id number] Procedure: XR chest 2V Ordering Provider: Tulio rFeed PROCEDURE: XR CHEST 2V INDICATIONS: occasional cough TECHNIQUE: 2 views of the chest were acquired. COMPARISON: [facility], CT, CT ABDOMEN PELVIS W CON, 07/14/2019, 12:47. [facility], US, US ABDOMEN LIMITED, 07/14/2019, 14:23. [facility], CR, XR ACUTE ABDOMEN SERIES, 12/21/2018, 19:29. [facility], CR, XR CHEST 1V, 05/17/2018, 15:44. FINDINGS: Surgical changes and devices: Abdominal postoperative clips are seen. Lungs and pleura: Small bilateral pleural effusions are seen. Overlying presumed atelectasis can be seen. There is no pneumothorax. Mediastinum: Mediastinal contours are normal. Heart size is normal. Bones and chest wall: No suspicious bony abnormalities. Soft tissues appear unremarkable. IMPRESSION: Small bilateral pleural effusions are seen. Upper abdominal postoperative changes. Dictated by: Morro Lane M.D. on 07/14/2019 at 14:48 Approved by: Morro Lane M.D. on 07/14/2019 at 14:49 MDM Narrative Medical decision making narrative: This is a 34 year female with chronic liver failure presents today with increasing jaundice, dark colored urine, generalized body aches, dyspnea, increasing ascites in her abdomen that extends to bilateral upper thigh. Patient reports low-grade temperature of 90? 9-1 100.4 last 1 week with occasional mucousy cough for last 4 days. Patient has nausea without vomiting. Patient has not been evaluated by GI specialist yet but does have appointment with Dr. Vizcaino at [facility] gastrology. Patient was evaluated in 06/12/19 had had abdominal US and Abdomen MR done for abdominal pain and rectal bleeding. At that time, White count was 3.4 with stable H&H, with PT of 12.8 and INR of 1.1 which increased today up to 21.5 with INR of 1.9. Today's H/H is 12.3/35.8 with mildly increased neutrophil percentage of 76.8%. Chemistries were unremarkable without signs of dehydration. Kidney functions were normal. Lactate and pre calcitonin was normal. Ammonia level is less than 9. Lipase normal at 30. Other liver function test actually improved since last visit. Today's AST is 250, ALT of 61, and alkaline phosphatase of 312 which were 250/61/312 a month ago. However patient's total bilirubin increase about 3-4 times today as 13.9 from 3.6. Albumin level is 2.9 slightly decreased from 3.7. Flu test was negative today. And pelvis indicates prominent size of gallbladder and hyperenhancing wall without dilated biliary system. It appears to be patient has normal pancreas, spleen, kidney. It also indicated dye fuse nodular thickening on the colonic wall without dilated loops of bowel. Liver indicated diet views abnormal with multiple nodules without retraction in the central liver and with dye fused steatosis. There was mild to moderate ascites. Abdominal ultrasound was obtained. It indicates prominent in size gallbladder with sludge. Gallbladder were is not thickened. Patient exhibited positive Mcdonough's sign. Common bile duct is enlarged at 8 mm. There is severe fatty infiltration with main portal vein measuring 1.2 cm and is not well seen of blood flow, however, previous CT scan showed normal appearing flow within the main portal vein. Again there is ascites appreciated. Since patient reported some dyspnea, occasional mucousy cough and mild grade fever at home with subjective chills, chest x-ray was obtained small bilateral pleural effusion. Patient's symptoms is likely due to mild to moderate ascites. Flu test was negative. Covid-19 swab is pending. Patient denies in contact with known person with coronary virus, recent travel otherwise. [facility] GI specialist Dr. Looney consulted and the ERCP is not recommended for this patient and it is suggested that patient's symptoms are due to worsening patient has chronic hepatitis. It was recommended to speak with hospitalist and to consult military nurse for additional diagnostic testing and to monitor patient's condition and to set up outpatient follow-up with military nurse/GI specialist. Spoke with Dr. Mccartney, the hospitalist, and he kindly accepted patient's care. Patient is given IV Lasix 40 mg and was able to void dark colored urine in the ED. there is 5-10/HPF of urine WBC with few urine bacteria and 3+ urine mucus was seen. Urine culture is pending. There was 2+ urine bilirubin, urine glucose of 100 mg/dL with negative urine nitrite. Urine test was negative. Patient was provided with a few doses of small amount of fentanyl 25 micro g each time. Pending transfer to [facility] was discussed with the patient and patient agrees with the treatment plan. 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 Patient used to take spironolactone and Lasix up until summer last year but this has been stopped due to patient's decreased kidney function and the improved ascites. The patient voided 3 times after the Lasix and reports just a mild improvement with short of breath. Patient reports exertion or short of breath after ambulating to bathroom and back to bed each times. Patient signed acknowledgement/agreement of transfer to higher level of care and all other require document has been completed. <Thiago Leung MD - Last Filed: 07/14/19 19:22> Lab Data Labs: Lab Results 07/14/19 07/14/19 07/14/19 Range/Units 11:35 11:35 11:35 WBC 8.7 (4.5-11.0) X10^3/uL RBC 3.36 L (4.0-5.2) X10^6/uL Hgb 12.3 (12.0-16.0) g/dL Hct 35.8 L (36-46) % MCV 106.5 H (80-100) fL MCH 36.7 H (26-34) PG MCHC 34.5 (30-36) % RDW 17.2 H (11.6-14.8) % Plt Count 116 L (150-400) X10^3/uL Neut % (Auto) 76.8 H (50-75) % Lymph % (Auto) 11.0 L (25-40) % [place] % (Auto) 10.9 (3-14) % Eos % (Auto) 0.6 L (2-4) % Baso % (Auto) 0.7 (0-2) % Neut # (Auto) 6700 (7110-9247) /uL Lymph # (Auto) 1000 L (6016-9585) /uL [place] # (Auto) 900 (0-900) /uL Eos # (Auto) 100 (0-450) /uL Baso # (Auto) 100 (0-100) /uL PT 21.5 H (10.1-12.7) SECONDS INR 1.9 H (0.9-1.3) APTT 32 D (26.4-36.2) SECONDS Sodium 137 (137-145) mmol/L Potassium 3.8 (3.4-5.1) mmol/L Chloride 102 (98-107) mmol/L Carbon Dioxide 25 (22-32) mmol/L BUN 4 L (7-17) mg/dL Creatinine 0.56 (0.52-1.04) mg/dL Estimated GFR > 60.0 (>60) mL/min BUN/Creatinine Ratio 7.1 (6-22) Glucose 76 (70-100) mg/dL Lactate (0.7-2.1) mmol/L Calcium 8.6 (8.4-10.2) mg/dL Total Bilirubin 13.9 H (0.2-1.3) mg/dL AST 250 H (14-36) IU/L ALT 61 H (<35) IU/L Alkaline Phosphatase 312 H (38-126) U/L Ammonia (9-30) umol/L Total Protein 6.9 (6.3-8.2) g/dL Albumin 2.9 L (3.5-5.0) g/dL Globulin 4.0 (1.7-4.1) g/dL Albumin/Globulin Ratio 0.7 L (1.0-2.8) Lipase 30 (23-300) U/L Urine RBC (0-5/HPF) Urine WBC (0-5/HPF) Ur Squamous Epith Cells (0-5/HPF) Amorphous Sediment Urine Bacteria (None) Urine Mucus (Negative) Ur Culture Indicated? Influenza A (RT-PCR) (NEGATIVE) Influenza B (RT-PCR) (NEGATIVE) 07/14/19 07/14/19 07/14/19 Range/Units 11:35 11:35 12:23 WBC (4.5-11.0) X10^3/uL RBC (4.0-5.2) X10^6/uL Hgb (12.0-16.0) g/dL Hct (36-46) % MCV (80-100) fL MCH (26-34) PG MCHC (30-36) % RDW (11.6-14.8) % Plt Count (150-400) X10^3/uL Neut % (Auto) (50-75) % Lymph % (Auto) (25-40) % [place] % (Auto) (3-14) % Eos % (Auto) (2-4) % Baso % (Auto) (0-2) % Neut # (Auto) (4638-2197) /uL Lymph # (Auto) (3447-7760) /uL [place] # (Auto) (0-900) /uL Eos # (Auto) (0-450) /uL Baso # (Auto) (0-100) /uL PT (10.1-12.7) SECONDS INR (0.9-1.3) APTT (26.4-36.2) SECONDS Sodium (137-145) mmol/L Potassium (3.4-5.1) mmol/L Chloride (98-107) mmol/L Carbon Dioxide (22-32) mmol/L BUN (7-17) mg/dL Creatinine (0.52-1.04) mg/dL Estimated GFR (>60) mL/min BUN/Creatinine Ratio (6-22) Glucose (70-100) mg/dL Lactate 2.0 (0.7-2.1) mmol/L Calcium (8.4-10.2) mg/dL Total Bilirubin (0.2-1.3) mg/dL AST (14-36) IU/L ALT (<35) IU/L Alkaline Phosphatase (38-126) U/L Ammonia < 9 L (9-30) umol/L Total Protein (6.3-8.2) g/dL Albumin (3.5-5.0) g/dL Globulin (1.7-4.1) g/dL Albumin/Globulin Ratio (1.0-2.8) Lipase (23-300) U/L Urine RBC (0-5/HPF) Urine WBC (0-5/HPF) Ur Squamous Epith Cells (0-5/HPF) Amorphous Sediment Urine Bacteria (None) Urine Mucus (Negative) Ur Culture Indicated? Influenza A (RT-PCR) Flu a negative (NEGATIVE) Influenza B (RT-PCR) Flu b negative (NEGATIVE) 07/14/19 Range/Units 15:42 WBC (4.5-11.0) X10^3/uL RBC (4.0-5.2) X10^6/uL Hgb (12.0-16.0) g/dL Hct (36-46) % MCV (80-100) fL MCH (26-34) PG MCHC (30-36) % RDW (11.6-14.8) % Plt Count (150-400) X10^3/uL Neut % (Auto) (50-75) % Lymph % (Auto) (25-40) % [place] % (Auto) (3-14) % Eos % (Auto) (2-4) % Baso % (Auto) (0-2) % Neut # (Auto) (8101-1719) /uL Lymph # (Auto) (5834-1172) /uL [place] # (Auto) (0-900) /uL Eos # (Auto) (0-450) /uL Baso # (Auto) (0-100) /uL PT (10.1-12.7) SECONDS INR (0.9-1.3) APTT (26.4-36.2) SECONDS Sodium (137-145) mmol/L Potassium (3.4-5.1) mmol/L Chloride (98-107) mmol/L Carbon Dioxide (22-32) mmol/L BUN (7-17) mg/dL Creatinine (0.52-1.04) mg/dL Estimated GFR (>60) mL/min BUN/Creatinine Ratio (6-22) Glucose (70-100) mg/dL Lactate (0.7-2.1) mmol/L Calcium (8.4-10.2) mg/dL Total Bilirubin (0.2-1.3) mg/dL AST (14-36) IU/L ALT (<35) IU/L Alkaline Phosphatase (38-126) U/L Ammonia (9-30) umol/L Total Protein (6.3-8.2) g/dL Albumin (3.5-5.0) g/dL Globulin (1.7-4.1) g/dL Albumin/Globulin Ratio (1.0-2.8) Lipase (23-300) U/L Urine RBC None seen (0-5/HPF) Urine WBC 5-10/hpf H (0-5/HPF) Ur Squamous Epith Cells 0-1 /hpf (0-5/HPF) Amorphous Sediment 1+ Urine Bacteria Few (2-10) H (None) Urine Mucus 3+ H (Negative) Ur Culture Indicated? Specimen cultured Influenza A (RT-PCR) (NEGATIVE) Influenza B (RT-PCR) (NEGATIVE) Point of care testing: Point of Care Testing Test Results Negative Urine Dip Bedside Urine Glucose 100 mg/dl Bedside Urine Bilirubin ++ 2 Bedside Urine Ketone +/- 5 Urine Specific [place] 1.005 Bedside Urine Occult Blood - Negative Bedside Urine pH 6.5 Bedside Urine Protein - Negative Bedside Urine Urobilinogen +/- 1mg Bedside Urine Nitrite - Negative Bedside Urine Leukocytes +/- 15 Esterase Discharge Plan Departure Prescriptions: No Action ondansetron 4 mg Tablet,Disintegrating 4 mg PO BID PRN (Reason: Pain (Scale Score 1-3)) RF: 0 cyclobenzaprine 10 mg Tablet 10 mg PO TID PRN (Reason: Spasms) RF: 0 cephalexin [Keflex] 500 mg capsule 500 mg PO BID Qty: 10 RF: 0
[2019-07-14] MEDS: FUROSEMIDE 40 MG/4 ML VIAL IV (15:04)
[2019-07-14 16:02] LABS: RBC Urine None Seen (0-5/HPF)
[2019-07-14 16:10] LABS: Amorphous Sediment Urine 1+; Bacteria Urine Few (2-10); Culture Indicated Urine Specimen Cultured; Mucus Urine 3+ (Negative); Squamous Epithelial Cell Urine 0-1 /HPF (0-5/HPF); WBC Urine 5-10/HPF (0-5/HPF)
--- NOTE | 2019-07-14 19:38 | PC.NURSE ---
Report called to Usha Grullon
[2019-07-19 01:33] LABS: COVID19 Sendout Not Detected (Not Detected)
== END 2019-07-14 19:39 | disposition short-term general hospital (02) ==
PROVIDERS: Emergency Provider Nurse Practitioner Family
DX: R18.8 Other ascites (principal); E80.6 Other disorders of bilirubin metabolism; K73.9 Chronic hepatitis, unspecified; R05 Cough; R11.2 Nausea with vomiting, unspecified; R50.9 Fever, unspecified; R06.02 Shortness of breath
CPT/HCPCS: 36415; 51798; 71046; 74177; 76705; 80053; 81003; 81015; 81025; 82140; 83605; 83690; 85025; 85610; 85730; 87040; 87086; 87502; 87635; 93005; 96361; 96374; 96375; 96376; 99285; J1940; J3010; Q9967